=== PATIENT | female | born 1940 | race Caucasian/White ===

== ENCOUNTER → 2016-09-17 | Outpatient (CLI) | payer MEDICARE ==
[~2016-09-17] MED LIST: ALBU8.5H2 IH; AMLO5TAB2 PO; AMOX-355 PO; ASP325T PO; ASP81CT; ASP81TEC PO; ASPI-84 PO; BNZ20T PO; BNZ40T PO; CALC-20 PO; CALC-80 PO; CHOL10008 PO; CHOL2000; CHOL200018 PO; CHOL200035 PO; CLOP75TA PO; CLOT15CR6 TOP; DCS100C; DICL100G20 TOP; DICL500C PO; FAMO20TA5 PO; FLD5TCR; FLD5TCR PO; FLUT1DIS26 IH; FRSM40T; FRSM40T PO; GLIP5TAB13 PO; GLYB1.252; GLYB1.253 PO; GLYB2.5T4 PO; HYDR-3812 PO; HYDR-707 PO; INSASP10V SQ; INSU100V5 SQ; IPRA3AMP IH; IPRA3AMP11 INH; IPRA3AMP19 IH; ISM30TCR PO; KCL20TCR; KCL20TCR PO; MELO-195 PO; MELO7.5T; METO25TA2 PO; METO50TA7 PO; MNTL10T PO; MONT10TA24 PO; MTP50T PO; NF-TYLARTH PO; NITR0.3T6 SL; PANT40SU PO; POLY119P; POLY17PO23 PO; POTA20TA15 PO; PRAV20TA PO; PRAV40TA PO; PRAV40TA2 PO; PRAV80TA2 PO; PRD20T PO; PROP1TAB2 PO; PROP1TAB77; RAMI10TA PO; RMP5C; SMV20T; TIOT4MIS5 IH; TRAM-42 PO; TRAM50TA2 PO; VITD; WARF1TAB6 PO; WARF5TAB PO; WRF5T PO
--- NOTE | 2016-09-18 07:01 | ECHOCARDIOGRAPHY REPORT ---
DATE OF SERVICE: ORDERING PHYSICIAN: Dr. Lopez. PRIMARY PHYSICIAN: Dr. Cabrera. CLINICAL DIAGNOSES: Coronary artery disease, cardiomyopathy. MEASUREMENTS: LV diameter diastolic 5.2. IVS thickness diastolic 1.1. LVPW thickness diastolic 1. Aortic root 2.9. Left atrium 4. DESCRIPTION: Two dimensional echocardiography shows global left ventricular systolic function at the lower limit of normal with an ejection fraction of 50%. There is basal septal akinesis to dyskinesis. There is thinning of this part of the septum. Aortic mitral and tricuspid valve leaflets show good leaflet excursion. Aortic valve appears to be trileaflet. There is no significant pericardial effusion. Doppler imaging shows mild mitral, tricuspid and pulmonic regurgitation. There is no Doppler evidence of significant valvular stenosis. Pulmonary artery systolic pressure is estimated to be 30 mmHg. There is no evidence of any significant intracardiac shunt on this transthoracic echocardiography study. Inferior vena cava appears to be of normal size and does exhibit inspiratory collapse. CONCLUSION: 1. Basal septal akinesis to dyskinesis. 2. Global left ventricular systolic function at the lower limit of normal with an ejection fraction of 50%. 3. Mild mitral and tricuspid regurgitation. 4. Pulmonary artery systolic pressure is estimated to be 25-30 mmHg. 5. This study does not appear significantly changed compared to a study of 05/02/2012. Job ID: [id number] DocumentID: [id number] Dictated Date: 09/17/2016 12:34:22 Agricultural Extension Agent Date: 09/17/2016 13:01:53 Dictated By: FAITH LOPEZ MD, MA, FACP, FACC, MTDD
== END ==
LOC: CARD 07:28
PROVIDERS: ATTEND Internal Medicine Cardiovascular Disease
DX: I25.10 Atherosclerotic heart disease of native coronary artery without angina pectoris (principal); I65.23 Occlusion and stenosis of bilateral carotid arteries; I42.0 Dilated cardiomyopathy; I80.222 Phlebitis and thrombophlebitis of left popliteal vein; E11.9 Type 2 diabetes mellitus without complications; G47.33 Obstructive sleep apnea (adult) (pediatric); R06.02 Shortness of breath; Z72.0 Tobacco use
CPT/HCPCS: 93306

== ENCOUNTER 2016-11-28 19:53 | Emergency (ER) | payer MEDICARE ==
[~2016-11-28] VITALS: Ht 165.1 cm; Wt 89.4 kg
--- NOTE | 2016-11-28 20:21 | ED Lower Extremity ---
General Chief Complaint: Lower Extremity Stated Complaint: LEG SWELLING Source: patient Exam Limitations: no limitations History of Present Illness Time seen by provider: 19:58 Initial Comments Here with report of left lower leg pain, swelling and redness. Noted tonight when she took off her compression stocking that she had redness to the left lower extremity especially anterior and pain to the posterior calf on the lateral aspect. She is on Coumadin but reports that she has had blood clots before. Denies recent injury to explain the concern. Denies fever or chills. Onset: this evening Severity: moderate Pain/Injury Location: left leg Method of Injury: unknown Modifying Factors: Worse With Movement, Improves With Rest Allergies and Home Medications Allergies Coded Allergies: Erythromycin Base (Verified Allergy, Intermediate, HIVES, 10/10/13) Cephalexin (Verified Allergy, Unknown, 10/10/13) Home Medications Aspirin 81 Mg Tabec, 81 MG PO DAILY, (Reported) Benazepril Hcl 40 Mg Tablet, 40 MG PO DAILY, (Reported) Calcium Carbonate/Vitamin D3 1 Each Tablet, 1 EACH PO HS, (Reported) Cholecalciferol (Vitamin D3) 2,000 Unit Capsule, 2,000 UNIT PO HS, (Reported) Famotidine 20 Mg Tablet, 20 MG PO BID, (Reported) Fluticasone/Salmeterol 1 Disk Inhp, 1 PUFF IH BID, (Reported) Furosemide 40 Mg Tab, 40 MG PO DAILY, (Reported) Glipizide 5 Mg Tablet, 5 MG PO BID, (Reported) Hydrocodone/Acetaminophen 1 Each Tablet, 1-2 EACH PO Q4H PRN for PAIN, #30 Prescribed by: KEYSHA BRUNO on 08/07/15 1350 Insulin Detemir 100 U/Ml Vial, 10 U SQ HS PRN for BLOOD SUGAR >200, (Reported) TAKE IF BLOOD SUGAR IS OVER 200 Insulin Human Lispro 100 U/Ml Vial, 8 UNITS SQ TIDAC PRN for BLOOD SUGAR > 200, (Reported) TAKE IF BLOOD SUGAR IS OVER 200 Ipratropium/Albuterol Sulfate 3 Ml Ampul.neb, 3 ML IH QID PRN for SHORTNESS OF BREATH, (Reported) Metoprolol Tartrate 50 Mg Tablet, 50 MG PO BID, (Reported) Montelukast Sodium 10 Mg Tablet, 10 MG PO HS, (Reported) Polyethylene Glycol 17 Gm Pack, 17 GM PO DAILY PRN for CONSTIPATION, (Reported) NEEDED FOR CONSTIPATION Potassium Chloride 20 Meq Tab.prt.sr, 20 MEQ PO DAILY, (Reported) Pravastatin Sodium 40 Mg Tablet, 20 MG PO HS, (Reported) TAKE 1/2 OF 40MG TAB Tramadol HCl 50 Mg Tablet, 50 MG PO QID, #30 Prescribed by: DORENE ORANTES on 10/17/15 1552 Warfarin Sodium 5 Mg Tablet, 5 MG PO DAILY, (Reported) Warfarin Sodium 1 Mg Tablet, 1 MG PO WEDSUN, (Reported) TAKE IN ADDITION TO 5 MG ON WED AND WED Constitutional: see HPI, No chills, No fever EENTM: no symptoms reported Respiratory: no symptoms reported Cardiovascular: no symptoms reported Gastrointestinal: no symptoms reported Musculoskeletal: see HPI, muscle pain, No muscle stiffness Skin: change in color, No lesions Psychiatric/Neurological: No Symptoms Reported Past Sccumew-Ubhxey-Ccedjh Hx Patient Social History Former Smoker/When Quit: September 29, 2011 Recent Foreign Travel: No Contact w/Someone Who Travel: No Immunizations Up To Date Date of Pneumonia Vaccine: Jan 05, 2015 Date of Influenza Vaccine: Feb 28, 2015 Surgeries HX Surgeries: Yes (FOOT TUMOR,CATARACTS,X2MMK&RECTOCELE,,HEMORRHOIDS, HEMICOLECTomy) Respiratory Hx Respiratory Disorders: Yes (uses CPAP) Respiratory Disorders: Asthma, Sleep Apnea, COPD Cardiovascular Hx Cardiac Disorders: Yes (STENTS, triple bypass, possible heart attack) Cardiac Disorders: Deep Vein Thrombosis Neurological Hx Neurological Disorders: No Reproductive System Hx Reproductive Disorders: No Sexually Transmitted Disease: No HIV/AIDS: No 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 Disorders: Endometriosis Genitourinary Hx Genitourinary Disorders: Yes (OCC.LEAKING) Gastrointestinal Hx Gastrointestinal Disorders: Yes (colon resection, ) Musculoskeletal Hx Musculoskeletal Disorders: Yes Musculoskeletal Disorders: Arthritis Endocrine Hx Endocrine Disorders: Yes Endocrine Disorders: Diabetes, Non-Insulin dep HEENT HX ENT Disorders: Yes (partial lower plate) HEENT Disorders: Cataract Loss of Vision: Denies Hearing Impairment: Denies Cancer Hx Cancer: Yes Cancer: Skin Psychosocial Hx Psychiatric Problems: No Integumentary HX Skin/Integumentary Disorder: No Blood Transfusions Hx Blood Disorders: No (HX OF DVT, ) Adverse Reaction to a Blood Tr: No Reviewed Nursing Assessment Reviewed/Agree w Nursing PMH: Yes Family Medical History Significant Family History: No Pertinent Family Hx Physical Exam Vital Signs Vital Sign - Last 12Hours 11/28/16 19:55 Temp 98.1 Pulse 77 Resp 20 B/P (MAP) 156/69 Pulse Ox 95 O2 Delivery Room Air Capillary Refill : General Appearance: WD/WN, no apparent distress Cardiovascular: regular rate, rhythm, no murmur Respiratory: lungs clear, normal breath sounds Gastrointestinal: non tender, soft Back: normal inspection, no CVA tenderness, no vertebral tenderness Legs: right leg non-tender, right leg normal inspection, right leg normal range of motion, right leg no evidence of injury, left leg pain, left leg soft tissue tenderness, left leg swelling, left leg other Feet: bilateral foot non-tender, bilateral foot normal inspection, bilateral foot normal range of motion Neurologic/Psychiatric: alert, oriented x 3 Skin: warm/dry, other (erythema to the left lower extremity especially lateral from ankle to knee.) Progress/Results/Core Measures Results/Orders Lab Results Laboratory Tests Test 11/28/16 20:14 Range/Units White Blood Count 7.1 4.3-11.0 10^3/uL Red Blood Count 4.51 4.35-5.85 10^6/uL Hemoglobin 13.1 11.5-16.0 G/DL Hematocrit 40 35-52 % Mean Corpuscular Volume 89 80-99 FL Mean Corpuscular Hemoglobin 29 25-34 PG Mean Corpuscular Hemoglobin Concent 33 32-36 G/DL Red Cell Distribution Width 14.9 H 10.0-14.5 % Platelet Count 222 130-400 10^3/uL Mean Platelet Volume 10.0 7.4-10.4 FL Neutrophils (%) (Auto) 59 42-75 % Lymphocytes (%) (Auto) 25 12-44 % Monocytes (%) (Auto) 12 0-12 % Eosinophils (%) (Auto) 3 0-10 % Basophils (%) (Auto) 1 0-10 % Neutrophils # (Auto) 4.2 1.8-7.8 X 10^3 Lymphocytes # (Auto) 1.8 1.0-4.0 X 10^3 Monocytes # (Auto) 0.8 0.0-1.0 X 10^3 Eosinophils # (Auto) 0.2 0.0-0.3 10^3/uL Basophils # (Auto) 0.1 0.0-0.1 10^3/uL Prothrombin Time 38.0 H 12.2-14.7 SEC INR Comment 3.9 H 0.8-1.4 Activated Partial Thromboplast Time 50 H 24-35 SEC Sodium Level 145 135-145 MMOL/L Potassium Level 3.7 3.6-5.0 MMOL/L Chloride Level 112 H 98-107 MMOL/L Carbon Dioxide Level 20 L 21-32 MMOL/L Anion Gap 13 5-14 MMOL/L Blood Urea Nitrogen 18 7-18 MG/DL Creatinine 0.86 0.60-1.30 MG/DL Estimat Glomerular Filtration Rate > 60 BUN/Creatinine Ratio 21 Glucose Level 154 H 70-105 MG/DL Calcium Level 9.0 8.5-10.1 MG/DL Total Bilirubin 0.4 0.1-1.0 MG/DL Aspartate Amino Transf (AST/SGOT) 20 5-34 U/L Alanine Aminotransferase (ALT/SGPT) 16 0-55 U/L Alkaline Phosphatase 69 40-136 U/L C-Reactive Protein High Sensitivity 1.62 H 0.00-0.50 MG/DL Total Protein 6.4 6.4-8.2 GM/DL Albumin 3.7 3.2-4.5 GM/DL My Orders Orders - ROMA WISDOM MD Venous Lower Ext Lt (11/28/16 20:03) Cbc With Automated Diff (11/28/16 20:03) Comprehensive Metabolic Panel (11/28/16 20:03) Hs C Reactive Protein (11/28/16 20:03) Protime With Inr (11/28/16 20:03) Partial Thromboplastin Time (11/28/16 20:03) Doxycycline Hyclate Tablet (Vibramycin T (11/28/16 21:02) Vital Signs/I&O Vital Sign - Last 12Hours 11/28/16 19:55 Temp 98.1 Pulse 77 Resp 20 B/P (MAP) 156/69 Pulse Ox 95 O2 Delivery Room Air Progress Note : Progress Note Seen and evaluated. Labs, PT/INR and PTT due to patient being on anticoagulants and ultrasound left lower extremity ordered. Monitor patient. 2103: Ultrasound negative. Findings more consistent with mild cellulitis. Doxycycline 100 mg by mouth initiated. She thinks that she has taken this before without any difficulty. Discharge home with return precautions. Patient verbalize understanding instructions and agreement with plan. Diagnostic Imaging Diagonstic Imaging: Ultrasound Plain Films/CT/US/NM/MRI: leg Comments Left lower extremity ultrasound shows no evidence of DVT per preliminary read. Departure Impression Impression: Primary Impression: Cellulitis of left lower extremity Disposition: HOME, SELF-CARE Condition: Stable Departure-Patient Inst. Decision time for Depature: 21:05 Referrals: MAHENDRA RENNER DO (PCP/Family) Primary Care Physician Patient Instructions: Cellulitis (Skin Infection), Adult (DC) Add. Discharge Instructions: All discharge instructions reviewed with patient and/or family. Voiced understanding. Take medications as directed. Follow up with your Dr. in a few days for recheck. Return for worse pain, fever, vomiting, weakness, red streaks up the leg or other concerns as needed. Scripts Doxycycline Hyclate (Doxycycline Hyclate) 100 Mg Tablet 100 MG PO BID, #20 TAB 0 Refills Prov: ROMA WISDOM MD 11/28/16 ROMA WISDOM MD Nov 28, 2016 20:21
[2016-11-28 20:23] LABS: BASOPHILS # (AUTO) 0.1 10^3/uL (0.0-0.1); BASOPHILS % (AUTO) 1 % (0-10); EOSINOPHILS # (AUTO) 0.2 10^3/uL (0.0-0.3); EOSINOPHILS % (AUTO) 3 % (0-10); LYMPHOCYTES # (AUTO) 1.8 X 10^3 (1.0-4.0); LYMPHOCYTES % (AUTO) 25 % (12-44); MEAN CORPUSCULAR HEMOGLOBIN 29 PG (25-34); MEAN CORPUSCULAR HGB CONC 33 G/DL (32-36); MEAN CORPUSCULAR VOLUME 89 FL (80-99); MONOCYTES # (AUTO) 0.8 X 10^3 (0.0-1.0); MONOCYTES % (AUTO) 12 % (0-12); NEUTROPHILS # (AUTO) 4.2 X 10^3 (1.8-7.8); NEUTROPHILS % (AUTO) 59 % (42-75); PLATELET COUNT 222 10^3/uL (130-400); RED BLOOD COUNT 4.51 10^6/uL (4.35-5.85); RED CELL DISTRIBUTION WIDTH 14.9 % (10.0-14.5); WHITE BLOOD COUNT 7.1 10^3/uL (4.3-11.0)
[2016-11-28 20:33] LABS: INR 3.9 (0.8-1.4)
[2016-11-28 20:42] LABS: ALANINE AMINOTRANSFERASE 16 U/L (0-55); ALBUMIN 3.7 GM/DL (3.2-4.5); ANION GAP 13 MMOL/L (5-14); ASPARTATE AMINO TRANSFERASE 20 U/L (5-34); BILIRUBIN,TOTAL 0.4 MG/DL (0.1-1.0); BLOOD UREA NITROGEN 18 MG/DL (7-18); BUN/CREATININE RATIO 21; CARBON DIOXIDE 20 MMOL/L (21-32); CHLORIDE 112 MMOL/L (98-107); CREATININE SERUM 0.86 MG/DL (0.60-1.30); GFR ESTIMATED > 60; GLUCOSE 154 MG/DL (70-105); POTASSIUM 3.7 MMOL/L (3.6-5.0); SODIUM 145 MMOL/L (135-145); TOTAL PROTEIN 6.4 GM/DL (6.4-8.2); hs C REACTIVE PROTEIN 1.62 MG/DL (0.00-0.50)
[2016-11-28] MEDS ORDERED: DOXYCYCLINE 100 MG (VIBRAMYCIN) TABLET PO STA (21:02)
[2016-11-28] MEDS ORDERED: DOXY100T2 PO (21:10)
[2016-11-28 21:50] VITALS: BP 155/69
--- NOTE | 2016-11-29 06:09 | Diagnostic Imaging Report ---
PROCEDURE: US left lower extremity venous. INDICATION: Edema EXAMINATION: Left lower extremity venous Doppler dated 11/28/2016 TECHNIQUE: Waveform and spectral analysis of the lower extremity venous structures. FINDINGS: There is no evidence for deep vein thrombosis with normal compressibility, augmentation and spontaneity of all visualized venous structures. IMPRESSION: 1. No evidence for deep vein thrombosis. Dictated by: Dictated on workstation # [id number]
== END 2016-11-28 21:50 | disposition home or self-care (01) ==
LOC: EDUNIT# 19:53 → ER 19:54
DX: I82.90 Acute embolism and thrombosis of unspecified vein (principal); Z79.01 Long term (current) use of anticoagulants
CPT/HCPCS: 36415; 80053; 85025; 85610; 85730; 86141; 99283

== ENCOUNTER 2016-12-20 12:23 | Day surgery (SDC) | payer MEDICARE ==
[~2016-12-20] VITALS: Ht 165.1 cm; Wt 86.2 kg
[~2016-12-20 12:23] MED LIST changes: +DOXY100T2 PO
[2016-12-20] MEDS ORDERED: ASPIRIN 81 MG CHEW (CHILDREN'S ASA) ONE (12:41)
[2016-12-20 13:05] LABS: BASOPHILS # (AUTO) 0.1 10^3/uL (0.0-0.1); BASOPHILS % (AUTO) 1 % (0-10); EOSINOPHILS # (AUTO) 0.2 10^3/uL (0.0-0.3); EOSINOPHILS % (AUTO) 3 % (0-10); LYMPHOCYTES # (AUTO) 1.7 X 10^3 (1.0-4.0); LYMPHOCYTES % (AUTO) 18 % (12-44); MEAN CORPUSCULAR HEMOGLOBIN 29 PG (25-34); MEAN CORPUSCULAR HGB CONC 32 G/DL (32-36); MEAN CORPUSCULAR VOLUME 91 FL (80-99); MONOCYTES # (AUTO) 0.7 X 10^3 (0.0-1.0); MONOCYTES % (AUTO) 8 % (0-12); NEUTROPHILS # (AUTO) 6.4 X 10^3 (1.8-7.8); NEUTROPHILS % (AUTO) 70 % (42-75); PLATELET COUNT 231 10^3/uL (130-400); RED BLOOD COUNT 4.53 10^6/uL (4.35-5.85); RED CELL DISTRIBUTION WIDTH 15.1 % (10.0-14.5); WHITE BLOOD COUNT 9.1 10^3/uL (4.3-11.0)
--- NOTE | 2016-12-20 13:12 | Diagnostic Imaging Report ---
EXAMINATION: Chest radiograph, portable AP view. DATE: December 20, 2016 at 12:54 hours. INDICATION: 76-year-old female, productive cough. COMPARISON: November 28, 2014. FINDINGS: There are median sternotomy wires. Stable overall appearance of the cardiomediastinal silhouette. There is no identified pneumothorax. There is no large pleural effusion. There is no identified interval focal airspace consolidation. IMPRESSION: 1. No identified interval acute cardiopulmonary abnormality. Dictated by: Dictated on workstation # [id number]
[2016-12-20 13:21] LABS: ALANINE AMINOTRANSFERASE 19 U/L (0-55); ALBUMIN 3.7 GM/DL (3.2-4.5); ANION GAP 13 MMOL/L (5-14); ASPARTATE AMINO TRANSFERASE 28 U/L (5-34); BILIRUBIN,TOTAL 0.4 MG/DL (0.1-1.0); BLOOD UREA NITROGEN 16 MG/DL (7-18); BUN/CREATININE RATIO 21; CALCIUM 8.6 MG/DL (8.5-10.1); CARBON DIOXIDE 19 MMOL/L (21-32); CHLORIDE 110 MMOL/L (98-107); CREATININE SERUM 0.78 MG/DL (0.60-1.30); GFR ESTIMATED > 60; GLUCOSE 88 MG/DL (70-105); POTASSIUM 4.7 MMOL/L (3.6-5.0); SODIUM 142 MMOL/L (135-145); TOTAL PROTEIN 6.8 GM/DL (6.4-8.2)
[2016-12-20 13:27] LABS: TROPONIN I < 0.30 NG/ML (<0.30)
--- NOTE | 2016-12-20 13:54 | ED Chest Pain ---
General Chief Complaint: Chest Pain Stated Complaint: CHEST PAIN Nursing Triage Note: pt reports medial epigastric cp starting around 1100 today. pt reports she took two nitro at home and cp resolved upon arrival to ed. Source: patient, family Exam Limitations: no limitations History of Present Illness Time seen by provider: 13:35 Initial Comments 76-year-old female patient presents to the emergency department complains of indigestion with epigastric pain radiating into the jaw wednesday morning. Patient reports taking one nitroglycerin with improvement in symptoms. Patient was noted to have similar symptoms beginning at 1100 today. States she took 2 nitroglycerin at home with improvement in symptoms. Patient does have a history of coronary artery disease with stent placement. Timing/Duration: intermittent, other (1100 today) Severity/Quality: other (indigestion) Location: epigastric Radiation: jaw, other (substernal) Activities at Onset: none Prior CP/Workup: cardiac cath, echocardiography Modifying Factors: improves with nitroglycerin ASA po DIRECTOR SECURITY MANAGEMENT: No NTG SL DIRECTOR SECURITY MANAGEMENT: Yes Allergies and Home Medications Allergies Coded Allergies: erythromycin base (Verified Allergy, Intermediate, HIVES, 10/10/13) cephalexin (Verified Allergy, Unknown, 10/10/13) Home Medications Amlodipine Besylate 5 Mg Tablet, 5 MG PO DAILY, (Reported) Aspirin 81 Mg Tab.chew, 81 MG PO DAILY, (Reported) Benazepril HCl 40 Mg Tab, 40 MG PO DAILY, (Reported) Calcium Citrate/Vitamin D3 1 Each Tablet, 1 TAB PO DAILY, (Reported) Cholecalciferol (Vitamin D3) 2,000 Unit Capsule, 2,000 UNIT PO HS, (Reported) Famotidine 20 Mg Tablet, 20 MG PO BID, (Reported) Fluticasone/Salmeterol 1 Each Blst.w.dev, 1 PUFF IH BID, (Reported) Furosemide 40 Mg Tablet, 40 MG PO DAILY, (Reported) Glipizide 5 Mg Tablet, 2.5 MG PO BID, (Reported) TAKES 1/2 OF A (5 MG) TABLET Insulin Detemir 100 U/Ml Vial, 10 U SQ HS PRN for BLOOD SUGAR GREATER THAN 200, (Reported) Insulin Human Lispro 100 U/Ml Vial, 8 UNITS SQ TIDAC PRN for BLOOD SUGAR GREATER THAN 180, (Reported) Ipratropium/Albuterol Sulfate 3 Ml Ampul.neb, 3 ML IH QID PRN for SHORTNESS OF BREATH, (Reported) Metoprolol Tartrate 50 Mg Tablet, 50 MG PO BID, (Reported) Montelukast Sodium 10 Mg Tablet, 10 MG PO HS, (Reported) Nitroglycerin 0.4 Mg Tab.subl, 0.4 MG SL Q5M PRN for CHEST PAIN, #20 Prescribed by: MAHENDRA RENNER on 12/23/16 1101 Polyethylene Glycol 3350 255 Gm Powder, 17 GM PO DAILY, (Reported) Potassium Chloride 20 Meq Tab.er.prt, 20 MEQ PO DAILY, (Reported) Pravastatin Sodium 40 Mg Tablet, 20 MG PO HS, (Reported) TAKE 1/2 OF (40 MG) TABLET Tramadol HCl 50 Mg Tablet, 50 MG PO TID PRN for PAIN-MODERATE, (Reported) Warfarin Sodium 5 Mg Tablet, 5 MG PO 1800, (Reported) Review of Systems Constitutional: No chills, No diaphoresis, No dizziness, No fever, No malaise, No weakness EENTM: See HPI Respiratory: Denies Cough, Denies Orthopnea, Denies Shortness of Air Cardiovascular: See HPI, Chest Pain, Denies Irregular Heart Rate, Denies Lightheadedness, Denies Palpitations, Denies Syncope Gastrointestinal: See HPI, Denies Abdomen Distended, Abdominal Pain, Denies Constipated, Denies Diarrhea, Denies Nausea, Denies Rectal Bleeding, Denies Vomiting Genitourinary: No Symptoms Reported Musculoskeletal: no symptoms reported Skin: no symptoms reported Psychiatric/Neurological: No Symptoms Reported All Other Systems Reviewed Negative Unless Noted: Yes (Negative excepted noted.) Past Ugvulkt-Kvpjyo-Vrvysu Hx Patient Social History Type Used: Cigarettes Former Smoker/When Quit: September 29, 2011 2nd Hand Smoke Exposure: Yes Recent Foreign Travel: No Contact w/Someone Who Travel: No Recent Hopitalizations: No Immunizations Up To Date Date of Pneumonia Vaccine: Jan 05, 2015 Date of Influenza Vaccine: Feb 28, 2015 Seasonal Allergies Seasonal Allergies: Yes Surgeries HX Surgeries: Yes (FOOT TUMOR,CATARACTS,X2MMK&RECTOCELE,,HEMORRHOIDS, HEMICOLECTomy) Respiratory Hx Respiratory Disorders: Yes (uses CPAP) Respiratory Disorders: Asthma, Sleep Apnea, COPD Cardiovascular Hx Cardiac Disorders: Yes (STENTS, triple bypass, possible heart attack) Cardiac Disorders: Coronary Artery Disease, Deep Vein Thrombosis, Hypertension Neurological Hx Neurological Disorders: No Reproductive System Hx Reproductive Disorders: No Sexually Transmitted Disease: No HIV/AIDS: No 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 Disorders: Endometriosis Genitourinary Hx Genitourinary Disorders: Yes (OCC.LEAKING) Gastrointestinal Hx Gastrointestinal Disorders: Yes (colon resection, ) Musculoskeletal Hx Musculoskeletal Disorders: Yes Musculoskeletal Disorders: Arthritis Endocrine Hx Endocrine Disorders: Yes Endocrine Disorders: Diabetes, Non-Insulin dep HEENT HX ENT Disorders: Yes (partial lower plate) HEENT Disorders: Cataract Loss of Vision: Denies Hearing Impairment: Denies Cancer Hx Cancer: Yes Cancer: Skin Psychosocial Hx Psychiatric Problems: No Integumentary HX Skin/Integumentary Disorder: No Blood Transfusions Hx Blood Disorders: No (HX OF DVT, ) Adverse Reaction to a Blood Tr: No Reviewed Nursing Assessment Reviewed/Agree w Nursing PMH: Yes Family Medical History Significant Family History: No Pertinent Family Hx Physical Exam Vital Signs Vital Sign - Last 12Hours 12/20/16 13:00 Temp 98.0 Pulse 83 Resp 18 B/P (MAP) 124/68 O2 Delivery Room Air Capillary Refill : General Appearance: No Apparent Distress, WD/WN HEENT: PERRL/EOMI, Pharynx Normal Neck: Normal Inspection, Supple Respiratory: Chest Non Tender, Lungs Clear, Normal Breath Sounds, No Respiratory Distress Cardiovascular: Regular Rate, Rhythm, No Murmur, Normal Peripheral Pulses Gastrointestinal: Normal Bowel Sounds, No Organomegaly, Non Tender, Soft, No Distended Extremity: Normal Capillary Refill, Pedal Edema (2+ pedal edema bilaterally) Neurologic/Psychiatric: Alert, Oriented x3, Normal Mood/Affect Skin: Normal Color, Warm/Dry Progress/Results/Core Measures Results/Orders Lab Results Laboratory Tests Test 12/20/16 12:39 Range/Units White Blood Count 9.1 4.3-11.0 10^3/uL Red Blood Count 4.53 4.35-5.85 10^6/uL Hemoglobin 13.2 11.5-16.0 G/DL Hematocrit 41 35-52 % Mean Corpuscular Volume 91 80-99 FL Mean Corpuscular Hemoglobin 29 25-34 PG Mean Corpuscular Hemoglobin Concent 32 32-36 G/DL Red Cell Distribution Width 15.1 H 10.0-14.5 % Platelet Count 231 130-400 10^3/uL Mean Platelet Volume 11.0 H 7.4-10.4 FL Neutrophils (%) (Auto) 70 42-75 % Lymphocytes (%) (Auto) 18 12-44 % Monocytes (%) (Auto) 8 0-12 % Eosinophils (%) (Auto) 3 0-10 % Basophils (%) (Auto) 1 0-10 % Neutrophils # (Auto) 6.4 1.8-7.8 X 10^3 Lymphocytes # (Auto) 1.7 1.0-4.0 X 10^3 Monocytes # (Auto) 0.7 0.0-1.0 X 10^3 Eosinophils # (Auto) 0.2 0.0-0.3 10^3/uL Basophils # (Auto) 0.1 0.0-0.1 10^3/uL Prothrombin Time 32.9 H 12.2-14.7 SEC INR Comment 3.2 H 0.8-1.4 Activated Partial Thromboplast Time 53 H 24-35 SEC Sodium Level 142 135-145 MMOL/L Potassium Level 4.7 3.6-5.0 MMOL/L Chloride Level 110 H 98-107 MMOL/L Carbon Dioxide Level 19 L 21-32 MMOL/L Anion Gap 13 5-14 MMOL/L Blood Urea Nitrogen 16 7-18 MG/DL Creatinine 0.78 0.60-1.30 MG/DL Estimat Glomerular Filtration Rate > 60 BUN/Creatinine Ratio 21 Glucose Level 88 70-105 MG/DL Calcium Level 8.6 8.5-10.1 MG/DL Total Bilirubin 0.4 0.1-1.0 MG/DL Aspartate Amino Transf (AST/SGOT) 28 5-34 U/L Alanine Aminotransferase (ALT/SGPT) 19 0-55 U/L Alkaline Phosphatase 82 40-136 U/L Troponin I < 0.30 <0.30 NG/ML Total Protein 6.8 6.4-8.2 GM/DL Albumin 3.7 3.2-4.5 GM/DL TSH [place] Testing 0.86 0.35-4.94 UIU/ML Vital Signs/I&O Vital Sign - Last 12Hours 12/20/16 12/20/16 13:00 13:00 Temp 98.0 Pulse 83 Resp 18 B/P (MAP) 124/68 O2 Delivery Room Air ECG Initial ECG Impression Date: Dec 20, 2016 Initial ECG Impression Time: 12:34 Initial ECG Rate: 149 Initial ECG Comparisson: Unchanged Comment ECG similar to 02/05/15. sinus rhythm with Right bundle branch block and ventricular bigeminy. ECG reviewed by Dr. Raphael. Diagnostic Imaging Diagonstic Imaging: Xray Plain Films/CT/US/NM/MRI: chest Comments FINDINGS: There are median sternotomy wires. Stable overall appearance of the cardiomediastinal silhouette. There is no identified pneumothorax. There is no large pleural effusion. There is no identified interval focal airspace consolidation. IMPRESSION: 1. No identified interval acute cardiopulmonary abnormality. Dictated by: Dictated on workstation # [id number] Reviewed: Reviewed by Me (radiology report reviewed by me) Departure Communication Time/Spoke to Admitting Phy: 14:[address] Renner graciously accepts patient to her internal medicine service for cardiology consult and further evaluation. Time/Spoke to Consulting Physi: 14:20 Communication/Consulting Dr. Ray notified of cardiology consult Progress Notes All laboratory findings and diagnostic study findings discussed with the patient. Patient has had no recurrent chest pain while in the emergency department; however, patient does have a history of CAD with stent placement. Pain was relieved with nitroglycerin at home. Therefore, we will plan for admission for observation and cardiology consult. Patient voices understanding and wishes to proceed. Patient case discussed with Dr. Vadim Raphael, he agrees with the plan of care. Impression Impression: Primary Impression: Chest pain Qualified Codes: R07.9 - Chest pain, unspecified Additional Impression: History of coronary artery disease Disposition: ADMITTED INPATIENT Condition: Stable Decision to Admit Reason: Admit from ER (General) Decision to Admit/Date: Dec 20, 2016 Time/Decision to Admit Time: 14:00 Departure-Patient Inst. Referrals: MAHENDRA RENNER DO (PCP/Family) Primary Care Physician Scripts Nitroglycerin (Nitrostat) 0.4 Mg Tab.subl 0.4 MG SL Q5M Y for CHEST PAIN, #20 TAB Prov: MAHENDRA RENNER DO 12/23/16 BEN JOSEPH Dec 20, 2016 13:54
[2016-12-20] MEDS ORDERED: ASPIRIN 81 MG CHEW (CHILDREN'S ASA) PO ONE (14:30)
[2016-12-20 15:00] VITALS: BP 158/80
[2016-12-20] MEDS ORDERED: CLOPIDOGREL 300 MG (PLAVIX) TABLET PO NR (15:22)
[2016-12-20] MEDS ORDERED: ACETAMINOPHEN 500 MG TAB (TYLENOL) PO PRN (15:30)
[2016-12-20] MEDS ORDERED: NITROGLYCERIN SUBLINGUAL 0.4 MG TAB (NITROSTAT) SL PRN (15:30)
[2016-12-20] MEDS ORDERED: CATHETER FLUSH 10 ML SYR IV PRN (15:30)
[2016-12-20] MEDS ORDERED: morphine INJ 4 MG/ML 1 ML (VIAL/SYRINGE) IVP PRN (15:30)
[2016-12-20] MEDS ORDERED: ONDANSETRON 4 MG/2 ML (SDV) Z0FRAN IVP PRN (15:30)
[2016-12-20 15:37] LABS: INR 3.2 (0.8-1.4); PROTHROMBIN TIME PATIENT 32.9 SEC (12.2-14.7)
[2016-12-20 20:00] VITALS: BP 158/79
[2016-12-20] MEDS: CATHETER FLUSH 10 ML SYR IV SCH (21:00)
[2016-12-21] VITALS (7 sets, daily range): BP systolic 151–173; BP diastolic 63–79
[2016-12-21 04:28] LABS: BASOPHILS # (AUTO) 0.1 10^3/uL (0.0-0.1); BASOPHILS % (AUTO) 1 % (0-10); EOSINOPHILS # (AUTO) 0.3 10^3/uL (0.0-0.3); EOSINOPHILS % (AUTO) 4 % (0-10); LYMPHOCYTES # (AUTO) 1.5 X 10^3 (1.0-4.0); LYMPHOCYTES % (AUTO) 21 % (12-44); MEAN CORPUSCULAR HEMOGLOBIN 29 PG (25-34); MEAN CORPUSCULAR HGB CONC 32 G/DL (32-36); MEAN CORPUSCULAR VOLUME 90 FL (80-99); MEAN PLATELET VOLUME 10.8 FL (7.4-10.4); MONOCYTES # (AUTO) 0.7 X 10^3 (0.0-1.0); MONOCYTES % (AUTO) 10 % (0-12); NEUTROPHILS # (AUTO) 4.7 X 10^3 (1.8-7.8); NEUTROPHILS % (AUTO) 64 % (42-75); PLATELET COUNT 215 10^3/uL (130-400); RED BLOOD COUNT 4.38 10^6/uL (4.35-5.85); RED CELL DISTRIBUTION WIDTH 14.7 % (10.0-14.5); WHITE BLOOD COUNT 7.3 10^3/uL (4.3-11.0)
[2016-12-21 04:39] LABS: PROTHROMBIN TIME PATIENT 31.2 SEC (12.2-14.7)
[2016-12-21 05:25] LABS: ALANINE AMINOTRANSFERASE 14 U/L (0-55); ALBUMIN 3.4 GM/DL (3.2-4.5); ANION GAP 12 MMOL/L (5-14); ASPARTATE AMINO TRANSFERASE 15 U/L (5-34); BILIRUBIN,TOTAL 0.5 MG/DL (0.1-1.0); BLOOD UREA NITROGEN 13 MG/DL (7-18); BUN/CREATININE RATIO 19; CALCIUM 8.5 MG/DL (8.5-10.1); CARBON DIOXIDE 21 MMOL/L (21-32); CHLORIDE 111 MMOL/L (98-107); CHOLESTEROL 147 MG/DL (< 200); CREATININE SERUM 0.69 MG/DL (0.60-1.30); DIRECT LDL 97 MG/DL (1-129); GFR ESTIMATED > 60; GLUCOSE 95 MG/DL (70-105); POTASSIUM 3.7 MMOL/L (3.6-5.0); SODIUM 144 MMOL/L (135-145); TRIGLYCERIDES 137 MG/DL (<150); VLDL CHOLESTEROL 27 MG/DL (5-40)
[2016-12-21] MEDS: CATHETER FLUSH 10 ML SYR IV SCH ×3 (05:56→21:30)
[2016-12-21] MEDS ORDERED: ASPIRIN E.C. 325 MG (ECOTRIN) TABLET PO SCH (09:00)
--- NOTE | 2016-12-21 09:28 | Consultation-Cardiology ---
HPI-Cardiology Cardiology Consultation: Date of Consultation 12/21/16 Date of Admission Attending Physician Lesli Cabrera DO Admitting Physician Lesli Cabrera DO Consulting Physician Queta TEIXEIRA MD HPI: Time Seen by Provider: 09:30 Chief Complaint: Chest pain This is a 76-year-old lady who is a patient of Dr. Lopez. She has history of CABG in 1999 and PCI 3 in the last 17 years. She presents with prolonged episode of chest pain in the center of her chest which initially she thought was indigestion but then she decided to come to the ER. She is not having any further chest pain. She denies shortness of breath. She also denies syncope, near-syncope or palpitations. There was no radiation with the chest pain; moderate intensity. No significant exacerbating or relieving factors. No associated other cardiac symptoms. Review of Systems-Cardiology Review of Systems Constitutional: No As described under HPI, No no symptoms reported, No chills, No fever, No lightheadedness, No malaise, No tiredness, No weight loss, No weight gain, No other Eyes: No As described under HPI, No no symptoms reported, No blindness, No blurred vision, No contact lenses, No drainage, No decreased acuity, No foreign body sensation, No glasses, No inflammation, No pain, No photophobia, No previous injury, No shadows, No tunnel vision, No other, No vision change Ears/Nose/Throat: No As described under HPI, No no symptoms reported, No chronic hearing loss, No epistaxis, No ear discharge, No ear pain, No loose teeth, No mouth pain, No mouth swelling, No nasal drainage, No nose pain, No recent hearing loss, No throat pain, No throat swelling, No ulcerations, No other Respiratory: No no symptoms reported, No As described under HPI, No cough, No orthopnea, No shortness of breath, No SOB with excertion, No SOB at rest, No stridor, No wheezing, No other Cardiovascular: chest pain Gastrointestinal: No no symptoms reported, No As described under HPI, No abdomen distended, No abdominal pain, No blood streaked bowels, No constipation , No diarrhea, No difficulty swallowing, No nausea, No poor appetite, No poor fluid intake, No rectal bleeding, No vomiting, No other, No nausea/vomiting/ diarrhea, No stool coloration changes Genitourinary: No no symptoms reported, No As described under HPI, No burning, No dysuria, No discharge, No frequency, No flank pain, No hematuria, No incontinence, No pain, No urgency, No other, No urine frequency changes, No urine coloration changes Musculoskeletal: No no symptoms reported, No As describe under HPI, No back pain, No gout, No joint pain, No joint swelling, No muscle pain, No muscle stiffness, No neck pain, No other Skin: No no symptoms reported, No As described under HPI, No change in color, No change in hair/nails, No dryness, No lesions, No lumps, No rash, No other, No skin related problems, No ulcerations, No rash on exposed areas, No ulcerations on exposed areas Psychiatric/Neurological: No As described under HPI, No anxiety, No depression , No emotional problems, No focal weakness, No headache, No no symptoms reported , No numbness, No other, No pre-existing deficit, No seizure, No syncope, No tingling, No tremors, No weakness Hematologic: No no symptoms reported, No As described under HPI, No anemia, No blood clots, No easy bleeding, No easy bruising, No swollen glands, No other, No bleeding abnormalities All Other Systems Reviewed Negative Unless Noted: Yes (Negative excepted noted.) [id number] Hx Patient Social History Alcohol Use: Denies Use Recreational Drug Use: No Smoking Status: Current Everyday Smoker Former smoker/When Quit: September 29, 2011 Type Used: Cigarettes 2nd Hand Smoke Exposure: Yes Recent Foreign Travel: No Recent Infectious Disease Expo: No Physical Abuse Screen: No Sexual Abuse: No Immunizations Up To Date Date of Pneumonia Vaccine: Jan 05, 2015 Date of Influenza Vaccine: Feb 28, 2015 Past Medical History PMH As described under Assessment. Family Medical History Family History: CABG 19 FATHER Cardiovascular disease 19 FATHER 19 MOTHER Diabetes mellitus 19 MOTHER FH: lung cancer 19 FATHER FH: myocardial infarction 19 MOTHER Hypertension 19 FATHER 19 MOTHER Allergies and Home Medications Allergies Coded Allergies: erythromycin base (Verified Allergy, Intermediate, HIVES, 10/10/13) cephalexin (Verified Allergy, Unknown, 10/10/13) Home Medications Aspirin 81 Mg Tabec, 81 MG PO DAILY, (Reported) Benazepril Hcl 40 Mg Tablet, 40 MG PO DAILY, (Reported) Calcium Carbonate/Vitamin D3 1 Each Tablet, 1 EACH PO HS, (Reported) Cholecalciferol (Vitamin D3) 2,000 Unit Capsule, 2,000 UNIT PO HS, (Reported) Doxycycline Hyclate 100 Mg Tablet, 100 MG PO BID, #20 Ref 0 Prescribed by: ROMA WISDOM on 11/28/160 Famotidine 20 Mg Tablet, 20 MG PO BID, (Reported) Fluticasone/Salmeterol 1 Disk Inhp, 1 PUFF IH BID, (Reported) Furosemide 40 Mg Tab, 40 MG PO DAILY, (Reported) Glipizide 5 Mg Tablet, 5 MG PO BID, (Reported) Hydrocodone/Acetaminophen 1 Each Tablet, 1-2 EACH PO Q4H PRN for PAIN, #30 Prescribed by: KEYSHA BRUNO on 08/07/15 1350 Insulin Detemir 100 U/Ml Vial, 10 U SQ HS PRN for BLOOD SUGAR >200, (Reported) TAKE IF BLOOD SUGAR IS OVER 200 Insulin Human Lispro 100 U/Ml Vial, 8 UNITS SQ TIDAC PRN for BLOOD SUGAR > 200, (Reported) TAKE IF BLOOD SUGAR IS OVER 200 Ipratropium/Albuterol Sulfate 3 Ml Ampul.neb, 3 ML IH QID PRN for SHORTNESS OF BREATH, (Reported) Metoprolol Tartrate 50 Mg Tablet, 50 MG PO BID, (Reported) Montelukast Sodium 10 Mg Tablet, 10 MG PO HS, (Reported) Polyethylene Glycol 17 Gm Pack, 17 GM PO DAILY PRN for CONSTIPATION, (Reported) NEEDED FOR CONSTIPATION Potassium Chloride 20 Meq Tab.prt.sr, 20 MEQ PO DAILY, (Reported) Pravastatin Sodium 40 Mg Tablet, 20 MG PO HS, (Reported) TAKE 1/2 OF 40MG TAB Tramadol HCl 50 Mg Tablet, 50 MG PO QID, #30 Prescribed by: DORENE ORANTES on 10/17/15 1552 Warfarin Sodium 5 Mg Tablet, 5 MG PO DAILY, (Reported) Warfarin Sodium 1 Mg Tablet, 1 MG PO WEDSUN, (Reported) TAKE IN ADDITION TO 5 MG ON WED AND WED Physical Exam-Cardiology Physical Exam Vital Signs/I&O Vital Sign - Last 12Hours 12/21/16 12/21/16 12/21/16 12/21/16 00:00 00:00 01:00 04:00 Temp 99.5 Pulse 85 70 Resp 18 B/P (MAP) 166/63 Pulse Ox 94 94 92 O2 Delivery Room Air Room Air Room Air 12/21/16 12/21/16 12/21/16 12/21/16 04:00 07:00 07:39 07:42 Temp 99.1 99.2 Pulse 76 73 74 Resp 16 20 B/P (MAP) 152/79 151/77 Pulse Ox 92 92 O2 Delivery Room Air Room Air Room Air 12/21/16 09:00 Pulse Ox 94 O2 Delivery Room Air Intake and Output 12/21/16 00:00 Intake Total 100 ml Balance 100 ml Capillary Refill : Less Than 3 Seconds Constitutional: No appears stated age, No AAO x 3, No apparent distress, No PERRL, No well-developed, No well-nourished, No other HEENT: No PERRL, No normal ENT inspection, No TMs normal, No pharynx normal, No scleral icterus (R), No scleral icterus (L), No pale conjunctivae (R), No pale conjunctivae (L), No photophobia, No TM abnormal (R), No TM abnormal (L), No pharyngeal erythema, No tonsillar exudate, No other, No discharge, No EOMI, No hearing is well preserved, No hard of hearing, No oral hygience is good, No ulceration, No xanthelasmas are seen Neck: No non-tender, No full range of motion, No supple, No normal inspection, No carotid bruit, No limited range of motion, No lymphadenopathy (R), No lymphadenopathy (L), No tender lateral, No tender midline, No thyromegaly, No other, No carotid pulses are 2 + bilaterally, No with good upstrokes Respiratory: No accessory muscle use, No respiratory distress, No chest tender , No chest expansion is symmetric, No chest is bilaterally symmetric, No lungs clear to percussion, No lungs clear to auscultation, No crackles, No rhonchi, No rales, No stridor, No wheezing, No pleural rub, No other Cardiovascular: No regular rate-rhythm, No irregularly irregular, No extra beats, No parasternal heave is noted, No JVD, No edema, No bradycardia, No tachycardia, No point of maximal impulse, No cardiac thrills are palpable, No S1 and S2, No gallop/S3, No gallop/S4, No diastolic murmur, No systolic murmur, No friction rub, No click, No other Gastrointestinal: No tender, No soft, No round, No distended, No pulsatile mass , No organomegaly, No guarding, No rebound, No tenderness, No hernia, No mass, No audible bowel sounds, No abnormal bowel sounds, No abdominal bruits, No spleenomegaly, No other Rectal: deferred Extremities: No normal range of motion, No non-tender, No normal inspection, No pedal edema, No calf tenderness, No normal capillary refill, No pelvis stable , No calf tenderness, No inflammation, No pedal edema, No slow capillary refill , No swelling, No other, No abrasion, No clubbing, No cyanosis, No ecchymosis, No laceration, No no lower extremity edema bilateral, No significant edema, No tenderness, No wound Neurologic/Psychiatric: No silverware supervisor II-XII nml as tested, No no motor/sensory deficits, No alert, No normal mood/affect, No oriented x 3, No abnormal cerebellar tests, No abnormal silverware supervisor II-XII, No abnormal gait, No aphasia, No EOM palsy, No facial droop, No motor weakness, No sensory deficit, No depressed affect, No disoriented x 3, No other, No grossly intact, No power is 5/5 both on sides Skin: No normal color, No warm/dry, No cyanosis, No cool, No diaphoresis, No damp, No ecchymosis, No jaundice, No mottled, No pallor, No rash, No tattoos/ piercings, No ulcerations, No rash on exposed areas, No ulcerations on exposed areas, No other Data Review Labs Laboratory Tests 12/20/16 12:39: White Blood Count 9.1, Red Blood Count 4.53, Hemoglobin 13.2, Hematocrit 41, Mean Corpuscular Volume 91, Mean Corpuscular Hemoglobin 29, Mean Corpuscular Hemoglobin Concent 32, Red Cell Distribution Width 15.1H, Platelet Count 231, Mean Platelet Volume 11.0H, Neutrophils (%) (Auto) 70, Lymphocytes (%) (Auto) 18 , Monocytes (%) (Auto) 8, Eosinophils (%) (Auto) 3, Basophils (%) (Auto) 1, Neutrophils # (Auto) 6.4, Lymphocytes # (Auto) 1.7, Monocytes # (Auto) 0.7, Eosinophils # (Auto) 0.2, Basophils # (Auto) 0.1, Prothrombin Time 32.9H, INR Comment 3.2H, Activated Partial Thromboplast Time 53H, Sodium Level 142, Potassium Level 4.7, Chloride Level 110H, Carbon Dioxide Level 19L, Anion Gap 13 , Blood Urea Nitrogen 16, Creatinine 0.78, Estimat Glomerular Filtration Rate > 60, BUN/Creatinine Ratio 21, Glucose Level 88, Calcium Level 8.6, Total Bilirubin 0.4, Aspartate Amino Transf (AST/SGOT) 28, Alanine Aminotransferase ( ALT/SGPT) 19, Alkaline Phosphatase 82, Troponin I < 0.30, Total Protein 6.8, Albumin 3.7, TSH [place] Testing 0.86 12/20/16 18:54: Troponin I < 0.30 12/20/16 20:57: Glucometer 100 12/21/16 03:48: White Blood Count 7.3, Red Blood Count 4.38, Hemoglobin 12.6, Hematocrit 40, Mean Corpuscular Volume 90, Mean Corpuscular Hemoglobin 29, Mean Corpuscular Hemoglobin Concent 32, Red Cell Distribution Width 14.7H, Platelet Count 215, Mean Platelet Volume 10.8H, Neutrophils (%) (Auto) 64, Lymphocytes (%) (Auto) 21 , Monocytes (%) (Auto) 10, Eosinophils (%) (Auto) 4, Basophils (%) (Auto) 1, Neutrophils # (Auto) 4.7, Lymphocytes # (Auto) 1.5, Monocytes # (Auto) 0.7, Eosinophils # (Auto) 0.3, Basophils # (Auto) 0.1, Prothrombin Time 31.2H, INR Comment 3.0H, Activated Partial Thromboplast Time 52H, Sodium Level 144, Potassium Level 3.7, Chloride Level 111H, Carbon Dioxide Level 21, Anion Gap 12 , Blood Urea Nitrogen 13, Creatinine 0.69, Estimat Glomerular Filtration Rate > 60, BUN/Creatinine Ratio 19, Glucose Level 95, Calcium Level 8.5, Total Bilirubin 0.5, Aspartate Amino Transf (AST/SGOT) 15, Alanine Aminotransferase ( ALT/SGPT) 14, Alkaline Phosphatase 77, Total Protein 6.0L, Albumin 3.4, Triglycerides Level 137, Cholesterol Level 147, LDL Cholesterol Direct 97, VLDL Cholesterol 27, HDL Cholesterol 26L ECG Impression ECG Initial ECG Rhythm: Normal Sinus A/P-Cardiology Assessment/Admission Diagnosis Prolonged chest pain episode. Previous CABG, Previous PCI x 3, Diabetes, Active smoking. Plan aspirin, plavix, enoxaparin. Pharmacological nuclear stress test tomorrow. Continue rest of the CAD medications. Smoking cessation strongly recommended. Thank you for your consultation. Please call me if you have any questions. Artie Teixeira MD, FACP, FACC, FSCAI, FHRS, CCDS Interventional Cardiology Cardiac Electrophysiology Vascular Medicine and Endovascular Interventions Clinical Quality Measures AMI/AHF: ASA po Prior to arrival: No DVT/VTE Risk/Contraindication: Risk Factor Score Per Nursin RFS Level Per Nursing on Admit: 4+=Very High Queta TEIXEIRA MD Dec 21, 2016 09:28
--- NOTE | 2016-12-21 09:58 | History & Physical-Hospitalist ---
HPI History of Present Illness: HPI/Chief Complaint CC: Chest pain HPI: This is a 76-year-old white female clinic patient of mine with a multitude of medical problems including coronary artery disease managed by Dr. Lopez, insulin-dependent diabetes, current smoker with severe COPD managed by Dr. Ibarra the presents to the emergency room with chest pain received 2 nitroglycerin at home that works fired that helped the concerned her enough to come in. All troponins have been negative and workup has thus far been normal so will await for cardiology recommendations for disposition. Source: patient Exam Limitations: no limitations Date Seen 12/21/16 Time Seen by Provider: 09:30 Attending Physician Lesli Cabrera DO PCP Lesli Cabrera DO Referring Physician Date of Admission Dec 20, 2016 at 14:15 Home Medications & Allergies Home Medications Reviewed patient Home Medication Reconciliation Form Allergies Allergies Coded Allergies erythromycin base (Verified Allergy, Intermediate, HIVES, 10/10/13) cephalexin (Verified Allergy, Unknown, 10/10/13) Past [id number]-Jcybrh Hx Patient Social History Marrital Status: Employed/Student: retired Alcohol Use: Denies Use Recreational Drug Use: No Smoking Status: Current Everyday Smoker Former smoker/When Quit: September 29, 2011 Type Used: Cigarettes 2nd Hand Smoke Exposure: Yes Physical Abuse Screen: No Sexual Abuse: No Recent Foreign Travel: No Contact w/other who traveled: No Recent Hopitalizations: No Recent Infectious Disease Expo: No Immunizations Up To Date Date of Pneumonia Vaccine: Jan 05, 2015 Date of Influenza Vaccine: Feb 28, 2015 Seasonal Allergies Seasonal Allergies: Yes Surgeries HX Surgeries: Yes (FOOT TUMOR,CATARACTS,X2MMK&RECTOCELE,,HEMORRHOIDS, HEMICOLECTomy) Surgeries: Appendectomy, Bladder Surgery, CABG, Coronary Stent, Gallbladder, Hysterectomy, Rectal Respiratory Hx Respiratory Disorders: Yes (uses CPAP) Respiratory Disorders: COPD, Sleep Apnea Cardiovascular Hx Cardiovascular Disorders: Yes (STENTS, triple bypass, possible heart attack) Cardiac Disorders: Atrial Fibrillation, Chronic Edema/Swelling, Coronary Artery Disease, Deep Vein Thrombosis, High Cholesterol, Hypertension Neurological Hx Neurological Disorders: Yes Neurological Disorders: Neuropathy Reproductive System Hx Reproductive Disorders: No Sexually Transmitted Disease: No HIV/AIDS: No 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 Disorders: Endometriosis Genitourinary Hx Genitourinary Disorders: Yes (OCC.LEAKING) Genitourinary Disorders: Bladder Infection Gastrointestinal Hx Gastrointestinal Disorders: Yes (colon resection, ) Gastrointestinal Disorders: Diverticulosis Musculoskeletal Hx Musculoskeletal Disorders: Yes Musculoskeletal Disorders: Arthritis Endocrine Hx Endocrine Disorders: Yes Endocrine Disorders: Diabetes, Insulin dep, Diabetes, Non-Insulin dep HEENT HX ENT Disorders: Yes (partial lower plate) HEENT Disorders: Cataract Loss of Vision: Denies Hearing Impairment: Denies Cancer Hx Cancer: Yes Cancer: Skin Psychosocial Hx Psychiatric Problems: No Integumentary HX Skin/Integumentary Disorder: No Blood Transfusions Hx Blood Disorders: No (HX OF DVT, ) Adverse Reaction to a Blood Tr: No Reviewed Nursing Assessment Reviewed/Agree w Nursing PMH: Yes Family Medical History Significant Family History: No Pertinent Family Hx Family Hx: CABG 19 FATHER Cardiovascular disease 19 FATHER 19 MOTHER Diabetes mellitus 19 MOTHER FH: lung cancer 19 FATHER FH: myocardial infarction 19 MOTHER Hypertension 19 FATHER 19 MOTHER Review of Systems Constitutional: see HPI EENTM: no symptoms reported Respiratory: no symptoms reported Cardiovascular: chest pain Gastrointestinal: no symptoms reported Genitourinary: no symptoms reported Musculoskeletal: no symptoms reported Skin: no symptoms reported Psychiatric/Neurological: No Symptoms Reported All Other Systems Reviewed Negative Unless Noted: Yes Physical Exam Physical Exam Vital Signs Vital Sign - Last 12Hours 12/20/16 12/20/16 13:00 14:51 Temp 98.0 Pulse 83 Resp 18 B/P (MAP) 124/68 Pulse Ox 98 O2 Delivery Room Air Capillary Refill : Less Than 3 Seconds General Appearance: No Apparent Distress, WD/WN, Chronically ill, Obese Eyes: Bilateral Eye Normal Inspection, Bilateral Eye PERRL HEENT: PERRL/EOMI, Normal ENT Inspection, Pharynx Normal Neck: Full Range of Motion, Normal Inspection, Non Tender, Supple, Carotid Bruit Respiratory: Chest Non Tender, Lungs Clear, No Accessory Muscle Use, No Respiratory Distress, Decreased Breath Sounds Cardiovascular: No Edema, No Gallop, No JVD, No Murmur, Normal Peripheral Pulses, Tachycardia Gastrointestinal: Normal Bowel Sounds, No Organomegaly, No Pulsatile Mass, Non Tender, Soft Back: Normal Inspection, No CVA Tenderness, No Vertebral Tenderness Extremity: Normal Capillary Refill, Normal Inspection, Normal Range of Motion, Non Tender, No Calf Tenderness, No Pedal Edema Neurologic/Psychiatric: Alert, Oriented x3, No Motor/Sensory Deficits, Normal Mood/Affect Skin: Normal Color, Warm/Dry Lymphatic: No Adenopathy Results Results/Procedures Lab Laboratory Tests 12/20/16 12:39 12/21/16 03:48 Assessment/Plan Admission Diagnosis Assessment: Chest pain and known coronary artery disease patient previous stents placed Atrial fibrillation Diabetes mellitus insulin-dependent Hypertension Hyperlipidemia Renal mass of uncertain etiology managed at [facility] Current smoker Assessment and Plan Plan: Reconcile all home meds Restart all home meds Cardiology for disposition Clinical Quality Measures AMI/AHF: ASA po Prior to arrival: No DVT/VTE Risk/Contraindication: Risk Factor Score Per Nursin RFS Level Per Nursing on Admit: 4+=Very High LESLI CABRERA DO Dec 21, 2016 09:58
[2016-12-21] MEDS ORDERED: WARF-48 PO (11:10)
[2016-12-21] MEDS ORDERED: BNZ40T PO (11:10)
[2016-12-21] MEDS ORDERED: FLUT1DIS26 IH (11:10)
[2016-12-21] MEDS ORDERED: FURO40TA4 PO (11:10)
[2016-12-21] MEDS ORDERED: AMLO5TAB2 PO (11:10)
[2016-12-21] MEDS ORDERED: POTA20TA15 PO (11:10)
[2016-12-21] MEDS ORDERED: POLY255P PO (11:10)
[2016-12-21] MEDS ORDERED: ASPI-999 PO (11:10)
[2016-12-21] MEDS ORDERED: METO50TA2 PO (11:10)
[2016-12-21] MEDS ORDERED: CALC-696 PO (11:10)
[2016-12-21] MEDS ORDERED: MONT10TA24 PO (11:10)
[2016-12-21] MEDS ORDERED: TRAM50TA2 PO (11:11)
[2016-12-21] MEDS ORDERED: inSUlin ASPART (NovoLOG) 1 UNIT/0.01 ML (CHARGE PER UNIT) SQ PRN (13:45)
[2016-12-21] MEDS ORDERED: inSUlin DETERMIR 1 UNIT/0.01 ML (LEVEMIR) CHARGE PER UNIT SQ PRN (13:45)
[2016-12-21] MEDS ORDERED: RT-ALBUTEROL/IPRATROPIUM 3 ML (DUONEB) VIAL IH PRN (13:45)
[2016-12-21] MEDS ORDERED: PATIENT MAY USE OWN MEDS, ALL PO SCH (14:45)
[2016-12-21] MEDS: glipiZIDE 5 MG (GLUCOTROL) TAB PO SCH (16:34)
[2016-12-21] MEDS: warFARin 5 MG (COUMADIN) TAB PO SCH (17:33)
[2016-12-21] MEDS: FAMOTIDINE 20 MG (PEPCID) TABLET PO SCH (17:33)
[2016-12-21] MEDS: CITRACAL PO SCH (17:34)
[2016-12-21] MEDS: [UNRECOGNIZED DRUG - OTHER] PO SCH (17:34)
[2016-12-21] MEDS: meTOprolol TARTRATE 50 MG (LOPRESSOR) TAB PO SCH (17:35)
[2016-12-21] MEDS: VITAMIN D3 2000 UNIT PO SCH (17:36)
[2016-12-21] MEDS: ADVAIR IH SCH (17:36)
[2016-12-21] MEDS: MONTELUKAST 10 MG (SINGULAIR) TAB PO SCH (21:30)
[2016-12-21] MEDS: PRAVASTATIN 40 MG TABS PO SCH (21:30)
[2016-12-22] VITALS (7 sets, daily range): BP systolic 134–166; BP diastolic 59–73
[2016-12-22] MEDS: CATHETER FLUSH 10 ML SYR IV SCH ×3 (07:01→20:34)
[2016-12-22] MEDS ORDERED: REGADENOSON 0.4 MG/5 ML SYR (LEXISCAN) IV ONE ×2 (08:44→09:00)
[2016-12-22] MEDS ORDERED: POLYETHYLENE GLYCOL 17 GM (MIRALAX) PACK PO SCH (09:00)
[2016-12-22] MEDS: glipiZIDE 5 MG (GLUCOTROL) TAB PO SCH ×2 (10:21→18:00)
[2016-12-22] MEDS: BENAZEPRIL 40 MG TAB PO SCH (10:24)
[2016-12-22] MEDS: FAMOTIDINE 20 MG (PEPCID) TABLET PO SCH ×2 (10:25→20:32)
[2016-12-22] MEDS: ASPIRIN 81 MG CHEW (CHILDREN'S ASA) PO SCH (10:26)
[2016-12-22] MEDS: FUROSEMIDE 40 MG (LASIX) TAB PO SCH (10:28)
[2016-12-22] MEDS: ADVAIR IH SCH (10:29)
[2016-12-22] MEDS: KCL 20 MEQ TAB (K-DUR) PO SCH (10:30)
[2016-12-22] MEDS: meTOprolol TARTRATE 50 MG (LOPRESSOR) TAB PO SCH ×2 (10:31→20:31)
[2016-12-22] MEDS: amLODIPine 5 MG (NORVASC) TAB PO SCH (10:32)
--- NOTE | 2016-12-22 10:56 | Progress Note-Hospitalist ---
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 Lopez, insulin-dependent diabetes, current smoker with severe COPD managed by Dr. Ibarra the presents to the emergency room with chest pain received 2 nitroglycerin at home that works fired that helped the concerned her enough to come in. All troponins have been negative and workup has thus far been normal so will await for cardiology recommendations for disposition. Progress Notes/Assess & Plan Date Seen 12/22/16 Time Seen by Provider: 09:30 Admission Dx/Process Assessment: Chest pain and known coronary artery disease patient previous stents placed Atrial fibrillation Diabetes mellitus insulin-dependent Hypertension Hyperlipidemia Renal mass of uncertain etiology managed at [place] Current smoker Diagonsis/Assessment & Plan Pt feels good No CP EST results pending No productive cough AFVSS, Pleasant, O x 3, family at bedside Irr Irr, CTAB decrease in bases but clear No edema Assessment: Chest pain and known coronary artery disease patient previous stents placed Atrial fibrillation Diabetes mellitus insulin-dependent Hypertension Hyperlipidemia Renal mass of uncertain etiology managed at [place] Current smoker Plan: DC home when ok with Cardiology Restart all home meds Cardiology for disposition No etiology of CP from my standpoint MAHENDRA RENNER DO Dec 22, 2016 10:56
[2016-12-22] MEDS: POLYETHYLENE GLYCOL 17 GM PO SCH (12:24)
--- NOTE | 2016-12-22 12:56 | Cardiology Progress Note ---
Cardiology SOAP Progress Note Subjective: No further chest pain Objective: I&O/Vital Signs Vital Sign - Last 12Hours 12/22/16 12/22/16 12/22/16 12/22/16 01:00 01:14 03:35 04:00 Temp 98.1 98.4 Pulse 68 60 68 Resp 20 18 B/P (MAP) 166/67 161/70 Pulse Ox 93 94 94 O2 Delivery Room Air Room Air Room Air 12/22/16 12/22/16 12/22/16 12/22/16 07:00 08:00 08:51 09:00 Pulse 72 94 Resp 16 B/P (MAP) 158/73 Pulse Ox 94 93 94 O2 Delivery Room Air Room Air Room Air 12/22/16 12/22/16 11:50 12:00 Temp 97.8 Pulse 55 Resp 18 B/P (MAP) 143/59 Pulse Ox 94 94 O2 Delivery Room Air Room Air Intake and Output 12/22/16 00:00 Intake Total 1190 ml Output Total 650 ml Balance 540 ml Weight (Pounds): 194 Weight (Ounces): 4.0 Weight (Calculated Kilograms): 88.696955 Constitutional: No appears stated age, No AAO x 3, No apparent distress, No PERRL, No well-developed, No well-nourished, No other Respiratory: No accessory muscle use, No respiratory distress, No chest tender , No chest expansion is symmetric, No chest is bilaterally symmetric, No lungs clear to percussion, No lungs clear to auscultation, No crackles, No rhonchi, No rales, No stridor, No wheezing, No pleural rub, No other Cardiovascular: No regular rate-rhythm, No irregularly irregular, No extra beats, No parasternal heave is noted, No JVD, No edema, No bradycardia, No tachycardia, No point of maximal impulse, No cardiac thrills are palpable, No S1 and S2, No gallop/S3, No gallop/S4, No diastolic murmur, No systolic murmur, No friction rub, No click, No other Gastrointestional: No tender, No soft, No round, No distended, No pulsatile mass, No organomegaly, No guarding, No rebound, No tenderness, No hernia, No mass, No audible bowel sounds, No abnormal bowel sounds, No abdominal bruits, No spleenomegaly, No other Extremities: No normal range of motion, No non-tender, No normal inspection, No pedal edema, No calf tenderness, No normal capillary refill, No pelvis stable , No calf tenderness, No inflammation, No pedal edema, No slow capillary refill , No swelling, No other, No abrasion, No clubbing, No cyanosis, No ecchymosis, No laceration, No no lower extremity edema bilateral, No significant edema, No tenderness, No wound Neurologic/Psychiatric: No building 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 engineer II-XII nml as tested, No no motor/sensory deficits, No alert, No normal mood/affect, No oriented x 3, No abnormal cerebellar tests, No abnormal building 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 engineer II-XII, No abnormal gait, No aphasia, No EOM palsy, No facial droop, No motor weakness, No sensory deficit, No depressed affect, No disoriented x 3, No other, No grossly intact, No power is 5/5 both on sides Skin: No normal color, No warm/dry, No cyanosis, No cool, No diaphoresis, No damp, No ecchymosis, No jaundice, No mottled, No pallor, No rash, No tattoos/ piercings, No ulcerations, No rash on exposed areas, No ulcerations on exposed areas, No other Results/Procedures: Labs Laboratory Tests 12/21/16 21:10: Glucometer 229H 12/22/16 05:24: Glucometer 94 12/22/16 10:38: Glucometer 129H A/P: Assessment/Dx: Prolonged chest pain episode. Previous CABG, Previous PCI x 3, Diabetes, Active smoking. Plan: aspirin, plavix, enoxaparin. Pharmacological nuclear stress test shows evidence of moderate sized anterior, septal reversible defect. This could be secondary to breast artifact however real reversible defect cannot be ruled out. Coronary angiography will be recommended. She is a patient of Dr. Lopez and I will discuss with him about coronary angiography. Continue rest of the CAD medications. Smoking cessation strongly recommended. Thank you for your consultation. Please call me if you have any questions. Artie Ray MD, FACP, FACC, FSCAI, FHRS, CCDS Interventional Cardiology Cardiac Electrophysiology Vascular Medicine and Endovascular Interventions Clinical Quality Measures AMI/AHF: ASA po Prior to arrival: Queta Santos MD Dec 22, 2016 12:56
--- NOTE | 2016-12-22 13:52 | STRESS TEST ---
PROCEDURE PHYSICIAN: MAME RAY DATE OF PROCEDURE: 12/22/2016 PHARMACOLOGICAL NUCLEAR STRESS TEST REPORT: ATTENDING PHYSICIAN: Dr. Cabrera ORDERING PHYSICIAN: Dr. Artie Ray. PRIMARY DRAMATIC CRITIC: Dr. Lopez. DIAGNOSIS: 1. Chest pain. 2. History of coronary artery disease and CABG. PROCEDURE DETAILS: The patient was brought to the stress lab after informed consent was taken. Lexiscan stress test was performed according to the protocol. 0.4 mg of Lexiscan was given. Low grade exercise was performed. Baseline EKG showed sinus rhythm with right bundle branch block. Heart rate was 84. Maximum heart rate was 95 bpm. Blood pressure was 158/73 mmHg. 10.67 mCi of Myoview were given for this rest imaging and 31.3 mCi of Myoview were given for stress imaging. TID 0.9. Ejection fraction is 62%. There is a moderate size, moderate intensity septal reversible defect. There is also moderate size, moderate intensity distal anterior reversible defect. Wall motion is normal. This could be breast artifact but a true defect cannot be ruled out. CONCLUSION: 1. Pharmacological stress test is negative for ischemia. 2. Distal anterior and septal reversible defect is noted. Now this could be secondary to breast artifact; however, a true defect cannot be ruled out. 3. Please also note, the patient did not have any chest pain, arrhythmias, or ST-T wave abnormalities during the stress test. Job ID: [id number] Dictated Date: 12/22/2016 12:45:00 Fountain Vending Mechanic Date: 12/22/2016 13:46:20 / alicia
[2016-12-22] MEDS: warFARin 5 MG (COUMADIN) TAB PO SCH (18:00)
[2016-12-22] MEDS: MONTELUKAST 10 MG (SINGULAIR) TAB PO SCH (20:32)
[2016-12-22] MEDS: PRAVASTATIN 40 MG TABS PO SCH (20:33)
[2016-12-22] MEDS: VITAMIN D3 2000 UNIT PO SCH (20:33)
[2016-12-23] VITALS: BP 161/67
[2016-12-23 04:00] VITALS: BP 144/61
[2016-12-23] MEDS: CATHETER FLUSH 10 ML SYR IV SCH ×3 (05:24→20:48)
[2016-12-23 08:00] VITALS: BP 118/69
[2016-12-23] MEDS: ASPIRIN 81 MG CHEW (CHILDREN'S ASA) PO SCH (09:32)
[2016-12-23] MEDS: FAMOTIDINE 20 MG (PEPCID) TABLET PO SCH ×2 (09:32→18:52)
--- NOTE | 2016-12-23 09:42 | Progress Note-Cardiology ---
Cardiology SOAP Progress Note Subjective: No further cp. Denies palp or syncope or shortness of breath Objective: I&O/Vital Signs Vital Sign - Last 12Hours 12/23/16 12/23/16 12/23/16 12/23/16 00:00 00:00 01:00 03:57 Temp 98.7 Pulse 73 67 Resp 16 B/P (MAP) 161/67 Pulse Ox 93 94 94 O2 Delivery Room Air Room Air Room Air 12/23/16 12/23/16 04:00 08:00 Temp 97.1 98.6 Pulse 61 77 Resp 16 20 B/P (MAP) 144/61 118/69 Pulse Ox 94 93 O2 Delivery Room Air Room Air Intake and Output 12/23/16 00:00 Intake Total 1050 ml Balance 1050 ml Weight (Pounds): 191 Weight (Ounces): 0.2 Weight (Calculated Kilograms): 86.481778 Constitutional: AAO x 3, well-developed, well-nourished Respiratory: No accessory muscle use, No respiratory distress, lungs clear to percussion, lungs clear to auscultation Cardiovascular: regular rate-rhythm, S1 and S2, systolic murmur (faint TESS at card base) Gastrointestional: No tender, No guarding, No rebound, audible bowel sounds Extremities: No clubbing, No cyanosis, No significant edema Neurologic/Psychiatric: oriented x 3, grossly intact, power is 5/5 both on sides Skin: No rash on exposed areas, No ulcerations on exposed areas Results/Procedures: Labs Laboratory Tests 12/22/16 10:38: Glucometer 129H 12/22/16 15:35: Glucometer 199H 12/22/16 21:17: Glucometer 85 12/23/16 05:31: Glucometer 115H A/P: Assessment: New onset angina Abnormal stress MPI on 12/22/16, suggestive of anteroseptal DC with periinfarct ischemia Chronic bilateral leg swelling likely due to venous insufficiency vs lymphedema Deep venous thrombosis with large pulmonary embolism in early September 2011. Chronic warfarin anticoagulation is being managed by Dr Cabrera. U/S of left leg September 2013 showed no evidence of DVT Coronary artery disease with a history of coronary artery bypass surgery and percutaneous intervention. Last cardiac cath was 02-05-15. It showed [place] coronary artery disease consisting of mid vessel occlusion LAD and moderate proximal and distal disease within the left cx and the RCA; widely patent stented area in the distal RCA; occluded saphenous vein graft to distal RCA; patent saphenous vein graft to on OM left Cx; patent left internal mammary graft to distal LAD; mildly elevated LVEDP; LVEF 55-60%. Mild cardiomyopathy. Last echo of 09/17/16 showed basal septal akinesis to dyskinesis and LVEF 50% and mild mitral and tricuspid regurg and PASP 25-30 mmHg. Two entangled stents were lost to peripheral circulation and lodged in a small sub-branch of a branch of the right internal iliac artery and did not result in any untoward effect (February 2010). Maturity onset diabetes mellitus being managed by Dr. Cabrera. Tobaccoism, ongoing, less than a pack a day, according to her Hyperlipidemia, not well controlled. The patient has had nonspecific statin intolerance, but has been able to tolerate pravastatin well. F/u on hepatic and lipid profiles is with Dr Cabrera. History of intermittent liver enzyme elevation of unclear etiology, controlled on blood work of August 2015 Gastroesophageal reflux. Hypertension. 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 S/P R carpal tunnel surgery No AAA on a screening abd ao scan of 09/29/16 60-79% bilateral ICA stenoses on carotid u/s of 09/29/16 Plan: I reviewed her records and examined her and spoke with her. I reviewed the images of MPI Have recommended card cath I discussed the rationale, procedure, risks, benefits and potential complications of card cath and possible ad hoc PCI with her and answered questions Will hold off on oral warfarin today in anticipation of card cath tomorrow Clinical Quality Measures AMI/AHF: ASA po Prior to arrival: FAITH Pedraza MD FACP [facility] CCDS Dec 23, 2016 09:42
--- NOTE | 2016-12-23 10:29 | Progress Note-Hospitalist ---
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 Lopez, insulin-dependent diabetes, current smoker with severe COPD managed by Dr. Ibarra the presents to the emergency room with chest pain received 2 nitroglycerin at home that works fired that helped the concerned her enough to come in. All troponins have been negative and workup has thus far been normal so will await for cardiology recommendations for disposition. Progress Notes/Assess & Plan Date Seen 12/23/16 Time Seen by Provider: 10:00 Admission Dx/Process Assessment: Chest pain and known coronary artery disease patient previous stents placed Atrial fibrillation Diabetes mellitus insulin-dependent Hypertension Hyperlipidemia Renal mass of uncertain etiology managed at [place] Current smoker Diagonsis/Assessment & Plan Patient Interview: Pt will have hearth cath tomorrow with Dr. Lopez. Pt confirms that she saw Dr. Lopez today Physical exam stable. Lungs sound perfect Pt confirms regular BMs Pt states that she will need Nitroglycerin sent to pharmacy for home emergencies Pt was encouraged to ambulate AFVSS, Pleasant, O x 3, family at bedside Irr Irr, CTAB decrease in bases but clear No edema Assessment: Chest pain and known coronary artery disease patient previous stents placed Atrial fibrillation Diabetes mellitus insulin-dependent Hypertension Hyperlipidemia Renal mass of uncertain etiology managed at [place] Current smoker Plan: DC home when ok with Cardiology Restart all home meds Cardiology for disposition No etiology of CP from my standpoint Nitroglycerin to [facility] vIPtela Ambulate Scribed by Sol Massey under the direct supervision of Dr. Renner. MAHENDRA RENNER DO Dec 23, 2016 10:29
--- NOTE | 2016-12-23 11:00 | Progress Note-Hospitalist ---
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 Lopez, insulin-dependent diabetes, current smoker with severe COPD managed by Dr. Ibarra the presents to the emergency room with chest pain received 2 nitroglycerin at home that works fired that helped the concerned her enough to come in. All troponins have been negative and workup has thus far been normal so will await for cardiology recommendations for disposition. Progress Notes/Assess & Plan Date Seen 12/23/16 Time Seen by Provider: 10:00 Admission Dx/Process Assessment: Chest pain and known coronary artery disease patient previous stents placed Atrial fibrillation Diabetes mellitus insulin-dependent Hypertension Hyperlipidemia Renal mass of uncertain etiology managed at [place] Current smoker Diagonsis/Assessment & Plan Patient Interview: Pt will have hearth cath tomorrow with Dr. Lopez. Pt confirms that she saw Dr. Lopez today Physical exam stable. Lungs sound perfect Pt confirms regular BMs Pt states that she will need Nitroglycerin sent to pharmacy for home emergencies Pt was encouraged to ambulate Pt feels good No CP EST results pending No productive cough AFVSS, Pleasant, O x 3, family at bedside Irr Irr, CTAB decrease in bases but clear No edema Assessment: Chest pain and known coronary artery disease patient previous stents placed with abnl EST and needing cath tomorrow Atrial fibrillation Diabetes mellitus insulin-dependent Hypertension Hyperlipidemia Renal mass of uncertain etiology managed at [place] Current smoker Plan: DC home when ok with Cardiology Restart all home meds Cardiology for disposition No etiology of CP from my standpoint Nitroglycerin to [facility] [employer] Ambulate Scribed by Sol Massey under the direct supervision of Dr. Renner. MAHENDRA RENNER DO Dec 23, 2016 11:00
[2016-12-23] MEDS ORDERED: NITR0.4T SL (11:01)
[2016-12-23] MEDS: FUROSEMIDE 40 MG (LASIX) TAB PO SCH (11:03)
[2016-12-23] MEDS: glipiZIDE 5 MG (GLUCOTROL) TAB PO SCH ×3 (11:05→18:49)
[2016-12-23] MEDS: KCL 20 MEQ TAB (K-DUR) PO SCH (11:06)
[2016-12-23] MEDS: meTOprolol TARTRATE 50 MG (LOPRESSOR) TAB PO SCH ×2 (11:06→18:52)
[2016-12-23] MEDS: amLODIPine 5 MG (NORVASC) TAB PO SCH (11:07)
[2016-12-23] MEDS: BENAZEPRIL 40 MG TAB PO SCH (11:08)
[2016-12-23] MEDS: POLYETHYLENE GLYCOL 17 GM PO SCH (11:08)
[2016-12-23] MEDS: CITRACAL PO SCH (11:09)
[2016-12-23] MEDS: [UNRECOGNIZED DRUG - OTHER] PO SCH (11:09)
[2016-12-23 12:00] VITALS: BP 135/61
[2016-12-23 15:43] VITALS: BP 95/58
[2016-12-23] MEDS: VITAMIN D3 2000 UNIT PO SCH (18:54)
[2016-12-23 19:58] VITALS: BP 143/81
[2016-12-23] MEDS: PRAVASTATIN 40 MG TABS PO SCH (20:46)
[2016-12-23] MEDS: MONTELUKAST 10 MG (SINGULAIR) TAB PO SCH (20:47)
[2016-12-24] VITALS (13 sets, daily range): BP systolic 120–153; BP diastolic 62–80
[2016-12-24] MEDS: CATHETER FLUSH 10 ML SYR IV SCH (06:36)
[2016-12-24] MEDS ORDERED: HEParin (CATH LAB) 2,000 ML IV ONE (06:42)
[2016-12-24] MEDS ORDERED: NS IV 1000 ML 1,000 ML ONE (06:42)
[2016-12-24 08:12] LABS: INR 2.5 (0.8-1.4); PROTHROMBIN TIME PATIENT 26.7 SEC (12.2-14.7)
[2016-12-24] MEDS ORDERED: diphenhydrAMINE 50 MG/ML INJ (BENADRYL) ONE (08:12)
[2016-12-24] MEDS ORDERED: MIDAZOLAM 5 MG/5 ML (VERSED) VIAL ONE (08:12)
[2016-12-24] MEDS ORDERED: fentaNYL INJECTION 100 MCG/2 ML AMP ONE (08:12)
[2016-12-24] MEDS ORDERED: NS IV 1000 ML 1,000 ML IV SCH ×2 (08:30→09:42)
--- NOTE | 2016-12-24 09:41 | Progress Note-Cardiology ---
Cardiology SOAP Progress Note Subjective: No cp, palp, syncope Objective: I&O/Vital Signs Vital Sign - Last 12Hours 12/24/16 12/24/16 12/24/16 12/24/16 00:00 01:00 04:00 08:45 Temp 98.8 98.0 97.4 Pulse 68 70 54 69 Resp 20 20 18 B/P (MAP) 136/75 141/64 142/62 Pulse Ox 96 94 95 O2 Delivery Room Air Room Air Room Air Intake and Output 12/24/16 00:00 Intake Total 1960 ml Balance 1960 ml Weight (Pounds): 190 Weight (Ounces): 0.0 Weight (Calculated Kilograms): 86.612789 Constitutional: AAO x 3, well-developed, well-nourished Respiratory: No accessory muscle use, No respiratory distress, lungs clear to percussion, lungs clear to auscultation Cardiovascular: regular rate-rhythm, S1 and S2, systolic murmur (faint TESS at card base) Gastrointestional: No tender, No guarding, No rebound, audible bowel sounds Extremities: No clubbing, No cyanosis, No significant edema Neurologic/Psychiatric: oriented x 3, grossly intact, power is 5/5 both on sides Skin: No rash on exposed areas, No ulcerations on exposed areas Results/Procedures: Labs Laboratory Tests 12/23/16 11:15: Glucometer 236H 12/23/16 16:01: Glucometer 108 12/23/16 20:49: Glucometer 231H 12/24/16 05:46: Glucometer 97 12/24/16 07:38: Prothrombin Time 26.7H, INR Comment 2.5H A/P: Assessment: Chest discomfort, likely non-cardiac (based on card cath of 12/24/16) Coronary artery disease with a history of coronary artery bypass surgery and percutaneous intervention. Last cardiac cath was12/24/16, following an abnormal MPI of 12/22/16. It showed [place] coronary artery disease consisting of mid vessel occlusion LAD, proximal occlusion of a proximal OM and moderate diffused disease of other cors; widely patent stented area in the distal RCA; chronically occluded saphenous vein graft to distal RCA; patent saphenous vein graft to on OM left Cx; patent left internal mammary graft to distal LAD; LVEDP 20 mmHg; LVEF 50-55%; mild ant-lat hypokinesis Post-cath groin hematoma on 12/24/16, moderate, stable. Chronic bilateral leg swelling likely due to venous insufficiency vs lymphedema Deep venous thrombosis with large pulmonary embolism in early September 2011. Chronic warfarin anticoagulation is being managed by Dr Cabrera. U/S of left leg September 2013 showed no evidence of DVT Mild cardiomyopathy. Last echo of 09/17/16 showed basal septal akinesis to dyskinesis and LVEF 50% and mild mitral and tricuspid regurg and PASP 25-30 mmHg. Two entangled stents were lost to peripheral circulation and lodged in a small sub-branch of a branch of the right internal iliac artery and did not result in any untoward effect (February 2010). Maturity onset diabetes mellitus being managed by Dr. Cabrera. Tobaccoism, ongoing, less than a pack a day, according to her Hyperlipidemia, not well controlled. The patient has had nonspecific statin intolerance, but has been able to tolerate pravastatin well. F/u on hepatic and lipid profiles is with Dr Cabrera. History of intermittent liver enzyme elevation of unclear etiology, controlled on blood work of August 2015 Gastroesophageal reflux. Hypertension. 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 S/P R carpal tunnel surgery No AAA on a screening abd ao scan of 09/29/16 60-79% bilateral ICA stenoses on carotid u/s of 09/29/16 Plan: I reviewed the findings of card cath with her and her fam. Based on these findings, conservative management is appropriate and her cp does not appear cardiac Discharge when groin hematoma stable Outpatient f/u advised Clinical Quality Measures AMI/AHF: ASA po Prior to arrival: FAITH Pedraza MD FACP [facility] CCDS Dec 24, 2016 09:41
[2016-12-24] MEDS ORDERED: PATIENT MAY USE OWN MEDS, ALL PO SCH (09:45)
--- NOTE | 2016-12-24 09:45 | Cardiac Procedure Note-CS/ASA ---
Pre-Procedure Note Pre-Op Procedure Note H&P Reviewed The H&P was reviewed, patient examined and no changes noted. Date H&P Reviewed: Dec 24, 2016 Time H&P Reviewed: 08:30 Conscious Sedation Pre-Proced Time Reviewed: 08:30 ASA Class: 3 Airway Mallampati Classification: ([place] appropriate class) I. II. III, IV Lungs Heart ASA score ASA 1: a normal healthy patient ASA 2: a patient with a mild systemic disease (mid diabetes, controlled hypertension, obesity ASA 3: a patient with a severe systemic disease that limits activity (angina , COPD, prior Myocardial infarction) ASA 4: a patient with an incapacitating disease that is a constant threat to life (CHF, renal failure) ASA 5: a moribund patient not expected to survive 24 hrs. (ruptured aneurysm) ASA 6: a declared brain patient whose organs are being harvested. For emergent operations, add the letter E after the classification Grade 3 Sedation Plan: Analgesia, Amnesia, Plan communicated to team members, Discussed options with patient/fam, Discussed risks with patient/fam Note The patient is an appropriate candidate to undergo the planned procedure, sedation, and anesthesia. The patient immediately re-assessed prior to indication. FAITH NICHOLSON MD FACP [facility]AC CCDS Dec 24, 2016 09:45
[2016-12-24] MEDS: ASPIRIN 81 MG CHEW (CHILDREN'S ASA) PO SCH ×2 (11:02→14:50)
[2016-12-24] MEDS: KCL 20 MEQ TAB (K-DUR) PO SCH ×2 (11:02→14:50)
[2016-12-24] MEDS: glipiZIDE 5 MG (GLUCOTROL) TAB PO SCH ×2 (11:02→14:49)
[2016-12-24] MEDS: FUROSEMIDE 40 MG (LASIX) TAB PO SCH ×2 (11:02→14:53)
[2016-12-24] MEDS: [UNRECOGNIZED DRUG - OTHER] PO SCH ×2 (11:02→14:50)
[2016-12-24] MEDS: CITRACAL PO SCH ×2 (11:02→14:50)
[2016-12-24] MEDS: POLYETHYLENE GLYCOL 17 GM PO SCH (11:03)
--- NOTE | 2016-12-24 11:41 | Discharge Summary-Hospitalist ---
Diagnosis/Chief Complaint Date of Admission Dec 20, 2016 at 15:20 Date of Discharge Discharge Date: Dec 22, 2016 Admission Diagnosis Assessment: Chest pain and known coronary artery disease patient previous stents placed Atrial fibrillation Diabetes mellitus insulin-dependent Hypertension Hyperlipidemia Renal mass of uncertain etiology managed at [place] Current smoker Discharge Diagnosis Assessment: Chest pain and known coronary artery disease patient previous stents placed but cardiac cath negative for stenotic coronary vessels Atrial fibrillation Diabetes mellitus insulin-dependent Hypertension Hyperlipidemia Renal mass of uncertain etiology managed at [place] Current smoker Reason Hospital Visit/Course CC: Chest pain HPI: This is a 76-year-old white female clinic patient of [facility] with a multitude of medical problems including coronary artery disease managed by Dr. Lopez, insulin-dependent diabetes, current smoker with severe COPD managed by Dr. Ibarra the presents to the emergency room with chest pain received 2 nitroglycerin at home that works fired that helped the concerned her enough to come in. All troponins have been negative and workup has thus far been normal so will await for cardiology recommendations for disposition. Note from 12/24/16: Pt s/p cardiac cath and currently sleeping Family at bedside Cardiac cath revealed no obstruction so no intervention required ready for DC Discharge Summary Discharge Physical Examination Allergies: Coded Allergies: erythromycin base (Verified Allergy, Intermediate, HIVES, 10/10/13) cephalexin (Verified Allergy, Unknown, 10/10/13) Vitals & I&Os Vital Signs Date Time Temp Pulse Resp B/P (MAP) Pulse Ox O2 Delivery O2 Flow Rate FiO2 12/24/16 09:35 94 Room Air 12/24/16 08:45 97.4 69 18 142/62 Hospital Course Labs (last 24 hrs) Laboratory Tests 12/23/16 16:01: Glucometer 108 12/23/16 20:49: Glucometer 231H 12/24/16 05:46: Glucometer 97 12/24/16 07:38: Prothrombin Time 26.7H, INR Comment 2.5H Pending Labs Laboratory Tests 12/24/16 05:46: Glucometer 97 12/24/16 07:38: Prothrombin Time 26.7, INR Comment 2.5 Discharge Home Medications: Active Scripts Active Nitrostat (Nitroglycerin) 0.4 Mg Tab.subl 0.4 Mg SL Q5M PRN Reported Tramadol HCl 50 Mg Tablet 50 Mg PO TID PRN Advair 250-50 Diskus (Fluticasone/Salmeterol) 1 Each Blst.w.dev 1 Puff IH BID Benazepril HCl 40 Mg Tab 40 Mg PO DAILY Potassium Chloride 20 Meq Tab.er.prt 20 Meq PO DAILY Warfarin Sodium 5 Mg Tablet 5 Mg PO 1800 Polyethylene Glycol 3350 255 Gm Powder 17 Gm PO DAILY Amlodipine Besylate 5 Mg Tablet 5 Mg PO DAILY Furosemide 40 Mg Tablet 40 Mg PO DAILY Metoprolol Tartrate 50 Mg Tablet 50 Mg PO BID Montelukast Sodium 10 Mg Tablet 10 Mg PO HS Citracal + D Maximum Caplet (Calcium Citrate/Vitamin D3) 1 Each Tablet 1 Tab PO DAILY Aspirin 81 Mg Tab.chew 81 Mg PO DAILY Iprat-Albut 0.5-3(2.5) mg/3 ml (Ipratropium/Albuterol Sulfate) 3 Ml Ampul.neb 3 Ml IH QID PRN Pravastatin Sodium 40 Mg Tablet 20 Mg PO HS TAKE 1/2 OF (40 MG) TABLET Glipizide 5 Mg Tablet 2.5 Mg PO BID TAKES 1/2 OF A (5 MG) TABLET Humalog (Insulin Human Lispro) 100 U/Ml Vial 8 Units SQ TIDAC PRN Levemir (Insulin Detemir) 100 U/Ml Vial 10 U SQ HS PRN Vitamin D3 (Cholecalciferol (Vitamin D3)) 2,000 Unit Capsule 2,000 Unit PO HS Pepcid (Famotidine) 20 Mg Tablet 20 Mg PO BID Instructions to patient/family Please see electonic discharge instructions given to patient. Clinical Quality Measures AMI/AHF: ASA po Prior to arrival: No DVT/VTE Risk/Contraindication: Risk Factor Score Per Nursin RFS Level Per Nursing on Admit: 4+=Very High MAHENDRA RENNER DO Dec 24, 2016 11:41
[2016-12-24] MEDS: meTOprolol TARTRATE 50 MG (LOPRESSOR) TAB PO SCH (14:50)
[2016-12-24] MEDS: BENAZEPRIL 40 MG TAB PO SCH (14:51)
[2016-12-24] MEDS: FAMOTIDINE 20 MG (PEPCID) TABLET PO SCH (14:52)
[2016-12-24] MEDS: amLODIPine 5 MG (NORVASC) TAB PO SCH (14:52)
--- NOTE | 2016-12-29 12:52 | CARDIAC CATHETERIZATION ---
DATE OF SERVICE: 12/24/2016 The patient is a 76-year-old lady with known coronary artery disease and multiple coronary artery disease risk factors who was admitted with chest discomfort. She has had prior coronary artery bypass surgery and coronary stents. Myocardial perfusion imaging indicated anteroseptal infarction with ischemia. Cardiac catheterization was carried out after having obtained informed consent. PROCEDURE: She was brought to the cardiac catheterization laboratory in a fasting state. Right groin was prepared and draped in the usual sterile fashion. Lidocaine 1% was used for local anesthesia. Modified Seldinger technique was used to advance a 5-Bahamian sheath into the right femoral artery. Angiography of the right femoral artery was carried out through the sheath. A 5-Bahamian JL4 catheter was used for left coronary angiography. A 5-Bahamian JR4 catheter was used for right coronary angiography and for angiography of the aortocoronary grafts. A 5-Bahamian JACKI catheter was used for angiography of the left internal mammary artery graft to the left anterior descending artery. A 5-Baham[place] pigtail catheter was used for left heart catheterization and left ventricular angiography. At the end of the procedure, Mynx was used to achieve hemostasis, but there was a small to moderate hematoma which required manual pressure for control. Overall, she tolerated the procedure well. HEMODYNAMICS: Left ventricular end-diastolic pressure following coronary angiography was 20 mmHg. There was no significant pressure gradient on pullback across the aortic valve. Ascending aortic pressure was 155/69 with a mean of 106 mmHg. LEFT VENTRICULAR ANGIOGRAPHY: Left ventricular angiography was carried out in the right anterior oblique projection only. There is mild anterolateral hypokinesis. Left ventricular ejection fraction is 50 to 55%. There does not appear to be significant mitral regurgitation. CORONARY ANGIOGRAPHY: Diffuse coronary calcification is present. Left main coronary artery does not exhibit significant obstructive disease. Left anterior descending artery was occluded in its mid portion following the origin of the first diagonal branch. There is diffuse mild to moderate disease of the proximal left anterior descending and the first diagonal branch. The left circumflex artery has an occluded proximal obtuse marginal. The rest of the left circumflex system has diffuse moderate disease. The right coronary artery is dominant. There is 40% proximal stenosis. There is a patent stent in the distal right coronary artery. AORTOCORONARY GRAFT ANGIOGRAPHY: The more cephalic graft is a saphenous vein graft to a proximal obtuse marginal. This is widely patent and does not exhibit significant disease and has good distal runoff. The more distal graft is known to be deep to the right coronary artery. This graft is chronically occluded in its proximal portion. LEFT INTERNAL MAMMARY ARTERY GRAFT ANGIOGRAPHY: The left internal mammary artery graft is widely patent to the distal left anterior descending artery and there is a good distal runoff. CONCLUSIONS: 1. [place] coronary artery disease consisting primarily of mid vessel occlusion of the left anterior descending artery and proximal occlusion of a proximal obtuse marginal 2. The rest of the coronary system has diffuse moderate disease. 3. Chronically occluded saphenous vein graft to the right coronary artery. The distal right coronary artery exhibits a widely patent stent. 4. Patent saphenous vein graft to a proximal obtuse marginal. 5. Patent left internal mammary artery graft to distal left anterior descending artery. 6. Elevated left ventricular end-diastolic pressure. 7. No significant mitral regurgitation seen on this study. 8. Well preserved global left ventricular systolic function with an ejection fraction of 50-55%. There is anterolateral mild hypokinesis. DISCUSSION: Based on the results of the study, it appears appropriate to continue a conservative approach. Risk factor modification has been reviewed. Outpatient followup is advised. Job ID: [id number] DocumentID: [id number] Dictated Date: 12/24/2016 09:18:44 Fruit And Vegetable Packer Date: 12/29/2016 12:51:32 Dictated By: FAITH NICHOLSON MD, MA, FACP, FACC, MTDD
--- OUTSIDE RECORDS SUMMARY | 2016-12-30 17:05 | XMS REPORT | Clinical Summary ---
Author Author [facility] Organization [facility] Address Unknown Phone Unavailable Care Team Providers Care Clinical Resource Director Name Role Phone PCP Unavailable Source Comments Some departments are not documenting in the electronic medical record. If you do not see the information that you expected, contact Release of Information in the Health Information Management department at [phone] for further assistance in locating additional records.[facility] Allergies Active Allergy Reactions Severity Noted Date Comments Cephalexin UNKNOWN Medium 11/08/2015 Erythromycin UNKNOWN Low 11/08/2015 Nsaids (Non-Steroidal UNKNOWN Low 11/08/2015 Anti-Inflammatory Drug) Current Medications Prescription Sig. Disp. Refills Start End Date Status Date fluticasone/salmeterol Inhale 1 Puff by mouth Active (ADVAIR DISKUS) 250/50 every 12 hours. mcg inhalation disk ipratropium/albuterol Inhale 2 Puffs by mouth Active (COMBIVENT) 103/18 four times daily. mcg/Actuation inhaler aspirin EC 81 mg tablet Take 81 mg by mouth Active daily. benazepril (LOTENSIN) 40 Take 40 mg by mouth Active mg tablet daily. Calcium Citrate-Vitamin Take by mouth daily. Active D3 200 mg calcium -250 unit tab OXYGEN-AIR DELIVERY Use as directed at Active SYSTEMS (HORIZON NASAL bedtime daily. CPAP SYSTEM MISC) albuterol-ipratropium Inhale 3 mL solution as Active (DUO-NEB, DUO-VENT) 0.5 directed four times mg-3 mg(2.5 mg base)/3 mL daily. nebulizer solution furosemide (LASIX) 40 mg Take 40 mg by mouth Active tablet daily. gabapentin (NEURONTIN) Take 100 mg by mouth Active 100 mg capsule three times daily. glipiZIDE (GLUCOTROL) 5 Take 5 mg by mouth twice Active mg tablet daily with meals. potassium chloride SR Take 20 mEq by mouth Active (K-DUR) 20 mEq tablet daily. insulin detemir(+) Inject 10 Units into Active (LEVEMIR) 100 unit/mL area(s) as directed. soln metoprolol (LOPRESSOR) 50 Take 50 mg by mouth twice Active mg tablet daily. polyethylene glycol 3350 Take 17 g by mouth as Active (GLYCOLAX; MIRALAX) 17 Needed. gram/dose powder nitroglycerin (NITROSTAT) Place 0.4 mg under tongue Active 0.4 mg tablet every 5 minutes as needed for Chest Pain. famotidine (PEPCID) 20 mg Take 20 mg by mouth twice Active tablet daily. pravastatin (PRAVACHOL) Take 20 mg by mouth Active 20 mg tablet daily. montelukast (SINGULAIR) Take 10 mg by mouth at Active 10 mg tablet bedtime daily. Cholecalciferol (Vitamin Take by mouth daily. Active D3) 2,000 unit cap amLODIPine (NORVASC) 5 mg Take 5 mg by mouth daily. Active tablet warfarin (COUMADIN) 5 mg Take 5 mg by mouth daily. Active tablet warfarin (COUMADIN) 1 mg Take 1 mg by mouth twice Active tabletIndications: Wednesday weekly. Indications: & Wednesday & Wednesday traMADol (ULTRAM) 50 mg Take 50 mg by mouth three Active tablet times daily. Active Problems Problem Noted Date Right renal mass 11/08/2015 Overview: Incidentally found right SRM. Multiple medical co-mobidities 10/17/2015: CT scan A/P with contrast - Impression: Development of a 2.1 cm partially exophytic mass in the lower pole of the right kidney compatible with renal cell carcinoma. This would be accessible for CT-guided percutaneous ablation. Diverticulosis. No diverticulitis. Laxity of the anterior abdominal wall and diastasis of the recti. 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 Observation L ast Assessment & Plan: RBUS stable with 2.2cm R renal mass. Elected to continue observation. Discuss other options including biopsy, ablation, partial nephrectomy. - RTC 6 months with RBUS - CXR today for cough Family History Medical History Relation Name Comments Arthritis-osteo Brother Cancer Father Liver Cancer-Lung Father Hypertension Father Arthritis-osteo Mother Diabetes Mother Hypertension Mother Stroke Mother Arthritis-osteo Sister Cancer-Colon Sister Stroke Sister Arthritis-osteo Sister Relation Name Status Comments Brother Brother Father Half Brother Alive Half Brother Alive Half Sister Alive Half Sister Alive Half Sister Alive Maternal Grandfather Maternal Grandmother Mother Paternal Grandfather Paternal Grandmother Sister Alive Sister Alive Sister Alive Sister Sister Sister Social History Tobacco Use Types Packs/Day Years Used Date Current Every Day Smoker Cigarettes 0.5 40 Smokeless Tobacco: Never Used Alcohol Use Drinks/Week oz/Week Comments No 0 Standard 0.0 drinks or equivalent Sex Assigned at Date Recorded Not on file Last Filed Vital Signs Vital Sign Reading Time Taken Blood Pressure 119/60 09/18/2016 9:05 AM CDT Pulse 64 09/18/2016 9:05 AM CDT Temperature 36.7 C (98 F) 09/18/2016 9:05 AM CDT Respiratory Rate 18 09/18/2016 9:05 AM CDT Oxygen Saturation 92% 09/18/2016 9:05 AM CDT Inhaled Oxygen - - Concentration Weight 91.4 kg (201 lb 9.6 oz) 09/18/2016 9:05 AM CDT Height 158.8 cm (5' 2.52") 09/18/2016 9:05 AM CDT Body Mass Index 36.26 09/18/2016 9:05 AM CDT Plan of Treatment Health Maintenance Due Date Last Done Comments PHYSICAL (COMPREHENSIVE) 1949 EXAM PERTUSSIS VACCINE 1953 TETANUS VACCINE 1959 BREAST CANCER SCREENING 1982 COLORECTAL CANCER 1992 SCREENING SHINGLES VACCINE 2002 OSTEOPOROSIS SCREENING 2007 PREVNAR/PNEUMOVAX (#1) 2007 INFLUENZA VACCINE 01/29/2017 Results Not on filefrom Last 3 Months
--- OUTSIDE RECORDS SUMMARY | 2016-12-30 17:38 | XMS REPORT | Continuity of Care Document ---
Author Author [facility] Organization [facility] Address Unknown Phone Unavailable Allergies Active Description Code Type Severity Reaction Onset Reported/Identified Relationship to Patient Clinical Status Yes cephalexin [id number] Drug Allergy Unknown N/A 10/10/2013 Yes erythromycin base [id number] Drug Allergy Moderate HIVES 10/10/2013 Medications Problems Date Dx Coded Attending Type Code Diagnosis Diagnosed By 11/28/2009 Ot 457.1 11/28/2009 Ot 729.5 03/09/2010 Ot 250.00 03/09/2010 Ot 272.4 03/09/2010 Ot 276.8 03/09/2010 Ot 278.00 03/09/2010 Ot 305.1 03/09/2010 Ot 327.23 03/09/2010 Ot 401.9 03/09/2010 Ot 410.71 03/09/2010 Ot 414.01 03/09/2010 Ot 414.02 03/09/2010 Ot 530.81 03/09/2010 Ot 715.90 03/09/2010 Ot 782.3 03/09/2010 Ot 790.6 03/09/2010 Ot 996.1 03/09/2010 Ot V12.51 03/09/2010 Ot V12.79 03/09/2010 Ot V17.3 03/09/2010 Ot V45.77 03/09/2010 Ot V45.81 03/09/2010 Ot V85.34 03/09/2010 Ot V90.89 05/21/2010 Ot 412 05/21/2010 Ot V45.82 05/21/2010 Ot V57.89 08/11/2010 Ot 250.00 08/11/2010 Ot 272.4 08/11/2010 Ot 278.00 08/11/2010 Ot 401.9 08/11/2010 Ot 412 08/11/2010 Ot 414.01 08/11/2010 Ot 427.69 08/11/2010 Ot 427.89 08/11/2010 Ot 428.0 08/11/2010 Ot 428.33 08/11/2010 Ot 457.1 08/11/2010 Ot 459.81 08/11/2010 Ot 715.96 08/11/2010 Ot V12.71 08/11/2010 Ot V12.79 08/11/2010 Ot V15.82 08/11/2010 Ot V45.72 08/11/2010 Ot V45.81 08/11/2010 Ot V45.82 11/07/2010 Ot 250.00 11/07/2010 Ot 272.4 11/07/2010 Ot 305.1 11/07/2010 Ot 403.90 11/07/2010 Ot 414.00 11/07/2010 Ot 428.0 11/07/2010 Ot 428.20 11/07/2010 Ot 491.21 11/07/2010 Ot 585.9 11/07/2010 Ot V12.51 11/07/2010 Ot V45.81 11/07/2010 Ot V45.82 08/14/2011 Ot 250.02 DIAB AJAY WO COMPL, TYPE II OR UNSPEC TY 08/14/2011 Ot 263.9 PROTEIN-ROMA MALNUTR NOS 08/14/2011 Ot 268.9 VITAMIN D DEFICIENCY NOS 08/14/2011 Ot 272.4 HYPERLIPIDEMIA NEC/NOS 08/14/2011 Ot 288.60 LEUKOCYTOSIS, UNSPECIFIED 08/14/2011 Ot 327.23 OBSTRUCTIVE SLEEP APNEA (ADULT) (PEDIATR 08/14/2011 Ot 401.9 HYPERTENSION NOS 08/14/2011 Ot 414.00 CORON ATHEROSCLER NOS TYPE VESSEL, NATIV 08/14/2011 Ot 426.4 RT BUNDLE BRANCH BLOCK 08/14/2011 Ot 428.0 CONGESTIVE HEART FAILURE NOS 08/14/2011 Ot 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 08/14/2011 Ot 459.81 VENOUS INSUFFICIENCY NOS 08/14/2011 Ot 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 08/14/2011 Ot 715.90 OSTEOARTHROS NOS-UNSPEC 08/14/2011 Ot 799.02 HYPOXEMIA 08/14/2011 Ot E932.0 ADV EFF CORTICOSTEROIDS 08/14/2011 Ot V12.51 HX-VENOUS THROMBOSIS EMBOLISM 08/14/2011 Ot V15.82 HISTORY OF TOBACCO USE 08/14/2011 Ot V45.81 AORTOCORONARY BYPASS 10/08/2011 Ot 250.00 DIAB AJAY WO COMPL, TYPE II OR UNSPEC TY 10/08/2011 Ot 272.4 HYPERLIPIDEMIA NEC/NOS 10/08/2011 Ot 287.5 THROMBOCYTOPENIA NOS 10/08/2011 Ot 327.23 OBSTRUCTIVE SLEEP APNEA (ADULT) (PEDIATR 10/08/2011 Ot 401.9 HYPERTENSION NOS 10/08/2011 Ot 410.71 AC MYOCARDIAL INFARCT,SUBENDO INFARCT,IN 10/08/2011 Ot 414.00 CORON ATHEROSCLER NOS TYPE VESSEL, NATIV 10/08/2011 Ot 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 10/08/2011 Ot 426.4 RT BUNDLE BRANCH BLOCK 10/08/2011 Ot 428.0 CONGESTIVE HEART FAILURE NOS 10/08/2011 Ot 428.22 CHRONIC SYSTOLIC HRT FAILURE 10/08/2011 Ot 440.20 ATHEROSCLEROSIS [place] ARTERIES EXTREMIT 10/08/2011 Ot 453.41 ACUTE VENOUS EMBOLISM THROMBOSIS DEEP 10/08/2011 Ot 453.42 ACUTE VENOUS EMBOLISM THROMBOSIS DEEP 10/08/2011 Ot 496 CHR AIRWAY OBSTRUCT NEC 10/08/2011 Ot 715.90 OSTEOARTHROS NOS-UNSPEC 10/08/2011 Ot V15.82 HISTORY OF TOBACCO USE 10/08/2011 Ot V45.81 AORTOCORONARY BYPASS 10/08/2011 Ot V45.82 PERCUTANEOUS TRANSLUM CORON ANGIOPLASTY 10/12/2011 Ot 250.00 DIAB AJAY WO COMPL, TYPE II OR UNSPEC TY 10/12/2011 Ot 272.4 HYPERLIPIDEMIA NEC/NOS 10/12/2011 Ot 285.9 ANEMIA NOS 10/12/2011 Ot 287.5 THROMBOCYTOPENIA NOS 10/12/2011 Ot 327.23 OBSTRUCTIVE SLEEP APNEA (ADULT) (PEDIATR 10/12/2011 Ot 401.9 HYPERTENSION NOS 10/12/2011 Ot 410.72 AC MYOCARD INFARCT,SUBENDO INFARCT,SUBSE 10/12/2011 Ot 414.00 CORON ATHEROSCLER NOS TYPE VESSEL, NATIV 10/12/2011 Ot 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 10/12/2011 Ot 426.4 RT BUNDLE BRANCH BLOCK 10/12/2011 Ot 428.0 CONGESTIVE HEART FAILURE NOS 10/12/2011 Ot 428.22 CHRONIC SYSTOLIC HRT FAILURE 10/12/2011 Ot 440.20 ATHEROSCLEROSIS [place] ARTERIES EXTREMIT 10/12/2011 Ot 453.41 ACUTE VENOUS EMBOLISM THROMBOSIS DEEP 10/12/2011 Ot 453.42 ACUTE VENOUS EMBOLISM THROMBOSIS DEEP 10/12/2011 Ot 496 CHR AIRWAY OBSTRUCT NEC 10/12/2011 Ot 715.90 OSTEOARTHROS NOS-UNSPEC 10/12/2011 Ot V15.82 HISTORY OF TOBACCO USE 10/12/2011 Ot V45.81 AORTOCORONARY BYPASS 10/12/2011 Ot V45.82 PERCUTANEOUS TRANSLUM CORON ANGIOPLASTY 11/14/2011 Ot 327.23 OBSTRUCTIVE SLEEP APNEA (ADULT) (PEDIATR 10/12/2013 MAHENDRA RENNER DO Ot 250.00 DIAB AJAY WO COMPL, TYPE II OR UNSPEC TY 10/12/2013 MAHENDRA RENNER DO Ot 272.0 PURE HYPERCHOLESTEROLEM 10/12/2013 REFUGIO RENNER DOI Ot 272.4 HYPERLIPIDEMIA NEC/NOS 10/12/2013 REFUGIO RENNER DOI Ot 285.9 ANEMIA NOS 10/12/2013 REFUGIO RENNER DOI Ot 401.9 HYPERTENSION NOS 10/12/2013 MAHENDRA RENNER DO Ot 414.00 CORON ATHEROSCLER NOS TYPE VESSEL, NATIV 10/12/2013 MAHENDRA RENNER DO Ot 457.1 OTHER LYMPHEDEMA 10/12/2013 MAHENDRA RENNER DO Ot 496 CHR AIRWAY OBSTRUCT NEC 10/12/2013 MAHENDRA RENNER DO Ot 530.81 ESOPHAGEAL REFLUX 10/12/2013 REFUGIO RENNER DOI Ot 682.6 CELLULITIS OF LEG 10/12/2013 MAHENDRA RENNER DO Ot 716.90 ARTHROPATHY NOS-UNSPEC 10/12/2013 MAHENDRA RENNER DO Ot V12.51 HX-VENOUS THROMBOSIS EMBOLISM 10/12/2013 MAHENDRA RENNER DO Ot V15.82 HISTORY OF TOBACCO USE 10/12/2013 MAHENDRA RENNER DO Ot V45.81 AORTOCORONARY BYPASS 10/12/2013 MAHENDRA RENNER DO Ot V45.82 PERCUTANEOUS TRANSLUM CORON ANGIOPLASTY 10/12/2013 MAHENDRA RENNER DO Ot V58.61 ANTICOAGULANTS,LT,CURRENT USE 10/12/2013 MAHENDRA RENNER DO Ot V58.66 LONG-TERM (CURRENT) USE OF ASPIRIN 11/28/2013 LYN SALINAS FACC, FAITH JIMENEZP CCDS Ot 250.00 DIAB AJAY WO COMPL, TYPE II OR UNSPEC TY 11/28/2013 LYN SALINAS FACC, FAITH FACP CCDS Ot 272.4 HYPERLIPIDEMIA NEC/NOS 11/28/2013 LYN SALINAS FACC, FAITH FACP CCDS Ot 278.00 OBESITY, NOS 11/28/2013 LYN SALINAS FACC, AFITH FACP CCDS Ot 401.9 HYPERTENSION NOS 11/28/2013 LYN SALINAS FACC, FAITH FACP CCDS Ot 414.01 CORONARY ATHEROSCLEROSIS OF [place] CORON 11/28/2013 LYN SALINAS FACC, FAITH FACP CCDS Ot 414.02 CORON ATHEROSCLEROSIS AUTOLOG VEIN BYPAS 11/28/2013 LYN SALINAS FACC, FAITH FACP CCDS Ot 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 11/28/2013 LYN SALINAS FACC, FAITH FACP CCDS Ot 414.4 CORONARY ATHEROSCLEROSIS DUE TO [place] 11/28/2013 LYN SALINAS FACC, FAITH FACP CCDS Ot 425.4 PRIM CARDIOMYOPATHY NEC 11/28/2013 LYN SALINAS FACC, FAITH FACP CCDS Ot 530.81 ESOPHAGEAL REFLUX 11/28/2013 LYN SALINAS FACC, FAITH FACP CCDS Ot 780.79 OTH MALAISE FATIGUE 11/28/2013 LYN SALINAS FACC, FAITH FACP CCDS Ot V12.51 HX-VENOUS THROMBOSIS EMBOLISM 11/28/2013 FAITH NICHOLSON MD, FACC FACP CCDS Ot V15.82 HISTORY OF TOBACCO USE 11/28/2013 LYN SALINAS FACC, FAITH FACP CCDS Ot V45.81 AORTOCORONARY BYPASS 11/28/2013 LYN SALINAS FACC, FAITH FACP CCDS Ot V45.82 PERCUTANEOUS TRANSLUM CORON ANGIOPLASTY 11/28/2013 LYN SALINAS FACC, FAITH FACP CCDS Ot V58.61 ANTICOAGULANTS,LT,CURRENT USE 11/28/2013 FAITH NICHOLSON MD, FACC FACP CCDS Ot V58.69 OTH MED,LT,CURRENT USE 11/28/2013 LYN SALINAS FACC, ALI FACP CCDS Ot V85.33 BODY MASS INDEX 33.0-33.9, ADULT 06/04/2014 RENNER DO, MAHENDRA Ot V76.12 07/05/2014 RENNER DO, MAHENDRA Ot 715.34 07/05/2014 RENNER DO, MAHENDRA Ot 715.36 07/05/2014 RENNER DO, MAHENDRA Ot E000.8 07/05/2014 RENNER DO, MAHENDRA Ot E849.0 07/05/2014 RENNER DO, MAHENDRA Ot E888.9 11/28/2014 Ot 250.00 11/28/2014 Ot 272.0 11/28/2014 Ot 401.1 11/28/2014 Ot 715.90 11/28/2014 Ot 733.90 11/28/2014 Ot 790.6 11/28/2014 Ot 401.9 11/28/2014 Ot 272.4 11/28/2014 Ot 414.01 11/28/2014 Ot 425.4 11/28/2014 Ot V58.69 11/28/2014 Ot 729.5 11/28/2014 Ot 782.3 11/28/2014 Ot 414.00 11/28/2014 Ot 415.19 11/28/2014 Ot 453.40 11/28/2014 Ot 496 11/28/2014 Ot V45.81 11/28/2014 Ot V58.61 11/28/2014 Ot V58.66 11/28/2014 Ot V58.69 11/28/2014 Ot 786.05 11/28/2014 Ot 397.0 11/28/2014 Ot 424.0 11/28/2014 Ot 425.4 11/28/2014 Ot 414.00 11/28/2014 Ot 416.2 11/28/2014 Ot 453.50 11/28/2014 Ot 496 11/28/2014 Ot V45.81 11/28/2014 Ot V58.61 11/28/2014 Ot V58.69 11/28/2014 ALAN JACKSON Ot 414.00 11/28/2014 ALAN JACKSON TOE PUNCHER Ot 416.2 11/28/2014 ALAN JACKSON TOE PUNCHER Ot 453.50 11/28/2014 ALAN JACKSON TOE PUNCHER Ot 496 11/28/2014 ALAN JACKSON TOE PUNCHER Ot V45.81 11/28/2014 ALAN JACKSON TOE PUNCHER Ot V58.61 11/28/2014 ALAN JACKSON TOE PUNCHER Ot V58.69 11/28/2014 RENNER DO, MAHENDRA Ot 729.5 11/28/2014 RENNER DO, MAHENDRA Ot 715.34 11/28/2014 RENNER DO, MAHENDRA Ot 715.36 11/28/2014 RENNER DO, MAHENDRA Ot E000.8 11/28/2014 RENNER DO, MAHENDRA Ot E849.0 11/28/2014 RENNER DO, MAHENDRA Ot E888.9 11/28/2014 RENNER DO, MAHENDRA Ot V76.12 11/28/2014 LIZBETH MATOS N Ot 414.00 11/28/2014 SHAWNALIZBETH GARCIA N Ot 416.2 11/28/2014 SHAWNALIZBETH GARCIA N Ot 453.50 11/28/2014 SHAWNALIZBETH GARCIA N Ot 496 11/28/2014 SHAWNALIZBETH GARCIA N Ot V45.81 11/28/2014 SHAWNALIZBETH GARCIA N Ot V58.61 11/28/2014 SHAWNALIZBETH GARCIA N Ot V58.69 11/28/2014 JOEY SALINAS, SELVIN Keating Ot 840.4 11/28/2014 JOEY SALINAS, SELVIN Keating Ot E928.9 11/28/2014 ZURDO MAHENDRA Ot V76.12 12/26/2014 SARAH LOZADA DO M Ot 305.1 12/26/2014 AGNES LOZADA DOSON M Ot 327.23 12/26/2014 AGNES LOZADA DOSON M Ot 428.0 12/26/2014 SARAH LOZADA DO M Ot 451.19 12/26/2014 AGNES LOZADA DOSON M Ot 786.05 01/04/2015 AGNES LOZADA DOSON M Ot 305.1 01/04/2015 NEVILLE DOAGNESSARAH M Ot 327.23 01/04/2015 AGNES LOZADA DOSON M Ot 428.0 01/04/2015 AGNES LOZADA DOSON M Ot 451.19 01/04/2015 AGNES LOZADA DOSON M Ot 786.05 02/05/2015 LYN SALINAS FACC, FAITH FACP CCDS Ot 305.1 TOBACCO USE DISORDER 02/05/2015 LYN SALINAS FACC, FAITH FACP CCDS Ot 401.9 HYPERTENSION NOS 02/05/2015 LYN SALINAS FACC, FAITH FACP CCDS Ot 414.01 CORONARY ATHEROSCLEROSIS OF [place] CORON 02/05/2015 LYN SALINAS FACC, FAITH FACP CCDS Ot 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 02/05/2015 LYN SALINAS FACC, FAITH FACP CCDS Ot 530.81 ESOPHAGEAL REFLUX 02/05/2015 LYN SALINAS FACC, FAITH FACP CCDS Ot 729.81 SWELLING OF LIMB 02/05/2015 LYN SALINAS FACC, FAITH FACP CCDS Ot 780.57 UNSPECIFIED SLEEP APNEA 02/05/2015 LYN SALINAS FACC, FAITH FACP CCDS Ot 786.59 CHEST PAIN NEC 02/05/2015 LYN SALINAS FACC, ALI FACP CCDS Ot V12.51 HX-VENOUS THROMBOSIS EMBOLISM 02/05/2015 LYN SALINAS FACC, FAITH FACP CCDS Ot V45.81 AORTOCORONARY BYPASS 02/05/2015 LYN SALINAS FACC, FAITH JIMENEZP CCDS Ot V45.82 PERCUTANEOUS TRANSLUM CORON ANGIOPLASTY 02/05/2015 LYN SALINAS FACC, FAITH JIMENEZP CCDS Ot V58.61 ANTICOAGULANTS,LT,CURRENT USE 02/05/2015 LYN SALINAS FACC, FAITH FACP CCDS Ot V58.67 LONG-TERM (CURRENT) USE OF INSULIN 02/05/2015 LYN SALINAS FACC, FAITH JIMENEZP CCDS Ot V58.69 OTH MED,LT,CURRENT USE 02/08/2015 Ot 401.9 02/08/2015 Ot 401.9 02/27/2015 SARAH LOZADA DO Ot 305.1 TOBACCO USE DISORDER 02/27/2015 SARAH LOZADA DO Ot 327.23 OBSTRUCTIVE SLEEP APNEA (ADULT) (PEDIATR 02/27/2015 SARAH LOZADA DO Ot 428.0 CONGESTIVE HEART FAILURE NOS 02/27/2015 SARAH LOZADA DO Ot 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 02/27/2015 SARAH LOZADA DO Ot 786.05 SHORTNESS OF BREATH 03/06/2015 JASON SALAZAR L TOE PUNCHER Ot 789.09 03/06/2015 LISSYMA, JASON L TOE PUNCHER Ot V45.89 03/27/2015 LISSYMA JASON L TOE PUNCHER Ot 789.09 03/27/2015 LISSYMA JASON L TOE PUNCHER Ot V45.89 05/16/2015 SARAH LOZADA DO Ot 305.1 05/16/2015 SARAH LOZADA DO Ot 327.23 05/16/2015 SARAH LOZADA DO Ot 428.0 05/16/2015 SARAH LOZADA DO Ot 451.19 05/16/2015 SARAH LOZADA DO Ot 786.05 05/29/2015 SARAH LOZADA DO Ot F17.200 NICOTINE DEPENDENCE, UNSPECIFIED, UNCOMP 05/29/2015 SARAH LOZADA DO Ot G47.33 OBSTRUCTIVE SLEEP APNEA (ADULT) (PEDIATR 05/29/2015 AGNES LOZADA DOSON M Ot I50.9 HEART FAILURE, UNSPECIFIED 05/29/2015 NEVILLE DO, SARAH M Ot I80.209 PHLBTS AND THOMBOPHLB OF [facility] DEEP VESSE 05/29/2015 NEVILLE DO, SARAH M Ot R06.02 SHORTNESS OF BREATH 06/06/2015 REUFGIO RENNER DOI Ot Z12.31 06/11/2015 NEVILLE DO, SARAH M Ot F17.200 06/11/2015 NEVILLE DO, SARAH M Ot G47.33 06/11/2015 NEVILLE DO, SARAH M Ot I50.9 06/11/2015 NEVILLE DO, SARAH M Ot I80.209 06/11/2015 NEVILLE DO, SARAH M Ot R06.02 06/11/2015 NEVILLE DO, SARAH M Ot F17.200 06/11/2015 NEVILLE DO, SARAH M Ot G47.33 06/11/2015 NEVILLE DO, SARAH M Ot I50.9 06/11/2015 NEVILLE DO, SARAH M Ot I80.209 06/11/2015 NEVILLE DO, SARAH M Ot R06.02 06/12/2015 NEVILLE DO, SARAH M Ot F17.200 06/12/2015 NEVILLE DO, SARAH M Ot G47.33 06/12/2015 NEVILLE DO, SARAH M Ot I50.9 06/12/2015 NEVILLE DO, SARAH M Ot I80.209 06/12/2015 NEVILLE DO, SARAH M Ot R06.02 07/25/2015 NEVILLE DO, SARAH M Ot F17.200 07/25/2015 NEVILLE DO, SARAH M Ot G47.33 07/25/2015 NEVILLE DO, SARAH M Ot I50.9 07/25/2015 NEVILLE DO, SARAH M Ot I80.209 07/25/2015 NEVILLE DO, SARAH M Ot R06.02 08/07/2015 JOEY SALINAS, SELVIN Keating Ot E11.9 TYPE 2 DIABETES MELLITUS WITHOUT COMPLIC 08/07/2015 JOEY SALINAS, SELVIN Keating Ot G56.01 CARPAL TUNNEL SYNDROME, RIGHT UPPER LIMB 08/07/2015 JEOY SALINAS, SELVIN Keating Ot I10 ESSENTIAL (PRIMARY) HYPERTENSION 08/07/2015 JOEY SALINAS, SELVIN P Ot I25.10 ATHSCL HEART DISEASE OF [place] CORONARY 08/07/2015 JOEY SALINAS, SELVIN Keating Ot J44.9 CHRONIC OBSTRUCTIVE PULMONARY DISEASE, U 08/07/2015 JOEY SALINAS, SELVIN Keating Ot Z79.01 AUTOMOTIVE TECHNICIAN (CURRENT) USE OF ANTICOAGULANT 08/07/2015 JOEY SALINAS, SELVIN P Ot Z95.1 PRESENCE OF AORTOCORONARY BYPASS GRAFT 08/08/2015 SARAH LOZADA DO, Ot F17.200 08/08/2015 SARAH LOZADA DO, Ot G47.33 08/08/2015 SARAH LOZADA DO, Ot I50.9 08/08/2015 SARAH LOZADA DO, Ot I80.209 08/08/2015 SARAH LOZADA DO Ot R06.02 08/14/2015 JOEY SALINAS, SELVIN P Ot E11.9 08/14/2015 JOEY SALINAS, SELVIN P Ot G56.01 08/14/2015 JOEY SALINAS, SELVIN P Ot I10 08/14/2015 JOEY SALINAS, SELVIN P Ot I25.10 08/14/2015 JOEY SALINAS, SELVIN P Ot J44.9 08/14/2015 JOEY SALINAS, SELVIN P Ot Z79.01 08/14/2015 JOEY SALINAS, SELVIN P Ot Z95.1 08/15/2015 JOEY SALINAS, SELVIN P Ot E11.9 08/15/2015 JOEY SALINAS, SELVIN P Ot G56.01 08/15/2015 JOEY SALINAS, SELVIN P Ot I10 08/15/2015 JOEY SALINAS, SELVIN P Ot I25.10 08/15/2015 JOEY SALINAS, SELVIN P Ot J44.9 08/15/2015 JOEY SALINAS, SELVIN P Ot Z79.01 08/15/2015 JOEY SALINAS, SELVIN P Ot Z95.1 09/09/2015 SARAH LOZADA DO Ot F17.200 NICOTINE DEPENDENCE, UNSPECIFIED, UNCOMP 09/09/2015 SARAH LOZADA DO Ot G47.33 OBSTRUCTIVE SLEEP APNEA (ADULT) (PEDIATR 09/09/2015 SARAH LOZADA DO Ot I50.9 HEART FAILURE, UNSPECIFIED 09/09/2015 SARAH LOZADA DO Ot I80.209 PHLBTS AND THOMBOPHLB OF [place] DEEP VESSE 09/09/2015 NEVILLE READ SARAH M Ot R06.02 SHORTNESS OF BREATH 10/17/2015 DORENE ORANTES MD Ot K57.90 DVRTCLOS OF INTEST, PART UNSP, W/O PERF 10/17/2015 DORENE ORANTES MD Ot N28.89 OTHER SPECIFIED DISORDERS OF KIDNEY AND 10/17/2015 DORENE ORANTES MD Ot R10.32 LEFT LOWER QUADRANT PAIN 10/17/2015 DORENE ORANTES MD Ot Z87.891 PERSONAL HISTORY OF NICOTINE DEPENDENCE 10/18/2015 DORENE ORANTES MD Ot K57.90 DVRTCLOS OF INTEST, PART UNSP, W/O PERF 10/18/2015 DORENE ORANTES MD Ot N28.89 OTHER SPECIFIED DISORDERS OF KIDNEY AND 10/18/2015 DORENE ORANTES MD Ot R10.32 LEFT LOWER QUADRANT PAIN 10/18/2015 DORENE ORANTES MD, Ot Z87.891 PERSONAL HISTORY OF NICOTINE DEPENDENCE 10/18/2015 DORENE ORANTES MD Ot K57.90 DVRTCLOS OF INTEST, PART UNSP, W/O PERF 10/18/2015 DORENE ORANTES MD Ot N28.89 OTHER SPECIFIED DISORDERS OF KIDNEY AND 10/18/2015 DORENE ORANTES MD Ot R10.32 LEFT LOWER QUADRANT PAIN 10/18/2015 DORENE ORANTES MD, Ot Z87.891 PERSONAL HISTORY OF NICOTINE DEPENDENCE 11/07/2015 SHEILA BURK MD Ot F17.210 NICOTINE DEPENDENCE, CIGARETTES, UNCOMPL 11/07/2015 SHEILA BURK MD Ot M79.632 PAIN IN LEFT FOREARM 11/07/2015 SHEILA BURK MD Ot R23.3 SPONTANEOUS ECCHYMOSES 11/07/2015 SHEILA BURK MD Ot Z79.01 GROUP HOME (CURRENT) USE OF ANTICOAGULANT 11/07/2015 SHEILA BURK MD Ot Z86.718 PERSONAL HISTORY OF OTHER VENOUS THROMBO 11/11/2015 SHEILA BURK MD Ot F17.210 NICOTINE DEPENDENCE, CIGARETTES, UNCOMPL 11/11/2015 SHEILA BURK MD Ot M79.632 PAIN IN LEFT FOREARM 11/11/2015 SHEILA BURK MD Ot R23.3 SPONTANEOUS ECCHYMOSES 11/11/2015 SHEILA BURK MD Ot Z79.01 AUTOMOTIVE TECHNICIAN (CURRENT) USE OF ANTICOAGULANT 11/11/2015 SHEILA BURK MD Ot Z86.718 PERSONAL HISTORY OF OTHER VENOUS THROMBO 11/13/2015 SHEILA BURK MD Ot F17.210 NICOTINE DEPENDENCE, CIGARETTES, UNCOMPL 11/13/2015 SHEILA BURK MD Ot M79.632 PAIN IN LEFT FOREARM 11/13/2015 SHEILA BURK MD Ot R23.3 SPONTANEOUS ECCHYMOSES 11/13/2015 SHEILA BURK MD Ot Z79.01 GROUP HOME (CURRENT) USE OF ANTICOAGULANT 11/13/2015 SHEILA BURK MD Ot Z86.718 PERSONAL HISTORY OF OTHER VENOUS THROMBO 05/15/2016 Ot 414.00 CORON ATHEROSCLER NOS TYPE VESSEL, NATIV 05/15/2016 Ot 415.19 OTH PULMON EMBOLISM/INFARCT 05/15/2016 Ot 453.40 ACUTE VENOUS EMBOLISM THROMBOSIS UNSP 05/15/2016 Ot 496 CHR AIRWAY OBSTRUCT NEC 05/15/2016 Ot V45.81 AORTOCORONARY BYPASS 05/15/2016 Ot V58.61 ANTICOAGULANTS,LT,CURRENT USE 05/15/2016 Ot V58.66 LONG-TERM (CURRENT) USE OF ASPIRIN 05/15/2016 Ot V58.69 OTH MED,LT,CURRENT USE 05/15/2016 Ot 786.05 SHORTNESS OF BREATH 05/15/2016 Ot 397.0 TRICUSPID VALVE DISEASE 05/15/2016 Ot 424.0 MITRAL VALVE DISORDER 05/15/2016 Ot 425.4 PRIM CARDIOMYOPATHY NEC 05/15/2016 Ot 414.00 CORON ATHEROSCLER NOS TYPE VESSEL, NATIV 05/15/2016 Ot 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 05/15/2016 Ot 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 05/15/2016 Ot 496 CHR AIRWAY OBSTRUCT NEC 05/15/2016 Ot V45.81 AORTOCORONARY BYPASS 05/15/2016 Ot V58.61 ANTICOAGULANTS,LT,CURRENT USE 05/15/2016 Ot V58.69 OTH MED,LT,CURRENT USE 05/15/2016 ALAN JACKSON TOE PUNCHER Ot 414.00 CORON ATHEROSCLER NOS TYPE VESSEL, NATIV 05/15/2016 ALAN JACKSON TOE PUNCHER Ot 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 05/15/2016 ALAN JACKSON TOE PUNCHER Ot 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 05/15/2016 ALAN JACKSON TOE PUNCHER Ot 496 CHR AIRWAY OBSTRUCT NEC 05/15/2016 JACKSONALAN Germain TOE PUNCHER Ot V45.81 AORTOCORONARY BYPASS 05/15/2016 ALAN JACKSON TOE PUNCHER Ot V58.61 ANTICOAGULANTS,LT,CURRENT USE 05/15/2016 ALAN JACKSON TOE PUNCHER Ot V58.69 OTH MED,LT,CURRENT USE 05/15/2016 ZURDO READ MAHENDRA Ot 729.5 PAIN IN LIMB 05/15/2016 RENNERSHIRLENE READ MAHENDRA Ot 715.34 LOC OSTEOARTH NOS-HAND 05/15/2016 RENNER DO, MAHENDRA Ot 715.36 LOC OSTEOARTH NOS-L/LEG 05/15/2016 RENNER DO, MAHENDRA Ot E000.8 OTHER EXTERNAL CAUSE STATUS 05/15/2016 RENNER DO, MAHENDRA Ot E849.0 ACCIDENT IN HOME 05/15/2016 RENNER DO MAHENDRA Ot E888.9 FALL NOS 05/15/2016 ZURDO READ, MAHENDRA Ot V76.12 OTH SCREEN MAMMO-MALIGN NEOPLASM OF [place] 05/15/2016 LIZBETH MATOS Ot 414.00 CORON ATHEROSCLER NOS TYPE VESSEL, NATIV 05/15/2016 LIZBETH MATOS Ot 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 05/15/2016 LIZBETH MATOS N Ot 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 05/15/2016 LIZBETH MATOS N Ot 496 CHR AIRWAY OBSTRUCT NEC 05/15/2016 LIZBETH MATOS N Ot V45.81 AORTOCORONARY BYPASS 05/15/2016 LIZBETH MATOS N Ot V58.61 ANTICOAGULANTS,LT,CURRENT USE 05/15/2016 LIZBETH MATOS Ot V58.69 OTH MED,LT,CURRENT USE 05/15/2016 JOEY SALINAS, SELVIN Keating Ot 840.4 SPRAIN ROTATOR CUFF 05/15/2016 JOEY SALINAS, SELIVN [place] Ot E928.9 ACCIDENT NOS 05/15/2016 MAHENDRA RENNER DO Ot V76.12 OTH SCREEN MAMMO-MALIGN NEOPLASM OF [place] 05/15/2016 SARAH LOZADA DO Ot 305.1 TOBACCO USE DISORDER 05/15/2016 SARAH LOZADA DO Ot 327.23 OBSTRUCTIVE SLEEP APNEA (ADULT) (PEDIATR 05/15/2016 SARAH LOZADA DO Ot 428.0 CONGESTIVE HEART FAILURE NOS 05/15/2016 SARAH LOZADA DO Ot 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 05/15/2016 SARAH LOZADA DO Ot 786.05 SHORTNESS OF BREATH 05/15/2016 JASON SALAZAR TOE PUNCHER Ot 789.09 ABDOMINAL PAIN, OTHER SPECIFIED SITE 05/15/2016 JASON SALAZAR TOE PUNCHER Ot V45.89 POSTSURGICAL STATES NEC 05/15/2016 MAHENDRA RENNER DO Ot Z12.31 ENCNTR SCREEN MAMMOGRAM FOR MALIGNANT NE 05/15/2016 SELVIN COOK MD Ot G56.01 CARPAL TUNNEL SYNDROME, RIGHT UPPER LIMB 05/15/2016 SELVIN COOK MD Ot Z01.818 ENCOUNTER FOR OTHER PREPROCEDURAL EXAMIN 05/15/2016 SELVIN COOK MD Ot Z11.2 ENCOUNTER FOR SCREENING FOR OTHER BACTER 05/15/2016 SARAH LOZADA DO Ot F17.200 NICOTINE DEPENDENCE, UNSPECIFIED, UNCOMP 05/15/2016 SARAH LOZADA DO Ot G47.33 OBSTRUCTIVE SLEEP APNEA (ADULT) (PEDIATR 05/15/2016 SARAH LOZADA DO Ot I50.9 HEART FAILURE, UNSPECIFIED 05/15/2016 SARAH LOZADA DO Ot I80.209 PHLBTS AND THOMBOPHLB OF UNSP DEEP VESSE 05/15/2016 SARAH LOZADA DO Ot R06.02 SHORTNESS OF BREATH 05/15/2016 MAHENDRA RENNER DO Ot Z12.31 ENCNTR SCREEN MAMMOGRAM FOR MALIGNANT NE 05/18/2016 MAHENDRA RENNER DO Ot Z12.31 ENCNTR SCREEN MAMMOGRAM FOR MALIGNANT NE 05/18/2016 MAHENDRA RENNER DO Ot Z12.31 ENCNTR SCREEN MAMMOGRAM FOR MALIGNANT NE 05/27/2016 MAHENDRA RENNER DO Ot Z12.31 ENCNTR SCREEN MAMMOGRAM FOR MALIGNANT NE 06/12/2016 MAHENDRA RENNER DO Ot Z12.31 ENCNTR SCREEN MAMMOGRAM FOR MALIGNANT NE 09/23/2016 LYN SALINAS FACC, FAITH FACP CCDS Ot E11.9 TYPE 2 DIABETES MELLITUS WITHOUT COMPLIC 09/23/2016 LYN SALINAS FACC, ALI FACP CCDS Ot G47.33 OBSTRUCTIVE SLEEP APNEA (ADULT) (PEDIATR 09/23/2016 LYN SALINAS FACC, ALI FACP CCDS Ot I25.10 ATHSCL HEART DISEASE OF [place] CORONARY 09/23/2016 LYN JIMENEZC, ALI FACP CCDS Ot I42.0 DILATED CARDIOMYOPATHY 09/23/2016 LYN JIMENEZC, ALI FACP CCDS Ot I65.23 OCCLUSION AND STENOSIS OF BILATERAL MCCOLLUM 09/23/2016 LYN JIMENEZC, ALI FACP CCDS Ot I80.222 PHLEBITIS AND THROMBOPHLEBITIS OF LEFT P 09/23/2016 LYN SALINAS FACC, ALI FACP CCDS Ot R06.02 SHORTNESS OF BREATH 09/23/2016 LYN JIMENEZC, ALI FACP CCDS Ot Z72.0 TOBACCO USE 10/12/2016 LYN JIMENEZC, ALI FACP CCDS Ot E11.9 TYPE 2 DIABETES MELLITUS WITHOUT COMPLIC 10/12/2016 LYN SALINAS FACC, ALI FACP CCDS Ot G47.33 OBSTRUCTIVE SLEEP APNEA (ADULT) (PEDIATR 10/12/2016 LYN SALINAS FACC, ALI FACP CCDS Ot I25.10 ATHSCL HEART DISEASE OF [place] CORONARY 10/12/2016 LYN JIMENEZC, ALI FACP CCDS Ot I42.0 DILATED CARDIOMYOPATHY 10/12/2016 LYN JIMENEZC, ALI FACP CCDS Ot I65.23 OCCLUSION AND STENOSIS OF BILATERAL [place]LL[place] 10/12/2016 LYN JIMENEZC, ALI FACP CCDS Ot I80.222 PHLEBITIS AND THROMBOPHLEBITIS OF LEFT P 10/12/2016 LYN JIMENEZC, ALI FACP CCDS Ot R06.02 SHORTNESS OF BREATH 10/12/2016 LYN JIMENEZC, ALI FACP CCDS Ot Z72.0 TOBACCO USE 10/30/2016 LYN JIMENEZC, ALI FACP CCDS Ot E11.9 TYPE 2 DIABETES MELLITUS WITHOUT COMPLIC 10/30/2016 LYN JIMENEZ, ALI FACP CCDS Ot G47.33 OBSTRUCTIVE SLEEP APNEA (ADULT) (PEDIATR 10/30/2016 LYN SALINAS FACC, ALI FACP CCDS Ot I25.10 ATHSCL HEART DISEASE OF [place] CORONARY 10/30/2016 LYN SALINAS FACC, ALI FACP CCDS Ot I42.0 DILATED CARDIOMYOPATHY 10/30/2016 LYN SALINAS FACC, ALI FACP CCDS Ot I65.23 OCCLUSION AND STENOSIS OF BILATERAL [place] 10/30/2016 LYN JIMENEZ, ALI FACP CCDS Ot I80.222 PHLEBITIS AND THROMBOPHLEBITIS OF LEFT P 10/30/2016 LYN SALINAS FACC, ALI FACP CCDS Ot R06.02 SHORTNESS OF BREATH 10/30/2016 LYN SALINAS FACC, ALI FACP CCDS Ot Z72.0 TOBACCO USE 11/28/2016 ROMA WISDOM MD Ot E11.9 TYPE 2 DIABETES MELLITUS WITHOUT COMPLIC 11/28/2016 ROMA WISDOM MD Ot G47.30 SLEEP APNEA, UNSPECIFIED 11/28/2016 ROMA WISDOM MD Ot J44.9 CHRONIC OBSTRUCTIVE PULMONARY DISEASE, U 11/28/2016 ROMA WISDOM MD, Ot J45.909 UNSPECIFIED ASTHMA, UNCOMPLICATED 11/28/2016 ROMA WISDOM MD Ot L03.116 CELLULITIS OF LEFT LOWER LIMB 11/28/2016 ROMA WISDOM MD Ot M79.89 OTHER SPECIFIED SOFT TISSUE DISORDERS 11/28/2016 ROMA WISDOM MD Ot Z79.01 AUTOMOTIVE TECHNICIAN (CURRENT) USE OF ANTICOAGULANT 11/28/2016 ROMA WISDOM MD Ot Z79.4 AUTOMOTIVE TECHNICIAN (CURRENT) USE OF INSULIN 11/28/2016 ROMA WISDOM MD Ot Z79.82 GROUP HOME (CURRENT) USE OF ASPIRIN 11/28/2016 ROMA WISDOM MD Ot Z85.828 PERSONAL HISTORY OF OTHER MALIGNANT NEOP 11/28/2016 ROMA WISDOM MD Ot Z86.718 PERSONAL HISTORY OF OTHER VENOUS THROMBO 11/28/2016 ROMA WISDOM MD Ot Z87.891 PERSONAL HISTORY OF NICOTINE DEPENDENCE 11/28/2016 ROMA WISDOM MD Ot Z90.49 ACQUIRED ABSENCE OF OTHER SPECIFIED PART 11/28/2016 ROMA WISDOM MD Ot Z95.5 PRESENCE OF CORONARY ANGIOPLASTY IMPLANT 12/01/2016 ROMA WISDOM MD Ot E11.9 TYPE 2 DIABETES MELLITUS WITHOUT COMPLIC 12/01/2016 ROMA WISDOM MD, Ot G47.30 SLEEP APNEA, UNSPECIFIED 12/01/2016 ROMA WISDOM MD, Ot J44.9 CHRONIC OBSTRUCTIVE PULMONARY DISEASE, U 12/01/2016 ROMA WISDOM MD, Ot J45.909 UNSPECIFIED ASTHMA, UNCOMPLICATED 12/01/2016 ROMA WISDOM MD, Ot L03.116 CELLULITIS OF LEFT LOWER LIMB 12/01/2016 ROMA WISDOM MD, Ot M79.89 OTHER SPECIFIED SOFT TISSUE DISORDERS 12/01/2016 ROMA WISDOM MD, Ot Z79.01 GROUP HOME (CURRENT) USE OF ANTICOAGULANT 12/01/2016 ROMA WISDOM MD, Ot Z79.4 GROUP HOME (CURRENT) USE OF INSULIN 12/01/2016 ROMA WISDOM MD, Ot 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 12/01/2016 ROMA WISDOM MD, Ot Z85.828 PERSONAL HISTORY OF OTHER MALIGNANT NEOP 12/01/2016 ROMA WISDOM MD, Ot Z86.718 PERSONAL HISTORY OF OTHER VENOUS THROMBO 12/01/2016 ROMA WISDOM MD, Ot Z87.891 PERSONAL HISTORY OF NICOTINE DEPENDENCE 12/01/2016 ROMA WISDOM MD Ot Z90.49 ACQUIRED ABSENCE OF OTHER SPECIFIED PART 12/01/2016 ROMA WISDOM MD Ot Z95.5 PRESENCE OF CORONARY ANGIOPLASTY IMPLANT Procedures Code Description Performed By Performed On 38.7 PLICATION OF VENA CAVA 10/04/2011 Results Test Result Range Complete blood count (CBC) with automated white blood cell (WBC) differential - 11/28/16 20:14 Blood leukocytes automated count (number/volume) 7.1 10*3/ uL 4.3-11.0 Blood erythrocytes automated count (number/volume) 4.51 10*6 /uL 4.35-5.85 Venous blood hemoglobin measurement (mass/volume) 13.1 g/dL 11.5-16.0 Blood hematocrit (volume fraction) 40 % 35-52 Automated erythrocyte mean corpuscular volume 89 [foz_us] 80-99 Automated erythrocyte mean corpuscular hemoglobin (mass per erythrocyte) 29 pg 25-34 Automated erythrocyte mean corpuscular hemoglobin concentration measurement ( mass/volume) 33 g/dL 32-36 Automated erythrocyte distribution width ratio 14.9 % 10.0-14.5 Automated blood platelet count (count/volume) 222 10*3/uL 130-400 Automated blood platelet mean volume measurement 10.0 [[facility]_ [place]] 7.4-10.4 Automated blood neutrophils/100 leukocytes 59 % 42-75 Automated blood lymphocytes/100 leukocytes 25 % 12-44 Blood monocytes/100 leukocytes 12 % 0-12 Automated blood eosinophils/100 leukocytes 3 % 0-10 Automated blood basophils/100 leukocytes 1 % 0-10 Blood neutrophils automated count (number/volume) 4.2 10*3 1.8-7.8 Blood lymphocytes automated count (number/volume) 1.8 10*3 1.0-4.0 Blood monocytes automated count (number/volume) 0.8 10*3 0.0-1.0 Automated eosinophil count 0.2 10*3/uL 0.0-0.3 Automated blood basophil count (count/volume) 0.1 10*3/uL 0.0-0.1 PT panel in platelet poor plasma by coagulation assay - 11/28/16 20:14 Prothrombin time (PT) in platelet poor plasma by coagulation assay 38.0 s 12.2-14.7 INR in platelet poor plasma or blood by coagulation assay 3.9 0.8-1.4 Activated partial thromboplastin time (aPTT) in platelet poor plasma bycoagulation assay - 11/28/16 20:14 Activated partial thromboplastin time (aPTT) in platelet poor plasma bycoagulation assay 50 s 24-35 Comprehensive metabolic panel - 11/28/16 20:14 Serum or plasma sodium measurement (moles/volume) 145 mmol/ L 135-145 Serum or plasma potassium measurement (moles/volume) 3.7 mmol/L 3.6-5.0 Serum or plasma chloride measurement (moles/volume) 112 mmol /L 98-107 Carbon dioxide 20 mmol/L 21-32 Serum or plasma anion gap determination (moles/volume) 13 mmol/L 5-14 Serum or plasma urea nitrogen measurement (mass/volume) 18 mg/dL 7-18 Serum or plasma creatinine measurement (mass/volume) 0.86 mg /dL 0.60-1.30 Serum or plasma urea nitrogen/creatinine mass ratio 21 NRG Serum or plasma creatinine measurement with calculation of estimated glomerular filtration rate > NRG Serum or plasma glucose measurement (mass/volume) 154 mg/dL 70-105 Serum or plasma calcium measurement (mass/volume) 9.0 mg/dL 8.5-10.1 Serum or plasma total bilirubin measurement (mass/volume) 0.4 mg/dL 0.1-1.0 Serum or plasma alkaline phosphatase measurement (enzymatic activity/volume) 69 U/L 40-136 Serum or plasma aspartate aminotransferase measurement (enzymatic activity/ volume) 20 U/L 5-34 Serum or plasma alanine aminotransferase measurement (enzymatic activity/volume ) 16 U/L 0-55 Serum or plasma protein measurement (mass/volume) 6.4 g/dL 6.4-8.2 Serum or plasma albumin measurement (mass/volume) 3.7 g/dL 3.2-4.5 Serum or plasma C reactive protein measurement (mass/volume) - 11/28/16 20:14 Serum or plasma C reactive protein measurement (mass/volume) 1.62 mg/dL 0.00-0.50 Complete blood count (CBC) with automated white blood cell (WBC) differential - 12/20/16 12:39 Blood leukocytes automated count (number/volume) 9.1 10*3/ uL 4.3-11.0 Blood erythrocytes automated count (number/volume) 4.53 10*6 /uL 4.35-5.85 Venous blood hemoglobin measurement (mass/volume) 13.2 g/dL 11.5-16.0 Blood hematocrit (volume fraction) 41 % 35-52 Automated erythrocyte mean corpuscular volume 91 [foz_us] 80-99 Automated erythrocyte mean corpuscular hemoglobin (mass per erythrocyte) 29 pg 25-34 Automated erythrocyte mean corpuscular hemoglobin concentration measurement ( mass/volume) 32 g/dL 32-36 Automated erythrocyte distribution width ratio 15.1 % 10.0-14.5 Automated blood platelet count (count/volume) 231 10*3/uL 130-400 Automated blood platelet mean volume measurement 11.0 [foz_ [place]] 7.4-10.4 Automated blood neutrophils/100 leukocytes 70 % 42-75 Automated blood lymphocytes/100 leukocytes 18 % 12-44 Blood monocytes/100 leukocytes 8 % 0-12 Automated blood eosinophils/100 leukocytes 3 % 0-10 Automated blood basophils/100 leukocytes 1 % 0-10 Blood neutrophils automated count (number/volume) 6.4 10*3 1.8-7.8 Blood lymphocytes automated count (number/volume) 1.7 10*3 1.0-4.0 Blood monocytes automated count (number/volume) 0.7 10*3 0.0-1.0 Automated eosinophil count 0.2 10*3/uL 0.0-0.3 Automated blood basophil count (count/volume) 0.1 10*3/uL 0.0-0.1 Comprehensive metabolic panel - 12/20/16 12:39 Serum or plasma sodium measurement (moles/volume) 142 mmol/ L 135-145 Serum or plasma potassium measurement (moles/volume) 4.7 mmol/L 3.6-5.0 Serum or plasma chloride measurement (moles/volume) 110 mmol /L 98-107 Carbon dioxide 19 mmol/L 21-32 Serum or plasma anion gap determination (moles/volume) 13 mmol/L 5-14 Serum or plasma urea nitrogen measurement (mass/volume) 16 mg/dL 7-18 Serum or plasma creatinine measurement (mass/volume) 0.78 mg /dL 0.60-1.30 Serum or plasma urea nitrogen/creatinine mass ratio 21 NRG Serum or plasma creatinine measurement with calculation of estimated glomerular filtration rate > NRG Serum or plasma glucose measurement (mass/volume) 88 mg/dL 70-105 Serum or plasma calcium measurement (mass/volume) 8.6 mg/dL 8.5-10.1 Serum or plasma total bilirubin measurement (mass/volume) 0.4 mg/dL 0.1-1.0 Serum or plasma alkaline phosphatase measurement (enzymatic activity/volume) 82 U/L 40-136 Serum or plasma aspartate aminotransferase measurement (enzymatic activity/ volume) 28 U/L 5-34 Serum or plasma alanine aminotransferase measurement (enzymatic activity/volume ) 19 U/L 0-55 Serum or plasma protein measurement (mass/volume) 6.8 g/dL 6.4-8.2 Serum or plasma albumin measurement (mass/volume) 3.7 g/dL 3.2-4.5 Serum or plasma troponin i.cardiac measurement (mass/volume) - 12/20/16 12:39 Serum or plasma troponin i.cardiac measurement (mass/volume) < ng/mL <0.30 PT panel in platelet poor plasma by coagulation assay - 12/20/16 12:39 Prothrombin time (PT) in platelet poor plasma by coagulation assay 32.9 s 12.2-14.7 INR in platelet poor plasma or blood by coagulation assay 3.2 0.8-1.4 Activated partial thromboplastin time (aPTT) in platelet poor plasma bycoagulation assay - 12/20/16 12:39 Activated partial thromboplastin time (aPTT) in platelet poor plasma bycoagulation assay 53 s 24-35 Serum or plasma thyrotropin measurement by detection limit <=0.05 miu/l (units/ volume) - 12/20/16 12:39 Serum or plasma thyrotropin measurement by detection limit <=0.05 miu/l (units/ volume) 0.86 u[iU]/mL 0.35-4.94 Serum or plasma troponin i.cardiac measurement (mass/volume) - 12/20/16 18:54 Serum or plasma troponin i.cardiac measurement (mass/volume) < ng/mL <0.30 Capillary blood glucose measurement by glucometer (mass/volume) - 12/20/16 20: 57 Capillary blood glucose measurement by glucometer (mass/volume) 100 mg/dL 70-110 Complete blood count (CBC) with automated white blood cell (WBC) differential - 12/21/16 03:48 Blood leukocytes automated count (number/volume) 7.3 10*3/ uL 4.3-11.0 Blood erythrocytes automated count (number/volume) 4.38 10*6 /uL 4.35-5.85 Venous blood hemoglobin measurement (mass/volume) 12.6 g/dL 11.5-16.0 Blood hematocrit (volume fraction) 40 % 35-52 Automated erythrocyte mean corpuscular volume 90 [foz_us] 80-99 Automated erythrocyte mean corpuscular hemoglobin (mass per erythrocyte) 29 pg 25-34 Automated erythrocyte mean corpuscular hemoglobin concentration measurement ( mass/volume) 32 g/dL 32-36 Automated erythrocyte distribution width ratio 14.7 % 10.0-14.5 Automated blood platelet count (count/volume) 215 10*3/uL 130-400 Automated blood platelet mean volume measurement 10.8 [foz_ [place]] 7.4-10.4 Automated blood neutrophils/100 leukocytes 64 % 42-75 Automated blood lymphocytes/100 leukocytes 21 % 12-44 Blood monocytes/100 leukocytes 10 % 0-12 Automated blood eosinophils/100 leukocytes 4 % 0-10 Automated blood basophils/100 leukocytes 1 % 0-10 Blood neutrophils automated count (number/volume) 4.7 10*3 1.8-7.8 Blood lymphocytes automated count (number/volume) 1.5 10*3 1.0-4.0 Blood monocytes automated count (number/volume) 0.7 10*3 0.0-1.0 Automated eosinophil count 0.3 10*3/uL 0.0-0.3 Automated blood basophil count (count/volume) 0.1 10*3/uL 0.0-0.1 PT panel in platelet poor plasma by coagulation assay - 12/21/16 03:48 Prothrombin time (PT) in platelet poor plasma by coagulation assay 31.2 s 12.2-14.7 INR in platelet poor plasma or blood by coagulation assay 3.0 0.8-1.4 Activated partial thromboplastin time (aPTT) in platelet poor plasma bycoagulation assay - 12/21/16 03:48 Activated partial thromboplastin time (aPTT) in platelet poor plasma bycoagulation assay 52 s 24-35 Comprehensive metabolic panel - 12/21/16 03:48 Serum or plasma sodium measurement (moles/volume) 144 mmol/ L 135-145 Serum or plasma potassium measurement (moles/volume) 3.7 mmol/L 3.6-5.0 Serum or plasma chloride measurement (moles/volume) 111 mmol /L 98-107 Carbon dioxide 21 mmol/L 21-32 Serum or plasma anion gap determination (moles/volume) 12 mmol/L 5-14 Serum or plasma urea nitrogen measurement (mass/volume) 13 mg/dL 7-18 Serum or plasma creatinine measurement (mass/volume) 0.69 mg /dL 0.60-1.30 Serum or plasma urea nitrogen/creatinine mass ratio 19 NRG Serum or plasma creatinine measurement with calculation of estimated glomerular filtration rate > NRG Serum or plasma glucose measurement (mass/volume) 95 mg/dL 70-105 Serum or plasma calcium measurement (mass/volume) 8.5 mg/dL 8.5-10.1 Serum or plasma total bilirubin measurement (mass/volume) 0.5 mg/dL 0.1-1.0 Serum or plasma alkaline phosphatase measurement (enzymatic activity/volume) 77 U/L 40-136 Serum or plasma aspartate aminotransferase measurement (enzymatic activity/ volume) 15 U/L 5-34 Serum or plasma alanine aminotransferase measurement (enzymatic activity/volume ) 14 U/L 0-55 Serum or plasma protein measurement (mass/volume) 6.0 g/dL 6.4-8.2 Serum or plasma albumin measurement (mass/volume) 3.4 g/dL 3.2-4.5 Lipid 1996 panel - 12/21/16 03:48 Serum or plasma triglyceride measurement (mass/volume) 137 mg/dL <150 Serum or plasma cholesterol measurement (mass/volume) 147 mg /dL < 200 Serum or plasma cholesterol in HDL measurement (mass/volume) 26 mg/dL 40-60 Cholesterol in LDL [mass/volume] in serum or plasma by direct assay 97 mg/dL 1-129 Serum or plasma cholesterol in VLDL measurement (mass/volume) 27 mg/dL 5-40 Capillary blood glucose measurement by glucometer (mass/volume) - 12/21/16 21: 10 Capillary blood glucose measurement by glucometer (mass/volume) 229 mg/dL 70-110 Capillary blood glucose measurement by glucometer (mass/volume) - 12/22/16 05: 24 Capillary blood glucose measurement by glucometer (mass/volume) 94 mg/dL 70-110 Capillary blood glucose measurement by glucometer (mass/volume) - 12/22/16 10: 38 Capillary blood glucose measurement by glucometer (mass/volume) 129 mg/dL 70-110 Capillary blood glucose measurement by glucometer (mass/volume) - 12/22/16 15: 35 Capillary blood glucose measurement by glucometer (mass/volume) 199 mg/dL 70-110 Capillary blood glucose measurement by glucometer (mass/volume) - 12/22/16 21: 17 Capillary blood glucose measurement by glucometer (mass/volume) 85 mg/dL 70-110 Capillary blood glucose measurement by glucometer (mass/volume) - 12/23/16 05: 31 Capillary blood glucose measurement by glucometer (mass/volume) 115 mg/dL 70-110 Capillary blood glucose measurement by glucometer (mass/volume) - 12/23/16 11: 15 Capillary blood glucose measurement by glucometer (mass/volume) 236 mg/dL 70-110 Capillary blood glucose measurement by glucometer (mass/volume) - 12/23/16 20: 49 Capillary blood glucose measurement by glucometer (mass/volume) 231 mg/dL 70-110 Capillary blood glucose measurement by glucometer (mass/volume) - 12/24/16 05: 46 Capillary blood glucose measurement by glucometer (mass/volume) 97 mg/dL 70-110 PT panel in platelet poor plasma by coagulation assay - 12/24/16 07:38 Prothrombin time (PT) in platelet poor plasma by coagulation assay 26.7 s 12.2-14.7 INR in platelet poor plasma or blood by coagulation assay 2.5 0.8-1.4 Capillary blood glucose measurement by glucometer (mass/volume) - 12/24/16 14: 35 Capillary blood glucose measurement by glucometer (mass/volume) 90 mg/dL 70-110 Encounters ACCT No. Visit Date/Time Discharge Status Pt. Type Provider Facility Loc./Unit Complaint [id number] 12/20/2016 15:20:00 2016 16:15:00 DIS Outpatient MAHENDRA RENNER DO Via [facility] CSDo CHEST PAIN, H/O CAD [id number] 11/28/2016 19:54:00 2016 21:50:00 DIS Emergency ALYX SALINAS, ROMA Cho [facility] ER LEG SWELLING [id number] 11/07/2015 08:34:00 2015 09:59:00 DIS Emergency WM SALINAS, SHEILA Allen [facility] ER LEFT ARM SWELLING [id number] 10/17/2015 11:07:00 2015 16:06:00 DIS Emergency LAMBERTO SALINAS, DORENE Burt [facility] ER LEFT SIDE ABD PAIN [id number] 06/13/2015 09:00:00 2015 00:01:00 DIS Outpatient SARAH LOZADA DO [facility] PULM SOB BARBARA ON CPAP TOBACCO USE [id number] 08/07/2015 09:12:00 2015 14:45:00 DIS Outpatient JOEY SALINAS, SELVIN Keating [facility] SDC RIGHT CARPEL TUNNEL SYMDROME [id number] 05/21/2015 09:00:00 2014 00:01:00 DIS Outpatient SARAH LOZADA DO [facility] PULM SOB BARBARA ON CPAP TOBACCO USE [id number] 02/26/2015 09:00:00 2014 00:01:00 DIS Outpatient SARAH LOZADA DO [facility] PULM SOB BARBARA ON CPAP TOBACCO USE [id number] 02/11/2015 10:23:00 2014 23:59:59 CLS Outpatient JASON SALAZAR [facility] RAD POST CATH PAIN,SWELLING [id number] 02/05/2015 09:46:00 2014 16:30:00 DIS Outpatient FAITH NICHOLSON MD, FACC, FACP CCDS [facility] CATH CAD,CP [id number] 11/28/2014 11:19:00 2014 23:59:59 CLS Outpatient SARAH LOZADA DO [facility] RT SOB BARBARA ON CPAP TOBACCO USE [id number] 05/10/2014 10:33:00 2013 23:59:59 CLS Outpatient MAHENDRA RENNER DO [facility] RAD SCREENING [id number] 12/19/2013 08:43:00 2013 23:59:59 CLS Outpatient SELVIN COOK MD [facility] RAD ROTATOR CUFF TEAR [id number] 11/28/2013 08:38:00 2013 15:55:00 DIS Outpatient FAITH NICHOLSON MD, FACC, FACP CCDS [facility] CATH CAD HYPERTENSION HYPERLIPIDEMIA SHORTNESS OF BREAT [id number] 11/02/2013 12:49:00 2013 23:59:59 CLS Outpatient LIZBETH MATOS [facility] ONC [id number] 10/10/2013 11:25:00 2013 15:10:00 DIS Inpatient ZURDO READ MAHENDRA [facility] 4TH CELLULITIS LEFT LEG [id number] 05/08/2013 08:12:00 2012 23:59:59 CLS Outpatient RENNRE DO, MAHENDRA [facility] RAD SCREENING [id number] 04/11/2013 16:20:00 2012 23:59:59 CLS Outpatient RENNER DO, MAHENDRA [facility] RAD L KNEE PAIN,L HAND PAIN [id number] 11/10/2012 13:49:00 2012 23:59:59 CLS Outpatient ALAN JACKSON TOE PUNCHER [facility] ONC [id number] 11/10/2012 13:13:00 2012 23:59:59 CLS Outpatient [id number] 11/07/2012 16:01:00 2012 23:59:59 CLS Outpatient RENNER DO, MAHENDRA [facility] RAD LT LEG PAIN [id number] 09/17/2016 07:28:00 ACT Outpatient LYN SALINAS FACC, FAITH MORALES CCDS [facility] CARD I25.10 [id number] 05/15/2016 09:35:00 ACT Outpatient RENNER DO, MAHENDRA [facility] RAD SCREENING [id number] 09/10/2015 15:00:00 PEN Preadmit SARAH LOZADA DO [facility] PULM SOB BARBARA ON CPAP TOBACCO USE [id number] 08/02/2015 09:43:00 ACT Outpatient SELVIN COOK MD [facility] PREOP CARPEL TUNNEL SYNDROME [id number] 05/14/2015 11:15:00 ACT Outpatient RENNER DO MAHENDRA [facility] RAD SCREENING [id number] 11/28/2014 11:19:00 Document Registration [id number] 11/28/2014 11:19:00 Document Registration [id number] 11/28/2014 11:19:00 Document Registration [id number] 11/28/2014 11:19:00 Document Registration [id number] 11/28/2014 11:19:00 Document Registration [id number] 11/28/2014 11:19:00 Document Registration [id number] 11/28/2014 11:19:00 Document Registration [id number] 11/28/2014 11:19:00 Document Registration [id number] 11/28/2014 11:18:00 Document Registration [id number] 11/23/2011 14:09:00 Document Registration [id number] 11/13/2011 19:59:00 Document Registration [id number] 10/03/2011 10:40:00 Document Registration [id number] 08/11/2011 12:09:00 Document Registration [id number] 11/04/2010 15:23:00 Document Registration [id number] 08/09/2010 20:02:00 Document Registration [id number] 06/18/2010 13:39:00 Document Registration [id number] 04/16/2010 12:05:00 Document Registration [id number] 04/09/2010 07:24:00 Document Registration [id number] 03/06/2010 20:45:00 Document Registration [id number] 11/28/2009 17:47:00 Document Registration [id number] 06/09/2009 09:18:00 Document Registration
--- OUTSIDE RECORDS SUMMARY | 2016-12-31 09:01 | XMS REPORT | Clinical Summary ---
Author Author [facility] Organization [facility] Address Unknown Phone Unavailable Care Team Providers Care Wirer Helper Name Role Phone PCP Unavailable Source Comments Some departments are not documenting in the electronic medical record. If you do not see the information that you expected, contact Release of Information in the Health Information Management department at [phone] for further assistance in locating additional records.[facility] Allergies Active Allergy Reactions Severity Noted Date [...]
--- OUTSIDE RECORDS SUMMARY | 2016-12-31 09:38 | XMS REPORT | Continuity of Care Document ---
Author Author [facility] Organization [facility] Address Unknown Phone Unavailable Allergies Active Description Code Type Severity Reaction Onset Reported/Identified Relationship to Patient Clinical Status Yes cephalexin [id number] Drug Allergy Unknown N/A 10/10/2013 Yes erythromycin base [id number] Drug Allergy Moderate HIVES 10/10/2013 Medications Problems [...] SYSTOLIC HRT FAILURE 10/08/2011 Ot 440.20 ATHEROSCLEROSIS [place] ARTERIES EXTREMIT 10/08/2011 Ot 453.41 ACUTE VENOUS [...] SYSTOLIC HRT FAILURE 10/12/2011 Ot 440.20 ATHEROSCLEROSIS [place] ARTERIES EXTREMIT 10/12/2011 Ot 453.41 ACUTE VENOUS [...] USE OF ASPIRIN 11/28/2013 LYN SALINAS FACC, FAIHT JIMENEZP CCDS Ot 250.00 DIAB AJAY WO COMPL, TYPE II OR UNSPEC TY 11/28/2013 LYN SALINAS FACC, FAITH FACP CCDS Ot 272.4 HYPERLIPIDEMIA NEC/NOS 11/28/2013 LYN SALINAS FACC, FAITH FACP CCDS Ot 278.00 OBESITY, NOS 11/28/2013 LYN SALINAS FACC, FAITH FACP CCDS Ot 401.9 HYPERTENSION NOS 11/28/2013 LYN SALINAS FACC, FAITH FACP CCDS Ot 414.01 CORONARY ATHEROSCLEROSIS OF [place] CORON 11/28/2013 LYN SALINAS FACC, FAITH FACP [...] ALAN JACKSON Ot 414.00 11/28/2014 ALAN JACKSON RUBBER PRESS OPERATOR Ot 416.2 11/28/2014 ALAN JACKSON RUBBER PRESS OPERATOR Ot 453.50 11/28/2014 ALAN JACKSON RUBBER PRESS OPERATOR Ot 496 11/28/2014 ALAN JACKSON RUBBER PRESS OPERATOR Ot V45.81 11/28/2014 ALAN JACKSON RUBBER PRESS OPERATOR Ot V58.61 11/28/2014 ALAN JACKSON RUBBER PRESS OPERATOR Ot V58.69 11/28/2014 RENNER DO, MAHENDRA Ot [...] LOZADA DOSON M Ot 327.23 12/26/2014 AGNES OLZADA DOSON M Ot 428.0 12/26/2014 SARAH LOZADA [...] FACP CCDS Ot 414.01 CORONARY ATHEROSCLEROSIS OF [place] CORON 02/05/2015 LYN SALINAS FACC, FAITH FACP [...] Ot V12.51 HX-VENOUS THROMBOSIS EMBOLISM 02/05/2015 LYN SALIANS FACC, FAITH FACP CCDS Ot V45.81 AORTOCORONARY [...] DO Ot 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 02/27/2015 ASRAH LOZADA DO Ot 786.05 SHORTNESS OF BREATH 03/06/2015 JASON SALAZAR L RUBBER PRESS OPERATOR Ot 789.09 03/06/2015 LISSYMA, JASON L RUBBER PRESS OPERATOR Ot V45.89 03/27/2015 LISSYMA JASON L RUBBER PRESS OPERATOR Ot 789.09 03/27/2015 LISSYMA JASON L RUBBER PRESS OPERATOR Ot V45.89 05/16/2015 SARAH LZOADA DO Ot 305.1 05/16/2015 SARAH LOZADA DO [...] M Ot I80.209 [facility] DEEP VESSE 05/29/2015 NEVILLE DO, SARAH M Ot R06.02 SHORTNESS OF BREATH 06/06/2015 REFUGIO RENNER DOI Ot Z12.31 06/11/2015 NEVILLE DO, [...] CARPAL TUNNEL SYNDROME, RIGHT UPPER LIMB 08/07/2015 JOEY SALINAS, SELVIN Keating Ot I10 ESSENTIAL (PRIMARY) HYPERTENSION 08/07/2015 JOEY SALINAS, SELVIN P Ot I25.10 ATHSCL HEART DISEASE OF [place] CORONARY 08/07/2015 JOEY SALINAS, SELVIN Keating Ot J44.9 CHRONIC OBSTRUCTIVE PULMONARY DISEASE, U 08/07/2015 JOEY SALINAS, SELVIN Keating Ot Z79.01 REPORT CLERK (CURRENT) USE OF ANTICOAGULANT 08/07/2015 JOEY SALINAS, [...] ECCHYMOSES 11/07/2015 SHEILA BURK MD Ot Z79.01 PRISON (CURRENT) USE OF ANTICOAGULANT 11/07/2015 SHEILA BURK MD Ot Z86.718 PERSONAL HISTORY OF OTHER VENOUS THROMBO 11/11/2015 SHEILA BURK MD Ot F17.210 NICOTINE DEPENDENCE, CIGARETTES, UNCOMPL 11/11/2015 SHEILA BURK MD Ot M79.632 PAIN IN LEFT FOREARM 11/11/2015 SHEILA BURK MD Ot R23.3 SPONTANEOUS ECCHYMOSES 11/11/2015 SHEILA BURK MD Ot Z79.01 REPORT CLERK (CURRENT) USE OF ANTICOAGULANT 11/11/2015 SHEILA BURK MD Ot Z86.718 PERSONAL HISTORY OF OTHER VENOUS THROMBO 11/13/2015 SHEILA BURK MD Ot F17.210 NICOTINE DEPENDENCE, CIGARETTES, UNCOMPL 11/13/2015 SHEILA BURK MD Ot M79.632 PAIN IN LEFT FOREARM 11/13/2015 SHEILA BURK MD Ot R23.3 SPONTANEOUS ECCHYMOSES 11/13/2015 SHEILA BURK MD Ot Z79.01 PRISON (CURRENT) USE OF ANTICOAGULANT 11/13/2015 SHEILA BURK [...] V58.69 OTH MED,LT,CURRENT USE 05/15/2016 ALAN JACKSON RUBBER PRESS OPERATOR Ot 414.00 CORON ATHEROSCLER NOS TYPE VESSEL, NATIV 05/15/2016 ALAN JACKSON RUBBER PRESS OPERATOR Ot 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 05/15/2016 ALAN JACKSON RUBBER PRESS OPERATOR Ot 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 05/15/2016 ALAN JACKSON RUBBER PRESS OPERATOR Ot 496 CHR AIRWAY OBSTRUCT NEC 05/15/2016 JACKSONALAN Germain RUBBER PRESS OPERATOR Ot V45.81 AORTOCORONARY BYPASS 05/15/2016 ALAN JACKSON RUBBER PRESS OPERATOR Ot V58.61 ANTICOAGULANTS,LT,CURRENT USE 05/15/2016 ALAN JACKSON RUBBER PRESS OPERATOR Ot V58.69 OTH MED,LT,CURRENT USE 05/15/2016 ZURDO [...] 840.4 SPRAIN ROTATOR CUFF 05/15/2016 JOEY SALINAS, SELVIN Keating Ot E928.9 ACCIDENT NOS 05/15/2016 MAHENDRA [...] 786.05 SHORTNESS OF BREATH 05/15/2016 JASON SALAZAR RUBBER PRESS OPERATOR Ot 789.09 ABDOMINAL PAIN, OTHER SPECIFIED SITE 05/15/2016 JASON SALAZAR RUBBER PRESS OPERATOR Ot V45.89 POSTSURGICAL STATES NEC 05/15/2016 MAHENDRA [...] CCDS Ot I25.10 ATHSCL HEART DISEASE OF [place] CORONARY 09/23/2016 LYN JIMENEZC, ALI FACP CCDS [...] CCDS Ot I25.10 ATHSCL HEART DISEASE OF [place] CORONARY 10/12/2016 LYN JIMENEZC, ALI FACP CCDS [...] CCDS Ot I25.10 ATHSCL HEART DISEASE OF [place] CORONARY 10/30/2016 LYN SALINAS FACC, ALI FACP [...] DISORDERS 11/28/2016 ROMA WISDOM MD Ot Z79.01 REPORT CLERK (CURRENT) USE OF ANTICOAGULANT 11/28/2016 ROMA WISDOM MD Ot Z79.4 REPORT CLERK (CURRENT) USE OF INSULIN 11/28/2016 ROMA WISDOM MD Ot Z79.82 PRISON (CURRENT) USE OF ASPIRIN 11/28/2016 ROMA WISDOM [...] DISORDERS 12/01/2016 ROMA WISDOM MD, Ot Z79.01 PRISON (CURRENT) USE OF ANTICOAGULANT 12/01/2016 ROMA WISDOM MD, Ot Z79.4 PRISON (CURRENT) USE OF INSULIN 12/01/2016 ROMA WISDOM MD, Ot Z79.82 REPORT CLERK (CURRENT) USE OF ASPIRIN 12/01/2016 ROMA WISDOM [...] Automated blood platelet mean volume measurement 10.0 [[facility] [place]] 7.4-10.4 Automated blood neutrophils/100 leukocytes 59 [...] Status Pt. Type Provider Facility Loc./Unit Complaint [id number] 12/20/2016 15:20:00 2016 16:15:00 DIS Outpatient MAHENDRA RENNER DO [facility] CSDo CHEST PAIN, H/O CAD [id number] 11/28/2016 19:54:00 2016 21:50:00 DIS Emergency ALYX SALINAS, ROMA Cho [facility] ER LEG SWELLING [id number] 11/07/2015 08:34:00 2015 09:59:00 DIS Emergency WM SALINAS, SHEILA Allen [facility] ER LEFT ARM SWELLING [id number] 10/17/2015 11:07:00 2015 16:06:00 DIS Emergency LAMBERTO SALINAS, DORENE Burt [facility] ER LEFT SIDE ABD PAIN [id number] 06/13/2015 09:00:00 2015 00:01:00 DIS Outpatient SARAH LOZADA DO [facility] PULM SOB BARBARA ON CPAP TOBACCO USE [id number] 08/07/2015 09:12:00 2015 14:45:00 DIS Outpatient JOEY SALINAS, SELVIN Keating [facility] SDC RIGHT CARPEL TUNNEL SYMDROME [id number] 05/21/2015 09:00:00 2014 00:01:00 DIS Outpatient SARAH LOZADA DO [facility] PULM SOB BARBARA ON CPAP TOBACCO USE [id number] 02/26/2015 09:00:00 2014 00:01:00 DIS Outpatient SARAH LOZADA DO [facility] PULM SOB BARBARA ON CPAP TOBACCO USE [id number] 02/11/2015 10:23:00 2014 23:59:59 CLS Outpatient JASON SALAZAR [facility] RAD POST CATH PAIN,SWELLING [id number] 02/05/2015 09:46:00 2014 16:30:00 DIS Outpatient FAITH NICHOLSON MD, FACC, FACP CCDS [facility] CATH CAD,CP [id number] 11/28/2014 11:19:00 2014 23:59:59 CLS Outpatient SARAH LOZADA DO [facility] RT SOB BARBARA ON CPAP TOBACCO USE [id number] 05/10/2014 10:33:00 2013 23:59:59 CLS Outpatient MAHENDRA RENNER DO [facility] RAD SCREENING [id number] 12/19/2013 08:43:00 2013 23:59:59 CLS Outpatient SELVIN COOK MD [facility] RAD ROTATOR CUFF TEAR [id number] 11/28/2013 08:38:00 2013 15:55:00 DIS Outpatient FAITH NICHOLSON MD, FACC, FACP CCDS [facility] CATH CAD HYPERTENSION HYPERLIPIDEMIA SHORTNESS OF BREAT [id number] 11/02/2013 12:49:00 2013 23:59:59 CLS Outpatient LIZBETH MATOS [facility] ONC [id number] 10/10/2013 11:25:00 2013 15:10:00 DIS Inpatient ZURDO READ MAHENDRA [facility] 4TH CELLULITIS LEFT LEG [id number] 05/08/2013 08:12:00 2012 23:59:59 CLS Outpatient RENNER DO, MAHENDRA [facility] RAD SCREENING [id number] 04/11/2013 16:20:00 2012 23:59:59 CLS Outpatient RENNER DO, MAHENDRA [facility] RAD L KNEE PAIN,L HAND PAIN [id number] 11/10/2012 13:49:00 2012 23:59:59 CLS Outpatient ALAN JACKSON RUBBER PRESS OPERATOR [facility] ONC [id number] 11/10/2012 13:13:00 2012 23:59:59 CLS Outpatient [id number] 11/07/2012 16:01:00 2012 23:59:59 CLS Outpatient RENNER DO, MAHENDRA [facility] RAD LT LEG PAIN [id number] 09/17/2016 07:28:00 ACT Outpatient LYN SALINAS FACC, FAITH MORALES CCDS [facility] CARD I25.10 [id number] 05/15/2016 09:35:00 ACT Outpatient RENNER DO, MAHENDRA [facility] RAD SCREENING [id number] 09/10/2015 15:00:00 PEN Preadmit SARAH LOZADA DO [facility] PULM SOB BARBARA ON CPAP TOBACCO USE [id number] 08/02/2015 09:43:00 ACT Outpatient SELVIN COOK MD [facility] PREOP CARPEL TUNNEL SYNDROME [id number] 05/14/2015 11:15:00 ACT Outpatient RENNER DO MAHENDRA [facility] RAD SCREENING [id number] 11/28/2014 11:19:00 Document Registration [id number] 11/28/2014 11:19:00 Document Registration [id number] 11/28/2014 11:19:00 Document Registration [id number] 11/28/2014 11:19:00 Document Registration [id number] 11/28/2014 11:19:00 Document Registration [id number] 11/28/2014 11:19:00 Document Registration [id number] 11/28/2014 11:19:00 Document Registration [id number] 11/28/2014 11:19:00 Document Registration [id number] 11/28/2014 11:18:00 Document Registration [id number] 11/23/2011 14:09:00 Document Registration [id number] 11/13/2011 19:59:00 Document Registration [id number] 10/03/2011 10:40:00 Document Registration [id number] 08/11/2011 12:09:00 Document Registration [id number] 11/04/2010 15:23:00 Document Registration [id number] 08/09/2010 20:02:00 Document Registration [id number] 06/18/2010 13:39:00 Document Registration [id number] 04/16/2010 12:05:00 Document Registration [id number] 04/09/2010 07:24:00 Document Registration [id number] 03/06/2010 20:45:00 Document Registration [id number] 11/28/2009 17:47:00 Document Registration [id number] 06/09/2009 09:18:00 Document Registration
[2017-01-13] MEDS ORDERED: LEVO750T39 PO (11:43)
== END 2016-12-24 16:15 | disposition home or self-care (01) ==
LOC: EDUNIT# 12:23 → ER 12:25 → UNDOADMOB 14:15 → ICU 14:15 → UNDOADMOB 15:00 → ICU 15:20 → UNDOADMOB 15:20 → ICU 15:20 → CSDo 15:20 → 4TH 12-21 16:50 → ICU 12-21 16:50 → 4TH 12-24 09:35 → ICU 12-24 09:35 → CSDo 12-24 16:15 → UNDODISOB 12-24 16:15
PROVIDERS: ATTEND Internal Medicine
DX: R07.89 Other chest pain (principal); I25.10 Atherosclerotic heart disease of native coronary artery without angina pectoris; I97.630 Postprocedural hematoma of a circulatory system organ or structure following a cardiac catheterization; I25.84 Coronary atherosclerosis due to calcified coronary lesion; I50.42 Chronic combined systolic (congestive) and diastolic (congestive) heart failure; I25.82 Chronic total occlusion of coronary artery; T82.857D Stenosis of other cardiac prosthetic devices, implants and grafts, subsequent encounter; E11.9 Type 2 diabetes mellitus without complications; I10 Essential (primary) hypertension; E78.5 Hyperlipidemia, unspecified; Z72.0 Tobacco use; J44.9 Chronic obstructive pulmonary disease, unspecified; K21.9 Gastro-esophageal reflux disease without esophagitis; Z86.718 Personal history of other venous thrombosis and embolism; Z86.711 Personal history of pulmonary embolism; Z79.4 Long term (current) use of insulin; Z79.899 Other long term (current) drug therapy
CPT/HCPCS: 36415; 71010; 78452; 80053; 80061; 82962; 84443; 84484; 85025; 85610; 85730; 93005; 93017; 93459

== ENCOUNTER 2017-01-10 19:37 | Inpatient (IN) | payer MEDICARE ==
[~2017-01-10] VITALS: Ht 165.1 cm; Wt 87.7 kg
[~2017-01-10 19:37] MED LIST changes: +ASPI-999 PO; +CALC-696 PO; +FURO40TA4 PO; +METO50TA2 PO; +NITR0.4T SL; +POLY255P PO; +WARF-48 PO
--- OUTSIDE RECORDS SUMMARY | 2017-01-10 19:44 | XMS REPORT | Clinical Summary ---
Author Author [facility] Organization [facility] Address Unknown Phone Unavailable Care Team Providers Care Dental Office Receptionist Name Role Phone PCP Unavailable Source Comments Some departments are not documenting in the electronic medical record. If you do not see the information that you expected, contact Release of Information in the Health Information Management department at [phone] for further assistance in locating additional records.[facility] Allergies Active Allergy Reactions Severity [...]
[2017-01-10] MEDS ORDERED: NS IV 1000 ML 1,000 ML IV ONE (21:19)
[2017-01-10 21:29] LABS: BASOPHILS # (AUTO) 0.1 10^3/uL (0.0-0.1); BASOPHILS % (AUTO) 0 % (0-10); EOSINOPHILS % (AUTO) 0 % (0-10); LYMPHOCYTES # (AUTO) 0.8 X 10^3 (1.0-4.0); LYMPHOCYTES % (AUTO) 6 % (12-44); MEAN CORPUSCULAR HEMOGLOBIN 28 PG (25-34); MEAN CORPUSCULAR HGB CONC 32 G/DL (32-36); MEAN CORPUSCULAR VOLUME 88 FL (80-99); MEAN PLATELET VOLUME 10.5 FL (7.4-10.4); MONOCYTES # (AUTO) 1.1 X 10^3 (0.0-1.0); MONOCYTES % (AUTO) 9 % (0-12); NEUTROPHILS # (AUTO) 10.5 X 10^3 (1.8-7.8); NEUTROPHILS % (AUTO) 84 % (42-75); PLATELET COUNT 327 10^3/uL (130-400); RED BLOOD COUNT 4.27 10^6/uL (4.35-5.85); RED CELL DISTRIBUTION WIDTH 15.6 % (10.0-14.5); WHITE BLOOD COUNT 12.4 10^3/uL (4.3-11.0)
[2017-01-10] MEDS ORDERED: ACETAMINOPHEN 500 MG TAB (TYLENOL) PO PRN (21:30)
[2017-01-10] MEDS ORDERED: LEVOFLOXACIN IV 750 MG/150 ML (LEVAQUIN) BAG IV ONE (21:30)
[2017-01-10 21:32] LABS: BILIRUBIN,URINE 1+ (NEGATIVE); KETONES,URINE NEGATIVE (NEGATIVE); LEUKOCYTE ESTERASE ,URINE 1+ (NEGATIVE); NITRITE,URINE NEGATIVE (NEGATIVE); PH,URINE 5 (5-9); PROTEIN,URINE 3+ (NEGATIVE); UROBILINOGEN,URINE 4 MG/DL (NORMAL)
--- NOTE | 2017-01-10 21:35 | ED Respiratory ---
General Chief Complaint: Respiratory Problems Stated Complaint: FEVER 100.2 COUGH W BLOOD Nursing Triage Note: soa, cough, right rib pain with coughing Source: patient, family (son) Exam Limitations: no limitations History of Present Illness Time seen by provider: 21:29 Initial Comments Patient presents to ER by private conveyance with her son with a chief complaint of for the past 2-3 days she's had malaise weakness tiredness productive cough now today with sputum with flecks of blood in it. She is also feeling all short of breath and has noticed that she's had more swelling in her legs. She has a history of 3 stents and cardiac disease. She recently underwent a cardiac catheter and was going tomorrow to see Dr. Ponce about the results. She called her primary care physician and has an appointment for tomorrow morning. She has a history of COPD and still smokes about three quarters of a pack a day. She takes half a tablet of prednisone twice daily for her COPD as well as inhalers. She feels pain in the lower right chest every time she coughs or takes in a big deep breath. Says the pain is sharp and fleeting for only a second or less. She's had a fever today. Allergies and Home Medications Allergies Coded Allergies: erythromycin base (Verified Allergy, Intermediate, HIVES, 10/10/13) NSAIDS (Non-Steroidal Anti-Inflamma (Verified Allergy, Unknown, 01/10/17) cephalexin (Verified Allergy, Unknown, 10/10/13) Home Medications Amlodipine Besylate 5 Mg Tablet, 5 MG PO DAILY, (Reported) Aspirin 81 Mg Tab.chew, 81 MG PO DAILY, (Reported) Benazepril HCl 40 Mg Tab, 40 MG PO DAILY, (Reported) Calcium Citrate/Vitamin D3 1 Each Tablet, 1 TAB PO DAILY, (Reported) Cholecalciferol (Vitamin D3) 2,000 Unit Capsule, 2,000 UNIT PO HS, (Reported) Famotidine 20 Mg Tablet, 20 MG PO BID, (Reported) Fluticasone/Salmeterol 1 Each Blst.w.dev, 1 PUFF IH BID, (Reported) Furosemide 40 Mg Tablet, 40 MG PO DAILY, (Reported) Glipizide 5 Mg Tablet, 2.5 MG PO BID, (Reported) TAKES 1/2 OF A (5 MG) TABLET Insulin Detemir 100 U/Ml Vial, 10 U SQ HS PRN for BLOOD SUGAR GREATER THAN 200, (Reported) Insulin Human Lispro 100 U/Ml Vial, 8 UNITS SQ TIDAC PRN for BLOOD SUGAR GREATER THAN 180, (Reported) Ipratropium/Albuterol Sulfate 3 Ml Ampul.neb, 3 ML IH QID PRN for SHORTNESS OF BREATH, (Reported) Metoprolol Tartrate 50 Mg Tablet, 50 MG PO BID, (Reported) Montelukast Sodium 10 Mg Tablet, 10 MG PO HS, (Reported) Nitroglycerin 0.4 Mg Tab.subl, 0.4 MG SL Q5M PRN for CHEST PAIN, #20 Prescribed by: MAHENDRA RENNER on 12/23/16 1101 Polyethylene Glycol 3350 255 Gm Powder, 17 GM PO DAILY, (Reported) Potassium Chloride 20 Meq Tab.er.prt, 20 MEQ PO DAILY, (Reported) Pravastatin Sodium 40 Mg Tablet, 20 MG PO HS, (Reported) TAKE 1/2 OF (40 MG) TABLET Tramadol HCl 50 Mg Tablet, 50 MG PO TID PRN for PAIN-MODERATE, (Reported) Warfarin Sodium 5 Mg Tablet, 5 MG PO 1800, (Reported) Constitutional: chills, fever, malaise EENTM: No ear pain, No eye pain Respiratory: cough, dyspnea on exertion, hemoptysis, phlegm, short of breath, No wheezing Cardiovascular: No chest pain, No palpitations Gastrointestinal: No abdominal pain, No constipation, No diarrhea, No nausea Genitourinary: No discharge, No dysuria : No Musculoskeletal: No back pain, No joint pain Skin: No pruritus, No rash Psychiatric/Neurological: Denies Headache, Denies Numbness Past [id number]-Aseoek-Yrlvyo Hx Patient Social History Alcohol Use: Denies Use Recreational Drug Use: No Smoking Status: Current Everyday Smoker Type Used: Cigarettes Former Smoker/When Quit: September 29, 2011 2nd Hand Smoke Exposure: Yes Recent Foreign Travel: No Contact w/Someone Who Travel: No Recent Infectious Disease Expo: No Recent Hopitalizations: No Immunizations Up To Date Tetanus Booster (TDap): Unknown Date of Pneumonia Vaccine: Jan 05, 2015 Date of Influenza Vaccine: Feb 28, 2015 Seasonal Allergies Seasonal Allergies: Yes Surgeries HX Surgeries: Yes (FOOT TUMOR,CATARACTS,X2MMK&RECTOCELE,,HEMORRHOIDS, HEMICOLECTomy) Surgeries: Appendectomy, Bladder Surgery, CABG, Coronary Stent, Gallbladder, Hysterectomy, Rectal Respiratory Hx Respiratory Disorders: Yes (uses CPAP) Respiratory Disorders: Asthma, Pulmonary Embolism, Sleep Apnea, COPD Cardiovascular Hx Cardiac Disorders: Yes (STENTS, triple bypass, possible heart attack) Cardiac Disorders: Atrial Fibrillation, Chronic Edema/Swelling, Coronary Artery Disease, Deep Vein Thrombosis, High Cholesterol, Hypertension Neurological Hx Neurological Disorders: Yes Neurological Disorders: Neuropathy Reproductive System : No Hx Reproductive Disorders: No Sexually Transmitted Disease: No HIV/AIDS: No 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 Disorders: Endometriosis BUSINESS OBJECTS History: Menopausal Genitourinary Hx Genitourinary Disorders: Yes (OCC.LEAKING) Genitourinary Disorders: Bladder Infection Gastrointestinal Hx Gastrointestinal Disorders: Yes (colon resection, ) Gastrointestinal Disorders: Diverticulosis Musculoskeletal Hx Musculoskeletal Disorders: Yes Musculoskeletal Disorders: Arthritis Endocrine Hx Endocrine Disorders: Yes Endocrine Disorders: Diabetes, Insulin dep, Diabetes, Non-Insulin dep HEENT HX ENT Disorders: Yes (partial lower plate) HEENT Disorders: Cataract Loss of Vision: Denies Hearing Impairment: Denies Cancer Hx Cancer: Yes Cancer: Skin Psychosocial Hx Psychiatric Problems: No Integumentary HX Skin/Integumentary Disorder: No Blood Transfusions Hx Blood Disorders: No (HX OF DVT, ) Adverse Reaction to a Blood Tr: No Family Medical History Significant Family History: No Pertinent Family Hx Family Medial History: CABG 19 FATHER Cardiovascular disease 19 FATHER 19 MOTHER Diabetes mellitus 19 MOTHER FH: lung cancer 19 FATHER FH: myocardial infarction 19 MOTHER Hypertension 19 FATHER 19 MOTHER Physical Exam Vital Signs Vital Sign - Last 12Hours 01/10/ 21:15 Temp 103.1 Pulse 87 Resp 24 B/P (MAP) 125/63 Pulse Ox 92 O2 Delivery Nasal Cannula O2 Flow Rate 3.00 Capillary Refill : Less Than 3 Seconds General Appearance: WD/WN Eyes: Bilateral Eye EOMI, Bilateral Eye Normal Inspection, Bilateral Eye PERRL HEENT: PERRL/EOMI, normal ENT inspection, TMs normal, pharynx normal Neck: non-tender, supple, normal inspection Respiratory: chest non-tender, decreased breath sounds Cardiovascular: normal peripheral pulses, regular rate, rhythm, no edema Gastrointestinal: normal bowel sounds, non tender, soft Extremities: no pedal edema, no calf tenderness, normal capillary refill Neurologic/Psychiatric: alert, oriented x 3 Skin: normal color, warm/dry Lymphatic: no adenopathy Focused Exam Evaluation Sepsis Stage: Sepsis Possible Source: Pulmonary Time of Focused Exam: 22:33 Respiratory: Chest Non Tender, No Accessory Muscle Use, No Respiratory Distress , No Accessory Muscle Use, Rales (right), Wheezing Cardiovascular: Regular Rate, Rhythm, No JVD, Normal Peripheral Pulses, Other ( anirudh 1+ leg edema) Capillary Refill: Less Than 3 Seconds Peripheral Pulses: 2+ Radial Pulses (R), 2+ Radial Pulses (L) Skin: normal color, warm/dry Lactic Acid Level Laboratory Tests Test 01/10/17 21:15 Lactic Acid Level 1.04 MMOL/L (0.50-2.00) Progress/Results/Core Measures Results/Orders Lab Results Laboratory Tests Test 01/10/17 21:15 01/10/17 21:25 Range/Units White Blood Count 12.4 H 4.3-11.0 10^3/uL Red Blood Count 4.27 L 4.35-5.85 10^6/uL Hemoglobin 12.0 11.5-16.0 G/DL Hematocrit 38 35-52 % Mean Corpuscular Volume 88 80-99 FL Mean Corpuscular Hemoglobin 28 25-34 PG Mean Corpuscular Hemoglobin Concent 32 32-36 G/DL Red Cell Distribution Width 15.6 H 10.0-14.5 % Platelet Count 327 130-400 10^3/uL Mean Platelet Volume 10.5 H 7.4-10.4 FL Neutrophils (%) (Auto) 84 H 42-75 % Lymphocytes (%) (Auto) 6 L 12-44 % Monocytes (%) (Auto) 9 0-12 % Eosinophils (%) (Auto) 0 0-10 % Basophils (%) (Auto) 0 0-10 % Neutrophils # (Auto) 10.5 H 1.8-7.8 X 10^3 Lymphocytes # (Auto) 0.8 L 1.0-4.0 X 10^3 Monocytes # (Auto) 1.1 H 0.0-1.0 X 10^3 Eosinophils # (Auto) 0.0 0.0-0.3 10^3/uL Basophils # (Auto) 0.1 0.0-0.1 10^3/uL Neutrophils % (Manual) 80 % Lymphocytes % (Manual) 11 % Monocytes % (Manual) 5 % Eosinophils % (Manual) 0 % Basophils % (Manual) 0 % Band Neutrophils 4 % Blood Morphology Comment NORMAL Prothrombin Time 36.4 H 12.2-14.7 SEC INR Comment 3.7 H 0.8-1.4 Activated Partial Thromboplast Time 77 H 24-35 SEC Sodium Level 137 135-145 MMOL/L Potassium Level 4.6 3.6-5.0 MMOL/L Chloride Level 106 98-107 MMOL/L Carbon Dioxide Level 18 L 21-32 MMOL/L Anion Gap 13 5-14 MMOL/L Blood Urea Nitrogen 18 7-18 MG/DL Creatinine 0.86 0.60-1.30 MG/DL Estimat Glomerular Filtration Rate > 60 BUN/Creatinine Ratio 21 Glucose Level 108 H 70-105 MG/DL Lactic Acid Level 1.04 0.50-2.00 MMOL/L Calcium Level 9.2 8.5-10.1 MG/DL Magnesium Level 1.9 1.8-2.4 MG/DL Total Bilirubin 0.5 0.1-1.0 MG/DL Aspartate Amino Transf (AST/SGOT) 46 H 5-34 U/L Alanine Aminotransferase (ALT/SGPT) 35 0-55 U/L Alkaline Phosphatase 81 40-136 U/L Troponin I < 0.30 <0.30 NG/ML B-Type Natriuretic Peptide 119.2 H <100.0 PG/ML Total Protein 7.0 6.4-8.2 GM/DL Albumin 3.4 3.2-4.5 GM/DL Urine Color YELLOW Urine Clarity CLEAR Urine pH 5 5-9 Urine Specific [place] 1.015 L 1.016-1.022 Urine Protein 3+ H NEGATIVE Urine Glucose (UA) NEGATIVE NEGATIVE Urine Ketones NEGATIVE NEGATIVE Urine Nitrite NEGATIVE NEGATIVE Urine Bilirubin 1+ H NEGATIVE Urine Urobilinogen 4 H NORMAL MG/DL Urine Leukocyte Esterase 1+ H NEGATIVE Urine RBC (Auto) 4+ H NEGATIVE Urine RBC 5-10 H /HPF Urine WBC 2-5 /HPF Urine Squamous Epithelial Cells 5-10 /HPF Urine Crystals NONE /LPF Urine Bacteria FEW H /HPF Urine Casts NONE /LPF Urine Mucus NEGATIVE /LPF Urine Culture Indicated NO My Orders Orders - ELISSA PALACIOS Cbc With Automated Diff (01/10/17 21:19) Comprehensive Metabolic Panel (01/10/17 21:19) Lactic Acid Analyzer (01/10/17 21:19) Blood Culture (01/10/17 21:19) Sputum Culture (01/10/17 21:19) Ua Culture If Indicated (01/10/17 21:19) Protime With Inr (01/10/17 21:19) Partial Thromboplastin Time (01/10/17 21:19) O2 (01/10/17 21:19) Acetaminophen Tablet (Tylenol Tablet) (01/10/17 21:30) Saline Lock/Iv-Start (01/10/17 21:19) Saline Lock/Iv-Start (01/10/17 21:19) Troponin I (01/10/17 21:19) Levofloxacin 750 Mg/150 Ml Iv (Levaquin (01/10/17 21:30) Vital Signs Adult Sepsis Patie Q1HR (01/10/17 21:19) Remove Rings In Anticipation O (01/10/17 21:19) Chest Pa/Lat (2 View) (01/10/17 21:19) Magnesium (01/10/17 21:19) Saline Lock/Iv-Start (01/10/17 21:19) Ns Iv 1000 Ml (Sodium Chloride 0.9%) (01/10/17 21:19) Manual Differential (01/10/17 21:15) Ekg Tracing (01/10/17 21:32) Continuous Ekg Monitoring (01/10/17 21:32) BNP (01/10/17 21:32) Methylprednisolone Sod Succ (Solu-Medrol (01/10/17 21:45) Albuterol/Ipra Inhalation Soln (Duoneb I (01/10/17 21:45) Svn Sm Volume Nebulizer Rt-Rfs (01/10/17 21:36) Medications Given in ED Current Medications Medications Dose Ordered Sig/Danny Route Start Time Stop Time Status Last Admin Dose Admin Acetaminophen 1,000 mg ONCE PRN PO 01/10/17 21:30 01/10/17 21:44 DC 01/10/17 21:44 1,000 MG Albuterol/ Ipratropium 3 ml ONCE ONCE INH 01/10/17 21:45 01/10/17 21:46 DC 01/10/17 22:06 3 ML Levofloxacin/ Dextrose 750 mg ONCE ONCE IV 01/10/17 21:30 01/10/17 21:31 DC 01/10/17 21:44 750 MG Methylprednisolone Sodium Succinate 125 mg ONCE ONCE IM 01/10/17 21:45 01/10/17 21:46 DC 01/10/17 21:45 125 MG Sodium Chloride 1,000 ml @ 0 mls/hr Q0M ONCE IV 01/10/17 21:19 01/10/17 21:22 DC 01/10/17 21:44 0 MLS/HR Vital Signs/I&O Vital Sign - Last 12Hours 01/10/17 01/10/17 01/10/17 01/10/17 21:15 21:15 21:44 22:07 Temp 103.1 103.1 Pulse 87 Resp 24 B/P (MAP) 125/63 Pulse Ox 92 92 92 O2 Delivery Nasal Cannula Nasal Cannula Nasal Cannula O2 Flow Rate 3.00 3.00 2.50 Blood Pressure Mean: 83 Progress Note : Time: 22:03 Progress Note Right middle lobe patchy infiltrate. BNP is not very elevated. Has a white count cough productive. This looks like pneumonia. This patient's on Coumadin and INRs aren't elevated and we gave her Levaquin she'll need to have her INR checked again tomorrow or the following day and would have her hold her Coumadin for now. His probably explain why she is having some red blood cells in her urine as well. Curb 65 score of 1. we could consider outpatient therapy. She does have an appointment tomorrow morning with her PCP. Patient is not oxygen dependent at this time and she does want to go home and try outpatient therapy since she seeing her PCP tomorrow at 2 in the afternoon. She has a nebulizer at home and she can take the albuterol treatments at home. She is staying with her son presently so she will have someone to help her around the house. She already took her Coumadin tonight. We took her off oxygen she [place] desatted down to 87% while lying there. She does not wear oxygen at home. ECG Initial ECG Impression Date: Jan 10, 2017 Initial ECG Impression Time: 22:12 Initial ECG Rate: 74 Initial ECG Rhythm: Normal Sinus Initial ECG Intervals: Normal Initial ECG Impression: Nonspecific Changes Initial ECG Comparisson: Unchanged Comment Right bundle-branch block without any ST-T wave elevation or depression appreciable. No changes from December 21, 2016. Diagnostic Imaging Diagonstic Imaging: Xray Plain Films/CT/US/NM/MRI: chest Comments Right middle lobe and right lower lobe patchy infiltrate consistent with pulmonary edema or pneumonia. Reviewed: Reviewed by Me Departure Communication Time/Spoke to Admitting Phy: 22:23 Communication Discussed the patient's right middle lobe pneumonia workup findings oxygen dependency and INR. We gave her breathing treatments and Solu-Medrol and 25 and she is okay with that until morning. She'll see patient in the morning. She wants continued breathing treatments overnight. Impression Impression: Primary Impression: Pneumonia Qualified Codes: J18.1 - Lobar pneumonia, unspecified organism Additional Impressions: Sepsis Qualified Codes: A41.9 - Sepsis, unspecified organism Hypoxia Disposition: ADMITTED INPATIENT Condition: Stable Admissions Decision to Admit Reason: Admit from ER (General) Decision to Admit/Date: Jan 10, 2017 Time/Decision to Admit Time: 22:26 Departure-Patient Inst. Referrals: MAHENDRA RENNER DO (PCP/Family) Primary Care Physician Copy Copies To 1: MAHENDRA RENNER TITUS J Jan 10, 2017 21:35
[2017-01-10 21:37] LABS: INR 3.7 (0.8-1.4); PROTHROMBIN TIME PATIENT 36.4 SEC (12.2-14.7)
[2017-01-10 21:44] LABS: BAND NEUTROPHILS 4 %; BASOPHILS % (MANUAL) 0 %; EOSINOPHILS % (MANUAL) 0 %; LYMPHOCYTES % (MANUAL) 11 %; NEUTROPHILS % (MANUAL) 80 %
[2017-01-10 21:45] LABS: ALANINE AMINOTRANSFERASE 35 U/L (0-55); ALBUMIN 3.4 GM/DL (3.2-4.5); ANION GAP 13 MMOL/L (5-14); ASPARTATE AMINO TRANSFERASE 46 U/L (5-34); BILIRUBIN,TOTAL 0.5 MG/DL (0.1-1.0); BLOOD UREA NITROGEN 18 MG/DL (7-18); BUN/CREATININE RATIO 21; CALCIUM 9.2 MG/DL (8.5-10.1); CARBON DIOXIDE 18 MMOL/L (21-32); CHLORIDE 106 MMOL/L (98-107); CREATININE SERUM 0.86 MG/DL (0.60-1.30); GFR ESTIMATED > 60; GLUCOSE 108 MG/DL (70-105); MAGNESIUM 1.9 MG/DL (1.8-2.4); POTASSIUM 4.6 MMOL/L (3.6-5.0); SODIUM 137 MMOL/L (135-145)
[2017-01-10] MEDS ORDERED: methylPREDNISolone 125 MG (Solu-MEDROL) VIAL IM ONE (21:45)
[2017-01-10] MEDS ORDERED: RT-ALBUTEROL/IPRATROPIUM 3 ML (DUONEB) VIAL INH ONE (21:45)
[2017-01-10 21:50] LABS: TROPONIN I < 0.30 NG/ML (<0.30)
[2017-01-10 23:20] VITALS: BP 105/52
[2017-01-10] MEDS ORDERED: RT-ALBUTEROL/IPRATROPIUM 3 ML (DUONEB) VIAL IH PRN (23:30)
[2017-01-10] MEDS ORDERED: ONDANSETRON 4 MG/2 ML (SDV) Z0FRAN IV PRN (23:30)
[2017-01-10] MEDS ORDERED: NS IV 1000 ML 1,000 ML IV SCH (23:30)
[2017-01-10] MEDS ORDERED: ACETAMINOPHEN 325 MG TABLET/CAPLET (TYLENOL) PO PRN (23:30)
[2017-01-11] VITALS (10 sets, daily range): BP systolic 95–136; BP diastolic 53–73
[2017-01-11] MEDS: RT-ALBUTEROL/IPRATROPIUM 3 ML (DUONEB) VIAL IH SCH ×6 (01:32→23:10)
--- OUTSIDE RECORDS SUMMARY | 2017-01-11 05:30 | XMS REPORT | Clinical Summary ---
Author Author [facility] Organization [facility] Address Unknown Phone Unavailable Care Team Providers Care Dermatology Nurse Practitioner Name Role Phone PCP Unavailable Source Comments Some departments are not documenting in the electronic medical record. If you do not see the information that you expected, contact Release of Information in the Health Information Management department at [phone] for further assistance in locating additional records.[facility] Allergies Active Allergy Reactions Severity Noted [...]
[2017-01-11 06:48] LABS: BASOPHILS % (AUTO) 0 % (0-10); EOSINOPHILS % (AUTO) 0 % (0-10); LYMPHOCYTES # (AUTO) 0.4 X 10^3 (1.0-4.0); LYMPHOCYTES % (AUTO) 4 % (12-44); MEAN CORPUSCULAR HEMOGLOBIN 28 PG (25-34); MEAN CORPUSCULAR HGB CONC 32 G/DL (32-36); MEAN CORPUSCULAR VOLUME 88 FL (80-99); MEAN PLATELET VOLUME 10.9 FL (7.4-10.4); MONOCYTES # (AUTO) 0.2 X 10^3 (0.0-1.0); MONOCYTES % (AUTO) 2 % (0-12); NEUTROPHILS # (AUTO) 8.5 X 10^3 (1.8-7.8); NEUTROPHILS % (AUTO) 94 % (42-75); PLATELET COUNT 255 10^3/uL (130-400); RED BLOOD COUNT 4.06 10^6/uL (4.35-5.85); RED CELL DISTRIBUTION WIDTH 15.6 % (10.0-14.5); WHITE BLOOD COUNT 9.1 10^3/uL (4.3-11.0)
[2017-01-11 06:54] LABS: INR 4.9 (0.8-1.4)
[2017-01-11 06:57] LABS: PROTHROMBIN TIME PATIENT 45.6 SEC (12.2-14.7)
--- NOTE | 2017-01-11 07:06 | Diagnostic Imaging Report ---
INDICATION: Coughing up blood, right-sided chest pain EXAMINATION: Two-view chest 01/10/2017 COMPARISON: 12/20/2016 FINDINGS: There is an infiltrate in the right mid and lower lung. The heart is enlarged and there is pulmonary vascular congestion. Rounded density right perihilar region likely calcified lymph nodes. There is no pneumothorax or significant effusion. Sternotomy wires and mediastinal clips are present. IMPRESSION: 1. Infiltrates throughout the right mid and lower lobe with calcified granulomata and/or lymph nodes in the right hilar region; followup recommended to assure complete resolution of the new airspace opacities. Dictated by: Dictated on workstation # [id number]
[2017-01-11 07:09] LABS: ALANINE AMINOTRANSFERASE 31 U/L (0-55); ALBUMIN 3.2 GM/DL (3.2-4.5); ANION GAP 12 MMOL/L (5-14); ASPARTATE AMINO TRANSFERASE 35 U/L (5-34); BILIRUBIN,TOTAL 0.3 MG/DL (0.1-1.0); BLOOD UREA NITROGEN 19 MG/DL (7-18); BUN/CREATININE RATIO 25; CALCIUM 8.9 MG/DL (8.5-10.1); CARBON DIOXIDE 17 MMOL/L (21-32); CHLORIDE 111 MMOL/L (98-107); CREATININE SERUM 0.77 MG/DL (0.60-1.30); GFR ESTIMATED > 60; GLUCOSE 237 MG/DL (70-105); POTASSIUM 4.1 MMOL/L (3.6-5.0); SODIUM 140 MMOL/L (135-145); TOTAL PROTEIN 6.3 GM/DL (6.4-8.2)
--- NOTE | 2017-01-11 09:49 | History & Physical-Hospitalist ---
HPI History of Present Illness: HPI/Chief Complaint CC: Right sided pneumonia with AECOPD HPI: This is a 76-year-old white female with a past medical history of COPD, continued smoking, diabetes mellitus, coronary artery disease managed by Dr. Lopez the presents to the emergency room with right-sided chest pain with pleurisy-like symptoms. She was found to have extensive right sided pneumonia so she was placed on Levaquin for her allergy profile in addition to IV steroids and IV fluids for sepsis. Currently the only pain she has is when she takes a deep breath on the right side. We are in the midst of reconciling all of her home medication we have her on IV steroids and that his dose to 40 mg every 6 hours and will attached sliding scale insulin regimen. Source: patient Exam Limitations: no limitations Date Seen 01/11/17 Time Seen by Provider: 09:45 Attending Physician Lesli Cabrera DO PCP Lesli Cabrera DO Referring Physician Date of Admission Jan 10, 2017 at 22:30 Home Medications & Allergies Home Medications Reviewed patient Home Medication Reconciliation Form Allergies Allergies Coded Allergies erythromycin base (Verified Allergy, Intermediate, HIVES, 10/10/13) NSAIDS (Non-Steroidal Anti-Inflamma (Verified Allergy, Unknown, 01/10/17) cephalexin (Verified Allergy, Unknown, 10/10/13) Past [id number]-[id number] Hx Patient Social History Marrital Status: Employed/Student: retired Alcohol Use: Denies Use Recreational Drug Use: No Smoking Status: Current Everyday Smoker Former smoker/When Quit: September 29, 2011 Type Used: Cigarettes 2nd Hand Smoke Exposure: Yes Physical Abuse Screen: No Sexual Abuse: No Recent Foreign Travel: No Contact w/other who traveled: No Recent Hopitalizations: No Recent Infectious Disease Expo: No Immunizations Up To Date Tetanus Booster (TDap): Unknown Date of Pneumonia Vaccine: Jan 05, 2015 Date of Influenza Vaccine: Feb 28, 2015 Seasonal Allergies Seasonal Allergies: Yes Surgeries HX Surgeries: Yes (FOOT TUMOR,CATARACTS,X2MMK&RECTOCELE,,HEMORRHOIDS, HEMICOLECTomy) Surgeries: Appendectomy, Bladder Surgery, CABG, Coronary Stent, Gallbladder, Hysterectomy, Rectal Respiratory Hx Respiratory Disorders: Yes (uses CPAP) Respiratory Disorders: COPD, Sleep Apnea Cardiovascular Hx Cardiovascular Disorders: Yes (STENTS, triple bypass, possible heart attack) Cardiac Disorders: Atrial Fibrillation, Chronic Edema/Swelling, Coronary Artery Disease, Deep Vein Thrombosis, High Cholesterol, Hypertension Neurological Hx Neurological Disorders: Yes Neurological Disorders: Neuropathy Reproductive System : No Hx Reproductive Disorders: No Sexually Transmitted Disease: No HIV/AIDS: No 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 Disorders: Endometriosis Genitourinary Hx Genitourinary Disorders: Yes (OCC.LEAKING) Genitourinary Disorders: Bladder Infection Gastrointestinal Hx Gastrointestinal Disorders: Yes (colon resection, ) Gastrointestinal Disorders: Diverticulosis Musculoskeletal Hx Musculoskeletal Disorders: Yes Musculoskeletal Disorders: Arthritis Endocrine Hx Endocrine Disorders: Yes Endocrine Disorders: Diabetes, Insulin dep, Diabetes, Non-Insulin dep HEENT HX ENT Disorders: Yes (partial lower plate) HEENT Disorders: Cataract Loss of Vision: Denies Hearing Impairment: Denies Cancer Hx Cancer: Yes Cancer: Skin, Kidney Psychosocial Hx Psychiatric Problems: No Integumentary HX Skin/Integumentary Disorder: No Blood Transfusions Hx Blood Disorders: No (HX OF DVT, ) Adverse Reaction to a Blood Tr: No Family Medical History Significant Family History: No Pertinent Family Hx Family Hx: CABG 19 FATHER Cardiovascular disease 19 FATHER 19 MOTHER Diabetes mellitus 19 MOTHER FH: lung cancer 19 FATHER FH: myocardial infarction 19 MOTHER Hypertension 19 FATHER 19 MOTHER Review of Systems Constitutional: see HPI, chills, fever, weakness EENTM: no symptoms reported Respiratory: cough Cardiovascular: chest pain (right sided pleurisy) Genitourinary: no symptoms reported Musculoskeletal: no symptoms reported Skin: no symptoms reported Psychiatric/Neurological: No Symptoms Reported All Other Systems Reviewed Negative Unless Noted: Yes Physical Exam Physical Exam Vital Signs Vital Sign - Last 12Hours 01/10/17 21:15 Temp 103.1 Pulse 87 Resp 24 B/P (MAP) 125/63 Pulse Ox 92 O2 Delivery Nasal Cannula O2 Flow Rate 3.00 Capillary Refill : Less Than 3 Seconds General Appearance: No Apparent Distress, WD/WN, Chronically ill, Obese Eyes: Bilateral Eye Normal Inspection, Bilateral Eye PERRL HEENT: PERRL/EOMI, Normal ENT Inspection, Pharynx Normal Neck: Full Range of Motion, Normal Inspection, Non Tender, Supple, Carotid Bruit Respiratory: Chest Non Tender, Lungs Clear, Normal Breath Sounds (except right sided rales noted), No Accessory Muscle Use, No Respiratory Distress Cardiovascular: Regular Rate, Rhythm, No Edema, No Gallop, No JVD, No Murmur, Normal Peripheral Pulses Gastrointestinal: Normal Bowel Sounds, No Organomegaly, No Pulsatile Mass, Non Tender, Soft Back: Normal Inspection, No CVA Tenderness, No Vertebral Tenderness Extremity: Normal Capillary Refill, Normal Inspection, Normal Range of Motion, Non Tender, No Calf Tenderness, No Pedal Edema Neurologic/Psychiatric: Alert, Oriented x3, No Motor/Sensory Deficits, Normal Mood/Affect Skin: Normal Color, Warm/Dry Lymphatic: No Adenopathy Results Results/Procedures Lab Laboratory Tests 01/10/17 21:15 01/11/17 06:05 Assessment/Plan Admission Diagnosis Assessment: Right sided pneumonia w/sepsis and AECOPD Known coronary artery disease patient previous stents placed but recent cardiac cath negative for stenotic coronary vessels Atrial fibrillation Diabetes mellitus insulin-dependent Hypertension Hyperlipidemia Renal mass of uncertain etiology managed at [place] Current smoker Coagulopathy due to Coumadin and FQ Assessment and Plan Plan: Reconcile home meds SSI IV steroids Caridad Lopez and Stacey consultations are appreciated Abx Pain meds Stop smoking BARBARA treatment Home O2 evaluation Clinical Quality Measures DVT/VTE Risk/Contraindication: Risk Factor Score Per Nursin RFS Level Per Nursing on Admit: 4+=Very High LESLI CABRERA DO Jan 11, 2017 09:49
[2017-01-11] MEDS ORDERED: NITR0.4T39 PO (09:57)
[2017-01-11] MEDS ORDERED: RT-ALBUTEROL/IPRATROPIUM 3 ML (DUONEB) VIAL IH PRN (10:15)
[2017-01-11] MEDS ORDERED: NITROGLYCERIN SUBLINGUAL 0.4 MG TAB (NITROSTAT) SL PRN (10:15)
[2017-01-11] MEDS: glipiZIDE 5 MG (GLUCOTROL) TAB PO SCH ×2 (11:26→15:59)
[2017-01-11] MEDS: BENAZEPRIL 20 MG (LOTENSIN) TAB PO SCH (11:26)
[2017-01-11] MEDS: KCL 20 MEQ TAB (K-DUR) PO SCH (11:26)
[2017-01-11] MEDS: FUROSEMIDE 40 MG (LASIX) TAB PO SCH (11:26)
[2017-01-11] MEDS: POLYETHYLENE GLYCOL 17 GM (MIRALAX) PACK PO SCH (11:27)
[2017-01-11] MEDS: FAMOTIDINE 20 MG (PEPCID) TABLET PO SCH ×2 (11:27→20:30)
[2017-01-11] MEDS: methylPREDNISolone 40 MG/ML (Solu-MEDROL) VIAL IV SCH ×2 (11:27→17:17)
[2017-01-11] MEDS: meTOprolol TARTRATE 50 MG (LOPRESSOR) TAB PO SCH ×2 (11:27→20:30)
[2017-01-11] MEDS: amLODIPine 5 MG (NORVASC) TAB PO SCH (11:27)
[2017-01-11] MEDS: ASPIRIN 81 MG CHEW (CHILDREN'S ASA) PO SCH (11:27)
[2017-01-11] MEDS: inSUlin ASPART (NovoLOG) 1 UNIT/0.01 ML (CHARGE PER UNIT) SC SCH ×3 (12:23→20:32)
--- NOTE | 2017-01-11 12:32 | Consultation-Cardiology ---
HPI-Cardiology Cardiology Consultation: Date of Consultation 01/11/17 Date of Admission 01-10-17 Attending Physician Lesli Cabrera DO Admitting Physician Lesli Cabrera DO Consulting Physician Aminah Lopez MD Review of Systems-Cardiology Review of Systems : No All Other Systems Reviewed Negative Unless Noted: Yes [id number] Hx Patient Social History Marrital Status: Employed/Student: retired Alcohol Use: Denies Use Recreational Drug Use: No Smoking Status: Current Everyday Smoker Former smoker/When Quit: September 29, 2011 Type Used: Cigarettes 2nd Hand Smoke Exposure: Yes Recent Foreign Travel: No Recent Infectious Disease Expo: No Hospitalization with Isolation: Denies Physical Abuse Screen: No Sexual Abuse: No Immunizations Up To Date Tetanus Booster (TDap): Unknown Date of Pneumonia Vaccine: Jan 05, 2015 Date of Influenza Vaccine: Feb 28, 2015 Past Medical History PMH As described under Assessment. Family Medical History Family Medical History: H/O father and mother both had CAD and HTN. Family History: 19 FATHER Cardiovascular disease FH: lung cancer CABG Hypertension 19 MOTHER Cardiovascular disease Diabetes mellitus Hypertension FH: myocardial infarction Allergies and Home Medications Allergies Coded Allergies: erythromycin base (Verified Allergy, Intermediate, HIVES, 10/10/13) NSAIDS (Non-Steroidal Anti-Inflamma (Verified Allergy, Unknown, 01/10/17) cephalexin (Verified Allergy, Unknown, 10/10/13) Home Medications Amlodipine Besylate 5 Mg Tablet, 5 MG PO DAILY, (Reported) Aspirin 81 Mg Tab.chew, 81 MG PO DAILY, (Reported) Benazepril HCl 40 Mg Tab, 40 MG PO DAILY, (Reported) Calcium Citrate/Vitamin D3 1 Each Tablet, 1 TAB PO DAILY, (Reported) Cholecalciferol (Vitamin D3) 2,000 Unit Capsule, 2,000 UNIT PO HS, (Reported) Famotidine 20 Mg Tablet, 20 MG PO BID, (Reported) Fluticasone/Salmeterol 1 Each Blst.w.dev, 1 PUFF IH BID, (Reported) Furosemide 40 Mg Tablet, 40 MG PO DAILY, (Reported) Glipizide 5 Mg Tablet, 2.5 MG PO BID, (Reported) TAKES 1/2 OF A (5 MG) TABLET Insulin Detemir 100 U/Ml Vial, 10 U SQ HS PRN for BLOOD SUGAR GREATER THAN 200, (Reported) Insulin Human Lispro 100 U/Ml Vial, 8 UNITS SQ TIDAC PRN for BLOOD SUGAR GREATER THAN 180, (Reported) Ipratropium/Albuterol Sulfate 3 Ml Ampul.neb, 3 ML IH QID PRN for SHORTNESS OF BREATH, (Reported) Metoprolol Tartrate 50 Mg Tablet, 50 MG PO BID, (Reported) Montelukast Sodium 10 Mg Tablet, 10 MG PO HS, (Reported) Nitroglycerin 0.4 Mg Tab.subl, 0.4 MG PO UD PRN for CHEST PAIN, (Reported) 1 TAB EVERY 5 MINUTES NEEDED; NOT TO EXCEED 3 DOSES IN 15 MINUTES Polyethylene Glycol 3350 255 Gm Powder, 17 GM PO DAILY, (Reported) Potassium Chloride 20 Meq Tab.er.prt, 20 MEQ PO DAILY, (Reported) Pravastatin Sodium 40 Mg Tablet, 20 MG PO BID, (Reported) TAKE 1/2 OF (40 MG) TABLET Tramadol HCl 50 Mg Tablet, 50 MG PO TID PRN for PAIN-MODERATE, (Reported) Warfarin Sodium 5 Mg Tablet, 5 MG PO 1800, (Reported) Physical Exam-Cardiology Physical Exam Vital Signs/I&O Vital Sign - Last 12Hours 01/11/17 01/11/17 01/11/17 01/12/17 20:00 20:10 23:12 00:00 Temp 98.0 97.7 Pulse 79 71 Resp 22 20 B/P (MAP) 113/60 116/57 Pulse Ox 93 96 94 O2 Delivery Nasal Cannula Nasal Cannula Nasal Cannula Nasal Cannula O2 Flow Rate 2.00 3.00 3.00 3.00 01/12/17 01/12/17 01/12/17 01/12/17 01:00 03:08 04:00 06:45 Temp 97.7 Pulse 69 67 Resp 18 B/P (MAP) 121/60 Pulse Ox 95 96 95 O2 Delivery Nasal Cannula Nasal Cannula Nasal Cannula O2 Flow Rate 3.00 3.00 2.00 Intake and Output 01/12/17 00:00 Intake Total 1560 ml Output Total 1175 ml Balance 385 ml Capillary Refill : Less Than 3 Seconds Skin: normal color, warm/dry Lymphatic: no adenopathy Data Review Labs Laboratory Tests 01/11/17 11:41: Glucometer 319H 01/11/17 15:54: Glucometer 251H 01/11/17 20:30: Glucometer 339H 01/12/17 02:51: Glucometer 145H 01/12/17 05:35: White Blood Count 10.1, Red Blood Count 4.25L, Hemoglobin 11.9, Hematocrit 37, Mean Corpuscular Volume 87, Mean Corpuscular Hemoglobin 28, Mean Corpuscular Hemoglobin Concent 32, Red Cell Distribution Width 15.4H, Platelet Count 362, Mean Platelet Volume 11.0H, Neutrophils (%) (Auto) 91H, Lymphocytes (%) (Auto) 4L, Monocytes (%) (Auto) 4, Eosinophils (%) (Auto) 0, Basophils (%) (Auto) 0, Neutrophils # (Auto) 9.2H, Lymphocytes # (Auto) 0.4L, Monocytes # (Auto) 0.4, Eosinophils # (Auto) 0.0, Basophils # (Auto) 0.0, Prothrombin Time 46.0*H, INR Comment 4.9H, Sodium Level 144, Potassium Level 3.9, Chloride Level 113H, Carbon Dioxide Level 18L, Anion Gap 13, Blood Urea Nitrogen 27H, Creatinine 0.73 , Estimat Glomerular Filtration Rate > 60, BUN/Creatinine Ratio 37, Glucose Level 135H, Calcium Level 9.7, Total Bilirubin 0.3, Aspartate Amino Transf (AST/ SGOT) 41H, Alanine Aminotransferase (ALT/SGPT) 43, Alkaline Phosphatase 79, Total Protein 6.9, Albumin 3.4 01/12/17 05:52: Glucometer 133H Microbiology 01/10/17 Blood Culture - Preliminary, Resulted No growth Radiology NAME: NATALIIA RAMIRES [facility] REC#: [id number] PT STATUS: ADM IN : 1940 PHYSICIAN: ELISSA PALACIOS MD ADMIT DATE: 01/10/17 Signed Date of Exam: 01/10/17 CHEST PA/LAT (2 VIEW) INDICATION: Coughing up blood, right-sided chest pain EXAMINATION: Two-view chest 01/10/2017 COMPARISON: 12/20/2016 FINDINGS: There is an infiltrate in the right mid and lower lung. The heart is enlarged and there is pulmonary vascular congestion. Rounded density right perihilar region likely calcified lymph nodes. There is no pneumothorax or significant effusion. Sternotomy wires and mediastinal clips are present. IMPRESSION: 1. Infiltrates throughout the right mid and lower lobe with calcified granulomata and/or lymph nodes in the right hilar region; followup recommended to assure complete resolution of the new airspace opacities. Dictated by: Dictated on workstation # [id number] Dict: 01/11/17 0656 Trans: 01/11/17 1136 Interpreted by: DALTON POOL MD Electronically signed by: DALTON POOL MD 01/11/17 1136 A/P-Cardiology Assessment/Admission Diagnosis Pneumonia - management per medical services Coronary artery disease with a history of coronary artery bypass surgery and percutaneous intervention. Last cardiac cath was 02-05-15. It showed [place] coronary artery disease consisting of mid vessel occlusion LAD and moderate proximal and distal disease within the left cx and the RCA; widely patent stented area in the distal RCA; occluded saphenous vein graft to distal RCA; patent saphenous vein graft to on OM left Cx; patent left internal mammary graft to distal LAD; mildly elevated LVEDP; LVEF 55-60%. Mild cardiomyopathy. Last echo of 09/17/16 showed basal septal akinesis to dyskinesis and LVEF 50% and mild mitral and tricuspid regurg and PASP 25-30 mmHg. Two entangled stents were lost to peripheral circulation and lodged in a small sub-branch of a branch of the right internal iliac artery and did not result in any untoward effect (February 2010). Chronic bilateral leg swelling likely due to venous insufficiency vs lymphedema Deep venous thrombosis with large pulmonary embolism in early September 2011. Chronic warfarin anticoagulation is being managed by Dr Cabrera. U/S of left leg September 2013 showed no evidence of DVT Maturity onset diabetes mellitus being managed by Dr. Cabrera. Tobaccoism, ongoing, less than a pack a day, according to her Hyperlipidemia, not well controlled. The patient has had nonspecific statin intolerance, but has been able to tolerate pravastatin well. F/u on hepatic and lipid profiles is with Dr Cabrera. History of intermittent liver enzyme elevation of unclear etiology, controlled on blood work of August 2015 Gastroesophageal reflux. Hypertension. Degenerative joint disease H/o broncitis H/o ch sys and forrester CHF, currently clinically compensated Sleep apnea, being treated with CPAP therapy. S/P R carpal tunnel surgery No AAA on a screening abd ao scan of 09/29/16 60-79% bilateral ICA stenoses on carotid u/s of 09/29/16 Clinical Quality Measures DVT/VTE Risk/Contraindication: Risk Factor Score Per Nursin RFS Level Per Nursing on Admit: 4+=Very High JASON SALAZAR Jan 11, 2017 12:32
--- NOTE | 2017-01-11 16:34 | Consultation-Cardiology ---
HPI-Cardiology Cardiology Consultation: Date of Consultation 01/11/17 Time Seen by Provider: 13:20 Date of Admission 01/10/17 Attending Physician Lesli Cabrera DO Admitting Physician Lesli Cabrera DO Consulting Physician FAITH NICHOLSON MD, MA, FACP, FACC, FSCAI, CCDS HPI: Chief Complaint: R chest wall pain; shaking chills 76 yo woman admitted to Dr Cabrera with shaking chills and R lateral pleuritic pain that is now resolved after she was diagnosed with R-sided pneumonia and empiric treatment started for that No other cp. Has chronic exertional shortness of breath. Has chronic leg swelling that is worst with upright positions and improved with overnight recumbency She does not report palp or syncope Review of Systems-Cardiology Review of Systems Constitutional: chills, fever, malaise, No weight loss, No weight gain Ears/Nose/Throat: No ear discharge, No nasal drainage, No recent hearing loss, No ulcerations Respiratory: As described under HPI Cardiovascular: As described under HPI Gastrointestinal: No constipation, No diarrhea, No nausea, No vomiting Genitourinary: No dysuria, No hematuria, No urine frequency changes : No Musculoskeletal: back pain (chronic) Skin: No rash, No ulcerations Psychiatric/Neurological: No depression, No focal weakness, No seizure, No syncope All Other Systems Reviewed Negative Unless Noted: Yes KOO-[id number]-[id number] Hx Patient Social History Marrital Status: Employed/Student: retired Alcohol Use: Denies Use Recreational Drug Use: No Smoking Status: Current Everyday Smoker Former smoker/When Quit: September 29, 2011 Type Used: Cigarettes 2nd Hand Smoke Exposure: Yes Recent Foreign Travel: No Recent Infectious Disease Expo: No Hospitalization with Isolation: Denies Physical Abuse Screen: No Sexual Abuse: No Immunizations Up To Date Tetanus Booster (TDap): Unknown Date of Pneumonia Vaccine: Jan 05, 2015 Date of Influenza Vaccine: Feb 28, 2015 Past Medical History PMH As described under Assessment. Family Medical History Family Medical History: H/O father and mother both had CAD and HTN. Family History: CABG 19 FATHER Cardiovascular disease 19 FATHER 19 MOTHER Diabetes mellitus 19 MOTHER FH: lung cancer 19 FATHER FH: myocardial infarction 19 MOTHER Hypertension 19 FATHER 19 MOTHER Allergies and Home Medications Allergies Coded Allergies: erythromycin base (Verified Allergy, Intermediate, HIVES, 10/10/13) NSAIDS (Non-Steroidal Anti-Inflamma (Verified Allergy, Unknown, 01/10/17) cephalexin (Verified Allergy, Unknown, 10/10/13) Home Medications Amlodipine Besylate 5 Mg Tablet, 5 MG PO DAILY, (Reported) Aspirin 81 Mg Tab.chew, 81 MG PO DAILY, (Reported) Benazepril HCl 40 Mg Tab, 40 MG PO DAILY, (Reported) Calcium Citrate/Vitamin D3 1 Each Tablet, 1 TAB PO DAILY, (Reported) Cholecalciferol (Vitamin D3) 2,000 Unit Capsule, 2,000 UNIT PO HS, (Reported) Famotidine 20 Mg Tablet, 20 MG PO BID, (Reported) Fluticasone/Salmeterol 1 Each Blst.w.dev, 1 PUFF IH BID, (Reported) Furosemide 40 Mg Tablet, 40 MG PO DAILY, (Reported) Glipizide 5 Mg Tablet, 2.5 MG PO BID, (Reported) TAKES 1/2 OF A (5 MG) TABLET Insulin Detemir 100 U/Ml Vial, 10 U SQ HS PRN for BLOOD SUGAR GREATER THAN 200, (Reported) Insulin Human Lispro 100 U/Ml Vial, 8 UNITS SQ TIDAC PRN for BLOOD SUGAR GREATER THAN 180, (Reported) Ipratropium/Albuterol Sulfate 3 Ml Ampul.neb, 3 ML IH QID PRN for SHORTNESS OF BREATH, (Reported) Metoprolol Tartrate 50 Mg Tablet, 50 MG PO BID, (Reported) Montelukast Sodium 10 Mg Tablet, 10 MG PO HS, (Reported) Nitroglycerin 0.4 Mg Tab.subl, 0.4 MG PO UD PRN for CHEST PAIN, (Reported) 1 TAB EVERY 5 MINUTES NEEDED; NOT TO EXCEED 3 DOSES IN 15 MINUTES Polyethylene Glycol 3350 255 Gm Powder, 17 GM PO DAILY, (Reported) Potassium Chloride 20 Meq Tab.er.prt, 20 MEQ PO DAILY, (Reported) Pravastatin Sodium 40 Mg Tablet, 20 MG PO BID, (Reported) TAKE 1/2 OF (40 MG) TABLET Tramadol HCl 50 Mg Tablet, 50 MG PO TID PRN for PAIN-MODERATE, (Reported) Warfarin Sodium 5 Mg Tablet, 5 MG PO 1800, (Reported) Physical Exam-Cardiology Physical Exam Vital Signs/I&O Vital Sign - Last 12Hours 01/11/17 01/11/17 01/11/17 01/11/17 06:05 06:57 07:02 08:00 Temp 96.8 97.2 Pulse 73 73 74 Resp 24 24 B/P (MAP) 136/73 114/62 Pulse Ox 95 95 95 O2 Delivery Nasal Cannula Nasal Cannula Nasal Cannula O2 Flow Rate 3.00 3.00 3.00 01/11/17 01/11/17 01/11/17 01/11/17 08:00 10:30 12:00 12:51 Temp 97.4 Pulse 69 69 Resp 20 B/P (MAP) 121/66 Pulse Ox 95 93 96 O2 Delivery Nasal Cannula Nasal Cannula Nasal Cannula O2 Flow Rate 3.00 3.00 3.00 01/11/17 15:02 Pulse Ox 92 O2 Delivery Nasal Cannula O2 Flow Rate 3.00 Intake and Output 01/11/17 00:00 Intake Total 1150 ml Balance 1150 ml Capillary Refill : Less Than 3 Seconds Constitutional: AAO x 3, well-developed, well-nourished HEENT: hearing is well preserved, No xanthelasmas are seen Neck: carotid pulses are 2 + bilaterally, with good upstrokes Respiratory: No accessory muscle use, lungs clear to percussion, other (good bilat air entry) Cardiovascular: regular rate-rhythm, S1 and S2, systolic murmur (faint TESS at card base) Gastrointestinal: No tender, No guarding, No rebound, audible bowel sounds Extremities: No clubbing, No cyanosis, significant edema (bilateral, pitting) Neurologic/Psychiatric: grossly intact, power is 5/5 both on sides Skin: normal color, warm/dry, No rash on exposed areas, No ulcerations on exposed areas Lymphatic: no adenopathy Data Review Labs Laboratory Tests 01/10/17 21:15: White Blood Count 12.4H, Red Blood Count 4.27L, Hemoglobin 12.0, Hematocrit 38, Mean Corpuscular Volume 88, Mean Corpuscular Hemoglobin 28, Mean Corpuscular Hemoglobin Concent 32, Red Cell Distribution Width 15.6H, Platelet Count 327, Mean Platelet Volume 10.5H, Neutrophils (%) (Auto) 84H, Lymphocytes (%) (Auto) 6L, Monocytes (%) (Auto) 9, Eosinophils (%) (Auto) 0, Basophils (%) (Auto) 0, Neutrophils # (Auto) 10.5H, Lymphocytes # (Auto) 0.8L, Monocytes # (Auto) 1.1H, Eosinophils # (Auto) 0.0, Basophils # (Auto) 0.1, Neutrophils % (Manual) 80, Lymphocytes % (Manual) 11, Monocytes % (Manual) 5, Eosinophils % (Manual) 0, Basophils % (Manual) 0, Band Neutrophils 4, Blood Morphology Comment NORMAL, Prothrombin Time 36.4H, INR Comment 3.7H, Activated Partial Thromboplast Time 77H, Sodium Level 137, Potassium Level 4.6, Chloride Level 106, Carbon Dioxide Level 18L, Anion Gap 13, Blood Urea Nitrogen 18, Creatinine 0.86, Estimat Glomerular Filtration Rate > 60, BUN/Creatinine Ratio 21, Glucose Level 108H, Lactic Acid Level 1.04, Calcium Level 9.2, Magnesium Level 1.9, Total Bilirubin 0.5, Aspartate Amino Transf (AST/SGOT) 46H, Alanine Aminotransferase (ALT/SGPT) 35, Alkaline Phosphatase 81, Troponin I < 0.30, B-Type Natriuretic Peptide 119.2H, Total Protein 7.0, Albumin 3.4 01/10/17 21:25: Urine Color YELLOW, Urine Clarity CLEAR, Urine pH 5, Urine Specific [place] 1.015L, Urine Protein 3+H, Urine Glucose (UA) NEGATIVE, Urine Ketones NEGATIVE, Urine Nitrite NEGATIVE, Urine Bilirubin 1+H, Urine Urobilinogen 4H, Urine Leukocyte Esterase 1+H, Urine RBC (Auto) 4+H, Urine RBC 5-10H, Urine WBC 2-5, Urine Squamous Epithelial Cells 5-10, Urine Crystals NONE, Urine Bacteria FEWH, Urine Casts NONE, Urine Mucus NEGATIVE, Urine Culture Indicated NO 01/11/17 06:05: White Blood Count 9.1, Red Blood Count 4.06L, Hemoglobin 11.4L, Hematocrit 36, Mean Corpuscular Volume 88, Mean Corpuscular Hemoglobin 28, Mean Corpuscular Hemoglobin Concent 32, Red Cell Distribution Width 15.6H, Platelet Count 255, Mean Platelet Volume 10.9H, Neutrophils (%) (Auto) 94H, Lymphocytes (%) (Auto) 4L, Monocytes (%) (Auto) 2, Eosinophils (%) (Auto) 0, Basophils (%) (Auto) 0, Neutrophils # (Auto) 8.5H, Lymphocytes # (Auto) 0.4L, Monocytes # (Auto) 0.2, Eosinophils # (Auto) 0.0, Basophils # (Auto) 0.0, Prothrombin Time 45.6*H, INR Comment 4.9H, Sodium Level 140, Potassium Level 4.1, Chloride Level 111H, Carbon Dioxide Level 17L, Anion Gap 12, Blood Urea Nitrogen 19H, Creatinine 0.77 , Estimat Glomerular Filtration Rate > 60, BUN/Creatinine Ratio 25, Glucose Level 237H, Calcium Level 8.9, Total Bilirubin 0.3, Aspartate Amino Transf (AST/ SGOT) 35H, Alanine Aminotransferase (ALT/SGPT) 31, Alkaline Phosphatase 77, Total Protein 6.3L, Albumin 3.2 01/11/17 11:41: Glucometer 319H Microbiology 01/10/17 Blood Culture - Preliminary, Resulted No growth Laboratory Tests 01/10/17 21:15 01/11/17 06:05 A/P-Cardiology Assessment/Admission Diagnosis Pneumonia - management per medical services R-sided pleuritic c/p, likely related to pneumonia, now resolved Coronary artery disease with a history of coronary artery bypass surgery and percutaneous intervention. Last cardiac cath was 02-05-15. It showed [place] coronary artery disease consisting of mid vessel occlusion LAD and moderate proximal and distal disease within the left cx and the RCA; widely patent stented area in the distal RCA; occluded saphenous vein graft to distal RCA; patent saphenous vein graft to on OM left Cx; patent left internal mammary graft to distal LAD; mildly elevated LVEDP; LVEF 55-60%. Mild cardiomyopathy. Last echo of 09/17/16 showed basal septal akinesis to dyskinesis and LVEF 50% and mild mitral and tricuspid regurg and PASP 25-30 mmHg. Two entangled stents were lost to peripheral circulation and lodged in a small sub-branch of a branch of the right internal iliac artery and did not result in any untoward effect (February 2010). Chronic bilateral leg swelling likely due to venous insufficiency vs lymphedema Deep venous thrombosis with large pulmonary embolism in early September 2011. Chronic warfarin anticoagulation is being managed by Dr Cabrera. U/S of left leg September 2013 showed no evidence of DVT Maturity onset diabetes mellitus being managed by Dr. Cabrera. Tobaccoism, ongoing, less than a pack a day, according to her Hyperlipidemia, not well controlled. The patient has had nonspecific statin intolerance, but has been able to tolerate pravastatin well. F/u on hepatic and lipid profiles is with Dr Cabrera. History of intermittent liver enzyme elevation of unclear etiology, controlled on blood work of August 2015 Gastroesophageal reflux. Hypertension. Degenerative joint disease H/o broncitis H/o ch sys and forrester CHF, currently clinically compensated Sleep apnea, being treated with CPAP therapy. S/P R carpal tunnel surgery No AAA on a screening abd ao scan of 09/29/16 60-79% bilateral ICA stenoses on carotid u/s of 09/29/16 Discussion and Recomendations * She suffers from multiple comorbidities that are outline above * Continue previous cardiac regimen * Monitor labs * I spoke with her and answered her questions Clinical Quality Measures DVT/VTE Risk/Contraindication: Risk Factor Score Per Nursin RFS Level Per Nursing on Admit: 4+=Very High FAITH NICHOLSON MD FACP FAC CCDS Jan 11, 2017 16:34
[2017-01-11] MEDS: RT-ADVAIR HFA 115/21 MCG PER PUFF IH SCH (19:38)
[2017-01-11] MEDS: MONTELUKAST 10 MG (SINGULAIR) TAB PO SCH (20:30)
[2017-01-11] MEDS: SIMvastatin 20 MG (ZOCOR) TAB PO SCH (20:30)
[2017-01-11] MEDS: inSUlin DETERMIR 1 UNIT/0.01 ML (LEVEMIR) CHARGE PER UNIT SQ PRN (20:35)
[2017-01-11] MEDS ORDERED: LEVOFLOXACIN 750 MG/150 ML IV 150 ML IV SCH (21:00)
[2017-01-12] VITALS: BP 116/57
[2017-01-12] MEDS: methylPREDNISolone 40 MG/ML (Solu-MEDROL) VIAL IV SCH ×3 (00:14→18:34)
[2017-01-12] MEDS: RT-ALBUTEROL/IPRATROPIUM 3 ML (DUONEB) VIAL IH SCH ×6 (03:08→23:05)
[2017-01-12 04:00] VITALS: BP 121/60
[2017-01-12 06:08] LABS: BASOPHILS % (AUTO) 0 % (0-10); EOSINOPHILS % (AUTO) 0 % (0-10); LYMPHOCYTES # (AUTO) 0.4 X 10^3 (1.0-4.0); LYMPHOCYTES % (AUTO) 4 % (12-44); MEAN CORPUSCULAR HEMOGLOBIN 28 PG (25-34); MEAN CORPUSCULAR HGB CONC 32 G/DL (32-36); MEAN CORPUSCULAR VOLUME 87 FL (80-99); MONOCYTES # (AUTO) 0.4 X 10^3 (0.0-1.0); MONOCYTES % (AUTO) 4 % (0-12); NEUTROPHILS # (AUTO) 9.2 X 10^3 (1.8-7.8); NEUTROPHILS % (AUTO) 91 % (42-75); PLATELET COUNT 362 10^3/uL (130-400); RED BLOOD COUNT 4.25 10^6/uL (4.35-5.85); RED CELL DISTRIBUTION WIDTH 15.4 % (10.0-14.5); WHITE BLOOD COUNT 10.1 10^3/uL (4.3-11.0)
[2017-01-12] MEDS: inSUlin ASPART (NovoLOG) 1 UNIT/0.01 ML (CHARGE PER UNIT) SC SCH ×4 (06:09→20:53)
[2017-01-12 06:13] LABS: INR 4.9 (0.8-1.4)
[2017-01-12] MEDS: KCL 20 MEQ TAB (K-DUR) PO SCH (06:13)
[2017-01-12] MEDS: glipiZIDE 5 MG (GLUCOTROL) TAB PO SCH ×2 (06:13→16:54)
[2017-01-12 06:25] LABS: ALANINE AMINOTRANSFERASE 43 U/L (0-55); ALBUMIN 3.4 GM/DL (3.2-4.5); ANION GAP 13 MMOL/L (5-14); ASPARTATE AMINO TRANSFERASE 41 U/L (5-34); BILIRUBIN,TOTAL 0.3 MG/DL (0.1-1.0); BLOOD UREA NITROGEN 27 MG/DL (7-18); BUN/CREATININE RATIO 37; CALCIUM 9.7 MG/DL (8.5-10.1); CARBON DIOXIDE 18 MMOL/L (21-32); CHLORIDE 113 MMOL/L (98-107); CREATININE SERUM 0.73 MG/DL (0.60-1.30); GFR ESTIMATED > 60; GLUCOSE 135 MG/DL (70-105); POTASSIUM 3.9 MMOL/L (3.6-5.0); SODIUM 144 MMOL/L (135-145); TOTAL PROTEIN 6.9 GM/DL (6.4-8.2)
[2017-01-12] MEDS: RT-ADVAIR HFA 115/21 MCG PER PUFF IH SCH ×2 (06:45→19:24)
[2017-01-12] MEDS: meTOprolol TARTRATE 50 MG (LOPRESSOR) TAB PO SCH ×2 (08:12→20:53)
[2017-01-12] MEDS: amLODIPine 5 MG (NORVASC) TAB PO SCH (08:12)
[2017-01-12] MEDS: ASPIRIN 81 MG CHEW (CHILDREN'S ASA) PO SCH (08:12)
[2017-01-12] MEDS: FUROSEMIDE 40 MG (LASIX) TAB PO SCH (08:12)
[2017-01-12] MEDS: FAMOTIDINE 20 MG (PEPCID) TABLET PO SCH ×2 (08:12→20:53)
[2017-01-12] MEDS: BENAZEPRIL 20 MG (LOTENSIN) TAB PO SCH (08:12)
--- NOTE | 2017-01-12 08:14 | Pulmonary Consultation ---
History of Present Illness History of Present Illness Date of Consultation 01/12/17 08:08 Time Seen by Provider: 08:09 Date of Admission History of Present Illness 76yo with hx of CAD, DM, COPD and persistent tobacco use presented to ED secondary to right pleuritic CP. She was dx with right sided PNA per CXR admitted to 4th floor and placed on Levaquin. I am consulted for pulmonary management. Allergies and Home Medications Allergies Coded Allergies: erythromycin base (Verified Allergy, Intermediate, HIVES, 10/10/13) NSAIDS (Non-Steroidal Anti-Inflamma (Verified Allergy, Unknown, 01/10/17) cephalexin (Verified Allergy, Unknown, 10/10/13) Home Medications Amlodipine Besylate 5 Mg Tablet, 5 MG PO DAILY, (Reported) Aspirin 81 Mg Tab.chew, 81 MG PO DAILY, (Reported) Benazepril HCl 40 Mg Tab, 40 MG PO DAILY, (Reported) Calcium Citrate/Vitamin D3 1 Each Tablet, 1 TAB PO DAILY, (Reported) Cholecalciferol (Vitamin D3) 2,000 Unit Capsule, 2,000 UNIT PO HS, (Reported) Famotidine 20 Mg Tablet, 20 MG PO BID, (Reported) Fluticasone/Salmeterol 1 Each Blst.w.dev, 1 PUFF IH BID, (Reported) Furosemide 40 Mg Tablet, 40 MG PO DAILY, (Reported) Glipizide 5 Mg Tablet, 2.5 MG PO BID, (Reported) TAKES 1/2 OF A (5 MG) TABLET Insulin Detemir 100 U/Ml Vial, 10 U SQ HS PRN for BLOOD SUGAR GREATER THAN 200, (Reported) Insulin Human Lispro 100 U/Ml Vial, 8 UNITS SQ TIDAC PRN for BLOOD SUGAR GREATER THAN 180, (Reported) Ipratropium/Albuterol Sulfate 3 Ml Ampul.neb, 3 ML IH QID PRN for SHORTNESS OF BREATH, (Reported) Metoprolol Tartrate 50 Mg Tablet, 50 MG PO BID, (Reported) Montelukast Sodium 10 Mg Tablet, 10 MG PO HS, (Reported) Nitroglycerin 0.4 Mg Tab.subl, 0.4 MG PO UD PRN for CHEST PAIN, (Reported) 1 TAB EVERY 5 MINUTES NEEDED; NOT TO EXCEED 3 DOSES IN 15 MINUTES Polyethylene Glycol 3350 255 Gm Powder, 17 GM PO DAILY, (Reported) Potassium Chloride 20 Meq Tab.er.prt, 20 MEQ PO DAILY, (Reported) Pravastatin Sodium 40 Mg Tablet, 20 MG PO BID, (Reported) TAKE 1/2 OF (40 MG) TABLET Tramadol HCl 50 Mg Tablet, 50 MG PO TID PRN for PAIN-MODERATE, (Reported) Warfarin Sodium 5 Mg Tablet, 5 MG PO 1800, (Reported) Past Pcqhvpr-Xjmajg-Ivnand Hx Patient Social History Alcohol Use: Denies Use Recreational Drug Use: No Smoking Status: Current Everyday Smoker Type Used: Cigarettes Former Smoker/When Quit: September 29, 2011 2nd Hand Smoke Exposure: Yes Recent Foreign Travel: No Contact w/Someone Who Travel: No Recent Infectious Disease Expo: No Recent Hopitalizations: No Physical Abuse Screen: No Sexual Abuse: No Immunizations Up To Date Tetanus Booster (TDap): Unknown PED Vaccines UTD: Yes Date of Pneumonia Vaccine: Jan 05, 2015 Date of Influenza Vaccine: Feb 28, 2015 Seasonal Allergies Seasonal Allergies: Yes Surgeries HX Surgeries: Yes (FOOT TUMOR,CATARACTS,X2MMK&RECTOCELE,,HEMORRHOIDS, HEMICOLECTomy) Surgeries: Appendectomy, Bladder Surgery, CABG, Coronary Stent, Gallbladder, Hysterectomy, Rectal Respiratory Hx Respiratory Disorders: Yes (uses CPAP) Respiratory Disorders: Asthma, Pulmonary Embolism, Sleep Apnea, COPD Cardiovascular Hx Cardiac Disorders: Yes (STENTS, triple bypass, possible heart attack) Cardiac Disorders: Atrial Fibrillation, Chronic Edema/Swelling, Coronary Artery Disease, Deep Vein Thrombosis, High Cholesterol, Hypertension Neurological Hx Neurological Disorders: Yes Neurological Disorders: Neuropathy Reproductive System : No Hx Reproductive Disorders: No Sexually Transmitted Disease: No HIV/AIDS: No 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 Disorders: Endometriosis 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 History: Menopausal Genitourinary Hx Genitourinary Disorders: Yes (OCC.LEAKING) Genitourinary Disorders: Bladder Infection Gastrointestinal Hx Gastrointestinal Disorders: Yes (colon resection, ) Gastrointestinal Disorders: Diverticulosis Musculoskeletal Hx Musculoskeletal Disorders: Yes Musculoskeletal Disorders: Arthritis Endocrine Hx Endocrine Disorders: Yes Endocrine Disorders: Diabetes, Insulin dep, Diabetes, Non-Insulin dep HEENT HX ENT Disorders: Yes (partial lower plate) HEENT Disorders: Cataract Loss of Vision: Denies Hearing Impairment: Denies Cancer Hx Cancer: Yes Cancer: Skin, Kidney Psychosocial Hx Psychiatric Problems: No Integumentary HX Skin/Integumentary Disorder: No Blood Transfusions Hx Blood Disorders: No (HX OF DVT, ) Adverse Reaction to a Blood Tr: No Family Medical History Significant Family History: No Pertinent Family Hx Family Medial History: CABG 19 FATHER Cardiovascular disease 19 FATHER 19 MOTHER Diabetes mellitus 19 MOTHER FH: lung cancer 19 FATHER FH: myocardial infarction 19 MOTHER Hypertension 19 FATHER 19 MOTHER Review of Systems Time Seen by Provider: 08:31 Exam Exam Vital Signs Date Time Temp Pulse Resp B/P (MAP) Pulse Ox O2 Delivery O2 Flow Rate FiO2 01/12/17 06:45 95 Nasal Cannula 2.00 01/12/17 04:00 97.7 67 18 121/60 96 Nasal Cannula 3.00 01/12/17 03:08 95 Nasal Cannula 3.00 01/12/17 01:00 69 01/12/17 00:00 97.7 71 20 116/57 94 Nasal Cannula 3.00 01/11/17 23:12 96 Nasal Cannula 3.00 01/11/17 20:10 98.0 79 22 113/60 93 Nasal Cannula 3.00 01/11/17 20:00 Nasal Cannula 2.00 01/11/17 19:38 96 Nasal Cannula 3.00 01/11/17 19:00 84 01/11/17 15:50 97.5 81 19 120/63 96 Nasal Cannula 3.00 01/11/17 15:02 92 Nasal Cannula 3.00 01/11/17 12:51 69 01/11/17 12:00 97.4 69 20 121/66 96 Nasal Cannula 3.00 01/11/17 10:30 93 Nasal Cannula 3.00 I & O 01/12/17 07:00 Intake Total 1560 ml Output Total 1675 ml Balance -115 ml General Appearance: No Apparent Distress, WD/WN, Chronically ill, Obese HEENT: PERRL/EOMI, Normal ENT Inspection, Pharynx Normal Neck: Full Range of Motion, Normal Inspection, Non Tender, Supple, Carotid Bruit Respiratory: Chest Non Tender, Lungs Clear, Normal Breath Sounds (except right sided rales noted), No Accessory Muscle Use, No Respiratory Distress Cardiovascular: Regular Rate, Rhythm, No Edema, No Gallop, No JVD, No Murmur, Normal Peripheral Pulses Capillary Refill: Less Than 3 Seconds Peripheral Pulses: 2+ Radial Pulses (R), 2+ Radial Pulses (L) Gastrointestinal: normal bowel sounds, non tender, soft Extremity: Normal Capillary Refill, Normal Inspection, Normal Range of Motion, Non Tender, No Calf Tenderness, No Pedal Edema Neurologic/Psychiatric: Alert, Oriented x3, No Motor/Sensory Deficits, Normal Mood/Affect Skin: Normal Color, Warm/Dry Lymphatic: No Adenopathy Results Lab Laboratory Tests 01/10/17 21:15 01/11/17 06:05 01/12/17 05:35 Assessment/Plan Assessment/Plan Pneumonia with sepsis -Continue Levaquin -Pt will need f/u CXR to ensure complete resolution of infiltration COPDAE -SVNS, solumedrol 40 IV Q6 CAD, Afib, Cardiomyopathy -cardiology following Renal mass -Follows with AMANDA Tobacco dependance Clinical Quality Measures DVT/VTE Risk/Contraindication: Risk Factor Score Per Nursin RFS Level Per Nursing on Admit: 4+=Very High SARAH LOZADA DO Jan 12, 2017 08:14
[2017-01-12 08:15] VITALS: BP 117/64
--- NOTE | 2017-01-12 09:37 | Progress Note-Cardiology ---
Cardiology SOAP Progress Note Subjective: Sitting up on the side of the bed eating morning meal. States she feels much better. Cough has improved. Shortness of breath has improved. No c/o CP, palpitations, syncope or near syncope. C/O LE edema bilat. Objective: I&O/Vital Signs Vital Sign - Last 12Hours 01/12/17 01/12/17 01/12/17 01/12/17 03:08 04:00 06:45 08:05 Temp 97.7 Pulse 67 Resp 18 B/P (MAP) 121/60 Pulse Ox 95 96 95 O2 Delivery Nasal Cannula Nasal Cannula Nasal Cannula Nasal Cannula O2 Flow Rate 3.00 3.00 2.00 2.00 01/12/17 01/12/17 01/12/17 01/12/17 08:15 10:45 11:29 12:00 Temp 97.1 97.5 Pulse 78 42 Resp 20 20 B/P (MAP) 117/64 92/54 Pulse Ox 96 95 95 97 O2 Delivery Nasal Cannula Nasal Cannula Nasal Cannula O2 Flow Rate 3.00 2.00 2.00 2.00 01/12/17 14:47 Pulse Ox 92 O2 Delivery Nasal Cannula O2 Flow Rate 2.00 Intake and Output 01/12/17 00:00 Intake Total 1560 ml Output Total 1175 ml Balance 385 ml Weight (Pounds): 193 Weight (Ounces): 6.0 Weight (Calculated Kilograms): 87.208548 Constitutional: AAO x 3, well-developed, well-nourished Respiratory: No accessory muscle use, lungs clear to percussion, other (good bilat air entry) Cardiovascular: regular rate-rhythm, S1 and S2, systolic murmur (faint TESS at card base) Gastrointestional: No tender, No guarding, No rebound, audible bowel sounds Extremities: No clubbing, No cyanosis, significant edema (bilateral, pitting) Neurologic/Psychiatric: grossly intact, power is 5/5 both on sides Skin: normal color, warm/dry Results/Procedures: Labs Laboratory Tests 01/11/17 15:54: Glucometer 251H 01/11/17 20:30: Glucometer 339H 01/12/17 02:51: Glucometer 145H 01/12/17 05:35: White Blood Count 10.1, Red Blood Count 4.25L, Hemoglobin 11.9, Hematocrit 37, Mean Corpuscular Volume 87, Mean Corpuscular Hemoglobin 28, Mean Corpuscular Hemoglobin Concent 32, Red Cell Distribution Width 15.4H, Platelet Count 362, Mean Platelet Volume 11.0H, Neutrophils (%) (Auto) 91H, Lymphocytes (%) (Auto) 4L, Monocytes (%) (Auto) 4, Eosinophils (%) (Auto) 0, Basophils (%) (Auto) 0, Neutrophils # (Auto) 9.2H, Lymphocytes # (Auto) 0.4L, Monocytes # (Auto) 0.4, Eosinophils # (Auto) 0.0, Basophils # (Auto) 0.0, Prothrombin Time 46.0*H, INR Comment 4.9H, Sodium Level 144, Potassium Level 3.9, Chloride Level 113H, Carbon Dioxide Level 18L, Anion Gap 13, Blood Urea Nitrogen 27H, Creatinine 0.73 , Estimat Glomerular Filtration Rate > 60, BUN/Creatinine Ratio 37, Glucose Level 135H, Calcium Level 9.7, Total Bilirubin 0.3, Aspartate Amino Transf (AST/ SGOT) 41H, Alanine Aminotransferase (ALT/SGPT) 43, Alkaline Phosphatase 79, Total Protein 6.9, Albumin 3.4 01/12/17 05:52: Glucometer 133H 01/12/17 10:58: Glucometer 265H Microbiology 01/10/17 Blood Culture - Preliminary, Resulted No growth A/P: Assessment: R-sided pleuritic c/p, likely related to pneumonia, now resolved Pneumonia - clinically improving Coronary artery disease with a history of coronary artery bypass surgery and percutaneous intervention. Last cardiac cath was12/24/16, following an abnormal MPI of 12/22/16. It showed [place] coronary artery disease consisting of mid vessel occlusion LAD, proximal occlusion of a proximal OM and moderate diffused disease of other cors; widely patent stented area in the distal RCA; chronically occluded saphenous vein graft to distal RCA; patent saphenous vein graft to on OM left Cx; patent left internal mammary graft to distal LAD; LVEDP 20 mmHg; LVEF 50-55%; mild ant-lat hypokinesis Last echo of 09/17/16 showed basal septal akinesis to dyskinesis and LVEF 50% and mild mitral and tricuspid regurg and PASP 25-30 mmHg. Two entangled stents were lost to peripheral circulation and lodged in a small sub-branch of a branch of the right internal iliac artery and did not result in any untoward effect (February 2010). Chronic bilateral leg swelling likely due to venous insufficiency vs lymphedema Deep venous thrombosis with large pulmonary embolism in early September 2011. Chronic warfarin anticoagulation is being managed by Dr Cabrera. U/S of left leg September 2013 showed no evidence of DVT Maturity onset diabetes mellitus being managed by Dr. Cabrera. Tobaccoism, ongoing, less than a pack a day, according to her Hyperlipidemia, not well controlled. The patient has had nonspecific statin intolerance, but has been able to tolerate pravastatin well. F/u on hepatic and lipid profiles is with Dr Cabrera. History of intermittent liver enzyme elevation of unclear etiology, controlled on blood work of August 2015 Gastroesophageal reflux. Hypertension. Degenerative joint disease H/o broncitis H/o ch sys and forrester CHF, currently clinically compensated Sleep apnea, being treated with CPAP therapy. S/P R carpal tunnel surgery No AAA on a screening abd ao scan of 09/29/16 60-79% bilateral ICA stenoses on carotid u/s of 09/29/16 Plan: * Multiple comorbidities as outlined above * Continue previous cardiac regimen * Monitor labs Physician Assessment Physician Assessment Lungs: good bilat air entry Cor: reg Abd: soft Ext: 2-3 + edema A&R * As documented in our note above that I updated (italics) and as noted below * Continue current cardiac regimen * Monitor labs closely JASON SALAZAR SINTERING PRESS OPERATOR Jan 12, 2017 09:37 FAITH NICHOLSON MD FACP FAC CCDS Jan 12, 2017 14:55
[2017-01-12] MEDS ORDERED: VITAMIN K 1 MG/ML ORAL SOLN 1 ML SYRINGE PO NR (09:45)
[2017-01-12] MEDS: POLYETHYLENE GLYCOL 17 GM (MIRALAX) PACK PO SCH (10:03)
--- NOTE | 2017-01-12 10:08 | Progress Note-Hospitalist ---
Progress Note HPI/CC on Admission CC: Right sided pneumonia with AECOPD HPI: This is a 76-year-old white female with a past medical history of COPD, continued smoking, diabetes mellitus, coronary artery disease managed by Dr. Lopez the presents to the emergency room with right-sided chest pain with pleurisy-like symptoms. She was found to have extensive right sided pneumonia so she was placed on Levaquin for her allergy profile in addition to IV steroids and IV fluids for sepsis. Currently the only pain she has is when she takes a deep breath on the right side. We are in the midst of reconciling all of her home medication we have her on IV steroids and that his dose to 40 mg every 6 hours and will attached sliding scale insulin regimen. Progress Notes/Assess & Plan Date Seen 01/12/17 Time Seen by Provider: 09:45 Admission Dx/Process Assessment: Right sided pneumonia w/sepsis and AECOPD Known coronary artery disease patient previous stents placed but recent cardiac cath negative for stenotic coronary vessels Atrial fibrillation Diabetes mellitus insulin-dependent Hypertension Hyperlipidemia Renal mass of uncertain etiology managed at [facility] Current smoker Coagulopathy due to Coumadin and FQ Diagonsis/Assessment & Plan Patient feels better but did not sleep well since she did not have her CPAP with her so her son will bring it today and I will titrate steroids down to help her. Checked meds and labs. Will check CXR in the morning INR still at 4.9 so gave her a bit of Vit K po once BM + Appreciate Caridad Ibarra and John's help AFVSS, Pleasant, improved, chronically ill IRRR, CTAB much improved No edema Laboratory Tests 01/12/17 05:35 Assessment: Right sided pneumonia w/sepsis and AECOPD now improved Known coronary artery disease patient previous stents placed but recent cardiac cath negative for stenotic coronary vessels Atrial fibrillation Diabetes mellitus insulin-dependent Hypertension Hyperlipidemia Renal mass of uncertain etiology managed at [facility] Current smoker counseled to stop Coagulopathy due to Coumadin and FQ gave small dose of Coumadin BARBARA on CPAP Plan: SSI IV steroids but decrease dose Caridad Lopez and Stacey consultations are appreciated Abx Pain meds Stop smoking BARBARA treatment Home O2 evaluation DC tomorrow after CXR and lab check MAHENDRA RENNER DO Jan 12, 2017 10:08
[2017-01-12] MEDS: LEVOFLOXACIN 750 MG TAB (LEVAQUIN) PO SCH (10:32)
[2017-01-12] MEDS ORDERED: LEVOFLOXACIN 500 MG TAB (LEVAQUIN) PO SCH (11:00)
[2017-01-12 12:00] VITALS: BP 92/54
[2017-01-12 15:45] VITALS: BP 132/68
[2017-01-12 19:05] VITALS: BP 139/61
[2017-01-12] MEDS: SIMvastatin 20 MG (ZOCOR) TAB PO SCH (20:53)
[2017-01-12] MEDS: MONTELUKAST 10 MG (SINGULAIR) TAB PO SCH (20:53)
[2017-01-12] MEDS: ZOLPIDEM 5 MG (AMBIEN) TAB PO SCH ×2 (20:53→22:15)
[2017-01-12] MEDS: inSUlin DETERMIR 1 UNIT/0.01 ML (LEVEMIR) CHARGE PER UNIT SQ PRN (20:53)
[2017-01-13 00:40] VITALS: BP 117/66
[2017-01-13] MEDS: RT-ALBUTEROL/IPRATROPIUM 3 ML (DUONEB) VIAL IH SCH ×3 (02:46→10:24)
[2017-01-13 04:45] VITALS: BP 138/71
[2017-01-13] MEDS: inSUlin ASPART (NovoLOG) 1 UNIT/0.01 ML (CHARGE PER UNIT) SC SCH ×2 (05:14→11:18)
[2017-01-13] MEDS: methylPREDNISolone 40 MG/ML (Solu-MEDROL) VIAL IV SCH (05:14)
[2017-01-13] MEDS: glipiZIDE 5 MG (GLUCOTROL) TAB PO SCH (05:14)
[2017-01-13] MEDS: KCL 20 MEQ TAB (K-DUR) PO SCH (05:17)
[2017-01-13] MEDS: RT-ADVAIR HFA 115/21 MCG PER PUFF IH SCH (06:22)
[2017-01-13 07:11] LABS: BASOPHILS % (AUTO) 0 % (0-10); EOSINOPHILS % (AUTO) 0 % (0-10); LYMPHOCYTES # (AUTO) 0.6 X 10^3 (1.0-4.0); LYMPHOCYTES % (AUTO) 6 % (12-44); MEAN CORPUSCULAR HEMOGLOBIN 28 PG (25-34); MEAN CORPUSCULAR HGB CONC 32 G/DL (32-36); MEAN CORPUSCULAR VOLUME 87 FL (80-99); MEAN PLATELET VOLUME 10.9 FL (7.4-10.4); MONOCYTES # (AUTO) 0.5 X 10^3 (0.0-1.0); MONOCYTES % (AUTO) 5 % (0-12); NEUTROPHILS # (AUTO) 8.4 X 10^3 (1.8-7.8); NEUTROPHILS % (AUTO) 89 % (42-75); PLATELET COUNT 378 10^3/uL (130-400); RED BLOOD COUNT 4.06 10^6/uL (4.35-5.85); RED CELL DISTRIBUTION WIDTH 15.8 % (10.0-14.5); WHITE BLOOD COUNT 9.4 10^3/uL (4.3-11.0)
[2017-01-13 07:15] LABS: PROTHROMBIN TIME PATIENT 31.3 SEC (12.2-14.7)
[2017-01-13 07:23] LABS: ALANINE AMINOTRANSFERASE 46 U/L (0-55); ALBUMIN 3.4 GM/DL (3.2-4.5); ANION GAP 13 MMOL/L (5-14); ASPARTATE AMINO TRANSFERASE 32 U/L (5-34); BILIRUBIN,TOTAL 0.4 MG/DL (0.1-1.0); BLOOD UREA NITROGEN 33 MG/DL (7-18); BUN/CREATININE RATIO 41; CALCIUM 9.7 MG/DL (8.5-10.1); CARBON DIOXIDE 20 MMOL/L (21-32); CHLORIDE 112 MMOL/L (98-107); CREATININE SERUM 0.81 MG/DL (0.60-1.30); GFR ESTIMATED > 60; GLUCOSE 181 MG/DL (70-105); POTASSIUM 3.6 MMOL/L (3.6-5.0); SODIUM 145 MMOL/L (135-145); TOTAL PROTEIN 6.5 GM/DL (6.4-8.2)
--- NOTE | 2017-01-13 07:37 | Pulmonary Progress Note ---
Subjective Time Seen by Provider: 08:11 Subjective/Events-last exam No complications noted currently Exam Exam Vital Signs Date Time Temp Pulse Resp B/P (MAP) Pulse Ox O2 Delivery O2 Flow Rate FiO2 01/13/17 06:21 94 Room Air 01/13/17 04:45 97.1 85 18 138/71 94 Room Air 01/13/17 02:46 93 01/13/17 01:00 62 01/13/17 00:40 99.1 76 20 117/66 97 NIV CPAP 2.00 01/12/17 23:05 95 NIV CPAP 01/12/17 20:00 Nasal Cannula 2.00 01/12/17 19:23 96 Nasal Cannula 2.00 01/12/17 19:05 97.5 70 20 139/61 96 Nasal Cannula 2.00 01/12/17 19:00 90 01/12/17 15:45 97.3 76 20 132/68 96 Nasal Cannula 2.00 01/12/17 14:47 92 Nasal Cannula 2.00 01/12/17 12:00 97.5 42 20 92/54 97 Nasal Cannula 2.00 01/12/17 11:29 95 2.00 01/12/17 10:45 95 Nasal Cannula 2.00 01/12/17 08:15 97.1 78 20 117/64 96 Nasal Cannula 3.00 01/12/17 08:05 Nasal Cannula 2.00 General Appearance: No Apparent Distress, WD/WN, Chronically ill, Obese HEENT: PERRL/EOMI, Normal ENT Inspection, Pharynx Normal Neck: Full Range of Motion, Normal Inspection, Non Tender, Supple, Carotid Bruit Respiratory: Chest Non Tender, Lungs Clear, Normal Breath Sounds (except right sided rales noted), No Accessory Muscle Use, No Respiratory Distress Cardiovascular: Regular Rate, Rhythm, No Edema, No Gallop, No JVD, No Murmur, Normal Peripheral Pulses Capillary Refill: Less Than 3 Seconds Peripheral Pulses: 2+ Radial Pulses (R), 2+ Radial Pulses (L) Gastrointestinal: normal bowel sounds, non tender, soft Extremity: Normal Capillary Refill, Normal Inspection, Normal Range of Motion, Non Tender, No Calf Tenderness, No Pedal Edema Neurologic/Psychiatric: Alert, Oriented x3, No Motor/Sensory Deficits, Normal Mood/Affect Skin: Normal Color, Warm/Dry Lymphatic: No Adenopathy Results Lab Laboratory Tests 01/12/17 05:35 01/13/17 06:15 Assessment/Plan Assessment/Plan Pneumonia with sepsis -Continue Levaquin -Pt will need f/u CXR to ensure complete resolution of infiltration COPDAE -SVNS, solumedrol 40 IV Q12 CAD, Afib, Cardiomyopathy -cardiology following Renal mass -Follows with AMANDA Tobacco dependance 232 Clinical Quality Measures DVT/VTE Risk/Contraindication: Risk Factor Score Per Nursin RFS Level Per Nursing on Admit: 4+=Very High SARAH LOZADA DO Jan 13, 2017 07:37
[2017-01-13 08:00] VITALS: BP 134/69
[2017-01-13] MEDS: meTOprolol TARTRATE 50 MG (LOPRESSOR) TAB PO SCH (09:13)
[2017-01-13] MEDS: amLODIPine 5 MG (NORVASC) TAB PO SCH (09:13)
[2017-01-13] MEDS: FAMOTIDINE 20 MG (PEPCID) TABLET PO SCH (09:14)
[2017-01-13] MEDS: ASPIRIN 81 MG CHEW (CHILDREN'S ASA) PO SCH (09:14)
[2017-01-13] MEDS: POLYETHYLENE GLYCOL 17 GM (MIRALAX) PACK PO SCH (09:14)
[2017-01-13] MEDS: BENAZEPRIL 20 MG (LOTENSIN) TAB PO SCH (09:14)
[2017-01-13] MEDS: FUROSEMIDE 40 MG (LASIX) TAB PO SCH (09:14)
--- NOTE | 2017-01-13 09:16 | Progress Note-Cardiology ---
Cardiology SOAP Progress Note Subjective: No cp SOA improved Bilat leg swelling worse No palp or syncope Objective: I&O/Vital Signs Vital Sign - Last 12Hours 01/12/17 01/13/17 01/13/17 01/13/17 23:05 00:40 01:00 02:46 Temp 99.1 Pulse 76 62 Resp 20 B/P (MAP) 117/66 Pulse Ox 95 97 93 O2 Delivery NIV CPAP NIV CPAP O2 Flow Rate 2.00 01/13/17 01/13/17 01/13/17 04:45 06:21 08:00 Temp 97.1 96.3 Pulse 85 81 Resp 18 20 B/P (MAP) 138/71 134/69 Pulse Ox 94 94 95 O2 Delivery Room Air Room Air Room Air Weight (Pounds): 193 Weight (Ounces): 6.0 Weight (Calculated Kilograms): 87.426856 Constitutional: AAO x 3, well-developed, well-nourished Respiratory: No accessory muscle use, lungs clear to percussion, other (good bilat air entry) Cardiovascular: regular rate-rhythm, S1 and S2, systolic murmur (faint TESS at card base) Gastrointestional: No tender, No guarding, No rebound, audible bowel sounds Extremities: No clubbing, No cyanosis, significant edema (bilateral, pitting) Neurologic/Psychiatric: grossly intact, power is 5/5 both on sides Skin: normal color, warm/dry Results/Procedures: Labs Laboratory Tests 01/12/17 10:58: Glucometer 265H 01/12/17 15:49: Glucometer 216H 01/12/17 20:48: Glucometer 237H 01/13/17 05:10: Glucometer 202H 01/13/17 06:15: White Blood Count 9.4, Red Blood Count 4.06L, Hemoglobin 11.4L, Hematocrit 35, Mean Corpuscular Volume 87, Mean Corpuscular Hemoglobin 28, Mean Corpuscular Hemoglobin Concent 32, Red Cell Distribution Width 15.8H, Platelet Count 378, Mean Platelet Volume 10.9H, Neutrophils (%) (Auto) 89H, Lymphocytes (%) (Auto) 6L, Monocytes (%) (Auto) 5, Eosinophils (%) (Auto) 0, Basophils (%) (Auto) 0, Neutrophils # (Auto) 8.4H, Lymphocytes # (Auto) 0.6L, Monocytes # (Auto) 0.5, Eosinophils # (Auto) 0.0, Basophils # (Auto) 0.0, Prothrombin Time 31.3H, INR Comment 3.0H, Sodium Level 145, Potassium Level 3.6, Chloride Level 112H, Carbon Dioxide Level 20L, Anion Gap 13, Blood Urea Nitrogen 33H, Creatinine 0.81 , Estimat Glomerular Filtration Rate > 60, BUN/Creatinine Ratio 41, Glucose Level 181H, Calcium Level 9.7, Total Bilirubin 0.4, Aspartate Amino Transf (AST/ SGOT) 32, Alanine Aminotransferase (ALT/SGPT) 46, Alkaline Phosphatase 81, Total Protein 6.5, Albumin 3.4 Microbiology 01/10/17 Blood Culture - Preliminary, Resulted No growth A/P: Assessment: R-sided pleuritic c/p, likely related to pneumonia, now resolved Pneumonia - clinically improving Coronary artery disease with a history of coronary artery bypass surgery and percutaneous intervention. Last cardiac cath was12/24/16, following an abnormal MPI of 12/22/16. It showed [place] coronary artery disease consisting of mid vessel occlusion LAD, proximal occlusion of a proximal OM and moderate diffused disease of other cors; widely patent stented area in the distal RCA; chronically occluded saphenous vein graft to distal RCA; patent saphenous vein graft to on OM left Cx; patent left internal mammary graft to distal LAD; LVEDP 20 mmHg; LVEF 50-55%; mild ant-lat hypokinesis Last echo of 09/17/16 showed basal septal akinesis to dyskinesis and LVEF 50% and mild mitral and tricuspid regurg and PASP 25-30 mmHg. Two entangled stents were lost to peripheral circulation and lodged in a small sub-branch of a branch of the right internal iliac artery and did not result in any untoward effect (February 2010). Chronic bilateral leg swelling likely due to venous insufficiency vs lymphedema , currently somewhat worse Deep venous thrombosis with large pulmonary embolism in early September 2011. Chronic warfarin anticoagulation is being managed by Dr Cabrera. U/S of left leg September 2013 showed no evidence of DVT Maturity onset diabetes mellitus being managed by Dr. Cabrera. Tobaccoism, ongoing, less than a pack a day, according to her Hyperlipidemia, not well controlled. The patient has had nonspecific statin intolerance, but has been able to tolerate pravastatin well. F/u on hepatic and lipid profiles is with Dr Cabrera. History of intermittent liver enzyme elevation of unclear etiology, controlled on blood work of August 2015 Gastroesophageal reflux. Hypertension. Degenerative joint disease H/o broncitis H/o ch sys and forrester CHF, currently clinically compensated Sleep apnea, being treated with CPAP therapy. S/P R carpal tunnel surgery No AAA on a screening abd ao scan of 09/29/16 60-79% bilateral ICA stenoses on carotid u/s of 09/29/16 Plan: * D/c amlodipine due to leg swelling * Continue other cardiac regimen * Outpatient f/u advised * Questions answered FAITH NICHOLSON MD FACP FAC CCDS Jan 13, 2017 09:16
--- NOTE | 2017-01-13 09:21 | Diagnostic Imaging Report ---
INDICATION: Pneumonia. Exam compared 01/10. FINDINGS: Right midlung infiltrate remains, however, substantially improved from prior. The left lung remains clear. IMPRESSION: Reduction in right lung pneumonia. No adverse development. Dictated by: Dictated on workstation # [id number]
[2017-01-13] MEDS: LEVOFLOXACIN 750 MG TAB (LEVAQUIN) PO SCH (11:03)
[2017-01-13] MEDS ORDERED: LEVO750T39 PO (11:43)
--- NOTE | 2017-01-13 12:02 | Discharge Summary-Hospitalist ---
Diagnosis/Chief Complaint Date of Admission Jan 10, 2017 at 22:30 Date of Discharge Discharge Date: Jan 13, 2017 Admission Diagnosis Assessment: Right sided pneumonia w/sepsis and AECOPD Known coronary artery disease patient previous stents placed but recent cardiac cath negative for stenotic coronary vessels Atrial fibrillation Diabetes mellitus insulin-dependent Hypertension Hyperlipidemia Renal mass of uncertain etiology managed at [facility] Current smoker Coagulopathy due to Coumadin and FQ Discharge Diagnosis Assessment: Right sided pneumonia w/sepsis and AECOPD now improved Known coronary artery disease patient previous stents placed but recent cardiac cath negative for stenotic coronary vessels Atrial fibrillation Diabetes mellitus insulin-dependent Hypertension Hyperlipidemia Renal mass of uncertain etiology managed at [facility] Current smoker counseled to stop Coagulopathy due to Coumadin and FQ gave small dose of Coumadin BARBARA on CPAP Notes from 01/13/17 SW Review: Pt has qualified for 2L continuous O2 and she is not happy about this Patient Interview: Home O2 was discussed with the pt. Pt was informed that she will need to use home O2 at least temporarily. Pt confirms [facility] as pharmacy Blood thinning is now 3 and abx will keep her blood thin Pt will need to check her protime Wednesday am at [facility] Pt confirms Coumadin being held Physical exam stable. Lungs sound perfect. Pt states that her home is full of black mold so she refuses to go home, so she will stay with family. Plan: Check PT-INR Wednesday - we will call pt with results Follow up with me 01/21 Home O2 Scribed by Sol Massey under the direct supervision of Dr. Cabrera. Discharge Summary Discharge Physical Examination Allergies: Coded Allergies: erythromycin base (Verified Allergy, Intermediate, HIVES, 10/10/13) NSAIDS (Non-Steroidal Anti-Inflamma (Verified Allergy, Unknown, 01/10/17) cephalexin (Verified Allergy, Unknown, 10/10/13) Vitals & I&Os Vital Signs Date Time Temp Pulse Resp B/P (MAP) Pulse Ox O2 Delivery O2 Flow Rate FiO2 01/13/17 12:24 81 20 134/69 95 Room Air 2.00 01/13/17 08:00 96.3 Hospital Course Hospital course: Patient a brief hospital course she was hospitalized with right -sided pneumonia and pleurisy. Levaquin was initiated that ultimately cause Coumadin induced coagulopathy and a very small dose of vitamin K of 0.5 mg was given by mouth and INR returned to 3.[address] Lopez saw her in consultation and stopped amlodipine due to the swelling in her legs and compression wraps were restarted. She was to hold Coumadin because she was placed on Levaquin as discharge medications and considering the coagulopathy that likely would continue while being on that medication she'll have an INR checked on Wednesday morning and she will be called with those results. She did meet criteria for home oxygen of which she was very reluctant but agreed and she will be staying with her son because they have found black mold in the house and smoking cessation was also counseled because that is the main factor with contribution to her severe COPD with exacerbation. She was placed on short course of steroids and will monitor sugar closely with insulin administration. Labs (last 24 hrs) Microbiology 01/10/17 Blood Culture - Preliminary, Resulted No growth Pending Labs Discharge Home Medications: Active Scripts Active Levofloxacin 750 Mg Tablet 750 Mg PO DAILY@1100 Reported Nitroglycerin 0.4 Mg Tab.subl 0.4 Mg PO UD PRN 1 TAB EVERY 5 MINUTES NEEDED; NOT TO EXCEED 3 DOSES IN 15 MINUTES Tramadol HCl 50 Mg Tablet 50 Mg PO TID PRN Advair 250-50 Diskus (Fluticasone/Salmeterol) 1 Each Blst.w.dev 1 Puff IH BID Benazepril HCl 40 Mg Tab 40 Mg PO DAILY Potassium Chloride 20 Meq Tab.er.prt 20 Meq PO DAILY Polyethylene Glycol 3350 255 Gm Powder 17 Gm PO DAILY Furosemide 40 Mg Tablet 40 Mg PO DAILY Metoprolol Tartrate 50 Mg Tablet 50 Mg PO BID Montelukast Sodium 10 Mg Tablet 10 Mg PO HS Citracal + D Maximum Caplet (Calcium Citrate/Vitamin D3) 1 Each Tablet 1 Tab PO DAILY Aspirin 81 Mg Tab.chew 81 Mg PO DAILY Iprat-Albut 0.5-3(2.5) mg/3 ml (Ipratropium/Albuterol Sulfate) 3 Ml Ampul.neb 3 Ml IH QID PRN Pravastatin Sodium 40 Mg Tablet 20 Mg PO BID TAKE 1/2 OF (40 MG) TABLET Glipizide 5 Mg Tablet 2.5 Mg PO BID TAKES 1/2 OF A (5 MG) TABLET Humalog (Insulin Human Lispro) 100 U/Ml Vial 8 Units SQ TIDAC PRN Levemir (Insulin Detemir) 100 U/Ml Vial 10 U SQ HS PRN Vitamin D3 (Cholecalciferol (Vitamin D3)) 2,000 Unit Capsule 2,000 Unit PO HS Pepcid (Famotidine) 20 Mg Tablet 20 Mg PO BID Instructions to patient/family Please see electonic discharge instructions given to patient. Clinical Quality Measures DVT/VTE Risk/Contraindication: Risk Factor Score Per Nursin RFS Level Per Nursing on Admit: 4+=Very High MAHENDRA CABRERA DO Jan 13, 2017 12:02
[2017-01-13 12:24] VITALS: BP 134/69
== END 2017-01-13 12:32 | disposition home or self-care (01) | DRG 871 ==
LOC: EDUNIT# 19:37 → ER 19:40 → 4TH 22:30
PROVIDERS: ADMIT Internal Medicine; ATTEND Internal Medicine
DX: A41.9 Sepsis, unspecified organism (principal); J44.0 Chronic obstructive pulmonary disease with (acute) lower respiratory infection; J18.9 Pneumonia, unspecified organism; J44.1 Chronic obstructive pulmonary disease with (acute) exacerbation; R04.2 Hemoptysis; I42.9 Cardiomyopathy, unspecified; I11.0 Hypertensive heart disease with heart failure; I50.23 Acute on chronic systolic (congestive) heart failure; R09.02 Hypoxemia; J45.909 Unspecified asthma, uncomplicated; I25.10 Atherosclerotic heart disease of native coronary artery without angina pectoris; I48.91 Unspecified atrial fibrillation; G47.33 Obstructive sleep apnea (adult) (pediatric); E11.40 Type 2 diabetes mellitus with diabetic neuropathy, unspecified; I08.1 Rheumatic disorders of both mitral and tricuspid valves; K21.9 Gastro-esophageal reflux disease without esophagitis; F17.210 Nicotine dependence, cigarettes, uncomplicated; N28.89 Other specified disorders of kidney and ureter; E78.5 Hyperlipidemia, unspecified; I65.23 Occlusion and stenosis of bilateral carotid arteries; M19.91 Primary osteoarthritis, unspecified site; R79.1 Abnormal coagulation profile; Z95.5 Presence of coronary angioplasty implant and graft; Z95.1 Presence of aortocoronary bypass graft; Z79.52 Long term (current) use of systemic steroids; Z79.01 Long term (current) use of anticoagulants; Z90.49 Acquired absence of other specified parts of digestive tract; Z86.711 Personal history of pulmonary embolism; Z86.718 Personal history of other venous thrombosis and embolism; Z79.4 Long term (current) use of insulin
CPT/HCPCS: 36415; 71020; 80053; 81000; 82962; 83605; 83735; 83880; 84484; 85007; 85025; 85027; 85610; 85730; 87040; 93005; 94640; 94664; 94760; 94761; 96361; 96365; 96372

== ENCOUNTER → 2017-02-03 | Outpatient (CLI) | payer MEDICARE ==
[~2017-02-03] MED LIST changes: +LEVO750T39 PO; +NITR0.4T39 PO
--- NOTE | 2017-02-03 12:04 | Diagnostic Imaging Report ---
EXAMINATION: PA and lateral chest at 11:13 AM. INDICATION: Pneumonia. FINDINGS: The previous exam of 01/13/2017 noted alveolar/interstitial pulmonary infiltrates involving the right midlung and right lung base. These findings are felt to be related to pneumonia. On this study, both the right midlung and right lung base do seem much better aerated. There is virtually no residual pneumonia/atelectasis in the right midlung and only a very small amount of residual density in the right lung base. The left lung is clear. The heart is mildly enlarged but stable when compared to the prior exam. The sternotomy wires and surgical clips noted previously are again evident and no different. The mediastinum is not widened. The osseous structures are intact. IMPRESSION: 1. The appearance of the chest has improved considerably since the prior exam as there has been near complete resolution of the pneumonia/atelectasis involving the right lung. Clinical followup is recommended. 2. There is no acute cardiopulmonary abnormality noted otherwise. Dictated by: Dictated on workstation # [id number]
== END ==
LOC: RAD 10:44
PROVIDERS: ATTEND Nurse Practitioner Family
DX: J18.9 Pneumonia, unspecified organism (principal)
CPT/HCPCS: 71020

== ENCOUNTER → 2017-03-22 | Outpatient (CLI) | payer MEDICARE ==
--- NOTE | 2017-03-22 13:33 | Diagnostic Imaging Report ---
Renal ultrasound. INDICATION: Right-sided renal mass. FINDINGS: The right kidney is 10.5 cm, and the left kidney is 12.6 cm in length. There is no hydronephrosis. There is an exophytic mass from the lower pole of the right kidney measuring 2.3 x 2.3 x 2.1 cm. This is not associated with significant increased internal vascularity with color Doppler. There is a simple cyst in the upper pole of the left kidney measuring 5.8 cm. The urinary bladder is not seen because it was recently emptied just before the scan. IMPRESSION: A 2.3-cm lower pole right renal mass compares to maximum measurement of 2.[address] scan from 10/17/2015. Dictated by: Dictated on workstation # [id number]
== END ==
LOC: RAD 10:54
DX: N28.89 Other specified disorders of kidney and ureter (principal)
CPT/HCPCS: 76770

== ENCOUNTER → 2017-05-27 | Outpatient (CLI) | payer MEDICARE, OTHER ==
[~2017-05-27] MED LIST changes: +ACHD5005 PO; -HYDR-3812 PO; +METO50TA15 PO; -METO50TA2 PO
== END ==
LOC: RAD 14:24
PROVIDERS: ATTEND Internal Medicine
DX: Z12.31 Encounter for screening mammogram for malignant neoplasm of breast (principal)
CPT/HCPCS: 77067

== ENCOUNTER → 2017-10-01 | Outpatient (CLI) | payer MEDICARE, OTHER ==
[~2017-10-01] MED LIST changes: +CATHETER FLUSH 10 ML SYR IV PRN; +IOHEXOL 350 MG/ML 100 ML (OMNIPAQUE 350) VIAL IV ONE; +NS 250 ML (IVPB) BAG IV ONE; +RECEIVED CONTRAST (Hold Metformin) IV SCH
--- NOTE | 2017-10-01 13:54 | Diagnostic Imaging Report ---
PROCEDURE: CT abdomen and pelvis with and without contrast. TECHNIQUE: Precontrast acquisitions were acquired through the abdomen and pelvis. Multiple contiguous axial images were obtained through the abdomen and pelvis after the administration of intravenous contrast. INDICATION: Renal mass. Patient presents for followup. COMPARISON: Comparison is made with prior CT from 10/17/2015. FINDINGS: Imaging through the lung bases does show some atelectasis or scarring in the left lower lobe. No discrete liver mass is identified. Gallbladder is surgically absent. Pancreas and spleen are unremarkable. No adrenal mass is identified. The cyst in the upper pole left kidney is stable at 5.0 cm. The solid mass lower pole right kidney anteriorly measures 2.4 cm compared with 2.[address] No new renal mass is identified. Aorta is calcified but nonaneurysmal. There is a filter within the inferior vena cava. No central retroperitoneal or mesenteric lymphadenopathy is seen. The small and large bowel loops are normal caliber. Bladder is unremarkable. No pelvic lymphadenopathy is seen. The bony structures are nonacute. IMPRESSION: Slight increase in size of solid mass lower pole right kidney when compared with prior CT from 10/17/2015. No abdominal or pelvic lymphadenopathy is identified. Mass is suggestive of small renal cell carcinoma until proven otherwise. No new abnormality seen. Dictated by: Dictated on workstation # [id number]
== END ==
LOC: RAD 11:53
PROVIDERS: ATTEND Urology
DX: N28.89 Other specified disorders of kidney and ureter (principal); Z88.1 Allergy status to other antibiotic agents; Z88.6 Allergy status to analgesic agent
CPT/HCPCS: 74178

== ENCOUNTER → 2017-11-08 | Outpatient (CLI) | payer MEDICARE, OTHER ==
[~2017-11-08] MED LIST changes: -CATHETER FLUSH 10 ML SYR IV PRN; -IOHEXOL 350 MG/ML 100 ML (OMNIPAQUE 350) VIAL IV ONE; +IOHEXOL 350 MG/ML 150 ML (OMNIPAQUE 350) VIAL IV ONE; -RECEIVED CONTRAST (Hold Metformin) IV SCH
--- NOTE | 2017-11-08 16:38 | Diagnostic Imaging Report ---
INDICATION: Bilateral leg swelling and shortness of breath. Bilateral lower extremity venous Doppler study was performed in the routine fashion with color flow Doppler and waveform analysis. FINDINGS: The common femoral veins, superficial femoral veins, popliteal veins and visualized portion of the tibial veins show normal compressibility and venous flow patterns. There is normal augmentation. IMPRESSION: No evidence of deep vein thrombosis in the major veins of both legs. Dictated by: Dictated on workstation # [id number]
--- NOTE | 2017-11-08 17:42 | Diagnostic Imaging Report ---
PROCEDURE: CT angiography of the chest with contrast. TECHNIQUE: Multiple contiguous axial images were obtained through the chest after uneventful bolus administration of intravenous contrast. Reconstructed CTA MIP acquisitions were also performed. INDICATION: Leg swelling and shortness of breath. History of PE. COMPARISON: 10/03/2011 FINDINGS: There is no evidence of pulmonary embolus. There is no pneumothorax or pleural fluid. There is minimal atelectasis or scarring in the lung bases bilaterally. The lungs are otherwise clear. There are bilateral calcified hilar lymph nodes. There are coronary artery calcifications. There is post bypass surgical change. Heart size is prominent. There is a large left renal cyst similar to the prior study. No acute abnormalities seen in the visualized upper abdomen. There are degenerative changes in the spine. Inferior vena cava filter is seen. IMPRESSION: 1. There is no evidence of pulmonary embolus or other acute abnormality in the chest. 2. There is an inferior vena cava filter present. 3. Minimal bilateral basilar atelectasis or scarring. 4. Coronary artery calcifications with post bypass changes. Dictated by: Dictated on workstation # [id number]
== END ==
LOC: RAD 15:17
PROVIDERS: ATTEND Nurse Practitioner Family
DX: I25.810 Atherosclerosis of coronary artery bypass graft(s) without angina pectoris (principal); R06.02 Shortness of breath; Z95.828 Presence of other vascular implants and grafts; Z87.828 Personal history of other (healed) physical injury and trauma
CPT/HCPCS: 71275; 93970

== ENCOUNTER → 2018-05-30 | Outpatient (CLI) | payer MEDICARE, OTHER ==
[~2018-05-30] MED LIST changes: +AMLO5TAB7 PO; +BENA40TA5 PO; -IOHEXOL 350 MG/ML 150 ML (OMNIPAQUE 350) VIAL IV ONE; -IPRA3AMP IH; +IPRA3AMP31 IH; -NS 250 ML (IVPB) BAG IV ONE; -POLY255P PO; +POLY255P16 PO
--- NOTE | 2018-05-31 15:41 | Diagnostic Imaging Report ---
EXAM: Digital mammogram, bilateral screening with 3D tomosynthesis and Computer Aided Detection (CAD) system. COMPARISON: This study was compared to the prior exams of 05/27/2017, 05/15/2016 and 05/14/2015. There are no current complaints. FINDINGS: There are scattered fibroglandular densities in both breasts which could obscure a lesion. Overall, there does not appear to have been any significant change when compared to the prior exam. No primary or secondary sign of malignancy is noted. IMPRESSION: There is no radiographic evidence for malignancy. ACR BI-RADS Category 1: Negative. Result letter will be mailed to the patient. Note: At least 10% of breast cancer is not imaged by mammography. Dictated by: Dictated on workstation # [id number]
== END ==
LOC: RAD 07:13
PROVIDERS: ATTEND Internal Medicine
DX: Z12.31 Encounter for screening mammogram for malignant neoplasm of breast (principal)
CPT/HCPCS: 77067

== ENCOUNTER 2018-11-23 11:07 | Emergency (ER) | payer MEDICARE, OTHER ==
[~2018-11-23] VITALS: Ht 165.1 cm; Wt 98.0 kg
[~2018-11-23 11:07] MED LIST changes: -AMLO5TAB7 PO; +AMLO5TAB9 PO
--- NOTE | 2018-11-23 11:21 | ED Upper Extremity ---
General Chief Complaint: Upper Extremity Stated Complaint: R ARM BRUISE Source: patient Exam Limitations: no limitations History of Present Illness Date Seen by Provider: Nov 23, 2018 Time Seen by Provider: 11:19 Initial Comments To ER with bruising to the right upper arm. This began 2 days ago when she fell into [facility]. She is on warfarin expected some bruising but this degree of bruising concerns her. She is unable to lift her arm or eat without arm due to the pain in the arm. Onset: other (2 days ago) Severity: moderate Pain/Injury Location: right arm Method of Injury: fell Modifying Factors: Worse With Movement Allergies and Home Medications Allergies Coded Allergies: erythromycin base (Verified Allergy, Intermediate, HIVES, 10/10/13) NSAIDS (Non-Steroidal Anti-Inflamma (Verified Allergy, Unknown, 01/10/17) cephalexin (Verified Allergy, Unknown, 10/10/13) Home Medications Aspirin 81 Mg Tab.chew, 81 MG PO DAILY, (Reported) Benazepril HCl 40 Mg Tab, 40 MG PO DAILY, (Reported) Calcium Citrate/Vitamin D3 1 Each Tablet, 1 TAB PO DAILY, (Reported) Cholecalciferol (Vitamin D3) 2,000 Unit Capsule, 2,000 UNIT PO HS, (Reported) Famotidine 20 Mg Tablet, 20 MG PO BID, (Reported) Fluticasone/Salmeterol 1 Each Blst.w.dev, 1 PUFF IH BID, (Reported) Furosemide 40 Mg Tablet, 40 MG PO DAILY, (Reported) Glipizide 5 Mg Tablet, 2.5 MG PO BID, (Reported) TAKES 1/2 OF A (5 MG) TABLET Insulin Detemir 100 U/Ml Vial, 10 U SQ HS PRN for BLOOD SUGAR GREATER THAN 200, (Reported) Insulin Human Lispro 100 U/Ml Vial, 8 UNITS SQ TIDAC PRN for BLOOD SUGAR GREATER THAN 180, (Reported) Ipratropium/Albuterol Sulfate 3 Ml Ampul.neb, 3 ML IH QID PRN for SHORTNESS OF BREATH, (Reported) Levofloxacin 750 Mg Tablet, 750 MG PO DAILY@1100 Prescribed by: MAHENDRA RENNER on 01/13/17 1143 Metoprolol Tartrate 50 Mg Tablet, 50 MG PO BID, (Reported) Montelukast Sodium 10 Mg Tablet, 10 MG PO HS, (Reported) Nitroglycerin 0.4 Mg Tab.subl, 0.4 MG PO UD PRN for CHEST PAIN, (Reported) 1 TAB EVERY 5 MINUTES NEEDED; NOT TO EXCEED 3 DOSES IN 15 MINUTES Polyethylene Glycol 3350 255 Gm Powder, 17 GM PO DAILY, (Reported) Potassium Chloride 20 Meq Tab.er.prt, 20 MEQ PO DAILY, (Reported) Pravastatin Sodium 40 Mg Tablet, 20 MG PO BID, (Reported) TAKE 1/2 OF (40 MG) TABLET Tramadol HCl 50 Mg Tablet, 50 MG PO TID PRN for PAIN-MODERATE, (Reported) Warfarin Sodium 4 Mg Tablet, 4 MG PO DAILY, (Reported) Patient Home Medication List Home Medication List Reviewed: Yes Review of Systems Constitutional: see HPI EENTM: see HPI Respiratory: no symptoms reported Genitourinary: no symptoms reported Musculoskeletal: see HPI Skin: no symptoms reported Psychiatric/Neurological: No Symptoms Reported Past Yaozjir-Abghji-Fkbhzd Hx Patient Social History Type Used: Cigarettes 2nd Hand Smoke Exposure: Yes Recent Foreign Travel: No Contact w/Someone Who Travel: No Recent Hopitalizations: No Immunizations Up To Date Tetanus Booster (TDap): Unknown PED Vaccines UTD: Yes Date of Pneumonia Vaccine: Jan 05, 2015 Date of Influenza Vaccine: Feb 28, 2015 Seasonal Allergies Seasonal Allergies: Yes Past Medical History Surgeries: Yes (FOOT TUMOR,CATARACTS,X2MMK&RECTOCELE,,HEMORRHOIDS,HEMICOLECTomy) Appendectomy, Bladder Surgery, CABG, Coronary Stent, Gallbladder, Hysterectomy, Rectal Respiratory: Yes (uses CPAP) Asthma, Pulmonary Embolism, Sleep Apnea, COPD Currently Using CPAP: Yes Currently Using BIPAP: No Cardiac: Yes (STENTS, triple bypass, possible heart attack) Atrial Fibrillation, Chronic Edema/Swelling, Coronary Artery Disease, Deep Vein Thrombosis, High Cholesterol, Hypertension Neurological: Yes Neuropathy Reproductive Disorders: No 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 Disorders: Endometriosis 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 Sexually Transmitted Disease: No HIV/AIDS: No Genitourinary: Yes (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) Bladder Infection Gastrointestinal: Yes (colon resection, ) Diverticulosis Musculoskeletal: Yes Arthritis Endocrine: Yes Diabetes, Insulin dep, Diabetes, Non-Insulin dep HEENT: No Cataract Loss of Vision: Denies Hearing Impairment: Denies Cancer: Yes Skin, Kidney Did You Recieve Any Treatments: No Psychosocial: No Integumentary: No Blood Disorders: No (HX OF DVT) Adverse Reaction/Blood Tranf: No Family Medical History CABG 19 FATHER Cardiovascular disease 19 FATHER 19 MOTHER Diabetes mellitus 19 MOTHER FH: lung cancer 19 FATHER FH: myocardial infarction 19 MOTHER Hypertension 19 FATHER 19 MOTHER No Pertinent Family Hx Physical Exam Vital Signs Vital Signs - First Documented 11/23/18 11:19 Temp 98.3 Pulse 66 Resp 18 B/P (MAP) 124/68 (86) Pulse Ox 96 O2 Delivery Room Air Capillary Refill : Height, Weight, BMI Height: 5'5.00" Weight: 193lbs. 6.0oz. 87.789019eq; 32.2 BMI Method:Stated General Appearance: WD/WN, no apparent distress HEENT: PERRL/EOMI, normal ENT inspection, TMs normal Neck: non-tender, full range of motion Respiratory: no respiratory distress, no accessory muscle use Shoulder: normal inspection, non-tender, pain (there is limited abduction of the upper arm due to pain at the mid humerus. There is non-circumferential ecchymosis to the lateral aspect of the upper arm. 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, normal sensation of the fingertips and a strong radial pulse) Neurologic/Tendon: normal sensation Neurologic/Psychiatric: alert, normal mood/affect, oriented x 3 Skin: normal color, warm/dry Progress/Results/Core Measures Results/Orders Lab Results Laboratory Tests Test 11/23/18 11:30 11/23/18 11:47 Range/Units White Blood Count 7.6 4.3-11.0 10^3/uL Red Blood Count 4.16 L 4.35-5.85 10^6/uL Hemoglobin 12.2 11.5-16.0 G/DL Hematocrit 39 35-52 % Mean Corpuscular Volume 93 80-99 FL Mean Corpuscular Hemoglobin 29 25-34 PG Mean Corpuscular Hemoglobin Concent 32 32-36 G/DL Red Cell Distribution Width 15.4 H 10.0-14.5 % Platelet Count 225 130-400 10^3/uL Mean Platelet Volume 10.3 7.4-10.4 FL Neutrophils (%) (Auto) 64 42-75 % Lymphocytes (%) (Auto) 22 12-44 % Monocytes (%) (Auto) 11 0-12 % Eosinophils (%) (Auto) 2 0-10 % Basophils (%) (Auto) 1 0-10 % Neutrophils # (Auto) 4.9 1.8-7.8 X 10^3 Lymphocytes # (Auto) 1.6 1.0-4.0 X 10^3 Monocytes # (Auto) 0.8 0.0-1.0 X 10^3 Eosinophils # (Auto) 0.2 0.0-0.3 10^3/uL Basophils # (Auto) 0.1 0.0-0.1 10^3/uL My Orders Orders - RICHARD RICE APRN Cbc With Automated Diff (11/23/18 11:14) Protime With Inr (11/23/18 11:14) Humerus, Right, 2 Views (11/23/18 11:18) Vital Signs/I&O 11/23/18 11:19 Temp 98.3 Pulse 66 Resp 18 B/P (MAP) 124/68 (86) Pulse Ox 96 O2 Delivery Room Air Diagnostic Imaging Diagonstic Imaging: Xray Comments NAME: NATALIIA RAMIRES [facility] REC#: [id number] PT STATUS: REG ER : 1940 PHYSICIAN: RICHARD RICE APRN ADMIT DATE: 11/23/18/ER Draft Date of Exam:11/23/18 HUMERUS, RIGHT, 2 VIEWS INDICATION: Injury to the right arm. TIME OF EXAMINATION: 11:36 AM. TECHNIQUE: Two views of the right humerus were obtained. FINDINGS: The alignment at the shoulder and elbow appears normal. The humerus is intact. No fractures are seen. There is a 3 mm density identified in the soft tissues of the distal right arm. This is located in the lateral soft tissues at the level of the distal humerus and is consistent with a foreign body. IMPRESSION: 1. No acute bony abnormality is seen. 2. A 3 mm soft tissue foreign body is indeterminate. Dictated on workstation # [id number] Dict: 11/23/18 1146 Trans: 11/23/18 1150 [id number] Interpreted by: ALPHONSE POST MD Electronically signed by: Departure Impression Primary Impression: Traumatic ecchymosis of upper arm Qualified Codes: S40.021A - Contusion of right upper arm, initial encounter Disposition: HOME, SELF-CARE Condition: Stable Departure-Patient Inst. Decision time for Depature: 11:45 Referrals: MAHENDRA RENNER DO (PCP/Family) Primary Care Physician Patient Instructions: Contusion (DC) Add. Discharge Instructions: 1. Return to ER for any concerns 2. Follow-up with your doctor next week 3. All discharge instructions reviewed with patient and/or family. Voiced und erstanding. Images Extremities-Upper 1 - Ecchymosis Copy Copies To 1: MAHENDRA RENNER PETER J CROSSCUTTER Nov 23, 2018 11:21
[2018-11-23 11:38] LABS: BASOPHILS # (AUTO) 0.1 10^3/uL (0.0-0.1); BASOPHILS % (AUTO) 1 % (0-10); EOSINOPHILS # (AUTO) 0.2 10^3/uL (0.0-0.3); EOSINOPHILS % (AUTO) 2 % (0-10); HEMATOCRIT 39 % (35-52); HEMOGLOBIN 12.2 G/DL (11.5-16.0); LYMPHOCYTES # (AUTO) 1.6 X 10^3 (1.0-4.0); LYMPHOCYTES % (AUTO) 22 % (12-44); MEAN CORPUSCULAR HEMOGLOBIN 29 PG (25-34); MEAN CORPUSCULAR HGB CONC 32 G/DL (32-36); MEAN CORPUSCULAR VOLUME 93 FL (80-99); MEAN PLATELET VOLUME 10.3 FL (7.4-10.4); MONOCYTES # (AUTO) 0.8 X 10^3 (0.0-1.0); MONOCYTES % (AUTO) 11 % (0-12); NEUTROPHILS # (AUTO) 4.9 X 10^3 (1.8-7.8); NEUTROPHILS % (AUTO) 64 % (42-75); PLATELET COUNT 225 10^3/uL (130-400); RED CELL DISTRIBUTION WIDTH 15.4 % (10.0-14.5); WHITE BLOOD COUNT 7.6 10^3/uL (4.3-11.0)
[2018-11-23] MEDS ORDERED: WARF4TAB70 PO (11:41)
--- NOTE | 2018-11-23 11:51 | Diagnostic Imaging Report ---
INDICATION: Injury to the right arm. TIME OF EXAMINATION: 11:36 AM. TECHNIQUE: Two views of the right humerus were obtained. FINDINGS: The alignment at the shoulder and elbow appears normal. The humerus is intact. No fractures are seen. There is a 3 mm density identified in the soft tissues of the distal right arm. This is located in the lateral soft tissues at the level of the distal humerus and is consistent with a foreign body. IMPRESSION: 1. No acute bony abnormality is seen. 2. A 3 mm soft tissue foreign body is indeterminate. Dictated by: Dictated on workstation # [id number]
--- NOTE | 2018-11-23 11:58 | NUR ---
RICHARD IN TALKING TO PT AT THIS TIME.
[2018-11-23 12:14] LABS: INR 2.4 (0.8-1.4); PROTHROMBIN TIME PATIENT 27.6 SEC (12.2-14.7)
[2018-11-23 12:56] VITALS: BP 124/68
== END 2018-11-23 12:22 | disposition home or self-care (01) ==
LOC: EDUNIT# 11:07 → ER 11:08
DX: S40.021A Contusion of right upper arm, initial encounter (principal); J44.9 Chronic obstructive pulmonary disease, unspecified; G47.30 Sleep apnea, unspecified; I10 Essential (primary) hypertension; E78.00 Pure hypercholesterolemia, unspecified; I25.10 Atherosclerotic heart disease of native coronary artery without angina pectoris; I48.91 Unspecified atrial fibrillation; E11.40 Type 2 diabetes mellitus with diabetic neuropathy, unspecified; Z85.828 Personal history of other malignant neoplasm of skin; Z85.528 Personal history of other malignant neoplasm of kidney; Z87.19 Personal history of other diseases of the digestive system; Z86.718 Personal history of other venous thrombosis and embolism; Z86.711 Personal history of pulmonary embolism; Z79.01 Long term (current) use of anticoagulants; Z88.1 Allergy status to other antibiotic agents; Z88.6 Allergy status to analgesic agent; Z79.82 Long term (current) use of aspirin; Z79.4 Long term (current) use of insulin; Z77.22 Contact with and (suspected) exposure to environmental tobacco smoke (acute) (chronic); Z90.49 Acquired absence of other specified parts of digestive tract; Z95.1 Presence of aortocoronary bypass graft; Z95.5 Presence of coronary angioplasty implant and graft; Z90.710 Acquired absence of both cervix and uterus; Z86.018 Personal history of other benign neoplasm; Z82.49 Family history of ischemic heart disease and other diseases of the circulatory system; Z80.1 Family history of malignant neoplasm of trachea, bronchus and lung; W01.118A Fall on same level from slipping, tripping and stumbling with subsequent striking against other sharp object, initial encounter
CPT/HCPCS: 36415; 73060; 85025; 85610

== ENCOUNTER 2018-12-16 15:24 | Inpatient (IN) | payer MEDICARE, OTHER ==
[~2018-12-16] VITALS: Ht 165.1 cm; Wt 96.4 kg
[~2018-12-16 15:24] MED LIST changes: +WARF4TAB70 PO
[2018-12-16] MEDS ORDERED: ONDANSETRON 4 MG/2 ML (SDV) Z0FRAN IVP PRN (15:45)
[2018-12-16] MEDS ORDERED: VANCOMYCIN INJECTION 0.1 MG in NS (IVPB) 250 ML IV SCH (15:45)
[2018-12-16] MEDS ORDERED: LOPERAMIDE 2 MG (IMODIUM) TABLET PO PRN (15:45)
[2018-12-16] MEDS ORDERED: ONDANSETRON 4 MG (ZOFRAN) ORAL DISSOLVE TAB PO PRN (15:45)
[2018-12-16] MEDS ORDERED: CALCIUM CARBONATE 500 MG (TUMS) TAB.CHEW PO PRN (15:45)
[2018-12-16] MEDS ORDERED: ACETAMINOPHEN 500 MG TAB (TYLENOL) PO PRN (15:45)
[2018-12-16] MEDS ORDERED: MELATONIN 3 MG TABLET PO PRN (15:45)
[2018-12-16] MEDS ORDERED: ALPRAZolam 0.25 MG (XANAX) TAB PO PRN (15:45)
[2018-12-16] MEDS ORDERED: DOCUSATE SODIUM 100 MG (COLACE) CAP PO PRN (15:45)
[2018-12-16] MEDS ORDERED: diphenhydrAMINE 25 MG TAB (BENADRYL) PO PRN (15:45)
--- NOTE | 2018-12-16 15:53 | Progress Note - Hospitalist ---
Progress Note Ashanti Soto a 78 y.o.femalehere for evaluation of pannus redness Pt presents to the clinic for a rash underneath her stomach. Pt states she woke up in the middle of the night around midnight to a burning sensation in her abdomen. I took a look and this is definitely where the infection is. I think this is Cellulitis, and I am going to have to admit the pt. The pt has already had 2 doses of the Augmentin and it hasn't helped. I listened to the pt's lungs and they sounded ok. Pt was supposed to be dog sitting for her son, but her sister will take over for her while she is in the Hospital. I am on-call this weekend so I will be checking in on her. The pt's sister will grab an overnight bag. Pt will go directly over to the Hospital after this visit. MAHENDRA RENNER DO Dec 16, 2018 15:53
[2018-12-16] MEDS ORDERED: NYST15CR TOP (16:11)
[2018-12-16] MEDS ORDERED: METO100T12 PO (16:11)
[2018-12-16] MEDS ORDERED: ACET-2650 PO (16:11)
[2018-12-16] MEDS ORDERED: FAMO20TA3 PO (16:11)
[2018-12-16] MEDS ORDERED: CHOL20003 PO (16:11)
[2018-12-16] MEDS ORDERED: AMOX1TAB11 PO (16:11)
[2018-12-16] MEDS ORDERED: POLY17PO31 PO (16:11)
[2018-12-16] MEDS ORDERED: HYDR-3923 PO (16:11)
[2018-12-16] MEDS ORDERED: INSU100V5 SC (16:11)
[2018-12-16] MEDS ORDERED: INSU100V SC (16:11)
[2018-12-16 16:15] VITALS: BP 131/73
--- NOTE | 2018-12-16 16:17 | NUR ---
I HAD A LIST FROM DR. RENNER'S OFFICE AND THE PATIENT HAD A LIST OF HER OWN WELL. WE WENT OVER BOTH LISTS WELL COMPARING WITH THE EXT MED HX. SHE VERIFIED HOW SHE TAKES EACH MEDICATION. SEE LISTS ON CHART FOR DETAILS.
[2018-12-16] MEDS ORDERED: PIPERACILLIN/TAZO 4.5 GM/NS 100 ML IV NR ×2 (16:30)
[2018-12-16 16:32] LABS: BASOPHILS % (AUTO) 0 % (0-10); EOSINOPHILS # (AUTO) 0.1 10^3/uL (0.0-0.3); EOSINOPHILS % (AUTO) 1 % (0-10); HEMATOCRIT 41 % (35-52); HEMOGLOBIN 12.9 G/DL (11.5-16.0); LYMPHOCYTES # (AUTO) 1.2 X 10^3 (1.0-4.0); LYMPHOCYTES % (AUTO) 12 % (12-44); MEAN CORPUSCULAR HEMOGLOBIN 30 PG (25-34); MEAN CORPUSCULAR HGB CONC 32 G/DL (32-36); MEAN CORPUSCULAR VOLUME 93 FL (80-99); MEAN PLATELET VOLUME 10.5 FL (7.4-10.4); MONOCYTES # (AUTO) 0.7 X 10^3 (0.0-1.0); MONOCYTES % (AUTO) 7 % (0-12); NEUTROPHILS % (AUTO) 80 % (42-75); PLATELET COUNT 216 10^3/uL (130-400); RED CELL DISTRIBUTION WIDTH 15.4 % (10.0-14.5); WHITE BLOOD COUNT 10.1 10^3/uL (4.3-11.0)
[2018-12-16] MEDS: inSUlin ASPART (NovoLOG) 1 UNIT/0.01 ML (CHARGE PER UNIT) SC SCH ×2 (16:33→21:56)
[2018-12-16] MEDS: NS IV 1000 ML 1,000 ML IV SCH (16:42)
[2018-12-16 16:45] LABS: INR 2.4 (0.8-1.4); PROTHROMBIN TIME PATIENT 26.9 SEC (12.2-14.7)
[2018-12-16 16:52] LABS: ALBUMIN 3.9 GM/DL (3.2-4.5); BILIRUBIN,TOTAL 0.4 MG/DL (0.1-1.0); CALCIUM 9.4 MG/DL (8.5-10.1); CREATININE SERUM 0.97 MG/DL (0.60-1.30); POTASSIUM 3.8 MMOL/L (3.6-5.0); TOTAL PROTEIN 6.9 GM/DL (6.4-8.2)
--- NOTE | 2018-12-16 16:55 | Consultation-Cardiology ---
HPI-Cardiology Cardiology Consultation: Date of Consultation 12/16/18 Date of Admission Attending Physician Lesli Ferguson DO Admitting Physician Lesli Ferguson DO Consulting Physician Queta RAY MD HPI: Time Seen by a Provider: 16:55 Chief Complaint: Shortness of breath, cellulitis This is a 78-year-old lady who follows with Dr. ferguson and Dr. Lopez. She has history of DVT, atrial fibrillation on oral anticoagulation therapy with warfarin, coronary artery disease, status post CABG, diabetes. She has cellulitis requiring oral antibiotics with no significant improvement. Therefor e she was admitted for IV antibiotics. Patient complains of mild shortness of breath. She denies any chest pain, syncope or near syncope. Review of Systems-Cardiology Review of Systems Constitutional: As described under HPI; No As described under HPI, No no symptoms reported, No chills, No fever, No lightheadedness Eyes: No As described under HPI, No no symptoms reported, No blindness, No blurred vision, No contact lenses, No drainage, No decreased acuity, No foreign body sensation, No pain, No vision change Ears/Nose/Throat: No As described under HPI, No no symptoms reported, No chronic hearing loss, No ear discharge, No ear pain, No nasal drainage, No ulcerations Respiratory: No no symptoms reported; As described under HPI; No As described under HPI, No cough, No orthopnea; shortness of breath; No SOB with excertion Cardiovascular: No no symptoms reported; As described under HPI; No As described under HPI, No chest pain, No edema, No irregular heart rate, No lightheadedness, No palpitations Gastrointestinal: No no symptoms reported, No As described under HPI, No abdomen distended, No abdominal pain, No blood streaked bowels, No constipation, No diarrhea, No nausea, No vomiting, No stool coloration changes Genitourinary: No As described under HPI, No burning, No dysuria, No discharge, No frequency, No flank pain, No hematuria, No urgency : Yes : No Skin: As described under HPI; No rash, No skin related problems, No ulcerations Psychiatric/Neurological: No anxiety, No depression, No seizure, No focal weakness, No syncope Hematologic: No bleeding abnormalities [id number] Hx Patient Social History Alcohol Use: Denies Use Recreational Drug Use: No Former smoker/When Quit: September 29, 2011 Type Used: Cigarettes 2nd Hand Smoke Exposure: Yes Recent Foreign Travel: No Physical Abuse Screen: No Sexual Abuse: No Immunizations Up To Date Tetanus Booster (TDap): Unknown Date of Pneumonia Vaccine: Jan 05, 2015 Date of Influenza Vaccine: Feb 28, 2015 Past Medical History PMH As described under Assessment. Family Medical History Family Medical History: H/O father and mother both had CAD and HTN. Family History: CABG 19 FATHER Cardiovascular disease 19 FATHER 19 MOTHER Diabetes mellitus 19 MOTHER FH: lung cancer 19 FATHER FH: myocardial infarction 19 MOTHER Hypertension 19 FATHER 19 MOTHER Allergies and Home Medications Allergies Coded Allergies: erythromycin base (Verified Allergy, Intermediate, HIVES, 10/10/13) NSAIDS (Non-Steroidal Anti-Inflamma (Verified Allergy, Unknown, 01/10/17) cephalexin (Verified Allergy, Unknown, 10/10/13) Home Medications Acetaminophen 650 Mg Tablet.er, 1,300 MG PO BID, (Reported) Amoxicillin/Potassium Clav 1 Each Tablet, 1 TAB PO Q12H, (Reported) 7 DAY THERAPY FILLED 12-15-18 Aspirin 81 Mg Tab.chew, 81 MG PO DAILY, (Reported) Benazepril HCl 40 Mg Tab, 40 MG PO DAILY, (Reported) Calcium Citrate/Vitamin D3 1 Each Tablet, 1 TAB PO DAILY, (Reported) Cholecalciferol (Vitamin D3) 2,000 Unit Capsule, 2,000 UNIT PO DAILY, (Reported) Famotidine 20 Mg Tablet, 20 MG PO BID, (Reported) Fluticasone/Salmeterol 1 Each Blst.w.dev, 1 PUFF IH DAILY, (Reported) Furosemide 40 Mg Tablet, 40 MG PO DAILY, (Reported) Glipizide 5 Mg Tablet, 5 MG PO BID, (Reported) Hydralazine HCl 25 Mg Tablet, 25 MG PO TID, (Reported) Insulin Determir 1,000 Units/10 Ml Soln, 10-12 UNITS SC HS, (Reported) Insulin Lispro 100 Unit/1 Ml Vial, 8 UNITS SC AC PRN for BS>180, (Reported) Ipratropium/Albuterol Sulfate 3 Ml Ampul.neb, 3 ML IH QID PRN for SHORTNESS OF BREATH, (Reported) Metoprolol Tartrate 100 Mg Tablet, 100 MG PO BID, (Reported) Montelukast Sodium 10 Mg Tablet, 10 MG PO HS, (Reported) Nitroglycerin 0.4 Mg Tab.subl, 0.4 MG PO UD PRN for CHEST PAIN, (Reported) 1 TAB EVERY 5 MINUTES NEEDED; NOT TO EXCEED 3 DOSES IN 15 MINUTES Nystatin 15 Gm Cream..g., TOP BID PRN for RASH, (Reported) Polyethylene Glycol 3350 17 Gm Powd.pack, 17 GM PO DAILY, (Reported) Potassium Chloride 20 Meq Tab.er.prt, 20 MEQ PO DAILY, (Reported) Pravastatin Sodium 40 Mg Tablet, 20 MG PO BID, (Reported) TAKE 1/2 OF (40 MG) TABLET Warfarin Sodium 4 Mg Tablet, 4 MG PO 1800, (Reported) Patient Home Medication List Home Medication List Reviewed: Yes Physical Exam-Cardiology Physical Exam Vital Signs/I&O 12/17/18 12/17/18 12/17/18 12/17/18 04:00 07:00 08:00 08:54 Temp 99.0 98.1 Pulse 78 67 71 Resp 20 20 B/P (MAP) 134/69 (90) 99/45 (63) Pulse Ox 92 93 O2 Delivery Room Air Room Air Room Air 12/17/18 12/17/18 12:00 13:04 Temp 97.2 Pulse 64 58 Resp 18 B/P (MAP) 144/78 (100) Pulse Ox 93 O2 Delivery Room Air 12/16/18 23:59 Intake Total 440 ml Output Total 390 ml Balance 50 ml Capillary Refill : Constitutional: appears stated age, AAO x 3; No apparent distress; well- developed, well-nourished HEENT: PERRL; No normal ENT inspection, No TMs normal, No pharynx normal, No scleral icterus (R), No scleral icterus (L), No pale conjunctivae (R), No pale conjunctivae (L), No photophobia, No TM abnormal (R), No TM abnormal (L), No pharyngeal erythema, No tonsillar exudate, No other, No discharge, No EOMI; hearing is well preserved; No hard of hearing; oral hygience is good; No ulceration, No xanthelasmas are seen Neck: No non-tender, No full range of motion, No supple, No normal inspection, No carotid bruit, No limited range of motion, No lymphadenopathy (R), No lymphadenopathy (L), No tender lateral, No tender midline, No thyromegaly, No other; carotid pulses are 2 + bilaterally; No with good upstrokes Respiratory: No accessory muscle use, No respiratory distress, No chest tender, No chest expansion is symmetric; chest is bilaterally symmetric; No lungs clear to percussion; lungs clear to auscultation; No crackles, No rhonchi, No rales, No stridor, No wheezing, No pleural rub, No other Cardiovascular: regular rate-rhythm; No irregularly irregular, No extra beats, No parasternal heave is noted, No JVD, No edema, No bradycardia, No tachycardia, No point of maximal impulse, No cardiac thrills are palpable; S1 and S2; No gallop/S3, No gallop/S4, No diastolic murmur, No systolic murmur, No friction rub, No click, No other Gastrointestinal: No tender, No soft, No round, No distended, No pulsatile mass, No organomegaly, No guarding, No rebound, No tenderness, No hernia, No mass, No audible bowel sounds, No abnormal bowel sounds, No abdominal bruits, No spleenomegaly, No other Rectal: deferred Extremities: No normal range of motion, No non-tender, No normal inspection, No pedal edema, No calf tenderness, No normal capillary refill, No pelvis stable, No calf tenderness, No inflammation, No pedal edema, No slow capillary refill, No swelling, No other, No abrasion, No clubbing, No cyanosis, No ecchymosis, No laceration, No no lower extremity edema bilateral, No significant edema, No tenderness, No wound Neurologic/Psychiatric: no motor/sensory deficits, alert, normal mood/affect, oriented x 3, power is 5/5 both on sides Skin: No normal color, No warm/dry, No cyanosis, No cool, No diaphoresis, No damp, No ecchymosis, No jaundice, No mottled, No pallor, No rash, No tattoos/piercings, No ulcerations, No rash on exposed areas, No ulcerations on exposed areas, No other Data Review Labs Laboratory Tests 12/16/18 16:18: White Blood Count 10.1, Red Blood Count 4.37, Hemoglobin 12.9, Hematocrit 41, Mean Corpuscular Volume 93, Mean Corpuscular Hemoglobin 30, Mean Corpuscular Hemoglobin Concent 32, Red Cell Distribution Width 15.4H, Platelet Count 216, Mean Platelet Volume 10.5H, Neutrophils (%) (Auto) 80H, Lymphocytes (%) (Auto) 12, Monocytes (%) (Auto) 7, Eosinophils (%) (Auto) 1, Basophils (%) (Auto) 0, Neutrophils # (Auto) 8.0H, Lymphocytes # (Auto) 1.2, Monocytes # (Auto) 0.7, Eosinophils # (Auto) 0.1, Basophils # (Auto) 0.0, Prothrombin Time 26.9H, INR Comment 2.4H, Sodium Level 141, Potassium Level 3.8, Chloride Level 109H, Carbon Dioxide Level 24, Anion Gap 8, Blood Urea Nitrogen 24H, Creatinine 0.97, Estimat Glomerular Filtration Rate 56, BUN/Creatinine Ratio 25, Glucose Level 148H, Lactic Acid Level 1.14, Calcium Level 9.4, Corrected Calcium 9.5, Total Bilirubin 0.4, Aspartate Amino Transf (AST/SGOT) 12, Alanine Aminotransferase (ALT/SGPT) 13, Alkaline Phosphatase 60, B-Type Natriuretic Peptide 70.7, Total Protein 6.9, Albumin 3.9 12/16/18 16:23: Glucometer 156H 12/16/18 21:09: Glucometer 124H 12/17/18 04:37: White Blood Count 8.6, Red Blood Count 3.74L, Hemoglobin 11.1L, Hematocrit 35, Mean Corpuscular Volume 94, Mean Corpuscular Hemoglobin 30, Mean Corpuscular Hemoglobin Concent 31L, Red Cell Distribution Width 15.4H, Platelet Count 184, Mean Platelet Volume 10.5H, Neutrophils (%) (Auto) 73, Lymphocytes (%) (Auto) 16, Monocytes (%) (Auto) 10, Eosinophils (%) (Auto) 2, Basophils (%) (Auto) 0, Neutrophils # (Auto) 6.3, Lymphocytes # (Auto) 1.4, Monocytes # (Auto) 0.8, Eosinophils # (Auto) 0.2, Basophils # (Auto) 0.0, Prothrombin Time 27.0H, INR Comment 2.4H, Sodium Level 142, Potassium Level 3.6, Chloride Level 114H, Carbon Dioxide Level 18L, Anion Gap 10, Blood Urea Nitrogen 17, Creatinine 0.83, Estimat Glomerular Filtration Rate > 60, BUN/Creatinine Ratio 20, Glucose Level 74, Calcium Level 8.2L, Corrected Calcium 8.8, Total Bilirubin 0.4, Aspartate Amino Transf (AST/SGOT) 12, Alanine Aminotransferase (ALT/SGPT) 10, Alkaline Phosphatase 49, Total Protein 5.5L, Albumin 3.2 12/17/18 05:43: Glucometer 80 12/17/18 11:32: Glucometer 96 A/P-Cardiology Assessment/Admission Diagnosis Cellulitis, requiring IV antibiotics, History of DVT, Atrial fibrillation on oral anticoagulation, CAD/CABG, Mild pulmonary hypertension, Dilated left atrium, Ischemic cardiomyopathy Plan Cellulitis, requiring IV antibiotics, History of DVT, on warfarin. Therapeutic INR. Atrial fibrillation on oral anticoagulation, CAD/CABG, continue outpatient medication. Mild pulmonary hypertension, Dilated left atrium, Ischemic cardiomyopathy, echocardiogram done 12/17/2018 shows mildly reduce LV function. Continue outpatient medical therapy. No evidence of congestive heart failure. Thank you for your consultation. Please call me if you have any questions. Artie Ray MD, FACP, FACC, FSCAI, FHRS, CCDS Interventional Cardiology Cardiac Electrophysiology Vascular Medicine and Endovascular Interventions Clinical Quality Measures DVT/VTE Risk/Contraindication: Risk Factor Score Per Nursin RFS Level Per Nursing on Admit: 4+=Very High Queta RAY MD Dec 16, 2018 4:55 pm
--- NOTE | 2018-12-16 16:57 | Consultation - Surgery ---
History of Present Illness History of Present Illness Patient Consulted On(zenaida/time) 12/16/18 16:52 Time Seen by Provider: 16:24 History of Present Illness Surgery asked to consult regarding abdominal cellulitis. HPI per IM: Pt presents to the clinic for a rash underneath her stomach. Pt states she woke up in the middle of the night around midnight to a burning sensation in her abdomen. I took a look and this is definitely where the infection is. I think this is Cellulitis, and I am going to have to admit the pt. The pt has already had 2 doses of the Augmentin and it hasn't helped. I listened to the pt's lungs and they sounded ok. When I spoke to pt this afternoon she stated she has never had anything like this before; she has had "rashes below my belly". She states it is warm and tender, rates the pain as a 3-4 out of 10. The pain is dull and constant. She states the pain and redness were not there yesterday. Pt states she gives herself Insulin shots in the belly, "but not where the redness and pain are". She denies any trauma to the area or cut, etc. Allergies and Home Medications Allergies Coded Allergies: erythromycin base (Verified Allergy, Intermediate, HIVES, 10/10/13) NSAIDS (Non-Steroidal Anti-Inflamma (Verified Allergy, Unknown, 01/10/17) cephalexin (Verified Allergy, Unknown, 10/10/13) Home Medications Acetaminophen 650 Mg Tablet.er, 1,300 MG PO BID, (Reported) Amoxicillin/Potassium Clav 1 Each Tablet, 1 TAB PO Q12H, (Reported) 7 DAY THERAPY FILLED 12-15-18 Aspirin 81 Mg Tab.chew, 81 MG PO DAILY, (Reported) Benazepril HCl 40 Mg Tab, 40 MG PO DAILY, (Reported) Calcium Citrate/Vitamin D3 1 Each Tablet, 1 TAB PO DAILY, (Reported) Cholecalciferol (Vitamin D3) 2,000 Unit Capsule, 2,000 UNIT PO DAILY, (Reported) Famotidine 20 Mg Tablet, 20 MG PO BID, (Reported) Fluticasone/Salmeterol 1 Each Blst.w.dev, 1 PUFF IH DAILY, (Reported) Furosemide 40 Mg Tablet, 40 MG PO DAILY, (Reported) Glipizide 5 Mg Tablet, 5 MG PO BID, (Reported) Hydralazine HCl 25 Mg Tablet, 25 MG PO TID, (Reported) Insulin Determir 1,000 Units/10 Ml Soln, 10-12 UNITS SC HS, (Reported) Insulin Lispro 100 Unit/1 Ml Vial, 8 UNITS SC AC PRN for BS>180, (Reported) Ipratropium/Albuterol Sulfate 3 Ml Ampul.neb, 3 ML IH QID PRN for SHORTNESS OF BREATH, (Reported) Metoprolol Tartrate 100 Mg Tablet, 100 MG PO BID, (Reported) Montelukast Sodium 10 Mg Tablet, 10 MG PO HS, (Reported) Nitroglycerin 0.4 Mg Tab.subl, 0.4 MG PO UD PRN for CHEST PAIN, (Reported) 1 TAB EVERY 5 MINUTES NEEDED; NOT TO EXCEED 3 DOSES IN 15 MINUTES Nystatin 15 Gm Cream..g., TOP BID PRN for RASH, (Reported) Polyethylene Glycol 3350 17 Gm Powd.pack, 17 GM PO DAILY, (Reported) Potassium Chloride 20 Meq Tab.er.prt, 20 MEQ PO DAILY, (Reported) Pravastatin Sodium 40 Mg Tablet, 20 MG PO BID, (Reported) TAKE 1/2 OF (40 MG) TABLET Warfarin Sodium 4 Mg Tablet, 4 MG PO 1800, (Reported) Patient Home Medication List Home Medication List Reviewed: Yes Past Pceycez-Xhoqjx-Kryykv Hx Patient Social History Type Used: Cigarettes 2nd Hand Smoke Exposure: Yes Recent Foreign Travel: No Contact w/Someone Who Travel: No Recent Hopitalizations: No Immunizations Up To Date Tetanus Booster (TDap): Unknown PED Vaccines UTD: Yes Date of Pneumonia Vaccine: Jan 05, 2015 Date of Influenza Vaccine: Feb 28, 2015 Seasonal Allergies Seasonal Allergies: Yes Surgeries History of Surgeries: Yes (FOOT TUMOR,CA TARACTS,[id number],,HEMORRHOIDS,HEMICOLECTomy) Surgeries: Appendectomy, Bladder Surgery, CABG, Coronary Stent, Gallbladder, Hysterectomy, Rectal Respiratory History of Respiratory Disorde: Yes (uses CPAP) Respiratory Disorders: Asthma, Pulmonary Embolism, Sleep Apnea, COPD Cardiovascular History of Cardiac Disorders: Yes (STENTS, triple bypass, possible heart attack) Cardiac Disorders: Atrial Fibrillation, Chronic Edema/Swelling, Coronary Artery Disease, Deep Vein Thrombosis, High Cholesterol, Hypertension Neurological History of Neurological Disord: Yes Neurological Disorders: Neuropathy Reproductive System Hx Reproductive Disorders: No Sexually Transmitted Disease: No HIV/AIDS: No 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 Disorders: Endometriosis 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 Genitourinary History of Genitourinary Disor: Yes (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) Genitourinary Disorders: Bladder Infection Gastrointestinal History of Gastrointestinal Di: Yes (colon resection, ) Gastrointestinal Disorders: Diverticulosis Musculoskeletal History of Musculoskeletal Dis: Yes Musculoskeletal Disorders: Arthritis Endocrine History of Endocrine Disorders: Yes Endocrine Disorders: Diabetes, Insulin dep, Diabetes, Non-Insulin dep HEENT History of HEENT Disorders: No HEENT Disorders: Cataract Loss of Vision: Denies Hearing Impairment: Denies Cancer History of Cancer: Yes Cancer: Skin, Kidney Psychosocial History of Psychiatric Problem: No Integumentary History of Skin or Integumenta: No Blood Transfusions History of Blood Disorders: No (HX OF DVT) Adverse Reaction to a Blood Tr: No Family Medical History Significant Family History: Heart Disease, Diabetes, Hypertension Family Medial History: CABG 19 FATHER Cardiovascular disease 19 FATHER 19 MOTHER Diabetes mellitus 19 MOTHER FH: lung cancer 19 FATHER FH: myocardial infarction 19 MOTHER Hypertension 19 FATHER 19 MOTHER Review of Systems-General Constitutional: chills, diaphoresis, malaise EENTM: No blurred vision, No double vision, No mouth pain, No mouth swelling, No epistaxis Respiratory: No cough, No hemoptysis Cardiovascular: No chest pain, No edema, No palpitations Gastrointestinal: abdominal pain, loss of appetite; No nausea, No vomiting Genitourinary: No dysuria, No frequency, No hematuria Musculoskeletal: joint pain, joint swelling, muscle pain, muscle stiffness Skin: change in color; No change in hair/nails, No lesions Psychiatric/Neurological: Denies Anxiety, Denies Depressed, Denies Seizure, Denies Tremors Other pt denies any hx of abnormal bleeding or bruising Physical Exam-General Problems Physical Exam Vital Signs Capillary Refill : General Appearance: WD/WN, mild distress Eyes: Bilateral Eye PERRL, Bilateral Eye EOMI HEENT: pharynx normal; No scleral icterus (R), No scleral icterus (L) Neck: non-tender, supple Respiratory: chest non-tender, lungs clear, normal breath sounds, no respiratory distress, no accessory muscle use Cardiovascular: regular rate, rhythm, no murmur Gastrointestinal: normal bowel sounds, soft, no organomegaly, other (erythema and warmth, in B/L lower quadrants) Extremities: no pedal edema, no calf tenderness Neurologic/Psychiatric: electrical tryout person II-XII nml as tested, no motor/sensory deficits, alert, normal mood/affect, oriented x 3 Skin: normal color, warm/dry Lymphatic: no adenopathy (neck, axilla or groin) Data Review Labs Laboratory Tests 12/16/18 16:18: White Blood Count 10.1, Red Blood Count 4.37, Hemoglobin 12.9, Hematocrit 41, Mean Corpuscular Volume 93, Mean Corpuscular Hemoglobin 30, Mean Corpuscular Hemoglobin Concent 32, Red Cell Distribution Width 15.4H, Platelet Count 216, Mean Platelet Volume 10.5H, Neutrophils (%) (Auto) 80H, Lymphocytes (%) (Auto) 12, Monocytes (%) (Auto) 7, Eosinophils (%) (Auto) 1, Basophils (%) (Auto) 0, Neutrophils # (Auto) 8.0H, Lymphocytes # (Auto) 1.2, Monocytes # (Auto) 0.7, Eosinophils # (Auto) 0.1, Basophils # (Auto) 0.0, Prothrombin Time 26.9H, INR Comment 2.4H, Lactic Acid Level 1.14 12/16/18 16:23: Glucometer 156H Assessment/Plan Assessment/Plan Assessment/Plan Abdominal Wall Cellulitis DM Plan is to start IV ABX, pain control and will probably make NPO after midnight. If abdomen is worse tomorrow will get CT abd/pelvis. I do not feel any fluctuance or fluid collection today. NPO for just in case we find something that needs surgical I&D. Pt understood the plan and all questions answered to her satisfaction. Clinical Quality Measures DVT/VTE Risk/Contraindication: Risk Factor Score Per Nursin RFS Level Per Nursing on Admit: 4+=Very High ANASTASIIA RICHARDS DO Dec 16, 2018 16:57
[2018-12-16 17:01] VITALS: BP 18/124
[2018-12-16] MEDS ORDERED: INSULIN LISPRO 8 UNIT SC PRN (18:00)
[2018-12-16] MEDS ORDERED: NYSTATIN CREAM (MYCOSTATIN) 30 GM TUBE TP PRN (18:00)
[2018-12-16] MEDS ORDERED: NITROGLYCERIN 0.4 MG SL TABS BTL 25'S SL PRN (18:00)
[2018-12-16] MEDS ORDERED: NON-FORMULARY MEDICATION 1 EA EA (Warfarin Sodium 4 MG) PO SCH (18:00)
[2018-12-16] MEDS ORDERED: RT-ALBUTEROL/IPRATROPIUM 3 ML (DUONEB) VIAL IH PRN (18:00)
[2018-12-16] MEDS ORDERED: VANCOMYCIN 1,750 MG/NS 500 ML IVPB IV NR ×2 (18:30)
[2018-12-16] MEDS ORDERED: inSUlin ASPART (NovoLOG) 1 UNIT/0.01 ML (CHARGE PER UNIT) SC PRN (18:30)
[2018-12-16] MEDS: glipiZIDE 5 MG (GLUCOTROL) TAB PO SCH (18:40)
[2018-12-16] MEDS: warFARin 2 MG (COUMADIN) TAB PO SCH (18:40)
--- NOTE | 2018-12-16 19:13 | Diagnostic Imaging Report ---
INDICATION: Cellulitis. FINDINGS: The cardiomegaly and the sternotomy wires and surgical clips noted on the prior exam of 02/03/2017 are again evident and no different. There are chronic pulmonary changes evident, but there is no sign of failure, pneumonia, or pleural effusion to indicate an acute abnormality. The mediastinum is not widened. The osseous structures are intact. IMPRESSION: There is evidence of prior cardiac surgery and chronic pulmonary disease, but there is no acute cardiopulmonary abnormality identified. Dictated by: Dictated on workstation # [id number]
[2018-12-16 19:42] VITALS: BP 107/65
[2018-12-16] MEDS ORDERED: RT-ADVAIR HFA 115/21 MCG PER PUFF IH SCH (20:00)
[2018-12-16] MEDS ORDERED: NON-FORMULARY MEDICATION 1 EA EA (Famotidine (Acid Reducer (FAMOTIDINE)) 20 MG) PO SCH (21:00)
[2018-12-16] MEDS ORDERED: NON-FORMULARY MEDICATION 1 EA EA (Pravastatin Sodium 20 MG) PO SCH (21:00)
[2018-12-16] MEDS ORDERED: NON-FORMULARY MEDICATION 1 EA EA (Metoprolol Tartrate 100 MG) PO SCH (21:00)
[2018-12-16] MEDS ORDERED: NON-FORMULARY MEDICATION 1 EA EA (Acetaminophen (Tylenol Arthritis) 1,300 MG) PO SCH (21:00)
[2018-12-16] MEDS ORDERED: NON-FORMULARY MEDICATION 1 EA EA (Hydralazine HCl 25 MG) PO SCH (21:00)
[2018-12-16] MEDS: hydrALAZINE (APRESOLINE) 25 MG TAB PO SCH (21:44)
[2018-12-16] MEDS: FAMOTIDINE 20 MG (PEPCID) TABLET PO SCH (21:44)
[2018-12-16] MEDS: SENNA W/DOCUSATE (SENOKOT S) TABLET PO SCH (21:45)
[2018-12-16] MEDS: MONTELUKAST 10 MG (SINGULAIR) TAB PO SCH (21:45)
[2018-12-16] MEDS: meTOprolol TARTRATE 50 MG (LOPRESSOR) TAB PO SCH (21:45)
[2018-12-16] MEDS: POLYETHYLENE GLYCOL 17 GM (MIRALAX) PACK PO SCH (21:46)
[2018-12-17] VITALS: BP 122/69
[2018-12-17] MEDS: PIPERACILLIN/TAZOBACTAM (BULK) 4.5 GM in NS (IVPB) 100 ML IV SCH ×4 (01:03→23:32)
[2018-12-17 04:00] VITALS: BP 134/69
[2018-12-17] MEDS: HYDROcodone/APAP 5 MG/325 MG (LORTAB) TAB PO PRN ×2 (04:16→09:14)
[2018-12-17 05:03] LABS: BASOPHILS % (AUTO) 0 % (0-10); EOSINOPHILS # (AUTO) 0.2 10^3/uL (0.0-0.3); EOSINOPHILS % (AUTO) 2 % (0-10); HEMATOCRIT 35 % (35-52); HEMOGLOBIN 11.1 G/DL (11.5-16.0); LYMPHOCYTES # (AUTO) 1.4 X 10^3 (1.0-4.0); LYMPHOCYTES % (AUTO) 16 % (12-44); MEAN CORPUSCULAR HEMOGLOBIN 30 PG (25-34); MEAN CORPUSCULAR HGB CONC 31 G/DL (32-36); MEAN CORPUSCULAR VOLUME 94 FL (80-99); MEAN PLATELET VOLUME 10.5 FL (7.4-10.4); MONOCYTES # (AUTO) 0.8 X 10^3 (0.0-1.0); MONOCYTES % (AUTO) 10 % (0-12); NEUTROPHILS # (AUTO) 6.3 X 10^3 (1.8-7.8); NEUTROPHILS % (AUTO) 73 % (42-75); PLATELET COUNT 184 10^3/uL (130-400); RED CELL DISTRIBUTION WIDTH 15.4 % (10.0-14.5); WHITE BLOOD COUNT 8.6 10^3/uL (4.3-11.0)
[2018-12-17 05:24] LABS: ALANINE AMINOTRANSFERASE 10 U/L (0-55); ALBUMIN 3.2 GM/DL (3.2-4.5); ALKALINE PHOSPHATASE 49 U/L (40-136); BILIRUBIN,TOTAL 0.4 MG/DL (0.1-1.0); BUN/CREATININE RATIO 20; CALCIUM 8.2 MG/DL (8.5-10.1); CARBON DIOXIDE 18 MMOL/L (21-32); CHLORIDE 114 MMOL/L (98-107); CREATININE SERUM 0.83 MG/DL (0.60-1.30); GFR ESTIMATED > 60; GLUCOSE 74 MG/DL (70-105); POTASSIUM 3.6 MMOL/L (3.6-5.0); SODIUM 142 MMOL/L (135-145); TOTAL PROTEIN 5.5 GM/DL (6.4-8.2)
[2018-12-17 05:29] LABS: INR 2.4 (0.8-1.4)
[2018-12-17] MEDS: inSUlin ASPART (NovoLOG) 1 UNIT/0.01 ML (CHARGE PER UNIT) SC SCH ×4 (05:45→21:00)
[2018-12-17] MEDS: NS IV 1000 ML 1,000 ML IV SCH (06:09)
[2018-12-17] MEDS: KCL 20 MEQ TAB (K-DUR) PO SCH (06:11)
[2018-12-17] MEDS: VANCOMYCIN 1 GM/NS 250 ML IVPB IV SCH ×4 (06:11→18:22)
[2018-12-17] MEDS: glipiZIDE 5 MG (GLUCOTROL) TAB PO SCH ×2 (06:56→16:27)
[2018-12-17] MEDS: ACETAMINOPHEN 325 MG TABLET PO SCH ×2 (07:16→16:28)
[2018-12-17 08:00] VITALS: BP 99/45
--- NOTE | 2018-12-17 08:50 | Pulmonary Consultation ---
History of Present Illness History of Present Illness Date of Consultation 12/17/18 08:45 Time Seen by Provider: 08:45 Date of Admission History of Present Illness 78yo directly admitted from Dr. Cabrera's office secondary to abdominal cellulitis failed out patient treatment with Augmentin. No prior episodes like this before. Allergies and Home Medications Allergies Coded Allergies: erythromycin base (Verified Allergy, Intermediate, HIVES, 10/10/13) NSAIDS (Non-Steroidal Anti-Inflamma (Verified Allergy, Unknown, 01/10/17) cephalexin (Verified Allergy, Unknown, 10/10/13) Home Medications Acetaminophen 650 Mg Tablet.er, 1,300 MG PO BID, (Reported) Amoxicillin/Potassium Clav 1 Each Tablet, 1 TAB PO Q12H, (Reported) 7 DAY THERAPY FILLED 12-15-18 Aspirin 81 Mg Tab.chew, 81 MG PO DAILY, (Reported) Benazepril HCl 40 Mg Tab, 40 MG PO DAILY, (Reported) Calcium Citrate/Vitamin D3 1 Each Tablet, 1 TAB PO DAILY, (Reported) Cholecalciferol (Vitamin D3) 2,000 Unit Capsule, 2,000 UNIT PO DAILY, (Reported) Famotidine 20 Mg Tablet, 20 MG PO BID, (Reported) Fluticasone/Salmeterol 1 Each Blst.w.dev, 1 PUFF IH DAILY, (Reported) Furosemide 40 Mg Tablet, 40 MG PO DAILY, (Reported) Glipizide 5 Mg Tablet, 5 MG PO BID, (Reported) Hydralazine HCl 25 Mg Tablet, 25 MG PO TID, (Reported) Insulin Determir 1,000 Units/10 Ml Soln, 10-12 UNITS SC HS, (Reported) Insulin Lispro 100 Unit/1 Ml Vial, 8 UNITS SC AC PRN for BS>180, (Reported) Ipratropium/Albuterol Sulfate 3 Ml Ampul.neb, 3 ML IH QID PRN for SHORTNESS OF BREATH, (Reported) Metoprolol Tartrate 100 Mg Tablet, 100 MG PO BID, (Reported) Montelukast Sodium 10 Mg Tablet, 10 MG PO HS, (Reported) Nitroglycerin 0.4 Mg Tab.subl, 0.4 MG PO UD PRN for CHEST PAIN, (Reported) 1 TAB EVERY 5 MINUTES NEEDED; NOT TO EXCEED 3 DOSES IN 15 MINUTES Nystatin 15 Gm Cream..g., TOP BID PRN for RASH, (Reported) Polyethylene Glycol 3350 17 Gm Powd.pack, 17 GM PO DAILY, (Reported) Potassium Chloride 20 Meq Tab.er.prt, 20 MEQ PO DAILY, (Reported) Pravastatin Sodium 40 Mg Tablet, 20 MG PO BID, (Reported) TAKE 1/2 OF (40 MG) TABLET Warfarin Sodium 4 Mg Tablet, 4 MG PO 1800, (Reported) Past Tqsrloc-Ykjtyf-Guvnky Hx Patient Social History Alcohol Use: Denies Use Recreational Drug Use: No Type Used: Cigarettes 2nd Hand Smoke Exposure: Yes Recent Foreign Travel: No Contact w/Someone Who Travel: No Recent Infectious Disease Expo: No Recent Hopitalizations: No Immunizations Up To Date Tetanus Booster (TDap): Unknown PED Vaccines UTD: Yes Date of Pneumonia Vaccine: Jan 05, 2015 Date of Influenza Vaccine: Feb 28, 2015 Seasonal Allergies Seasonal Allergies: Yes Past Medical History Surgeries: Yes Appendectomy, Bladder Surgery, CABG, Coronary Stent, Gallbladder, Hysterectomy, Rectal Respiratory: Yes Asthma, COPD Currently Using CPAP: Yes Currently Using BIPAP: No Cardiac: Yes Atrial Fibrillation, Chronic Edema/Swelling, Coronary Artery Disease, Deep Vein Thrombosis, High Cholesterol, Hypertension Neurological: No Neuropathy Reproductive Disorders: No 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 Disorders: Endometriosis [employer] History: Menopausal Sexually Transmitted Disease: No HIV/AIDS: No Genitourinary: No Bladder Infection Gastrointestinal: No Diverticulosis Musculoskeletal: Yes Arthritis Endocrine: Yes Diabetes, Insulin dep, Diabetes, Non-Insulin dep Are Your Blood Sugars Over 250: No HEENT: No Cataract Loss of Vision: Denies Hearing Impairment: Denies Cancer: No Skin, Kidney Did You Recieve Any Treatments: No Psychosocial: No Integumentary: No Blood Disorders: No Adverse Reaction/Blood Tranf: No Family Medical History CABG 19 FATHER Cardiovascular disease 19 FATHER 19 MOTHER Diabetes mellitus 19 MOTHER FH: lung cancer 19 FATHER FH: myocardial infarction 19 MOTHER Hypertension 19 FATHER 19 MOTHER Heart Disease, Diabetes, Hypertension Sepsis Event Evaluation Height, Weight, BMI Height: 5'5.00" Weight: 212lbs. 8.0oz. 96.050453vw; 35.3 BMI Method:Stated Exam Exam Vital Signs Date Time Temp Pulse Resp B/P (MAP) Pulse Ox O2 Delivery O2 Flow Rate FiO2 12/17/18 04:00 99.0 78 20 134/69 (90) 92 Room Air 12/17/18 01:00 75 12/17/18 00:00 99.2 74 18 122/69 (86) 92 Room Air 12/16/18 20:50 Room Air 12/16/18 20:18 Room Air 12/16/18 19:42 99.3 89 16 107/65 (79) 93 Room Air 12/16/18 19:00 74 12/16/18 18:01 Room Air 12/16/18 17:40 98.9 12/16/18 17:01 66 68 21 12/16/18 16:58 74 12/16/18 16:42 100.8 12/16/18 16:15 100.8 80 20 131/73 93 Room Air 12/16/18 16:15 100.8 80 20 131/73 (92) 93 Room Air I & O 12/17/18 07:00 Intake Total 1077.5 ml Output Total 790 ml Balance 287.5 ml Height & Weight Height: 5'5.00" Weight: 212lbs. 8.0oz. 96.026473mh; 35.3 BMI Method:Stated Gastrointestinal: normal bowel sounds, soft, no organomegaly, other (erythema and warmth, in B/L lower quadrants) Results Lab Laboratory Tests 12/16/18 16:18 12/17/18 04:37 Assessment/Plan Assessment/Plan Abdominal Wall Cellulitis -Rush culture -Continue Abx -Surgery is following metabolic acidosis -IVF COPD HX -currently stable -Monitor DM CAD/Cardiomyopathy -cardiology following Tobacco dependance SARAH LOZADA DO Dec 17, 2018 08:50
[2018-12-17] MEDS ORDERED: [UNRECOGNIZED DRUG - OTHER] PO SCH (09:00)
[2018-12-17] MEDS ORDERED: NON-FORMULARY MEDICATION 1 EA EA (Polyethylene Glycol 3350 17 GM) PO SCH (09:00)
[2018-12-17] MEDS ORDERED: VITAMIN D3 PO SCH (09:00)
[2018-12-17] MEDS ORDERED: NON-FORMULARY MEDICATION 1 EA EA (Benazepril HCl 40 MG) PO SCH (09:00)
[2018-12-17] MEDS ORDERED: CALCIUM CITRATE PO SCH (09:00)
[2018-12-17] MEDS ORDERED: NON-FORMULARY MEDICATION 1 EA EA (Fluticasone/Salmeterol (Advair 250-50 Diskus) 1 PUFF) IH SCH (09:00)
[2018-12-17] MEDS ORDERED: NON-FORMULARY MEDICATION 1 EA EA (Cholecalciferol (Vitamin D3) (Vitamin D3) 2,000 UNIT) PO SCH (09:00)
[2018-12-17] MEDS: ATORVASTATIN 10 MG (LIPITOR) TABLET PO SCH (09:14)
[2018-12-17] MEDS: FAMOTIDINE 20 MG (PEPCID) TABLET PO SCH ×2 (09:14→23:34)
[2018-12-17] MEDS: ASPIRIN 81 MG CHEW (CHILDREN'S ASA) PO SCH (09:14)
[2018-12-17] MEDS: FUROSEMIDE 40 MG (LASIX) TAB PO SCH (09:15)
[2018-12-17] MEDS: VITAMIN D3 1,000 UNITS (CHOLECALCIFEROL) TABLET PO SCH (09:15)
[2018-12-17] MEDS: CALCIUM CARB + VIT D 600 MG (CALCARB + D) TAB PO SCH (09:15)
[2018-12-17] MEDS: SENNA W/DOCUSATE (SENOKOT S) TABLET PO SCH ×2 (09:15→23:35)
--- NOTE | 2018-12-17 11:16 | Progress Note - Surgery ---
Subjective Time Seen by a Provider: 09:29 Subjective/Events-last exam Pt seen and examined, states she thinks she is doing better; pain is better. Pt denies any other acute problems. Review of Systems General: No Chills, No Night Sweats Pulmonary: No Dyspnea Cardiovascular: No: Chest Pain, Palpitations Gastrointestinal: Abdominal Pain; No: Nausea, Vomiting Focused Exam Lactate Level 12/16/18 16:18: Lactic Acid Level 1.14 Objective Exam Vital Signs Date Time Temp Pulse Resp B/P (MAP) Pulse Ox O2 Delivery O2 Flow Rate FiO2 12/17/18 08:54 Room Air 12/17/18 08:00 98.1 71 20 99/45 (63) 93 Room Air 12/17/18 04:00 99.0 78 20 134/69 (90) 92 Room Air 12/17/18 01:00 75 12/17/18 00:00 99.2 74 18 122/69 (86) 92 Room Air 12/16/18 20:50 Room Air 12/16/18 20:18 Room Air 12/16/18 19:42 99.3 89 16 107/65 (79) 93 Room Air 12/16/18 19:00 74 12/16/18 18:01 Room Air 12/16/18 17:40 98.9 12/16/18 17:01 66 68 21 12/16/18 16:58 74 12/16/18 16:42 100.8 12/16/18 16:15 100.8 80 20 131/73 93 Room Air 12/16/18 16:15 100.8 80 20 131/73 (92) 93 Room Air I & O 12/17/18 07:00 Intake Total 1077.5 ml Output Total 790 ml Balance 287.5 ml Capillary Refill : General Appearance: No Apparent Distress, Obese HEENT: PERRL/EOMI Respiratory: Chest Non Tender, Lungs Clear, Normal Breath Sounds, No Accessory Muscle Use, No Respiratory Distress Cardiovascular: Regular Rate, Rhythm, No Murmur Gastrointestinal: normal bowel sounds, soft, no organomegaly, other (erythema and warmth, in B/L lower quadrants - appears smaller than yesterday, but slightly darker red in RLQ compared to yesterday. No fluctuance) Results Lab Laboratory Tests 12/16/18 16:18: White Blood Count 10.1, Red Blood Count 4.37, Hemoglobin 12.9, Hematocrit 41, Mean Corpuscular Volume 93, Mean Corpuscular Hemoglobin 30, Mean Corpuscular Hemoglobin Concent 32, Red Cell Distribution Width 15.4H, Platelet Count 216, Mean Platelet Volume 10.5H, Neutrophils (%) (Auto) 80H, Lymphocytes (%) (Auto) 12, Monocytes (%) (Auto) 7, Eosinophils (%) (Auto) 1, Basophils (%) (Auto) 0, Neutrophils # (Auto) 8.0H, Lymphocytes # (Auto) 1.2, Monocytes # (Auto) 0.7, Eosinophils # (Auto) 0.1, Basophils # (Auto) 0.0, Prothrombin Time 26.9H, INR Comment 2.4H, Sodium Level 141, Potassium Level 3.8, Chloride Level 109H, Carbon Dioxide Level 24, Anion Gap 8, Blood Urea Nitrogen 24H, Creatinine 0.97, Estimat Glomerular Filtration Rate 56, BUN/Creatinine Ratio 25, Glucose Level 148H, Lactic Acid Level 1.14, Calcium Level 9.4, Corrected Calcium 9.5, Total Bilirubin 0.4, Aspartate Amino Transf (AST/SGOT) 12, Alanine Aminotransferase (ALT/SGPT) 13, Alkaline Phosphatase 60, B-Type Natriuretic Peptide 70.7, Total Protein 6.9, Albumin 3.9 12/16/18 16:23: Glucometer 156H 12/16/18 21:09: Glucometer 124H 12/17/18 04:37: White Blood Count 8.6, Red Blood Count 3.74L, Hemoglobin 11.1L, Hematocrit 35, Mean Corpuscular Volume 94, Mean Corpuscular Hemoglobin 30, Mean Corpuscular Hemoglobin Concent 31L, Red Cell Distribution Width 15.4H, Platelet Count 184, Mean Platelet Volume 10.5H, Neutrophils (%) (Auto) 73, Lymphocytes (%) (Auto) 16, Monocytes (%) (Auto) 10, Eosinophils (%) (Auto) 2, Basophils (%) (Auto) 0, Neutrophils # (Auto) 6.3, Lymphocytes # (Auto) 1.4, Monocytes # (Auto) 0.8, Eosinophils # (Auto) 0.2, Basophils # (Auto) 0.0, Prothrombin Time 27.0H, INR Comment 2.4H, Sodium Level 142, Potassium Level 3.6, Chloride Level 114H, Carbon Dioxide Level 18L, Anion Gap 10, Blood Urea Nitrogen 17, Creatinine 0.83, Estimat Glomerular Filtration Rate > 60, BUN/Creatinine Ratio 20, Glucose Level 74, Calcium Level 8.2L, Corrected Calcium 8.8, Total Bilirubin 0.4, Aspartate Amino Transf (AST/SGOT) 12, Alanine Aminotransferase (ALT/SGPT) 10, Alkaline Phosphatase 49, Total Protein 5.5L, Albumin 3.2 12/17/18 05:43: Glucometer 80 Assessment/Plan Assessment/Plan Assessment/Plan Abdominal Wall Cellulitis DM Continue IV ABX, pain control and can start on a diabetic diet. Will hold off on CT abd/pelvis, it appears to be improving. I still do not feel any fluctuance or fluid collection today. Clinical Quality Measures DVT/VTE Risk/Contraindication: Risk Factor Score Per Nursin RFS Level Per Nursing on Admit: 4+=Very High ANASTASIIA RICHARDS DO Dec 17, 2018 11:16
[2018-12-17 12:00] VITALS: BP 144/78
[2018-12-17] MEDS: hydrALAZINE (APRESOLINE) 25 MG TAB PO SCH ×3 (12:08→23:33)
[2018-12-17] MEDS: meTOprolol TARTRATE 50 MG (LOPRESSOR) TAB PO SCH ×2 (12:08→23:36)
[2018-12-17] MEDS: lisINopril 40 MG (PRINIVIL) TABLET PO SCH (12:11)
--- NOTE | 2018-12-17 12:33 | History & Physical-Hospitalist ---
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 She was admitted due to failure of oral antibiotics and septic workup showed no evidence of any type of elevated lactic acid or elevated white count but in need of empiric antibiotics of vancomycin and Zosyn along with general surgery consultation in case fluctuant mass was formed. Patient is currently improved and Dr. Morillo and I did confer. I have restarted all of her home medication and her INR remained stable. Source: patient Exam Limitations: no limitations Date Seen 12/17/18 Time Seen by a Provider: 11:30 Attending Physician Lesli Cabrera DO PCP Lesli Cabrera DO Referring Physician Date of Admission Dec 16, 2018 at 15:48 Home Medications & Allergies Home Medications Reviewed patient Home Medication Reconciliation performed by pharmacy medication reconciliations therapy technician and/or nursing. Patients Allergies have been reviewed. Allergies Allergies Coded Allergies erythromycin base (Verified Allergy, Intermediate, HIVES, 10/10/13) NSAIDS (Non-Steroidal Anti-Inflamma (Verified Allergy, Unknown, 01/10/17) cephalexin (Verified Allergy, Unknown, 10/10/13) Past Hyfbdvx-Ekxrop-Tqwfvi Hx Past Med/Social Hx: Reviewed Nursing Past Med/Soc Hx, Reviewed and Corrections made Patient Social History Marrital Status: Employed/Student: retired Alcohol Use: Denies Use Recreational Drug Use: No Smoking Status: Light Tobacco Smoker Type Used: Cigarettes 2nd Hand Smoke Exposure: Yes Physical Abuse Screen: No Sexual Abuse: No Recent Foreign Travel: No Contact w/other who traveled: No Recent Hopitalizations: No Recent Infectious Disease Expo: No Immunizations Up To Date Tetanus Booster (TDap): Unknown Pediatric: Yes Date of Pneumonia Vaccine: Jan 05, 2015 Date of Influenza Vaccine: Feb 28, 2015 Seasonal Allergies Seasonal Allergies: Yes Past Medical History Surgeries: Appendectomy, Bladder Surgery, CABG, Coronary Stent, Gallbladder, Hysterectomy, Rectal Respiratory: COPD, Sleep Apnea Currently Using CPAP: Yes Currently Using BIPAP: No Cardiac: Atrial Fibrillation, Chronic Edema/Swelling, Coronary Artery Disease, Deep Vein Thrombosis, High Cholesterol, Hypertension Neurological: Neuropathy Reproductive: No Sexually Transmitted Disease: No HIV/AIDS: No 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 Disorders: Endometriosis Menopausal Genitourinary: Bladder Infection adrenal mass benign s/p cryotherapy 2017 [facility] Gastrointestinal: Diverticulosis Musculoskeletal: Arthritis Endocrine: Diabetes, Insulin dep, Diabetes, Non-Insulin dep Are Your Blood Sugars Over 250: No HEENT: Cataract Loss of Vision: Denies Hearing Impairment: Denies Cancer: Skin, Kidney Did You Recieve Any Treatments: No History of Blood Disorders: No Adverse Reaction to Blood Hernandez: No Family History CABG 19 FATHER Cardiovascular disease 19 FATHER 19 MOTHER Diabetes mellitus 19 MOTHER FH: lung cancer 19 FATHER FH: myocardial infarction 19 MOTHER Hypertension 19 FATHER 19 MOTHER Heart Disease, Diabetes, Hypertension Review of Systems Constitutional: see HPI, dizziness, fever, malaise, weakness EENTM: no symptoms reported Respiratory: no symptoms reported Cardiovascular: no symptoms reported Gastrointestinal: no symptoms reported Genitourinary: no symptoms reported Musculoskeletal: no symptoms reported Skin: see HPI Psychiatric/Neurological: No Symptoms Reported All Other Systems Reviewed Negative Unless Noted: Yes Physical Exam Physical Exam Vital Signs Vital Signs - First Documented 12/16/18 17:01 FiO2 21 Capillary Refill : Height, Weight, BMI Height: 5'5.00" Weight: 212lbs. 8.0oz. 96.789095jm; 35.3 BMI Method:Stated General Appearance: No Apparent Distress, WD/WN, Chronically ill, Obese Eyes: Right Eye Normal Inspection, Right Eye PERRL HEENT: PERRL/EOMI, Normal ENT Inspection, Pharynx Normal, Moist Mucous Membranes Neck: Full Range of Motion, Normal Inspection, Non Tender Respiratory: Chest Non Tender, Lungs Clear, Normal Breath Sounds, No Accessory Muscle Use, No Respiratory Distress Cardiovascular: No Edema, No Gallop, No JVD, No Murmur, Normal Peripheral Pulses, Irregularly Irregular Gastrointestinal: Normal Bowel Sounds, No Organomegaly, No Pulsatile Mass, Non Tender, Soft Back: Normal Inspection, No CVA Tenderness, No Vertebral Tenderness Extremity: Normal Capillary Refill, Normal Inspection, Normal Range of Motion, Non Tender, No Calf Tenderness, No Pedal Edema Neurologic/Psychiatric: Alert, Oriented x3, No Motor/Sensory Deficits, Normal Mood/Affect Skin: Normal Color, Warm/Dry, Other (pannus with erythema and increased warmth to entire region with ttp) Lymphatic: No Adenopathy Results Results/Procedures Labs Laboratory Tests 12/16/18 16:18 12/17/18 04:37 Patient resulted labs reviewed. Assessment/Plan Admission Diagnosis Assessment: Pannus cellulitis failed oral antibiotics Fever and chills Chronic atrial fibrillation Oral anticoagulation on warfarin INR 2.4 Hypertension Hyperlipidemia CAD previous bypass surgery PVD Light current smoker Diabetes mellitus insulin-dependent Neuropathy History of DVT Plan: Monitor labs IV antibiotics empirically Pain control Home meds Admission Status: Inpatient Order (span 2 midnights) Reason for Inpatient Admission: Failed oral antibiotics in diabetic with extensive pannus cellulitis Diagnosis/Problems Diagnosis/Problems (1) Cellulitis of abdominal wall Status: Acute (2) BARBARA on CPAP Status: Chronic (3) Smoker Status: Chronic (4) COPD (chronic obstructive pulmonary disease) Status: Chronic Qualifiers: COPD type: unspecified COPD Qualified Codes: J44.9 - Chronic obstructive pulmonary disease, unspecified (5) Atrial fibrillation Status: Chronic Qualifiers: Atrial fibrillation type: chronic Qualified Codes: I48.2 - Chronic atrial fibrillation (6) History of DVT of lower extremity Status: Chronic (7) Well controlled diabetes mellitus Status: Chronic (8) Fever Status: Acute Qualifiers: Fever type: unspecified Qualified Codes: R50.9 - Fever, unspecified (9) Hypertension Status: Chronic Qualifiers: Hypertension type: essential hypertension Qualified Codes: I10 - Essential (primary) hypertension (10) Hyperlipidemia Status: Chronic Qualifiers: Hyperlipidemia type: mixed hyperlipidemia Qualified Codes: E78.2 - Mixed hyperlipidemia (11) Warfarin anticoagulation Status: Chronic (12) History of coronary artery disease Status: Chronic Clinical Quality Measures DVT/VTE Risk/Contraindication: Risk Factor Score Per Nursin RFS Level Per Nursing on Admit: 4+=Very High LESLI CABRERA DO Dec 17, 2018 12:33
--- NOTE | 2018-12-17 14:26 | Cardiology Progress Note ---
Cardiology SOAP Progress Note Subjective: No significant shortness of breath. Objective: I&O/Vital Signs 12/17/18 12/17/18 12/17/18 12/17/18 04:00 07:00 08:00 08:54 Temp 99.0 98.1 Pulse 78 67 71 Resp 20 20 B/P (MAP) 134/69 (90) 99/45 (63) Pulse Ox 92 93 O2 Delivery Room Air Room Air Room Air 12/17/18 12/17/18 12:00 13:04 Temp 97.2 Pulse 64 58 Resp 18 B/P (MAP) 144/78 (100) Pulse Ox 93 O2 Delivery Room Air 12/16/18 23:59 Intake Total 440 ml Output Total 390 ml Balance 50 ml Weight (Pounds): 212 Weight (Ounces): 8.0 Weight (Calculated Kilograms): 96.963442 Constitutional: appears stated age, AAO x 3; No apparent distress; well- developed, well-nourished Respiratory: No accessory muscle use, No respiratory distress, No chest tender, No chest expansion is symmetric; chest is bilaterally symmetric; No lungs clear to percussion; lungs clear to auscultation; No crackles, No rhonchi, No rales, No stridor, No wheezing, No pleural rub, No other Cardiovascular: regular rate-rhythm; No irregularly irregular, No extra beats, No parasternal heave is noted, No JVD, No edema, No bradycardia, No tachycardia, No point of maximal impulse, No cardiac thrills are palpable; S1 and S2; No gallop/S3, No gallop/S4, No diastolic murmur, No systolic murmur, No friction rub, No click, No other Gastrointestional: No tender, No soft, No round, No distended, No pulsatile ma ss, No organomegaly, No guarding, No rebound, No tenderness, No hernia, No mass, No audible bowel sounds, No abnormal bowel sounds, No abdominal bruits, No spleenomegaly, No other Extremities: No normal range of motion, No non-tender, No normal inspection, No pedal edema, No calf tenderness, No normal capillary refill, No pelvis stable, No calf tenderness, No inflammation, No pedal edema, No slow capillary refill, No swelling, No other, No abrasion, No clubbing, No cyanosis, No ecchymosis, No laceration, No no lower extremity edema bilateral, No significant edema, No tenderness, No wound Neurologic/Psychiatric: no motor/sensory deficits, alert, normal mood/affect, oriented x 3, power is 5/5 both on sides Skin: No normal color, No warm/dry, No cyanosis, No cool, No diaphoresis, No damp, No ecchymosis, No jaundice, No mottled, No pallor, No rash, No tattoos/piercings, No ulcerations, No rash on exposed areas, No ulcerations on exposed areas, No other Results/Procedures: Labs Laboratory Tests 12/16/18 16:18: White Blood Count 10.1, Red Blood Count 4.37, Hemoglobin 12.9, Hematocrit 41, Mean Corpuscular Volume 93, Mean Corpuscular Hemoglobin 30, Mean Corpuscular Hemoglobin Concent 32, Red Cell Distribution Width 15.4H, Platelet Count 216, Mean Platelet Volume 10.5H, Neutrophils (%) (Auto) 80H, Lymphocytes (%) (Auto) 12, Monocytes (%) (Auto) 7, Eosinophils (%) (Auto) 1, Basophils (%) (Auto) 0, Neutrophils # (Auto) 8.0H, Lymphocytes # (Auto) 1.2, Monocytes # (Auto) 0.7, Eosinophils # (Auto) 0.1, Basophils # (Auto) 0.0, Prothrombin Time 26.9H, INR Comment 2.4H, Sodium Level 141, Potassium Level 3.8, Chloride Level 109H, Carbon Dioxide Level 24, Anion Gap 8, Blood Urea Nitrogen 24H, Creatinine 0.97, Estimat Glomerular Filtration Rate 56, BUN/Creatinine Ratio 25, Glucose Level 148H, Lactic Acid Level 1.14, Calcium Level 9.4, Corrected Calcium 9.5, Total Bilirubin 0.4, Aspartate Amino Transf (AST/SGOT) 12, Alanine Aminotransferase (ALT/SGPT) 13, Alkaline Phosphatase 60, B-Type Natriuretic Peptide 70.7, Total Protein 6.9, Albumin 3.9 12/16/18 16:23: Glucometer 156H 12/16/18 21:09: Glucometer 124H 12/17/18 04:37: White Blood Count 8.6, Red Blood Count 3.74L, Hemoglobin 11.1L, Hematocrit 35, Mean Corpuscular Volume 94, Mean Corpuscular Hemoglobin 30, Mean Corpuscular Hemoglobin Concent 31L, Red Cell Distribution Width 15.4H, Platelet Count 184, Mean Platelet Volume 10.5H, Neutrophils (%) (Auto) 73, Lymphocytes (%) (Auto) 16, Monocytes (%) (Auto) 10, Eosinophils (%) (Auto) 2, Basophils (%) (Auto) 0, Neutrophils # (Auto) 6.3, Lymphocytes # (Auto) 1.4, Monocytes # (Auto) 0.8, Eosinophils # (Auto) 0.2, Basophils # (Auto) 0.0, Prothrombin Time 27.0H, INR Comment 2.4H, Sodium Level 142, Potassium Level 3.6, Chloride Level 114H, Carbon Dioxide Level 18L, Anion Gap 10, Blood Urea Nitrogen 17, Creatinine 0.83, Estimat Glomerular Filtration Rate > 60, BUN/Creatinine Ratio 20, Glucose Level 74, Calcium Level 8.2L, Corrected Calcium 8.8, Total Bilirubin 0.4, Aspartate Amino Transf (AST/SGOT) 12, Alanine Aminotransferase (ALT/SGPT) 10, Alkaline Phosphatase 49, Total Protein 5.5L, Albumin 3.2 12/17/18 05:43: Glucometer 80 12/17/18 11:32: Glucometer 96 A/P: Assessment/Dx: Cellulitis, requiring IV antibiotics, History of DVT, Atrial fibrillation on oral anticoagulation, CAD/CABG, Mild pulmonary hypertension, Dilated left atrium, Ischemic cardiomyopathy Plan: Cellulitis, requiring IV antibiotics, History of DVT, on warfarin. Therapeutic INR. Atrial fibrillation on oral anticoagulation, CAD/CABG, continue outpatient medication. Mild pulmonary hypertension, Dilated left atrium, Ischemic cardiomyopathy, echocardiogram done 12/17/2018 shows mildly reduce LV function. Continue outpatient medical therapy. No evidence of congestive heart failure. Thank you for your consultation. Please call me if you have any questions. Artie Ray MD, FACP, FACC, FSCAI, FHRS, CCDS Interventional Cardiology Cardiac Electrophysiology Vascular Medicine and Endovascular Interventions Focused Exam Lactate Level 12/16/18 16:18: Lactic Acid Level 1.14 Queta RAY MD Dec 17, 2018 2:26 pm
[2018-12-17 16:00] VITALS: BP 127/71
[2018-12-17] MEDS: warFARin 2 MG (COUMADIN) TAB PO SCH (18:21)
[2018-12-17 20:00] VITALS: BP 127/61
[2018-12-17] MEDS: POLYETHYLENE GLYCOL 17 GM (MIRALAX) PACK PO SCH (21:00)
[2018-12-17] MEDS: MONTELUKAST 10 MG (SINGULAIR) TAB PO SCH (23:36)
[2018-12-18] VITALS: BP 162/70
[2018-12-18] MEDS: HYDROcodone/APAP 5 MG/325 MG (LORTAB) TAB PO PRN ×2 (03:58→07:54)
[2018-12-18 04:00] VITALS: BP 188/78
[2018-12-18 05:37] LABS: BASOPHILS % (AUTO) 1 % (0-10); EOSINOPHILS # (AUTO) 0.4 10^3/uL (0.0-0.3); EOSINOPHILS % (AUTO) 5 % (0-10); HEMATOCRIT 37 % (35-52); HEMOGLOBIN 11.5 G/DL (11.5-16.0); LYMPHOCYTES % (AUTO) 14 % (12-44); MEAN CORPUSCULAR HEMOGLOBIN 29 PG (25-34); MEAN CORPUSCULAR HGB CONC 31 G/DL (32-36); MEAN CORPUSCULAR VOLUME 94 FL (80-99); MEAN PLATELET VOLUME 10.5 FL (7.4-10.4); MONOCYTES # (AUTO) 0.7 X 10^3 (0.0-1.0); MONOCYTES % (AUTO) 10 % (0-12); NEUTROPHILS # (AUTO) 4.9 X 10^3 (1.8-7.8); NEUTROPHILS % (AUTO) 70 % (42-75); PLATELET COUNT 190 10^3/uL (130-400); RED CELL DISTRIBUTION WIDTH 14.9 % (10.0-14.5)
[2018-12-18 05:43] LABS: INR 2.5 (0.8-1.4); PROTHROMBIN TIME PATIENT 28.5 SEC (12.2-14.7)
[2018-12-18 05:54] LABS: ALANINE AMINOTRANSFERASE 11 U/L (0-55); ALBUMIN 3.2 GM/DL (3.2-4.5); ALKALINE PHOSPHATASE 46 U/L (40-136); BILIRUBIN,TOTAL 0.3 MG/DL (0.1-1.0); BUN/CREATININE RATIO 19; CALCIUM 8.7 MG/DL (8.5-10.1); CARBON DIOXIDE 20 MMOL/L (21-32); CHLORIDE 115 MMOL/L (98-107); GFR ESTIMATED > 60; GLUCOSE 110 MG/DL (70-105); POTASSIUM 4.2 MMOL/L (3.6-5.0); SODIUM 145 MMOL/L (135-145); TOTAL PROTEIN 5.7 GM/DL (6.4-8.2)
[2018-12-18] MEDS: inSUlin ASPART (NovoLOG) 1 UNIT/0.01 ML (CHARGE PER UNIT) SC SCH ×3 (06:00→16:27)
[2018-12-18] MEDS ORDERED: TROUGH ORDER-PHARMACY XX NR (06:00)
[2018-12-18 06:05] LABS: VANCOMYCIN,TROUGH 14.7 UG/ML (10.0-20.0)
--- NOTE | 2018-12-18 07:16 | Pulmonary Progress Note ---
Sepsis Event Evaluation Height, Weight, BMI Height: 5'5.00" Weight: 212lbs. 8.0oz. 96.756050og; 35.3 BMI Method:Stated Focused Exam Lactate Level 12/16/18 16:18: Lactic Acid Level 1.14 Exam Exam Vital Signs Date Time Temp Pulse Resp B/P (MAP) Pulse Ox O2 Delivery O2 Flow Rate FiO2 12/18/18 04:00 98.3 61 20 188/78 (114) 91 Room Air 12/18/18 01:00 65 12/18/18 00:00 98.0 65 20 162/70 (100) 95 Room Air 12/17/18 20:10 91 Room Air 12/17/18 20:00 98.1 63 18 127/61 (83) 95 Room Air 12/17/18 19:00 61 12/17/18 18:33 94 Room Air 12/17/18 16:00 98.6 64 18 127/71 (89) 92 Room Air 12/17/18 13:04 58 12/17/18 12:00 97.2 64 18 144/78 (100) 93 Room Air 12/17/18 08:54 Room Air 12/17/18 08:00 92 Room Air 12/17/18 08:00 98.1 71 20 99/45 (63) 93 Room Air I & O 12/18/18 07:00 Intake Total 3130 ml Output Total 2000 ml Balance 1130 ml Height & Weight Height: 5'5.00" Weight: 212lbs. 8.0oz. 96.405362sr; 35.3 BMI Method:Stated General Appearance: No Apparent Distress, WD/WN, Chronically ill, Obese HEENT: PERRL/EOMI, Normal ENT Inspection, Pharynx Normal, Moist Mucous Membranes Neck: Full Range of Motion, Normal Inspection, Non Tender Respiratory: Chest Non Tender, Lungs Clear, Normal Breath Sounds, No Accessory Muscle Use, No Respiratory Distress Cardiovascular: No Edema, No Gallop, No JVD, No Murmur, Normal Peripheral P ulses, Irregularly Irregular Gastrointestinal: normal bowel sounds, soft, no organomegaly, other (erythema and warmth, in B/L lower quadrants - appears smaller than yesterday, but slightly darker red in RLQ compared to yesterday. No fluctuance) Extremity: Normal Capillary Refill, Normal Inspection, Normal Range of Motion, Non Tender, No Calf Tenderness, No Pedal Edema Neurologic/Psychiatric: Alert, Oriented x3, No Motor/Sensory Deficits, Normal Mood/Affect Skin: Normal Color, Warm/Dry, Other (pannus with erythema and increased warmth to entire region with ttp) Lymphatic: No Adenopathy Results Lab Laboratory Tests 12/16/18 16:18 12/17/18 04:37 12/18/18 05:00 Assessment/Plan Assessment/Plan Abdominal Wall Cellulitis -Rush culture -Continue Abx -Surgery is following metabolic acidosis -IVF COPD HX -currently stable -Monitor DM CAD/Cardiomyopathy -cardiology following Tobacco dependance SARAH LOZADA DO Dec 18, 2018 07:16
[2018-12-18] MEDS: KCL 20 MEQ TAB (K-DUR) PO SCH (07:53)
[2018-12-18] MEDS: ACETAMINOPHEN 325 MG TABLET PO SCH ×2 (07:55→16:29)
[2018-12-18] MEDS: glipiZIDE 5 MG (GLUCOTROL) TAB PO SCH ×2 (07:56→16:24)
[2018-12-18] MEDS: VANCOMYCIN 1 GM/NS 250 ML IVPB IV SCH ×4 (07:56→18:26)
[2018-12-18 08:00] VITALS: BP 144/68
[2018-12-18] MEDS: SENNA W/DOCUSATE (SENOKOT S) TABLET PO SCH ×2 (09:23→20:35)
[2018-12-18] MEDS: CALCIUM CARB + VIT D 600 MG (CALCARB + D) TAB PO SCH (09:23)
[2018-12-18] MEDS: ASPIRIN 81 MG CHEW (CHILDREN'S ASA) PO SCH (09:23)
[2018-12-18] MEDS: hydrALAZINE (APRESOLINE) 25 MG TAB PO SCH ×3 (09:23→20:36)
[2018-12-18] MEDS: VITAMIN D3 1,000 UNITS (CHOLECALCIFEROL) TABLET PO SCH (09:24)
[2018-12-18] MEDS: meTOprolol TARTRATE 50 MG (LOPRESSOR) TAB PO SCH ×2 (09:24→20:35)
[2018-12-18] MEDS: FUROSEMIDE 40 MG (LASIX) TAB PO SCH (09:24)
[2018-12-18] MEDS: FAMOTIDINE 20 MG (PEPCID) TABLET PO SCH ×2 (09:24→20:35)
[2018-12-18] MEDS: ATORVASTATIN 10 MG (LIPITOR) TABLET PO SCH (09:24)
[2018-12-18] MEDS: lisINopril 40 MG (PRINIVIL) TABLET PO SCH (09:24)
[2018-12-18] MEDS: PIPERACILLIN/TAZOBACTAM (BULK) 4.5 GM in NS (IVPB) 100 ML IV SCH ×2 (09:25→16:27)
--- NOTE | 2018-12-18 11:15 | Progress Note - Hospitalist ---
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 She was admitted due to failure of oral antibiotics and septic workup showed no evidence of any type of elevated lactic acid or elevated white count but in need of empiric antibiotics of vancomycin and Zosyn along with general surgery consultation in case fluctuant mass was formed. Patient is currently improved and Dr. Morillo and I did confer. I have restarted all of her home medication and her INR remained stable. Subjective/Events-last exam Pannus cellulitis is much improved Tolerating IV antibiotics Ready to take a shower today We will discontinue telemetry Check meds and labs INR remains stable No pain is reported Lower extremity edema from gentle IV fluids given on admission will need to be managed with compression stockings and diuretics Check meds and labs Overall much improved and likely will discharge tomorrow but if it still remains dark or red as it is today we will need to hold off 1 more day before going home Review of Systems General: Fatigue pannus cellulitis Focused Exam Lactate Level 12/16/18 16:18: Lactic Acid Level 1.14 Objective Exam Vital Signs Vital Signs Date Time Temp Pulse Resp B/P (MAP) Pulse Ox O2 Delivery O2 Flow Rate FiO2 12/18/18 13:49 57 12/18/18 08:00 93 Room Air 12/18/18 04:00 98.3 20 188/78 (114) 12/16/18 17:01 21 Capillary Refill : General Appearance: No Apparent Distress, WD/WN, Chronically ill, Obese HEENT: PERRL/EOMI, Normal ENT Inspection, Pharynx Normal, Moist Mucous Memb ranes Neck: Full Range of Motion, Normal Inspection, Non Tender Respiratory: Chest Non Tender, Lungs Clear, Normal Breath Sounds, No Accessory Muscle Use, No Respiratory Distress Cardiovascular: No Edema, No Gallop, No JVD, No Murmur, Normal Peripheral Pulses, Irregularly Irregular Gastrointestinal: Normal Bowel Sounds, No Organomegaly, No Pulsatile Mass, Non Tender, Soft Back: Normal Inspection, No CVA Tenderness, No Vertebral Tenderness Extremity: Normal Capillary Refill, Normal Inspection, Normal Range of Motion, Non Tender, No Calf Tenderness, No Pedal Edema Neurologic/Psychiatric: Alert, Oriented x3, No Motor/Sensory Deficits, Normal 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 Assessment/Plan Assessment and Plan Assess & Plan/Chief Complaint Assessment: Pannus cellulitis failed oral antibiotics Fever and chills Chronic atrial fibrillation Oral anticoagulation on warfarin INR 2.4 Hypertension Hyperlipidemia CAD previous bypass surgery PVD Light current smoker Diabetes mellitus insulin-dependent Neuropathy History of DVT Plan: Monitor labs IV antibiotics empirically Pain control Home meds DC Telmumtaz Diagnosis/Problems Diagnosis/Problems (1) Cellulitis of abdominal wall Status: Acute (2) BARBARA on CPAP Status: Chronic (3) Smoker Status: Chronic (4) COPD (chronic obstructive pulmonary disease) Status: Chronic Qualifiers: COPD type: unspecified COPD Qualified Codes: J44.9 - Chronic obstructive pulmonary disease, unspecified (5) Atrial fibrillation Status: Chronic Qualifiers: Atrial fibrillation type: chronic Qualified Codes: I48.2 - Chronic atrial fibrillation (6) History of DVT of lower extremity Status: Chronic (7) Well controlled diabetes mellitus Status: Chronic (8) Fever Status: Acute Qualifiers: Fever type: unspecified Qualified Codes: R50.9 - Fever, unspecified (9) Hypertension Status: Chronic Qualifiers: Hypertension type: essential hypertension Qualified Codes: I10 - Essential (primary) hypertension (10) Hyperlipidemia Status: Chronic Qualifiers: Hyperlipidemia type: mixed hyperlipidemia Qualified Codes: E78.2 - Mixed hyperlipidemia (11) Warfarin anticoagulation Status: Chronic (12) History of coronary artery disease Status: Chronic Clinical Quality Measures DVT/VTE Risk/Contraindication: Risk Factor Score Per Nursin RFS Level Per Nursing on Admit: 4+=Very High MAHENDRA RENNER DO Dec 18, 2018 11:15
[2018-12-18 12:00] VITALS: BP 127/60
--- NOTE | 2018-12-18 13:47 | Progress Note - Surgery ---
Subjective Time Seen by a Provider: 11:41 Subjective/Events-last exam Pt seen and examined, states she thinks she is doing better; "but it is still red". Reports minimal pain. Review of Systems General: No Chills, No Night Sweats Pulmonary: No Dyspnea, No Cough Cardiovascular: No: Chest Pain, Palpitations Gastrointestinal: Abdominal Pain; No: Nausea, Vomiting Focused Exam Lactate Level 12/16/18 16:18: Lactic Acid Level 1.14 Objective Exam Vital Signs Date Time Temp Pulse Resp B/P (MAP) Pulse Ox O2 Delivery O2 Flow Rate FiO2 12/18/18 08:00 93 Room Air 12/18/18 07:00 65 12/18/18 04:00 98.3 61 20 188/78 (114) 91 Room Air 12/18/18 01:00 65 12/18/18 00:00 98.0 65 20 162/70 (100) 95 Room Air 12/17/18 20:10 91 Room Air 12/17/18 20:00 98.1 63 18 127/61 (83) 95 Room Air 12/17/18 19:00 61 12/17/18 18:33 94 Room Air 12/17/18 16:00 98.6 64 18 127/71 (89) 92 Room Air I & O 12/18/18 07:00 Intake Total 3130 ml Output Total 2000 ml Balance 1130 ml Capillary Refill : General Appearance: No Apparent Distress, WD/WN, Obese HEENT: PERRL/EOMI, Moist Mucous Membranes Respiratory: Chest Non Tender, Lungs Clear, Normal Breath Sounds, No Accessory Muscle Use, No Respiratory Distress Cardiovascular: No Edema, No Murmur, Irregularly Irregular Peripheral Pulses: 0 Carotid (R), 0 Carotid (L), 0 Femoral (R), 0 Femoral (L), 0 Dorsalis Pedis (R), 0 Left Dors-Pedis (L), 0 Radial Pulses (R), 0 Radial Pulses (L) Gastrointestinal: normal bowel sounds, soft, no organomegaly, other (erythema and warmth, in B/L lower quadrants - appears about same as yesterday, ?? sligh tly darker red in RLQ compared to yesterday. No fluctuance but more edema because the area is dependent portion) Extremity: Normal Capillary Refill, Normal Inspection, Normal Range of Motion, Non Tender, No Calf Tenderness, No Pedal Edema Neurologic/Psychiatric: Alert, Oriented x3, No Motor/Sensory Deficits, Normal Mood/Affect Results Lab Laboratory Tests 12/17/18 15:57: Glucometer 202H 12/17/18 21:06: Glucometer 143H 12/18/18 05:00: White Blood Count 7.0, Red Blood Count 3.91L, Hemoglobin 11.5, Hematocrit 37, Mean Corpuscular Volume 94, Mean Corpuscular Hemoglobin 29, Mean Corpuscular Hemoglobin Concent 31L, Red Cell Distribution Width 14.9H, Platelet Count 190, Mean Platelet Volume 10.5H, Neutrophils (%) (Auto) 70, Lymphocytes (%) (Auto) 14, Monocytes (%) (Auto) 10, Eosinophils (%) (Auto) 5, Basophils (%) (Auto) 1, Neutrophils # (Auto) 4.9, Lymphocytes # (Auto) 1.0, Monocytes # (Auto) 0.7, Eosinophils # (Auto) 0.4H, Basophils # (Auto) 0.0, Prothrombin Time 28.5H, INR Comment 2.5H, Sodium Level 145, Potassium Level 4.2, Chloride Level 115H, Carbon Dioxide Level 20L, Anion Gap 10, Blood Urea Nitrogen 15, Creatinine 0.80, Becky mat Glomerular Filtration Rate > 60, BUN/Creatinine Ratio 19, Glucose Level 110H , Calcium Level 8.7, Corrected Calcium 9.3, Total Bilirubin 0.3, Aspartate Amino Transf (AST/SGOT) 11, Alanine Aminotransferase (ALT/SGPT) 11, Alkaline Laurel sphatase 46, Total Protein 5.7L, Albumin 3.2, Vancomycin Level Trough 14.7 12/18/18 05:45: Glucometer 110 12/18/18 10:57: Glucometer 170H Microbiology 12/16/18 Blood Culture - Preliminary, Resulted No growth Assessment/Plan Assessment/Plan Assessment/Plan Abdominal Wall Cellulitis DM Continue IV ABX, pain control and can start on a diabetic diet. Will hold off on CT abd/pelvis, it appears to be improving. I still do not feel any fluctuance or fluid collection today. There is more edema today but I don't think this is abscess collection. WBC count remains within normal limits. Clinical Quality Measures DVT/VTE Risk/Contraindication: Risk Factor Score Per Nursin RFS Level Per Nursing on Admit: 4+=Very High ANASTASIIA RICHARDS DO Dec 18, 2018 13:47
[2018-12-18 15:27] VITALS: BP 137/77
--- NOTE | 2018-12-18 17:56 | Cardiology Progress Note ---
Cardiology SOAP Progress Note Subjective: No cardiac complaints. Objective: I&O/Vital Signs 12/18/18 12/18/18 12/18/18 12/18/18 07:00 08:00 08:00 12:00 Temp 97.9 98.1 Pulse 65 55 52 Resp 20 20 B/P (MAP) 144/68 (93) 127/60 (82) Pulse Ox 93 94 96 O2 Delivery Room Air Room Air Room Air 12/18/18 12/18/18 13:49 15:27 Temp 97.7 Pulse 57 66 Resp 18 B/P (MAP) 137/77 (97) Pulse Ox 92 O2 Delivery Room Air 12/18/18 00:00 Intake Total 2730 ml Output Total 1200 ml Balance 1530 ml Weight (Pounds): 212 Weight (Ounces): 8.0 Weight (Calculated Kilograms): 96.399952 Constitutional: appears stated age, AAO x 3; No apparent distress; well- developed, well-nourished Respiratory: No accessory muscle use, No respiratory distress, No chest tender, No chest expansion is symmetric; chest is bilaterally symmetric; No lungs clear to percussion; lungs clear to auscultation; No crackles, No rhonchi, No rales, No stridor, No wheezing, No pleural rub, No other Cardiovascular: regular rate-rhythm; No irregularly irregular, No extra beats, No parasternal heave is noted, No JVD, No edema, No bradycardia, No tachycardia, No point of maximal impulse, No cardiac thrills are palpable; S1 and S2; No gallop/S3, No gallop/S4, No diastolic murmur, No systolic murmur, No friction rub, No click, No other Gastrointestional: No tender, No soft, No round, No distended, No pulsatile mass, No organomegaly, No guarding, No rebound, No tenderness, No hernia, No mass, No audible bowel sounds, No abnormal bowel sounds, No abdominal bruits, No spleenomegaly, No other Extremities: No normal range of motion, No non-tender, No normal inspection, No pedal edema, No calf tenderness, No normal capillary refill, No pelvis stable, No calf tenderness, No inflammation, No pedal edema, No slow capillary refill, No swelling, No other, No abrasion, No clubbing, No cyanosis, No ecchymosis, No laceration, No no lower extremity edema bilateral, No significant edema, No tenderness, No wound Neurologic/Psychiatric: no motor/sensory deficits, alert, normal mood/affect, oriented x 3, power is 5/5 both on sides Skin: No normal color, No warm/dry, No cyanosis, No cool, No diaphoresis, No damp, No ecchymosis, No jaundice, No mottled, No pallor, No rash, No tattoos/piercings, No ulcerations, No rash on exposed areas, No ulcerations on exposed areas, No other Results/Procedures: Labs Laboratory Tests 12/17/18 21:06: Glucometer 143H 12/18/18 05:00: White Blood Count 7.0, Red Blood Count 3.91L, Hemoglobin 11.5, Hematocrit 37, Mean Corpuscular Volume 94, Mean Corpuscular Hemoglobin 29, Mean Corpuscular Hemoglobin Concent 31L, Red Cell Distribution Width 14.9H, Platelet Count 190, Mean Platelet Volume 10.5H, Neutrophils (%) (Auto) 70, Lymphocytes (%) (Auto) 14, Monocytes (%) (Auto) 10, Eosinophils (%) (Auto) 5, Basophils (%) (Auto) 1, Neutrophils # (Auto) 4.9, Lymphocytes # (Auto) 1.0, Monocytes # (Auto) 0.7, Eosinophils # (Auto) 0.4H, Basophils # (Auto) 0.0, Prothrombin Time 28.5H, INR Comment 2.5H, Sodium Level 145, Potassium Level 4.2, Chloride Level 115H, Carbon Dioxide Level 20L, Anion Gap 10, Blood Urea Nitrogen 15, Creatinine 0.80, Estimat Glomerular Filtration Rate > 60, BUN/Creatinine Ratio 19, Glucose Level 110H, Calcium Level 8.7, Corrected Calcium 9.3, Total Bilirubin 0.3, Aspartate Amino Transf (AST/SGOT) 11, Alanine Aminotransferase (ALT/SGPT) 11, Alkaline Phosphatase 46, Total Protein 5.7L, Albumin 3.2, Vancomycin Level Trough 14.7 12/18/18 05:45: Glucometer 110 12/18/18 10:57: Glucometer 170H 12/18/18 15:33: Glucometer 152H Microbiology 12/16/18 Blood Culture - Preliminary, Resulted No growth A/P: Assessment/Dx: Cellulitis, requiring IV antibiotics, History of DVT, Atrial fibrillation on oral anticoagulation, CAD/CABG, Mild pulmonary hypertension, Dilated left atrium, Ischemic cardiomyopathy Plan: Cellulitis, requiring IV antibiotics, History of DVT, on warfarin. Therapeutic INR. Atrial fibrillation on oral anticoagulation, CAD/CABG, continue outpatient medication. Mild pulmonary hypertension, Dilated left atrium, Ischemic cardiomyopathy, echocardiogram done 12/17/2018 shows mildly reduce LV function. Continue outpatient medical therapy. No evidence of congestive heart failure. Thank you for your consultation. Please call me if you have any questions. Artie Ray MD, FACP, FACC, FSCAI, FHRS, CCDS Interventional Cardiology Cardiac Electrophysiology Vascular Medicine and Endovascular Interventions Focused Exam Lactate Level 12/16/18 16:18: Lactic Acid Level 1.14 Queta RAY MD Dec 18, 2018 17:56
[2018-12-18] MEDS: warFARin 2 MG (COUMADIN) TAB PO SCH (18:25)
[2018-12-18 20:23] VITALS: BP 148/76
[2018-12-18] MEDS: MONTELUKAST 10 MG (SINGULAIR) TAB PO SCH (20:36)
[2018-12-18] MEDS: POLYETHYLENE GLYCOL 17 GM (MIRALAX) PACK PO SCH (20:41)
[2018-12-19] MEDS: inSUlin ASPART (NovoLOG) 1 UNIT/0.01 ML (CHARGE PER UNIT) SC SCH ×3 (00:30→11:55)
[2018-12-19] MEDS: PIPERACILLIN/TAZOBACTAM (BULK) 4.5 GM in NS (IVPB) 100 ML IV SCH ×2 (00:30→09:43)
[2018-12-19 00:54] VITALS: BP 146/75
[2018-12-19 03:58] VITALS: BP 173/74
[2018-12-19] MEDS: VANCOMYCIN 1 GM/NS 250 ML IVPB IV SCH ×2 (05:45)
[2018-12-19] MEDS: KCL 20 MEQ TAB (K-DUR) PO SCH (06:38)
[2018-12-19] MEDS: ACETAMINOPHEN 325 MG TABLET PO SCH (06:38)
[2018-12-19] MEDS: glipiZIDE 5 MG (GLUCOTROL) TAB PO SCH (06:38)
--- NOTE | 2018-12-19 07:42 | Pulmonary Progress Note ---
Sepsis Event Evaluation Height, Weight, BMI Height: 5'5.00" Weight: 212lbs. 8.0oz. 96.102196rz; 35.3 BMI Method:Stated Focused Exam Lactate Level 12/16/18 16:18: Lactic Acid Level 1.14 Exam Exam Vital Signs Date Time Temp Pulse Resp B/P (MAP) Pulse Ox O2 Delivery O2 Flow Rate FiO2 12/19/18 03:58 98.9 59 18 173/74 (107) 96 Room Air 12/19/18 00:54 98.0 60 22 146/75 (98) 94 Room Air 12/18/18 20:23 98.0 64 20 148/76 (100) 95 Room Air 12/18/18 19:00 95 Room Air 12/18/18 18:51 Room Air 12/18/18 15:27 97.7 66 18 137/77 (97) 92 Room Air 12/18/18 13:49 57 12/18/18 12:00 98.1 52 20 127/60 (82) 96 Room Air 12/18/18 08:00 97.9 55 20 144/68 (93) 94 Room Air 12/18/18 08:00 93 Room Air I & O 12/19/18 07:00 Intake Total 2460 ml Balance 2460 ml Height & Weight Height: 5'5.00" Weight: 212lbs. 8.0oz. 96.898850ol; 35.3 BMI Method:Stated General Appearance: No Apparent Distress, WD/WN, Chronically ill, Obese HEENT: PERRL/EOMI, Normal ENT Inspection, Pharynx Normal, Moist Mucous Membranes Neck: Full Range of Motion, Normal Inspection, Non Tender Respiratory: Chest Non Tender, Lungs Clear, Normal Breath Sounds, No Accessory Muscle Use, No Respiratory Distress Cardiovascular: No Edema, No Gallop, No JVD, No Murmur, Normal Peripheral Pulses, Irregularly Irregular Peripheral Pulses: 0 Carotid (R), 0 Carotid (L), 0 Femoral (R), 0 Femoral (L), 0 Dorsalis Pedis (R), 0 Left Dors-Pedis (L), 0 Radial Pulses (R), 0 Radial Puls es (L) Gastrointestinal: normal bowel sounds, soft, no organomegaly, other (erythema and warmth, in B/L lower quadrants - appears about same as yesterday, ?? slightly darker red in RLQ compared to yesterday. 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
[2018-12-19 08:00] VITALS: BP 144/59
[2018-12-19 08:52] VITALS: BP 173/74
[2018-12-19] MEDS: lisINopril 40 MG (PRINIVIL) TABLET PO SCH (09:41)
[2018-12-19] MEDS: SENNA W/DOCUSATE (SENOKOT S) TABLET PO SCH (09:41)
[2018-12-19] MEDS: FAMOTIDINE 20 MG (PEPCID) TABLET PO SCH (09:41)
[2018-12-19] MEDS: ATORVASTATIN 10 MG (LIPITOR) TABLET PO SCH (09:41)
[2018-12-19] MEDS: ASPIRIN 81 MG CHEW (CHILDREN'S ASA) PO SCH (09:41)
[2018-12-19] MEDS: CALCIUM CARB + VIT D 600 MG (CALCARB + D) TAB PO SCH (09:41)
[2018-12-19] MEDS: FUROSEMIDE 40 MG (LASIX) TAB PO SCH (09:41)
[2018-12-19] MEDS: VITAMIN D3 1,000 UNITS (CHOLECALCIFEROL) TABLET PO SCH (09:42)
[2018-12-19] MEDS: hydrALAZINE (APRESOLINE) 25 MG TAB PO SCH (09:42)
[2018-12-19] MEDS: meTOprolol TARTRATE 50 MG (LOPRESSOR) TAB PO SCH (09:42)
--- NOTE | 2018-12-19 10:18 | Discharge Summary ---
Diagnosis/Chief Complaint Date of Admission Dec 16, 2018 at 15:48 Date of Discharge Discharge Date: Dec 19, 2018 Discharge Diagnosis Assessment: Pannus cellulitis failed oral antibiotics Fever and chills Chronic atrial fibrillation Oral anticoagulation on warfarin INR 2.4 Hypertension Hyperlipidemia CAD previous bypass surgery PVD Light current smoker Diabetes mellitus insulin-dependent Neuropathy History of DVT Plan: Monitor labs IV antibiotics empirically Pain control Home meds DC Tely Discharge Summary Discharge Physical Examination Allergies: Coded Allergies: erythromycin base (Verified Allergy, Intermediate, HIVES, 10/10/13) NSAIDS (Non-Steroidal Anti-Inflamma (Verified Allergy, Unknown, 01/10/17) cephalexin (Verified Allergy, Unknown, 10/10/13) Vitals & I&Os Vital Signs Date Time Temp Pulse Resp B/P (MAP) Pulse Ox O2 Delivery O2 Flow Rate FiO2 12/19/18 15:11 12/19/18 08:52 59 96 12/19/18 08:00 98.0 18 Room Air 12/16/18 17:01 21 General Appearance: Alert, Oriented X3, Cooperative Respiratory: Clear to Auscultation Cardiovascular: Other (irr irr) Abdominal: Normal Bowel Sounds Skin: Other (pannus improved erythema) Neuro: Normal Speech, Strength at 5/5 X4 Ext Psych/Mental Status: Mental Status NL, Mood NL Hospital Course Was the Problem List Reviewed?: Yes Hospital course: Pt was admitted on Wednesday, after seen urgently due to increasing fever and chills and now a rash on her pannus, she had only received two doses of the Augmentin but the cellulitis was rapidly progressing and considering she is an insulin-dependent diabetic, she required urgent admission to the hospital for broad spectrum antibiotics of Vancomycin and Zosyn and Dr. Nascimento consultation. She tolerated the antibiotics well, anti-coagulation remains stable at 2.4 on Coumadin. She was restarted on all her home medications including blood sugar control and overall did very well after the addition of gentle IV fluids for 12 hours and seemed to really respond to the antibiotics. She was deemed stable to discharge, all labs remained stable, and she was willing to go go home, restart the Augmentin that she she had almost near full prescription and close follow-up with me on . She will now start giving her injections more in the upper part of her pannus making it less risky for infection and cellulitis and she will have close follow up with me and notify me if anything worsens. Labs (last 24 hrs) Laboratory Tests 12/16/18 16:18: White Blood Count 10.1, Red Blood Count 4.37, Hemoglobin 12.9, Hematocrit 41, Mean Corpuscular Volume 93, Mean Corpuscular Hemoglobin 30, Mean Corpuscular Hemoglobin Concent 32, Red Cell Distribution Width 15.4H, Platelet Count 216, Mean Platelet Volume 10.5H, Neutrophils (%) (Auto) 80H, Lymphocytes (%) (Auto) 12, Monocytes (%) (Auto) 7, Eosinophils (%) (Auto) 1, Basophils (%) (Auto) 0, Neutrophils # (Auto) 8.0H, Lymphocytes # (Auto) 1.2, Monocytes # (Auto) 0.7, Eosinophils # (Auto) 0.1, Basophils # (Auto) 0.0, Prothrombin Time 26.9H, INR Comment 2.4H, Sodium Level 141, Potassium Level 3.8, Chloride Level 109H, Carbon Dioxide Level 24, Anion Gap 8, Blood Urea Nitrogen 24H, Creatinine 0.97, Estimat Glomerular Filtration Rate 56, BUN/Creatinine Ratio 25, Glucose Level 148H, Lactic Acid Level 1.14, Calcium Level 9.4, Corrected Calcium 9.5, Total Bilirubin 0.4, Aspartate Amino Transf (AST/SGOT) 12, Alanine Aminotransferase (ALT/SGPT) 13, Alkaline Phosphatase 60, B-Type Natriuretic Peptide 70.7, Total Protein 6.9, Albumin 3.9 12/16/18 16:23: Glucometer 156H 12/16/18 21:09: Glucometer 124H 12/17/18 04:37: White Blood Count 8.6, Red Blood Count 3.74L, Hemoglobin 11.1L, Hematocrit 35, Mean Corpuscular Volume 94, Mean Corpuscular Hemoglobin 30, Mean Corpuscular Hemoglobin Concent 31L, Red Cell Distribution Width 15.4H, Platelet Count 184, Mean Platelet Volume 10.5H, Neutrophils (%) (Auto) 73, Lymphocytes (%) (Auto) 16, Monocytes (%) (Auto) 10, Eosinophils (%) (Auto) 2, Basophils (%) (Auto) 0, Neutrophils # (Auto) 6.3, Lymphocytes # (Auto) 1.4, Monocytes # (Auto) 0.8, Eosinophils # (Auto) 0.2, Basophils # (Auto) 0.0, Prothrombin Time 27.0H, INR Comment 2.4H, Sodium Level 142, Potassium Level 3.6, Chloride Level 114H, Carbon Dioxide Level 18L, Anion Gap 10, Blood Urea Nitrogen 17, Creatinine 0.83, Estimat Glomerular Filtration Rate > 60, BUN/Creatinine Ratio 20, Glucose Level 74, Calcium Level 8.2L, Corrected Calcium 8.8, Total Bilirubin 0.4, Aspartate Amino Transf (AST/SGOT) 12, Alanine Aminotransferase (ALT/SGPT) 10, Alkaline Phosphatase 49, Total Protein 5.5L, Albumin 3.2 12/17/18 05:43: Glucometer 80 12/17/18 11:32: Glucometer 96 12/17/18 15:57: Glucometer 202H 12/17/18 21:06: Glucometer 143H 12/18/18 05:00: White Blood Count 7.0, Red Blood Count 3.91L, Hemoglobin 11.5, Hematocrit 37, Mean Corpuscular Volume 94, Mean Corpuscular Hemoglobin 29, Mean Corpuscular Hemoglobin Concent 31L, Red Cell Distribution Width 14.9H, Platelet Count 190, Mean Platelet Volume 10.5H, Neutrophils (%) (Auto) 70, Lymphocytes (%) (Auto) 14, Monocytes (%) (Auto) 10, Eosinophils (%) (Auto) 5, Basophils (%) (Auto) 1, Neutrophils # (Auto) 4.9, Lymphocytes # (Auto) 1.0, Monocytes # (Auto) 0.7, Eosinophils # (Auto) 0.4H, Basophils # (Auto) 0.0, Prothrombin Time 28.5H, INR Comment 2.5H, Sodium Level 145, Potassium Level 4.2, Chloride Level 115H, Carbon Dioxide Level 20L, Anion Gap 10, Blood Urea Nitrogen 15, Creatinine 0.80, Estimat Glomerular Filtration Rate > 60, BUN/Creatinine Ratio 19, Glucose Level 110H, Calcium Level 8.7, Corrected Calcium 9.3, Total Bilirubin 0.3, Aspartate Amino Transf (AST/SGOT) 11, Alanine Aminotransferase (ALT/SGPT) 11, Alkaline Phosphatase 46, Total Protein 5.7L, Albumin 3.2, Vancomycin Level Trough 14.7 12/18/18 05:45: Glucometer 110 12/18/18 10:57: Glucometer 170H 12/18/18 15:33: Glucometer 152H 12/18/18 21:32: Glucometer 187H 12/19/18 06:08: Glucometer 87 12/19/18 10:56: Glucometer 58*L Microbiology 12/16/18 Blood Culture - Preliminary, Resulted No growth Pending Labs Microbiology Date/Time Source Procedure Growth Status 12/16/18 17:05 Peripheral Lt Ac Blood Culture - Preliminary No growth Resulted 12/16/18 16:18 Peripheral Lt Hand Blood Culture - Preliminary No growth Resulted Laboratory Tests 12/16/18 16:18: White Blood Count 10.1, Red Blood Count 4.37, Hemoglobin 12.9, Hematocrit 41, Mean Corpuscular Volume 93, Mean Corpuscular Hemoglobin 30, Mean Corpuscular Hemoglobin Concent 32, Red Cell Distribution Width 15.4, Platelet Count 216, Mean Platelet Volume 10.5, Neutrophils (%) (Auto) 80, Lymphocytes (%) (Auto) 12, Monocytes (%) (Auto) 7, Eosinophils (%) (Auto) 1, Basophils (%) (Auto) 0, Neutr ophils # (Auto) 8.0, Lymphocytes # (Auto) 1.2, Monocytes # (Auto) 0.7, Eosinophils # (Auto) 0.1, Basophils # (Auto) 0.0, Prothrombin Time 26.9, INR Comment 2.4, Sodium Level 141, Potassium Level 3.8, Chloride Level 109, Carbon Dioxide Level 24, Anion Gap 8, Blood Urea Nitrogen 24, Creatinine 0.97, Estimat Glomerular Filtration Rate 56, BUN/Creatinine Ratio 25, Glucose Level 148, La ctic Acid Level 1.14, Calcium Level 9.4, Corrected Calcium 9.5, Total Bilirubin 0.4, Aspartate Amino Transf (AST/SGOT) 12, Alanine Aminotransferase (ALT/SGPT) 13, Alkaline Phosphatase 60, B-Type Natriuretic Peptide 70.7, Total Protein 6.9, Albumin 3.9 12/16/18 16:23: Glucometer 156 12/16/18 21:09: Glucometer 124 12/17/18 04:37: White Blood Count 8.6, Red Blood Count 3.74, Hemoglobin 11.1, Hematocrit 35, Mean Corpuscular Volume 94, Mean Corpuscular Hemoglobin 30, Mean Corpuscular Hemoglobin Concent 31, Red Cell Distribution Width 15.4, Platelet Count 184, Mean Platelet Volume 10.5, Neutrophils (%) (Auto) 73, Lymphocytes (%) (Auto) 16, Monocytes (%) (Auto) 10, Eosinophils (%) (Auto) 2, Basophils (%) (Auto) 0, Neutrophils # (Auto) 6.3, Lymphocytes # (Auto) 1.4, Monocytes # (Auto) 0.8, Eosinophils # (Auto) 0.2, Basophils # (Auto) 0.0, Prothrombin Time 27.0, INR Comment 2.4, Sodium Level 142, Potassium Level 3.6, Chloride Level 114, Carbon Dioxide Level 18, Anion Gap 10, Blood Urea Nitrogen 17, Creatinine 0.83, Estimat Glomerular Filtration Rate > 60, BUN/Creatinine Ratio 20, Glucose Level 74, Calcium Level 8.2, Corrected Calcium 8.8, Total Bilirubin 0.4, Aspartate Amino Transf (AST/SGOT) 12, Alanine Aminotransferase (ALT/SGPT) 10, Alkaline Phosphatase 49, Total Protein 5.5, Albumin 3.2 12/17/18 05:43: Glucometer 80 12/17/18 11:32: Glucometer 96 12/17/18 15:57: Glucometer 202 12/17/18 21:06: Glucometer 143 12/18/18 05:00: White Blood Count 7.0, Red Blood Count 3.91, Hemoglobin 11.5, Hematocrit 37, Mean Corpuscular Volume 94, Mean Corpuscular Hemoglobin 29, Mean Corpuscular Hemoglobin Concent 31, Red Cell Distribution Width 14.9, Platelet Count 190, Mean Platelet Volume 10.5, Neutrophils (%) (Auto) 70, Lymphocytes (%) (Auto) 14, Monocytes (%) (Auto) 10, Eosinophils (%) (Auto) 5, Basophils (%) (Auto) 1, Neutrophils # (Auto) 4.9, Lymphocytes # (Auto) 1.0, Monocytes # (Auto) 0.7, Eosinophils # (Auto) 0.4, Basophils # (Auto) 0.0, Prothrombin Time 28.5, INR Comment 2.5, Sodium Level 145, Potassium Level 4.2, Chloride Level 115, Carbon Dioxide Level 20, Anion Gap 10, Blood Urea Nitrogen 15, Creatinine 0.80, Estimat Glomerular Filtration Rate > 60, BUN/Creatinine Ratio 19, Glucose Level 110, Calcium Level 8.7, Corrected Calcium 9.3, Total Bilirubin 0.3, Aspartate Amino Transf (AST/SGOT) 11, Alanine Aminotransferase (ALT/SGPT) 11, Alkaline Phosphatase 46, Total Protein 5.7, Albumin 3.2, Vancomycin Level Trough 14.7 12/18/18 05:45: Glucometer 110 12/18/18 10:57: Glucometer 170 12/18/18 15:33: Glucometer 152 12/18/18 21:32: Glucometer 187 12/19/18 06:08: Glucometer 87 12/19/18 10:56: Glucometer 58 Discharge Home Medications: Active Scripts Active Reported Tylenol Arthritis (Acetaminophen) 650 Mg Tablet.er 1,300 Mg PO BID Nystatin 15 Gm Cream..g. TOP BID PRN Hydralazine HCl 25 Mg Tablet 25 Mg PO TID Humalog (Insulin Lispro) 100 Unit/1 Ml Vial 8 Units SC AC PRN Levemir (Insulin Determir) 1,000 Units/10 Ml Soln 10-12 Units SC HS Metoprolol Tartrate 100 Mg Tablet 100 Mg PO BID Amox Tr-K Clv 500-125 mg Tab (Amoxicillin/Potassium Clav) 1 Each Tablet 1 Tab PO Q12H 7 Days 7 DAY THERAPY FILLED 12-15-18 Polyethylene Glycol 3350 17 Gm Powd.pack 17 Gm PO DAILY Vitamin D3 (Cholecalciferol (Vitamin D3)) 2,000 Unit Capsule 2,000 Unit PO DAILY Acid [employer] (FAMOTIDINE) (Famotidine) 20 Mg Tablet 20 Mg PO BID Warfarin Sodium 4 Mg Tablet 4 Mg PO 1800 Nitroglycerin 0.4 Mg Tab.subl 0.4 Mg PO UD PRN 1 TAB EVERY 5 MINUTES NEEDED; NOT TO EXCEED 3 DOSES IN 15 MINUTES Advair 250-50 Diskus (Fluticasone/Salmeterol) 1 Each Blst.w.dev 1 Puff IH DAILY Benazepril HCl 40 Mg Tab 40 Mg PO DAILY Potassium Chloride 20 Meq Tab.er.prt 20 Meq PO DAILY Furosemide 40 Mg Tablet 40 Mg PO DAILY Montelukast Sodium 10 Mg Tablet 10 Mg PO HS Citracal + D Maximum Caplet (Calcium Citrate/Vitamin D3) 1 Each Tablet 1 Tab PO DAILY Aspirin 81 Mg Tab.chew 81 Mg PO DAILY Iprat-Albut 0.5-3(2.5) mg/3 ml (Ipratropium/Albuterol Sulfate) 3 Ml Ampul.neb 3 Ml IH QID PRN Pravastatin Sodium 40 Mg Tablet 20 Mg PO BID TAKE 1/2 OF (40 MG) TABLET Glipizide 5 Mg Tablet 5 Mg PO BID Instructions to patient/family Please see electronic discharge instructions given to patient. Diagnosis/Problems Diagnosis/Problems (1) Cellulitis of abdominal wall Status: Acute (2) BARBARA on CPAP Status: Chronic (3) Smoker Status: Chronic (4) COPD (chronic obstructive pulmonary disease) Status: Chronic Qualifiers: Qualified Codes: J44.9 - Chronic obstructive pulmonary disease, unspecified (5) Atrial fibrillation Status: Chronic Qualifiers: Qualified Codes: I48.2 - Chronic atrial fibrillation (6) History of DVT of lower extremity Status: Chronic (7) Well controlled diabetes mellitus Status: Chronic (8) Fever Status: Acute Qualifiers: Qualified Codes: R50.9 - Fever, unspecified (9) Hypertension Status: Chronic Qualifiers: Qualified Codes: I10 - Essential (primary) hypertension (10) Hyperlipidemia Status: Chronic Qualifiers: Qualified Codes: E78.2 - Mixed hyperlipidemia (11) Warfarin anticoagulation Status: Chronic (12) History of coronary artery disease Status: Chronic Clinical Quality Measures DVT/VTE Risk/Contraindication: Risk Factor Score Per Nursin RFS Level Per Nursing on Admit: 4+=Very High MAHENDRA RENNER DO Dec 19, 2018 10:18
--- NOTE | 2018-12-19 12:50 | Cardiology Progress Note ---
Cardiology SOAP Progress Note Subjective: No cardiac complaints. Objective: I&O/Vital Signs 12/19/18 12/19/18 12/19/18 12/19/18 00:54 03:58 08:00 08:00 Temp 98.0 98.9 98.0 Pulse 60 59 63 Resp 22 18 18 B/P (MAP) 146/75 (98) 173/74 (107) 144/59 (87) Pulse Ox 94 96 95 94 O2 Delivery Room Air Room Air Room Air Room Air 12/19/18 08:52 Pulse 59 Pulse Ox 96 12/19/18 00:00 Intake Total 2200 ml Balance 2200 ml Weight (Pounds): 212 Weight (Ounces): 8.0 Weight (Calculated Kilograms): 96.398481 Constitutional: appears stated age, AAO x 3; No apparent distress; well- developed, well-nourished Respiratory: No accessory muscle use, No respiratory distress, No chest tender, No chest expansion is symmetric; chest is bilaterally symmetric; No lungs clear to percussion; lungs clear to auscultation; No crackles, No rhonchi, No rales, No stridor, No wheezing, No pleural rub, No other Cardiovascular: regular rate-rhythm; No irregularly irregular, No extra beats, No parasternal heave is noted, No JVD, No edema, No bradycardia, No tachycardia, No point of maximal impulse, No cardiac thrills are palpable; S1 and S2; No gallop/S3, No gallop/S4, No diastolic murmur, No systolic murmur, No friction rub, No click, No other Gastrointestional: No tender, No soft, No round, No distended, No pulsatile mass, No organomegaly, No guarding, No rebound, No tenderness, No hernia, No mass, No audible bowel sounds, No abnormal bowel sounds, No abdominal bruits, No spleenomegaly, No other Extremities: No normal range of motion, No non-tender, No normal inspection, No pedal edema, No calf tenderness, No normal capillary refill, No pelvis stable, No calf tenderness, No inflammation, No pedal edema, No slow capillary refill, No swelling, No other, No abrasion, No clubbing, No cyanosis, No ecchymosis, No laceration, No no lower extremity edema bilateral, No significant edema, No tenderness, No wound Neurologic/Psychiatric: no motor/sensory deficits, alert, normal mood/affect, oriented x 3, power is 5/5 both on sides Skin: No normal color, No warm/dry, No cyanosis, No cool, No diaphoresis, No damp, No ecchymosis, No jaundice, No mottled, No pallor, No rash, No tattoos/piercings, No ulcerations, No rash on exposed areas, No ulcerations on exposed areas, No other Results/Procedures: Labs Laboratory Tests 12/18/18 15:33: Glucometer 152H 12/18/18 21:32: Glucometer 187H 12/19/18 06:08: Glucometer 87 12/19/18 10:56: Glucometer 58*L Microbiology 12/16/18 Blood Culture - Preliminary, Resulted No growth A/P: Assessment/Dx: Cellulitis, requiring IV antibiotics, History of DVT, Atrial fibrillation on oral anticoagulation, CAD/CABG, Mild pulmonary hypertension, Dilated left atrium, Ischemic cardiomyopathy Plan: Cellulitis, requiring IV antibiotics, History of DVT, on warfarin. Therapeutic INR. Atrial fibrillation on oral anticoagulation, CAD/CABG, continue outpatient medication. Mild pulmonary hypertension, Dilated left atrium, Ischemic cardiomyopathy, echocardiogram done 12/17/2018 shows mildly reduce LV function. Continue outpatient medical therapy. No evidence of congestive heart failure. Thank you for your consultation. Please call me if you have any questions. Artie Ray MD, FACP, FACC, FSCAI, FHRS, CCDS Interventional Cardiology Cardiac Electrophysiology Vascular Medicine and Endovascular Interventions Focused Exam Lactate Level 12/16/18 16:18: Lactic Acid Level 1.14 Queta RAY MD Dec 19, 2018 12:50 pm
== END 2018-12-19 14:49 | disposition home or self-care (01) | DRG 603 ==
LOC: 4TH 15:48
PROVIDERS: ADMIT Internal Medicine; ATTEND Internal Medicine
DX: L03.311 Cellulitis of abdominal wall (principal); E87.2 Acidosis; E11.40 Type 2 diabetes mellitus with diabetic neuropathy, unspecified; I48.2 Chronic atrial fibrillation; I25.5 Ischemic cardiomyopathy; I10 Essential (primary) hypertension; G47.33 Obstructive sleep apnea (adult) (pediatric); I27.20 Pulmonary hypertension, unspecified; I25.10 Atherosclerotic heart disease of native coronary artery without angina pectoris; J44.9 Chronic obstructive pulmonary disease, unspecified; R60.0 Localized edema; E11.51 Type 2 diabetes mellitus with diabetic peripheral angiopathy without gangrene; E78.5 Hyperlipidemia, unspecified; M19.90 Unspecified osteoarthritis, unspecified site; Z79.4 Long term (current) use of insulin; Z87.891 Personal history of nicotine dependence; Z95.1 Presence of aortocoronary bypass graft; Z95.5 Presence of coronary angioplasty implant and graft; Z86.718 Personal history of other venous thrombosis and embolism; Z86.711 Personal history of pulmonary embolism; Z79.01 Long term (current) use of anticoagulants
CPT/HCPCS: 36415; 71045; 80053; 80202; 82962; 83605; 83880; 85025; 85610; 87040; 93005; 93306; 94760

== ENCOUNTER → 2019-05-05 | Outpatient (CLI) | payer MEDICARE, OTHER ==
[~2019-05-05] MED LIST changes: +ACET-2650 PO; +AMOX1TAB11 PO; +CHOL20003 PO; +FAMO20TA3 PO; +HYDR-3923 PO; +INSU100V SC; +INSU100V5 SC; +METO100T12 PO; +NYST15CR TOP; +POLY17PO31 PO; +RT-ALBUTEROL SULF 2.5 MG/3 ML PRE-MIX VIAL INH ONE; +RT-ALBUTEROL SULF 2.5 MG/3 ML PRE-MIX VIAL ONE; -TRAM50TA2 PO; +TRM50T PO
== END ==
LOC: RT 14:35
PROVIDERS: ATTEND Nurse Practitioner Family
DX: J98.4 Other disorders of lung (principal); J30.9 Allergic rhinitis, unspecified; J41.0 Simple chronic bronchitis
CPT/HCPCS: 94060; 94726; 94729

== ENCOUNTER → 2019-05-29 | Outpatient (CLI) | payer MEDICARE, OTHER ==
[~2019-05-29] MED LIST changes: -RT-ALBUTEROL SULF 2.5 MG/3 ML PRE-MIX VIAL INH ONE; -RT-ALBUTEROL SULF 2.5 MG/3 ML PRE-MIX VIAL ONE; +TRAM50TA2 PO; -TRM50T PO
--- NOTE | 2019-05-29 14:55 | Diagnostic Imaging Report ---
INDICATION: Screening for lung cancer, 10-utzu-lmiy history of smoking. COMPARISON: November 08, 2017 and October 03, 2011. TECHNIQUE: Multiple contiguous axial CT images were obtained through the chest without the use of intravenous contrast using low-dose screening protocol. Sagittal and coronal reformatted images were reviewed. All CT scans use one or more of the following dose optimizing techniques: Automated exposure control, MA and/or KvP adjustment based on a patient size and exam type, or iterative re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. FINDINGS: Postsurgical changes of a CABG. Calcified mediastinal and right hilar lymph nodes are present. No pathologically enlarged lymph nodes within the chest. The heart is within normal limits in size. No pericardial effusion. No pleural effusion. No pneumothorax. Minimal bibasilar scarring and/or atelectasis. The lungs are otherwise clear of focal pulmonary opacity or nodule. The airway is patent. Calcified splenic granuloma. Minimally visualized upper abdomen is otherwise unremarkable. Scattered osseous degenerative changes without acute osseous abnormality. IMPRESSION: No acute abnormality. Evidence of chronic granulomatous disease. No suspicious pulmonary opacity or nodule. Additional postsurgical and chronic findings as above. LUNG-RADS CATEGORY 1: Negative. MODIFIER: S: Chronic granulomatous disease. FOLLOW-UP: Continued annual screening with low-dose CT of the chest in one year. Dictated by: Dictated on workstation # [id number]
== END ==
LOC: RAD 13:44
PROVIDERS: ATTEND Nurse Practitioner Family
DX: Z12.2 Encounter for screening for malignant neoplasm of respiratory organs (principal); J98.4 Other disorders of lung; J30.9 Allergic rhinitis, unspecified; J41.0 Simple chronic bronchitis; M89.8X9 Other specified disorders of bone, unspecified site; D73.89 Other diseases of spleen; D71 Functional disorders of polymorphonuclear neutrophils; F17.210 Nicotine dependence, cigarettes, uncomplicated; Z95.1 Presence of aortocoronary bypass graft

== ENCOUNTER → 2019-06-01 | Outpatient (CLI) | payer MEDICARE, OTHER ==
[~2019-06-01] MED LIST changes: -TRAM50TA2 PO; +TRM50T PO
--- NOTE | 2019-06-01 13:13 | Diagnostic Imaging Report ---
INDICATION: Routine screening. COMPARISON: Comparison is made with prior mammograms of 05/30/2018 and 05/27/2017. 2-D and 3-D bilateral screening mammography was performed. The current study was also evaluated with a Computer Aided Detection (CAD) system. 3-D tomosynthesis was also performed and reviewed. FINDINGS: Scattered fibroglandular densities are identified bilaterally. There are benign calcifications scattered throughout both breasts. There is a fibronodular parenchymal pattern. No spiculated mass or malignant-appearing microcalcifications are seen. Axillae are unremarkable. IMPRESSION: No mammographic features suspicious for malignancy are identified. ACR BI-RADS Category 2: Benign findings. Result letter will be mailed to the patient. Note: At least 10% of breast cancer is not imaged by mammography. Dictated by: Dictated on workstation # [id number]
== END ==
LOC: RAD 10:32
PROVIDERS: ATTEND Internal Medicine
DX: Z12.31 Encounter for screening mammogram for malignant neoplasm of breast (principal)
CPT/HCPCS: 77067

== ENCOUNTER → 2020-02-16 | Outpatient (CLI) | payer MEDICARE, OTHER ==
[~2020-02-16] MED LIST changes: +MONT10TA26 PO; +WARF4TAB3 PO; -WARF4TAB70 PO
== END ==
LOC: LABNPT 06:04
PROVIDERS: ATTEND Nurse Practitioner Family
DX: Z01.812 Encounter for preprocedural laboratory examination (principal); Z20.828 Contact with and (suspected) exposure to other viral communicable diseases
CPT/HCPCS: 87635

== ENCOUNTER 2020-02-19 19:44 | Outpatient (CLI) | payer MEDICARE, OTHER | END 2020-02-20 06:45 | disposition home or self-care (01) | LOC: SLEEP 19:44 | PROVIDERS: ATTEND Nurse Practitioner Family | DX: G47.33 Obstructive sleep apnea (adult) (pediatric) (principal); G47.36 Sleep related hypoventilation in conditions classified elsewhere; J44.9 Chronic obstructive pulmonary disease, unspecified | CPT/HCPCS: 95811 ==

== ENCOUNTER → 2020-08-16 | Outpatient (CLI) | payer MEDICARE, OTHER ==
[~2020-08-16] MED LIST changes: +AMLO-250 PO; -AMLO5TAB9 PO; -MONT10TA26 PO; +MONT10TA32 PO; -POLY17PO31 PO; +POLY17PO54 PO
--- NOTE | 2020-08-16 09:54 | Diagnostic Imaging Report ---
PROCEDURE: US left lower extremity venous. TECHNIQUE: Multiple real-time grayscale images were obtained over the left lower extremity in various projections. Additional duplex Doppler and color Doppler images were also obtained. INDICATION: Left leg swelling The veins of the left leg have good color filling and compressibility. There is phasic flow and normal response to augmentation. There is a 5.3 x 1.8 x 1.7 cm Fritz's cyst in the popliteal fossa. IMPRESSION: Fritz's cyst. No sonographic evidence for deep vein thrombosis. Dictated by: Dictated on workstation # [id number]
--- NOTE | 2020-08-16 12:03 | Diagnostic Imaging Report ---
INDICATION: Routine screening. COMPARISON is made with prior mammograms of 06/01/2019 and 05/30/2018. 2-D and 3-D bilateral screening mammography was performed with CAD. Scattered fibroglandular densities are identified bilaterally. There are scattered benign calcifications. No mass or malignant appearing microcalcifications are seen. Axillae are unremarkable. IMPRESSION: BI-RADS Category 2 No mammographic features suspicious for malignancy are identified. ACR BI-RADS Category 2: Benign findings. Result letter will be mailed to the patient. Note: At least 10% of breast cancer is not imaged by mammography. \ Dictated by: Dictated on workstation # [id number]
== END ==
LOC: RAD 08:34
PROVIDERS: ATTEND Internal Medicine
DX: Z12.31 Encounter for screening mammogram for malignant neoplasm of breast (principal); M71.22 Synovial cyst of popliteal space [Baker], left knee; R60.0 Localized edema
CPT/HCPCS: 77063; 77067

== ENCOUNTER 2021-01-21 14:12 | Inpatient (IN) | payer MEDICARE ==
[~2021-01-21] VITALS: Ht 165.1 cm; Wt 94.0 kg
[2021-01-21] MEDS ORDERED: ACETAMINOPHEN 500 MG TAB (TYLENOL) PO PRN (14:30)
[2021-01-21] MEDS ORDERED: diphenhydrAMINE 25 MG TAB (BENADRYL) PO PRN (14:30)
[2021-01-21] MEDS ORDERED: VANCOMYCIN INJECTION 0.1 MG in NS (IVPB) 250 ML IV SCH (14:30)
[2021-01-21] MEDS ORDERED: ALPRAZolam 0.25 MG (XANAX) TAB PO PRN (14:30)
[2021-01-21] MEDS ORDERED: CALCIUM CARBONATE 500 MG (TUMS) TAB.CHEW PO PRN (14:30)
[2021-01-21] MEDS ORDERED: DOCUSATE SODIUM 100 MG (COLACE) CAP PO PRN (14:30)
[2021-01-21] MEDS ORDERED: ONDANSETRON 4 MG/2 ML (SDV) Z0FRAN IVP PRN (14:30)
[2021-01-21] MEDS ORDERED: LOPERAMIDE 2 MG (IMODIUM) TABLET PO PRN (14:30)
[2021-01-21] MEDS ORDERED: MELATONIN 3 MG TABLET PO PRN (14:30)
--- NOTE | 2021-01-21 15:01 | Consultation-Cardiology ---
HPI-Cardiology Cardiology Consultation: Date of Consultation 01/21/21 Time Seen by a Provider: 14:50 Date of Admission 01-21-21 Attending Physician Lesli Cabrera DO Admitting Physician Lesli Cabrera DO Consulting Physician Aminah Lopez MD HPI: Chief Complaint: LLE Cellulitis Ms. Moreno is a 80 yr old female direct admitted from Dr. Cabrera's office with increasing swelling, redness, warmth to LLE which has been progressive over the last several days. She denies any fever, but reports chills. No c/o CP or SOB. No c/o n/v/d. She reports she has been compliant with her OAC. She continues to smoke approx 1/2 PPD of cigs Review of Systems-Cardiology Review of Systems Constitutional: chills; No fever; tiredness Eyes: No vision change Ears/Nose/Throat: No epistaxis, No recent hearing loss Respiratory: As described under HPI Cardiovascular: As described under HPI Gastrointestinal: As described under HPI Genitourinary: No dysuria, No hematuria Skin: As described under HPI Psychiatric/Neurological: No focal weakness, No syncope Hematologic: As described under HPI [facility] Hx Patient Social History Former smoker/When Quit: September 29, 2011 2nd Hand Smoke Exposure: Yes Immunizations Up To Date Tetanus Booster (TDap): Unknown Date of Pneumonia Vaccine: Jan 05, 2015 Date of Influenza Vaccine: Feb 28, 2015 Past Medical History PMH As described under Assessment. Family Medical History Family Medical History: H/O father and mother both had CAD and HTN. Family History: CABG 19 FATHER Cardiovascular disease 19 FATHER 19 MOTHER Diabetes mellitus 19 MOTHER FH: lung cancer 19 FATHER FH: myocardial infarction 19 MOTHER Hypertension 19 FATHER 19 MOTHER Allergies and Home Medications Allergies Coded Allergies: erythromycin base (Verified Allergy, Intermediate, HIVES, 10/10/13) NSAIDS (Non-Steroidal Anti-Inflamma (Verified Allergy, Unknown, 01/10/17) cephalexin (Verified Allergy, Unknown, 10/10/13) Home Medications Acetaminophen 650 Mg Tablet.er, 1,300 MG PO Q8H, (Reported) Last Action: Converted Aspirin 81 Mg Tab.chew, 81 MG PO DAILY, (Reported) Last Action: Continued Benazepril HCl 40 Mg Tab, 40 MG PO DAILY, (Reported) Last Action: Converted Cholecalciferol (Vitamin D3) 50 Mcg Capsule, 50 MCG PO 1800, (Reported) Last Action: Converted Famotidine 20 Mg Tablet, 20 MG PO BID, (Reported) Last Action: Continued Fluticasone Propion/Salmeterol 1 Each Blst.w.dev, 1 PUFF INH DAILY, (Reported) Last Action: Converted Fluticasone Propionate 16 Gm [place].susp, 1 SPRAY NSEACH DAILY, (Reported) Last Action: Continued Furosemide 40 Mg Tablet, 40 MG PO DAILY, (Reported) Last Action: Continued Glipizide 5 Mg Tab.er.24, 5 MG PO BID, (Reported) Last Action: Continued Hydralazine HCl 50 Mg Tablet, 50 MG PO 0800,1200,1800, (Reported) Last Action: Converted Insulin Determir 1,000 Units/10 Ml Soln, 10-12 UNITS SC HS, (Reported) Last Action: Continued Ipratropium/Albuterol Sulfate 3 Ml Ampul.neb, 3 ML IH QID PRN for SHORTNESS OF BREATH, (Reported) Last Action: Continued Metoprolol Tartrate 100 Mg Tablet, 100 MG PO BID, (Reported) Last Action: Converted Montelukast Sodium 10 Mg Tablet, 10 MG PO HS, (Reported) Last Action: Continued Nystatin 15 Gm Cream..g., 1 APPLIC TOP BID PRN for RASH, (Reported) Last Action: Continued Polyethylene Glycol 3350 17 Gm Powd.pack, 17 GM PO DAILY, (Reported) Last Action: Continued Potassium Chloride 20 Meq Tab.er.prt, 20 MEQ PO DAILY, (Reported) Last Action: Continued Pravastatin Sodium 40 Mg Tablet, 20 MG PO BID, (Reported) TAKE 1/2 OF (40 MG) TABLET Last Action: Converted Warfarin Sodium 4 Mg Tablet, 4 MG PO 1800, (Reported) Last Action: Continued Physical Exam-Cardiology Physical Exam Vital Signs/I&O 01/22/21 01/22/21 01/22/21 01/22/21 00:34 04:00 08:00 08:28 Temp 37.0 36.8 36.7 Pulse 89 83 80 Resp 18 18 20 B/P (MAP) 123/60 (81) 137/65 (89) 122/74 (90) Pulse Ox 92 91 93 93 O2 Delivery Room Air Room Air Room Air Room Air 01/22/21 00:00 Intake Total 1790 ml Balance 1790 ml Capillary Refill : Constitutional: AAO x 3, well-developed, well-nourished HEENT: PERRL, hearing is well preserved, oral hygience is good Neck: No carotid bruit; carotid pulses are 2 + bilaterally Respiratory: No accessory muscle use, No respiratory distress; chest expansion is symmetric, chest is bilaterally symmetric, rhonchi (scattered) Cardiovascular: regular rate-rhythm; No JVD; S1 and S2 Gastrointestinal: No tender; soft, round, audible bowel sounds Extremities: other (LLE swelling, redness and warmth from ankle to knee) Neurologic/Psychiatric: grossly intact (moves all extremities) Skin: No ulcerations on exposed areas Data Review Labs Laboratory Tests 01/21/21 15:28: White Blood Count 8.5, Red Blood Count 4.11, Hemoglobin 12.5, Hematocrit 40, Mean Corpuscular Volume 96, Mean Corpuscular Hemoglobin 30, Mean Corpuscular Hemoglobin Concent 32, Red Cell Distribution Width 14.6H, Platelet Count 208, Mean Platelet Volume 11.0, Immature Granulocyte % (Auto) 1, Neutrophils (%) (Auto) 74, Lymphocytes (%) (Auto) 14, Monocytes (%) (Auto) 8, Eosinophils (%) (Auto) 2, Basophils (%) (Auto) 1, Neutrophils # (Auto) 6.3, Lymphocytes # (Auto) 1.2, Monocytes # (Auto) 0.7, Eosinophils # (Auto) 0.2, Basophils # (Auto) 0.1, Immature Granulocyte # (Auto) 0.0 01/21/21 16:10: Prothrombin Time 29.0H, INR Comment 2.7H, Sodium Level 143, Potassium Level 3.6, Chloride Level 112H, Carbon Dioxide Level 23, Anion Gap 8, Blood Urea Nitrogen 20H, Creatinine 0.85, Estimat Glomerular Filtration Rate 65, BUN/Creatinine Ratio 24, Glucose Level 81, Calcium Level 9.1, Corrected Calcium 9.3, Total Bilirubin 0.4, Aspartate Amino Transf (AST/SGOT) 13, Alanine Aminotransferase (ALT/SGPT) 15, Alkaline Phosphatase 63, Total Protein 6.3L, Albumin 3.7 01/21/21 16:41: Glucometer 73 01/21/21 21:12: Glucometer 98 01/21/21 21:13: Lactic Acid Level 0.82 01/22/21 05:30: White Blood Count 8.0, Red Blood Count 3.83, Hemoglobin 11.5, Hematocrit 37, Mean Corpuscular Volume 97, Mean Corpuscular Hemoglobin 30, Mean Corpuscular Hemoglobin Concent 31L, Red Cell Distribution Width 14.6H, Platelet Count 192, Mean Platelet Volume 10.9, Immature Granulocyte % (Auto) 0, Neutrophils (%) (Auto) 72, Lymphocytes (%) (Auto) 15, Monocytes (%) (Auto) 10, Eosinophils (%) (Auto) 3, Basophils (%) (Auto) 1, Neutrophils # (Auto) 5.7, Lymphocytes # (Auto) 1.2, Monocytes # (Auto) 0.8, Eosinophils # (Auto) 0.2, Basophils # (Auto) 0.1, Immature Granulocyte # (Auto) 0.0, Sodium Level 143, Potassium Level 3.9, Chloride Level 115H, Carbon Dioxide Level 21, Anion Gap 7, Blood Urea Nitrogen 13, Creatinine 0.77, Estimat Glomerular Filtration Rate 73, BUN/Creatinine Ratio 17, Glucose Level 103, Calcium Level 8.5, Corrected Calcium 9.1, Total Bilirubin 0.5, Aspartate Amino Transf (AST/SGOT) 11, Alanine Aminotransferase (ALT/SGPT) 13, Alkaline Phosphatase 54, Total Protein 5.5L, Albumin 3.2 01/22/21 05:35: Glucometer 101 A/P-Cardiology Assessment/Admission Diagnosis LLE Cellulitis - management per medical services Coronary artery disease: history of coronary artery bypass surgery and per cutaneous intervention. - Two entangled stents were lost to peripheral circulation and lodged in a small sub-branch of a branch of the right internal iliac artery and did not result in any untoward effect (February 2010). - Last cardiac cath was 12/24/16, following an abnormal MPI of 12/22/16. It showed [place] coronary artery disease consisting of mid vessel occlusion LAD, proximal occlusion of a proximal OM and moderate diffuse disease of other cors; widely patent stented area in the distal RCA; chronically occluded saphenous vein graft to distal RCA; patent saphenous vein graft to on OM left Cx; patent left internal mammary graft to distal LAD; LVEDP 20 mmHg; LVEF 50-55%; mild ant-lat hypokinesis Chronic bilateral leg swelling L >R - likely due to venous insufficiency vs lymphedema - worsened by amlodipine use (amlodipine d/c'd in Dec 2016) Deep venous thrombosis with large pulmonary embolism in early September 2011: - Chronic warfarin anticoagulation is being managed by Dr Cabrera. - U/S of left leg September 2013 showed no evidence of DVT DM 2: - managed by Dr. Cabrera. Tobaccoism: - ongoing, less than a pack a day, according to her - cessation advised Hyperlipidemia: - not well controlled. - The patient has had nonspecific statin intolerance, but has been able to tolerate pravastatin well - managed by Dr. Cabrera Chronic systolic/diastolic CHF: - currently clinically compensated - Echocardiogram of December 17, [address] Ray showed LVEF 45-50%. Akinesis of the basal anteroseptal myocardium. LA mod to severely dilated. PASP 34 mmHg Gastroesophageal reflux: - managed by her PCP Hypertension: - controlled Carotid dz: - Less than 40% ICA stenoses on carotid u/s of September 2018 Degenerative joint disease - managed by PCP COPD: - H/o bronchitis - managed by [facility] [place] [facility] Sleep apnea: - being treated with CPAP therapy. No AAA on a screening abd ao scan of 09/29/16 Obesity: - BMI approx 35 Renal cancer: - ablation at [facility] in November 2017, followed by her renal oncologist at [facility] Discussion and Recomendations LLE Cellulitis - management per medical services D/t known h/o DVT (although she is on chronic OAC with warfarin, managed by her PCP) we advise venous duplex to r/o DVT Management of warfarin per Dr. Cabrera (her PCP who manages it as an out pt) Continue home medications Monitor lab Further recs will be based on her hospital course We would like to thank Dr. Cabrera for this consult Clinical Quality Measures DVT/VTE Risk/Contraindication: Contraindications-Mechi: Other *list below* Other: cellulitis of leg JASON SALAZAR Jan 21, 2021 15:01
[2021-01-21] MEDS ORDERED: CATHETER FLUSH 10 ML SYR IV PRN (15:45)
[2021-01-21 15:52] LABS: BASOPHILS # (AUTO) 0.1 10^3/uL (0.0-0.1); BASOPHILS % (AUTO) 1 % (0-10); EOSINOPHILS # (AUTO) 0.2 10^3/uL (0.0-0.3); EOSINOPHILS % (AUTO) 2 % (0-10); HEMATOCRIT 40 % (35-52); HEMOGLOBIN 12.5 g/dL (11.5-16.0); LYMPHOCYTES # (AUTO) 1.2 10^3/uL (1.0-4.0); LYMPHOCYTES % (AUTO) 14 % (12-44); MEAN CORPUSCULAR HEMOGLOBIN 30 pg (25-34); MEAN CORPUSCULAR HGB CONC 32 g/dL (32-36); MEAN CORPUSCULAR VOLUME 96 fL (80-99); MONOCYTES # (AUTO) 0.7 10^3/uL (0.0-1.0); MONOCYTES % (AUTO) 8 % (0-12); NEUTROPHILS # (AUTO) 6.3 10^3/uL (1.8-7.8); NEUTROPHILS % (AUTO) 74 % (42-75); PLATELET COUNT 208 10^3/uL (130-400); WHITE BLOOD COUNT 8.5 10^3/uL (4.3-11.0)
[2021-01-21 16:00] VITALS: BP 156/79
[2021-01-21] MEDS ORDERED: VANCOMYCIN 2000 MG/NS 500 ML IVPB IV NR ×2 (16:00)
[2021-01-21] MEDS ORDERED: HYDR-3924 PO (16:04)
[2021-01-21] MEDS ORDERED: FLUT1BLS12 INH (16:04)
[2021-01-21] MEDS ORDERED: FLUT16SP22 NSEACH (16:04)
[2021-01-21] MEDS ORDERED: GLIP5TAB26 PO (16:04)
[2021-01-21] MEDS ORDERED: CHOL20002 PO (16:04)
--- NOTE | 2021-01-21 16:22 | Consultation-Cardiology ---
HPI-Cardiology Cardiology Consultation: Date of Consultation 01/21/21 Time Seen by a Provider: 15:15 Date of Admission Attending Physician Lesli Cabrera DO Admitting Physician Lesli Cabrera DO Consulting Physician FAITH NICHOLSON MD, MA, FACP, FACC, FSCAI, CCDS Physician requesting consult: Dr Cabrera HPI: Chief Complaint: CC: L leg redness, swelling and pain HPI Ms. Moreno is a 80 yr old female direct admitted from Dr. Cabrera's office with increasing swelling, redness, warmth to LLE which has been progressive over the last several days. She denies any fever, but reports chills. No c/o CP or SOB. No c/o n/v/d. She reports she has been compliant with her OAC. She continues to smoke approx 1/2 PPD of cigs Review of Systems-Cardiology Review of Systems Constitutional: chills; No fever; tiredness Eyes: No vision change Ears/Nose/Throat: No epistaxis, No recent hearing loss Respiratory: As described under HPI Cardiovascular: As described under HPI Gastrointestinal: As described under HPI Genitourinary: No dysuria, No hematuria Skin: As described under HPI Psychiatric/Neurological: No focal weakness, No syncope Hematologic: As described under HPI NTC-[place]uc[facility] Hx Patient Social History Smoking Status: Current Everyday Smoker Former smoker/When Quit: September 29, 2011 2nd Hand Smoke Exposure: Yes Have you traveled recently?: No Alcohol Use?: No Pt feels they are or have been: No Tobacco type used: Cigarettes Immunizations Up To Date Tetanus Booster (TDap): Unknown Date of Pneumonia Vaccine: Jan 05, 2015 Date of Influenza Vaccine: Feb 28, 2015 Past Medical History PMH As described under Assessment. Family Medical History Family Medical History: H/O father and mother both had CAD and HTN. Family History: CABG 19 FATHER Cardiovascular disease 19 FATHER 19 MOTHER Diabetes mellitus 19 MOTHER FH: lung cancer 19 FATHER FH: myocardial infarction 19 MOTHER Hypertension 19 FATHER 19 MOTHER Allergies and Home Medications Allergies Coded Allergies: erythromycin base (Verified Allergy, Intermediate, HIVES, 10/10/13) NSAIDS (Non-Steroidal Anti-Inflamma (Verified Allergy, Unknown, 01/10/17) cephalexin (Verified Allergy, Unknown, 10/10/13) Home Medications Acetaminophen 650 Mg Tablet.er, 1,300 MG PO Q8H, (Reported) Last Action: Reviewed Aspirin 81 Mg Tab.chew, 81 MG PO DAILY, (Reported) Last Action: Reviewed Benazepril HCl 40 Mg Tab, 40 MG PO DAILY, (Reported) Last Action: Reviewed Cholecalciferol (Vitamin D3) 50 Mcg Capsule, 50 MCG PO 1800, (Reported) Last Action: Reviewed Famotidine 20 Mg Tablet, 20 MG PO BID, (Reported) Last Action: Reviewed Fluticasone Propion/Salmeterol 1 Each Blst.w.dev, 1 PUFF INH DAILY, (Reported) Last Action: Reviewed Fluticasone Propionate 16 Gm [place].susp, 1 SPRAY NSEACH DAILY, (Reported) Last Action: Reviewed Furosemide 40 Mg Tablet, 40 MG PO DAILY, (Reported) Last Action: Reviewed Glipizide 5 Mg Tab.er.24, 5 MG PO BID, (Reported) Last Action: Reviewed Hydralazine HCl 50 Mg Tablet, 50 MG PO 0800,1200,1800, (Reported) Last Action: Reviewed Insulin Determir 1,000 Units/10 Ml Soln, 10-12 UNITS SC HS, (Reported) Last Action: Reviewed Ipratropium/Albuterol Sulfate 3 Ml Ampul.neb, 3 ML IH QID PRN for SHORTNESS OF BREATH, (Reported) Last Action: Reviewed Metoprolol Tartrate 100 Mg Tablet, 100 MG PO BID, (Reported) Last Action: Reviewed Montelukast Sodium 10 Mg Tablet, 10 MG PO HS, (Reported) Last Action: Reviewed Nystatin 15 Gm Cream..g., 1 APPLIC TOP BID PRN for RASH, (Reported) Last Action: Reviewed Polyethylene Glycol 3350 17 Gm Powd.pack, 17 GM PO DAILY, (Reported) Last Action: Reviewed Potassium Chloride 20 Meq Tab.er.prt, 20 MEQ PO DAILY, (Reported) Last Action: Reviewed Pravastatin Sodium 40 Mg Tablet, 20 MG PO BID, (Reported) TAKE 1/2 OF (40 MG) TABLET Last Action: Reviewed Warfarin Sodium 4 Mg Tablet, 4 MG PO 1800, (Reported) Last Action: Reviewed Patient Home Medication List Home Medication List Reviewed: Yes Physical Exam-Cardiology Physical Exam Vital Signs/I&O 01/21/21 15:19 O2 Delivery Room Air Capillary Refill : Constitutional: AAO x 3, well-developed, well-nourished HEENT: PERRL, hearing is well preserved, oral hygience is good Neck: No carotid bruit; carotid pulses are 2 + bilaterally Respiratory: No accessory muscle use, No respiratory distress; chest expansion is symmetric, chest is bilaterally symmetric, rhonchi (scattered) Cardiovascular: regular rate-rhythm; No JVD; S1 and S2 Gastrointestinal: No tender; soft, round, audible bowel sounds Extremities: other (LLE swelling, redness and warmth from ankle to knee) Neurologic/Psychiatric: grossly intact (moves all extremities) Skin: No ulcerations on exposed areas Data Review Labs Laboratory Tests 01/21/21 15:28: White Blood Count 8.5, Red Blood Count 4.11, Hemoglobin 12.5, Hematocrit 40, Mean Corpuscular Volume 96, Mean Corpuscular Hemoglobin 30, Mean Corpuscular Hemoglobin Concent 32, Red Cell Distribution Width 14.6H, Platelet Count 208, Mean Platelet Volume 11.0, Immature Granulocyte % (Auto) 1, Neutrophils (%) (Auto) 74, Lymphocytes (%) (Auto) 14, Monocytes (%) (Auto) 8, Eosinophils (%) (Auto) 2, Basophils (%) (Auto) 1, Neutrophils # (Auto) 6.3, Lymphocytes # (Auto) 1.2, Monocytes # (Auto) 0.7, Eosinophils # (Auto) 0.2, Basophils # (Auto) 0.1, Immature Granulocyte # (Auto) 0.0 A/P-Cardiology Assessment/Admission Diagnosis LLE Cellulitis - management per medical services Coronary artery disease: history of coronary artery bypass surgery and percutaneous intervention. - Two entangled stents were lost to peripheral circulation and lodged in a small sub-branch of a branch of the right internal iliac artery and did not result in any untoward effect (February 2010). - Last cardiac cath was 12/24/16, following an abnormal MPI of 12/22/16. It showed [place] coronary artery disease consisting of mid vessel occlusion LAD, proximal occlusion of a proximal OM and moderate diffuse disease of other cors; widely patent stented area in the distal RCA; chronically occluded saphenous vein graft to distal RCA; patent saphenous vein graft to on OM left Cx; patent left internal mammary graft to distal LAD; LVEDP 20 mmHg; LVEF 50-55%; mild ant-lat hypokinesis Chronic bilateral leg swelling L >R - likely due to venous insufficiency vs lymphedema - worsened by amlodipine use (amlodipine d/c'd in Dec 2016) Deep venous thrombosis with large pulmonary embolism in early September 2011: - Chronic warfarin anticoagulation is being managed by Dr Cabrera. - U/S of left leg September 2013 showed no evidence of DVT DM 2: - managed by Dr. Cabrera. Tobaccoism: - ongoing, less than a pack a day, according to her - cessation advised Hyperlipidemia: - not well controlled. - The patient has had nonspecific statin intolerance, but has been able to tolerate pravastatin well - managed by Dr. Cabrera Chronic systolic/diastolic CHF: - currently clinically compensated - Echocardiogram of December 17, [address] Ray showed LVEF 45-50%. Akinesis of the basal anteroseptal myocardium. LA mod to severely dilated. PASP 34 mmHg Gastroesophageal reflux: - managed by her PCP Hypertension: - controlled Carotid dz: - Less than 40% ICA stenoses on carotid u/s of September 2018 Degenerative joint disease - managed by PCP COPD: - H/o bronchitis - managed by [facility] Sleep apnea: - being treated with CPAP therapy. No AAA on a screening abd ao scan of 09/29/16 Obesity: - BMI approx 35 Renal cancer: - ablation at [facility] in November 2017, followed by her renal oncologist at [facility] Discussion and Recomendations LLE Cellulitis - management per medical services D/t known h/o DVT (although she is on chronic OAC with warfarin, managed by her PCP) we advise venous duplex to r/o DVT Management of warfarin per Dr. Cabrera (her PCP who manages it as an out pt) Continue home medications Monitor lab Further recs will be based on her hospital course We would like to thank Dr. Cabrera for this consult Clinical Quality Measures DVT/VTE Risk/Contraindication: Contraindications-Mechi: Other *list below* Other: cellulitis of leg FAITH NICHOLSON MD FACP FAC CCDS Jan 21, 2021 16:22
--- NOTE | 2021-01-21 16:25 | Diagnostic Imaging Report ---
INDICATION: Left leg pain. Left leg venous Doppler study was performed in the routine fashion with color flow Doppler and waveform analysis. FINDINGS: The left common femoral vein, superficial femoral vein, popliteal vein and visualized portion of the posterior tibial vein show normal compressibility and venous flow patterns. There is normal augmentation. IMPRESSION: No evidence of deep vein thrombosis of the major veins of the left leg. Dictated by: Dictated on workstation # [id number]
[2021-01-21 17:08] LABS: ALBUMIN 3.7 GM/DL (3.2-4.5)
[2021-01-21 17:09] LABS: POTASSIUM 3.6 MMOL/L (3.6-5.0)
[2021-01-21 17:10] LABS: CALCIUM 9.1 MG/DL (8.5-10.1); INR 2.7 (0.8-1.4)
[2021-01-21 17:11] LABS: TOTAL PROTEIN 6.3 GM/DL (6.4-8.2)
[2021-01-21 17:13] LABS: BILIRUBIN,TOTAL 0.4 MG/DL (0.1-1.0)
[2021-01-21 17:15] LABS: CREATININE SERUM 0.85 MG/DL (0.60-1.30)
[2021-01-21] MEDS: CEFEPIME INJECTION 1,000 MG in WATER (STERILE) FOR INJECTION 10 ML IV SCH (18:17)
--- NOTE | 2021-01-21 19:43 | Consultation - Surgery ---
History of Present Illness History of Present Illness Patient Consulted On(zenaida/time) 01/21/21 19:37 Date Seen by Provider: Jan 21, 2021 Time Seen by Provider: 19:38 History of Present Illness Consult requested by Dr. Cabrera for lle cellulitis. Patient is a 80 year old female with increased swelling and erythema to the left lower extremity. Moderated pain/discomfort to the left leg. Increasing warmth to the left lower extremity. States has had multiple issues with the leg since last February. Nothing has made it better, movement of the leg makes worse. Patient was seen in Dr. Pires clinic and direct admitted. She had a venous Doppler demonstrating no evidenced of DVT. Allergies and Home Medications Allergies Coded Allergies: erythromycin base (Verified Allergy, Intermediate, HIVES, 10/10/13) NSAIDS (Non-Steroidal Anti-Inflamma (Verified Allergy, Unknown, 01/10/17) cephalexin (Verified Allergy, Unknown, 10/10/13) Home Medications Acetaminophen 650 Mg Tablet.er, 1,300 MG PO Q8H, (Reported) Last Action: Reviewed Aspirin 81 Mg Tab.chew, 81 MG PO DAILY, (Reported) Last Action: Reviewed Benazepril HCl 40 Mg Tab, 40 MG PO DAILY, (Reported) Last Action: Reviewed Cholecalciferol (Vitamin D3) 50 Mcg Capsule, 50 MCG PO 1800, (Reported) Last Action: Reviewed Famotidine 20 Mg Tablet, 20 MG PO BID, (Reported) Last Action: Reviewed Fluticasone Propion/Salmeterol 1 Each Blst.w.dev, 1 PUFF INH DAILY, (Reported) Last Action: Reviewed Fluticasone Propionate 16 Gm [place].susp, 1 SPRAY NSEACH DAILY, (Reported) Last Action: Reviewed Furosemide 40 Mg Tablet, 40 MG PO DAILY, (Reported) Last Action: Reviewed Glipizide 5 Mg Tab.er.24, 5 MG PO BID, (Reported) Last Action: Reviewed Hydralazine HCl 50 Mg Tablet, 50 MG PO 0800,1200,1800, (Reported) Last Action: Reviewed Insulin Determir 1,000 Units/10 Ml Soln, 10-12 UNITS SC HS, (Reported) Last Action: Reviewed Ipratropium/Albuterol Sulfate 3 Ml Ampul.neb, 3 ML IH QID PRN for SHORTNESS OF BREATH, (Reported) Last Action: Reviewed Metoprolol Tartrate 100 Mg Tablet, 100 MG PO BID, (Reported) Last Action: Reviewed Montelukast Sodium 10 Mg Tablet, 10 MG PO HS, (Reported) Last Action: Reviewed Nystatin 15 Gm Cream..g., 1 APPLIC TOP BID PRN for RASH, (Reported) Last Action: Reviewed Polyethylene Glycol 3350 17 Gm Powd.pack, 17 GM PO DAILY, (Reported) Last Action: Reviewed Potassium Chloride 20 Meq Tab.er.prt, 20 MEQ PO DAILY, (Reported) Last Action: Reviewed Pravastatin Sodium 40 Mg Tablet, 20 MG PO BID, (Reported) TAKE 1/2 OF (40 MG) TABLET Last Action: Reviewed Warfarin Sodium 4 Mg Tablet, 4 MG PO 1800, (Reported) Last Action: Reviewed Patient Home Medication List Home Medication List Reviewed: Yes Past Bqolzne-Mkpcwz-Yvbley Hx Patient Social History Smoking Status: Current Everyday Smoker Type Used: Cigarettes 2nd Hand Smoke Exposure: Yes Recent Hopitalizations: No Alcohol Use?: No Have you traveled recently?: No Immunizations Up To Date Tetanus Booster (TDap): Unknown PED Vaccines UTD: Yes Date of Pneumonia Vaccine: Jan 05, 2015 Date of Influenza Vaccine: Feb 28, 2015 Seasonal Allergies Seasonal Allergies: Yes Surgeries History of Surgeries: Yes Surgeries: Appendectomy, Bladder Surgery, CABG, Coronary Stent, Gallbladder, Hysterectomy, Rectal Respiratory History of Respiratory Disorde: Yes Respiratory Disorders: Asthma, COPD Cardiovascular History of Cardiac Disorders: Yes Cardiac Disorders: Atrial Fibrillation, Chronic Edema/Swelling, Coronary Artery Disease, Deep Vein Thrombosis, High Cholesterol, Hypertension Neurological History of Neurological Disord: No Neurological Disorders: Neuropathy Reproductive System Hx Reproductive Disorders: No Sexually Transmitted Disease: No HIV/AIDS: No 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 Disorders: Endometriosis [employer] History: Menopausal Genitourinary History of Genitourinary Disor: No Genitourinary Disorders: Bladder Infection Gastrointestinal History of Gastrointestinal Di: No Gastrointestinal Disorders: Diverticulosis Musculoskeletal History of Musculoskeletal Dis: Yes Musculoskeletal Disorders: Arthritis Endocrine History of Endocrine Disorders: Yes Endocrine Disorders: Diabetes, Insulin dep, Diabetes, Non-Insulin dep HEENT History of HEENT Disorders: No HEENT Disorders: Cataract Loss of Vision: Denies Hearing Impairment: Denies Cancer History of Cancer: No Cancer: Skin, Kidney Psychosocial History of Psychiatric Problem: No Integumentary History of Skin or Integumenta: No Blood Transfusions History of Blood Disorders: No Adverse Reaction to a Blood Tr: No Reviewed Nursing Assessment Reviewed/Agree w Nursing PMH: Yes Family Medical History Significant Family History: Heart Disease, Diabetes, Hypertension Family Medial History: CABG 19 FATHER Cardiovascular disease 19 FATHER 19 MOTHER Diabetes mellitus 19 MOTHER FH: lung cancer 19 FATHER FH: myocardial infarction 19 MOTHER Hypertension 19 FATHER 19 MOTHER Review of Systems-General Constitutional: No chills, No diaphoresis EENTM: No blurred vision, No double vision Respiratory: No dyspnea on exertion, No short of breath Cardiovascular: No chest pain, No palpitations Gastrointestinal: No abdominal pain, No nausea, No vomiting Genitourinary: No decreased output, No discharge Musculoskeletal: No gout, No joint pain Skin: change in color (lle); No change in hair/nails Psychiatric/Neurological: Denies Anxiety, Denies Depressed, Denies Emotional Problems All Other Systems Reviewed Negative Unless Noted: Yes (Negative excepted noted.) Physical Exam-General Problems Physical Exam Vital Signs Vital Signs - First Documented 01/21/21 01/21/21 15:19 16:00 Temp 36.6 Pulse 69 Resp 18 B/P (MAP) 156/79 (104) Pulse Ox 93 O2 Delivery Room Air Capillary Refill : General Appearance: WD/WN, no apparent distress HEENT: PERRL/EOMI, normal ENT inspection Neck: non-tender, supple, normal inspection Respiratory: chest non-tender, no respiratory distress, no accessory muscle use Cardiovascular: regular rate, rhythm, no JVD Gastrointestinal: normal bowel sounds, non tender, soft, no organomegaly Rectal: deferred Back: no CVA tenderness, no vertebral tenderness Extremities: swelling (lle) Neurologic/Psychiatric: alert, normal mood/affect, oriented x 3 Skin: No normal color; warm/dry, other (erythema and warmth LLE) Lymphatic: no adenopathy Data Review Labs Laboratory Tests 01/21/21 15:28: White Blood Count 8.5, Red Blood Count 4.11, Hemoglobin 12.5, Hematocrit 40, Mean Corpuscular Volume 96, Mean Corpuscular Hemoglobin 30, Mean Corpuscular Hemoglobin Concent 32, Red Cell Distribution Width 14.6H, Platelet Count 208, Mean Platelet Volume 11.0, Immature Granulocyte % (Auto) 1, Neutrophils (%) (Auto) 74, Lymphocytes (%) (Auto) 14, Monocytes (%) (Auto) 8, Eosinophils (%) (Auto) 2, Basophils (%) (Auto) 1, Neutrophils # (Auto) 6.3, Lymphocytes # (Auto) 1.2, Monocytes # (Auto) 0.7, Eosinophils # (Auto) 0.2, Basophils # (Auto) 0.1, Immature Granulocyte # (Auto) 0.0 01/21/21 16:10: Prothrombin Time 29.0H, INR Comment 2.7H, Sodium Level 143, Potassium Level 3.6, Chloride Level 112H, Carbon Dioxide Level 23, Anion Gap 8, Blood Urea Nitrogen 20H, Creatinine 0.85, Estimat Glomerular Filtration Rate 65, BUN/Creatinine Ratio 24, Glucose Level 81, Calcium Level 9.1, Corrected Calcium 9.3, Total Bilirubin 0.4, Aspartate Amino Transf (AST/SGOT) 13, Alanine Aminotransferase (ALT/SGPT) 15, Alkaline Phosphatase 63, Total Protein 6.3L, Albumin 3.7 01/21/21 16:41: Glucometer 73 Assessment/Plan Assessment/Plan Assessment/Plan LLE cellulitis LLE pain IV abx doppler negative elevate leg do not feel their is an abscess, monitor Clinical Quality Measures DVT/VTE Risk/Contraindication: Contraindications-Mechi: Other *list below* Other: cellulitis of leg HAI RANKIN DO Jan 21, 2021 19:43
[2021-01-21 19:55] VITALS: BP 156/79
[2021-01-21 20:00] VITALS: BP 148/68
[2021-01-21] MEDS ORDERED: RT-ALBUTEROL/IPRATROPIUM 3 ML (DUONEB) VIAL INH PRN (20:00)
[2021-01-21] MEDS ORDERED: RT-ALBUTEROL/IPRATROPIUM 3 ML (DUONEB) VIAL IH PRN (21:00)
[2021-01-21] MEDS ORDERED: NYSTATIN CREAM (MYCOSTATIN) 30 GM TUBE TP PRN (21:00)
[2021-01-21] MEDS: inSUlin ASPART (NovoLOG) 1 UNIT/0.01 ML (CHARGE PER UNIT) SC SCH (21:54)
[2021-01-21] MEDS: polyethylene glycoL POWDER 17 GM (MIRALAX) PACK PO SCH (22:11)
[2021-01-21] MEDS: SENNA W/DOCUSATE (SENOKOT S) TABLET PO SCH (22:11)
[2021-01-21] MEDS: NON-FORMULARY MEDICATION 1 EA EA (Acetaminophen (Tylenol Arthritis) 1,300 MG) PO SCH (22:13)
[2021-01-21] MEDS: MONTELUKAST 10 MG (SINGULAIR) TAB PO SCH (22:15)
[2021-01-21] MEDS: FAMOTIDINE 20 MG (PEPCID) TABLET PO SCH (22:15)
[2021-01-21] MEDS: CATHETER FLUSH 10 ML SYR IV SCH (22:16)
[2021-01-22] VITALS (7 sets, daily range): BP systolic 100–152; BP diastolic 51–74
[2021-01-22] MEDS: CEFEPIME INJECTION 1,000 MG in WATER (STERILE) FOR INJECTION 10 ML IV SCH ×4 (00:48→18:50)
[2021-01-22] MEDS: inSUlin ASPART (NovoLOG) 1 UNIT/0.01 ML (CHARGE PER UNIT) SC SCH ×4 (05:38→20:43)
[2021-01-22] MEDS: NON-FORMULARY MEDICATION 1 EA EA (Acetaminophen (Tylenol Arthritis) 1,300 MG) PO SCH (05:39)
[2021-01-22 05:41] LABS: BASOPHILS # (AUTO) 0.1 10^3/uL (0.0-0.1); BASOPHILS % (AUTO) 1 % (0-10); EOSINOPHILS # (AUTO) 0.2 10^3/uL (0.0-0.3); EOSINOPHILS % (AUTO) 3 % (0-10); HEMATOCRIT 37 % (35-52); HEMOGLOBIN 11.5 g/dL (11.5-16.0); LYMPHOCYTES # (AUTO) 1.2 10^3/uL (1.0-4.0); LYMPHOCYTES % (AUTO) 15 % (12-44); MEAN CORPUSCULAR HEMOGLOBIN 30 pg (25-34); MEAN CORPUSCULAR HGB CONC 31 g/dL (32-36); MEAN CORPUSCULAR VOLUME 97 fL (80-99); MEAN PLATELET VOLUME 10.9 fL (9.0-12.2); MONOCYTES # (AUTO) 0.8 10^3/uL (0.0-1.0); MONOCYTES % (AUTO) 10 % (0-12); NEUTROPHILS # (AUTO) 5.7 10^3/uL (1.8-7.8); NEUTROPHILS % (AUTO) 72 % (42-75); PLATELET COUNT 192 10^3/uL (130-400)
[2021-01-22 05:51] LABS: ALBUMIN 3.2 GM/DL (3.2-4.5); POTASSIUM 3.9 MMOL/L (3.6-5.0)
[2021-01-22 05:52] LABS: CALCIUM 8.5 MG/DL (8.5-10.1)
[2021-01-22 05:53] LABS: TOTAL PROTEIN 5.5 GM/DL (6.4-8.2)
[2021-01-22 05:55] LABS: BILIRUBIN,TOTAL 0.5 MG/DL (0.1-1.0)
[2021-01-22 05:57] LABS: CREATININE SERUM 0.77 MG/DL (0.60-1.30)
[2021-01-22] MEDS: glipiZIDE XL 5 MG (GLUCOTROL XL) TAB PO SCH ×2 (06:38→16:12)
[2021-01-22] MEDS: CATHETER FLUSH 10 ML SYR IV SCH ×3 (06:40→22:00)
[2021-01-22] MEDS: HYDROcodone/APAP 5 MG/325 MG (LORTAB) TAB PO PRN (06:54)
--- NOTE | 2021-01-22 07:48 | Progress Note - Surgery ---
PAYAM HERRERA 01/22/21 0748: Subjective Date Seen by a Provider: Jan 22, 2021 Time Seen by a Provider: 07:42 Subjective/Events-last exam Patient states her leg isn't bothering her as much this morning. Her leg and foot look less swollen today. Leg feels less hot to the touch, but still warm compared to RLE. The erythema hasn't progressed past the margins drawn yesterday. Patient states leg feels less "tight" as the swelling as gone down. Patient denies N/V, abdominal pain, and shortness of breath. Review of Systems General: No Chills Pulmonary: No Dyspnea Gastrointestinal: No: Nausea, Vomiting Musculoskeletal: leg pain (LLE; bothers her less than yesterday) Neurological: No: Numbness Focused Exam Lactate Level 01/21/21 21:13: Lactic Acid Level 0.82 Objective Exam Vital Signs Date Time Temp Pulse Resp B/P (MAP) Pulse Ox O2 Delivery O2 Flow Rate FiO2 01/22/21 04:00 36.8 83 18 137/65 (89) 91 Room Air 01/22/21 00:34 37.0 89 18 123/60 (81) 92 Room Air 01/21/21 20:10 Room Air 01/21/21 20:00 36.9 80 18 148/68 (94) 94 Room Air 01/21/21 19:55 36.6 69 93 21 01/21/21 16:00 36.6 69 18 156/79 (104) 93 Room Air 01/21/21 15:19 Room Air I & O 01/22/21 07:00 Intake Total 2040 ml Balance 2040 ml Capillary Refill : General Appearance: No Apparent Distress, WD/WN HEENT: PERRL/EOMI Neck: Normal Inspection, Non Tender Respiratory: Chest Non Tender, Lungs Clear, No Accessory Muscle Use, No Respiratory Distress Cardiovascular: Regular Rate, Rhythm, Normal Peripheral Pulses Gastrointestinal: normal bowel sounds, non tender, soft, no organomegaly Extremity: Non Tender, Inflammation (LLE), Swelling (LLE) Neurologic/Psychiatric: Alert, Oriented x3, Normal Mood/Affect Skin: Normal Color, Warm/Dry, Erythema (LLE) Lymphatic: No Adenopathy Results Lab Laboratory Tests 01/21/21 15:28: White Blood Count 8.5, Red Blood Count 4.11, Hemoglobin 12.5, Hematocrit 40, Mean Corpuscular Volume 96, Mean Corpuscular Hemoglobin 30, Mean Corpuscular Hemoglobin Concent 32, Red Cell Distribution Width 14.6H, Platelet Count 208, Mean Platelet Volume 11.0, Immature Granulocyte % (Auto) 1, Neutrophils (%) (Auto) 74, Lymphocytes (%) (Auto) 14, Monocytes (%) (Auto) 8, Eosinophils (%) (Auto) 2, Basophils (%) (Auto) 1, Neutrophils # (Auto) 6.3, Lymphocytes # (Auto) 1.2, Monocytes # (Auto) 0.7, Eosinophils # (Auto) 0.2, Basophils # (Auto) 0.1, Immature Granulocyte # (Auto) 0.0 01/21/21 16:10: Prothrombin Time 29.0H, INR Comment 2.7H, Sodium Level 143, Potassium Level 3.6, Chloride Level 112H, Carbon Dioxide Level 23, Anion Gap 8, Blood Urea Nitrogen 20H, Creatinine 0.85, Estimat Glomerular Filtration Rate 65, BUN/Creatinine Ratio 24, Glucose Level 81, Calcium Level 9.1, Corrected Calcium 9.3, Total Bilirubin 0.4, Aspartate Amino Transf (AST/SGOT) 13, Alanine Aminotransferase (ALT/SGPT) 15, Alkaline Phosphatase 63, Total Protein 6.3L, Albumin 3.7 01/21/21 16:41: Glucometer 73 01/21/21 21:12: Glucometer 98 01/21/21 21:13: Lactic Acid Level 0.82 01/22/21 05:30: White Blood Count 8.0, Red Blood Count 3.83, Hemoglobin 11.5, Hematocrit 37, Mean Corpuscular Volume 97, Mean Corpuscular Hemoglobin 30, Mean Corpuscular Hemoglobin Concent 31L, Red Cell Distribution Width 14.6H, Platelet Count 192, Mean Platelet Volume 10.9, Immature Granulocyte % (Auto) 0, Neutrophils (%) (Auto) 72, Lymphocytes (%) (Auto) 15, Monocytes (%) (Auto) 10, Eosinophils (%) (Auto) 3, Basophils (%) (Auto) 1, Neutrophils # (Auto) 5.7, Lymphocytes # (Auto) 1.2, Monocytes # (Auto) 0.8, Eosinophils # (Auto) 0.2, Basophils # (Auto) 0.1, Immature Granulocyte # (Auto) 0.0, Sodium Level 143, Potassium Level 3.9, C hloride Level 115H, Carbon Dioxide Level 21, Anion Gap 7, Blood Urea Nitrogen 13, Creatinine 0.77, Estimat Glomerular Filtration Rate 73, BUN/Creatinine Ratio 17, Glucose Level 103, Calcium Level 8.5, Corrected Calcium 9.1, Total Bilirubin 0.5, Aspartate Amino Transf (AST/SGOT) 11, Alanine Aminotransferase (ALT/SGPT) 13, Alkaline Phosphatase 54, Total Protein 5.5L, Albumin 3.2 01/22/21 05:35: Glucometer 101 Assessment/Plan Assessment/Plan Assessment/Plan Assessment: LLE cellulitis LLE pain Plan: Continue IV abx elevate leg Doppler findings negative Continue to monitor LLE - do not feel there is an abscess at this time Clinical Quality Measures DVT/VTE Risk/Contraindication: Contraindications-Mechi: Other *list below* Other: cellulitis of leg GRAYSONMISBAH YING Tammie DO 01/22/21 1308: Subjective Subjective/Events-last exam Leg feeling better. Swelling and redness down some she states. Still with some tenderness but overall improved. Denies any other new complaints, denies n/v fever sweats chills shortness of breath or chest pain. Objective Exam General Appearance: No Apparent Distress, WD/WN HEENT: PERRL/EOMI Neck: Normal Inspection, Non Tender Respiratory: Chest Non Tender, No Accessory Muscle Use, No Respiratory Distress Cardiovascular: Regular Rate, Rhythm, No JVD Gastrointestinal: non tender, soft Extremity: Non Tender, Inflammation (LLE less), Swelling (LLE less) Neurologic/Psychiatric: Alert, Oriented x3, Normal Mood/Affect Skin: Normal Color, Warm/Dry, Erythema (LLE less) Lymphatic: No Adenopathy Assessment/Plan Assessment/Plan Assessment/Plan LLE cellulitis LLE pain Plan: Continue IV abx elevate leg Doppler findings negative Continue to monitor LLE - do not feel there is an abscess at this time Supervisory-Addendum Brief Verification & Attestation Participated in pt care: history, MDM, physical Personally performed: exam, history, MDM, supervision of care Care discussed with: Medical Student Procedures: n/a Results interpretation: Verified all documentation Verification and Attestation of Medical Student E/M Service A medical student performed and documented this service in my presence. I reviewed and verified all information documented by the medical student and made modifications to such information, when appropriate. I personally performed the physical exam and medical decision making. Misbah Grayson, Jan 22, 2021,13:08 PAYAM HERRERA Jan 22, 2021 07:48 MISBAH GRAYSON DO Jan 22, 2021 13:08
[2021-01-22] MEDS ORDERED: hydrALAZINE (APESOLINE) 20 MG/ML VIAL ONE (08:05)
[2021-01-22] MEDS: KCL 20 MEQ TAB (K-DUR) PO SCH (08:14)
[2021-01-22] MEDS: FAMOTIDINE 20 MG (PEPCID) TABLET PO SCH ×2 (08:14→20:55)
[2021-01-22] MEDS: SENNA W/DOCUSATE (SENOKOT S) TABLET PO SCH ×2 (08:14→20:42)
[2021-01-22] MEDS: lisINopril 40 MG (PRINIVIL) TABLET PO SCH (08:14)
[2021-01-22] MEDS: hydrALAZINE (APRESOLINE) 25 MG TAB PO SCH ×3 (08:14→18:51)
[2021-01-22] MEDS: ASPIRIN 81 MG CHEW (CHILDREN'S ASA) PO SCH (08:14)
[2021-01-22] MEDS: polyethylene glycoL POWDER 17 GM (MIRALAX) PACK PO SCH ×2 (08:14→20:42)
[2021-01-22] MEDS: FUROSEMIDE 40 MG (LASIX) TAB PO SCH (08:15)
[2021-01-22] MEDS: meTOprolol TARTRATE 50 MG (LOPRESSOR) TAB PO SCH ×2 (08:15→20:54)
[2021-01-22] MEDS: FLUTICASONE NASAL SPRAY (FLONASE) 16 GM BTL NS SCH (08:22)
[2021-01-22] MEDS ORDERED: polyethylene glycoL POWDER 17 GM (MIRALAX) PACK PO SCH (09:00)
--- NOTE | 2021-01-22 09:49 | Progress Note - Cardiology ---
Cardiology SOAP Progress Note Subjective: Sitting up in bed Feels discomfort, redness and swelling to LLE is improving No c/o CP, palpitations or SOB Objective: I&O/Vital Signs 01/22/21 01/22/21 01/22/21 01/22/21 00:34 04:00 08:00 08:28 Temp 37.0 36.8 36.7 Pulse 89 83 80 Resp 18 18 20 B/P (MAP) 123/60 (81) 137/65 (89) 122/74 (90) Pulse Ox 92 91 93 93 O2 Delivery Room Air Room Air Room Air Room Air 01/22/21 00:00 Intake Total 1790 ml Balance 1790 ml Weight (Pounds): 212 Weight (Ounces): 8.0 Weight (Calculated Kilograms): 96.605532 Constitutional: AAO x 3, well-developed, well-nourished Respiratory: No accessory muscle use, No respiratory distress; chest expansion is symmetric, chest is bilaterally symmetric, rhonchi (scattered) Cardiovascular: regular rate-rhythm; No JVD; S1 and S2 Gastrointestional: No tender; soft, round, audible bowel sounds Extremities: other (LLE swelling, redness and warmth from ankle to knee) Neurologic/Psychiatric: grossly intact (moves all extremities) Skin: No ulcerations on exposed areas Results/Procedures: Labs Laboratory Tests 01/21/21 15:28: White Blood Count 8.5, Red Blood Count 4.11, Hemoglobin 12.5, Hematocrit 40, Mean Corpuscular Volume 96, Mean Corpuscular Hemoglobin 30, Mean Corpuscular Hemoglobin Concent 32, Red Cell Distribution Width 14.6H, Platelet Count 208, Mean Platelet Volume 11.0, Immature Granulocyte % (Auto) 1, Neutrophils (%) (Auto) 74, Lymphocytes (%) (Auto) 14, Monocytes (%) (Auto) 8, Eosinophils (%) (Auto) 2, Basophils (%) (Auto) 1, Neutrophils # (Auto) 6.3, Lymphocytes # (Auto) 1.2, Monocytes # (Auto) 0.7, Eosinophils # (Auto) 0.2, Basophils # (Auto) 0.1, Immature Granulocyte # (Auto) 0.0 01/21/21 16:10: Prothrombin Time 29.0H, INR Comment 2.7H, Sodium Level 143, Potassium Level 3.6, Chloride Level 112H, Carbon Dioxide Level 23, Anion Gap 8, Blood Urea Nitrogen 20H, Creatinine 0.85, Estimat Glomerular Filtration Rate 65, BUN/Creatinine Ratio 24, Glucose Level 81, Calcium Level 9.1, Corrected Calcium 9.3, Total Bilirubin 0.4, Aspartate Amino Transf (AST/SGOT) 13, Alanine Aminotransferase (ALT/SGPT) 15, Alkaline Phosphatase 63, Total Protein 6.3L, Albumin 3.7 01/21/21 16:41: Glucometer 73 01/21/21 21:12: Glucometer 98 01/21/21 21:13: Lactic Acid Level 0.82 01/22/21 05:30: White Blood Count 8.0, Red Blood Count 3.83, Hemoglobin 11.5, Hematocrit 37, Mean Corpuscular Volume 97, Mean Corpuscular Hemoglobin 30, Mean Corpuscular Hemoglobin Concent 31L, Red Cell Distribution Width 14.6H, Platelet Count 192, Mean Platelet Volume 10.9, Immature Granulocyte % (Auto) 0, Neutrophils (%) (Auto) 72, Lymphocytes (%) (Auto) 15, Monocytes (%) (Auto) 10, Eosinophils (%) (Auto) 3, Basophils (%) (Auto) 1, Neutrophils # (Auto) 5.7, Lymphocytes # (Auto) 1.2, Monocytes # (Auto) 0.8, Eosinophils # (Auto) 0.2, Basophils # (Auto) 0.1, Immature Granulocyte # (Auto) 0.0, Sodium Level 143, Potassium Level 3.9, Chloride Level 115H, Carbon Dioxide Level 21, Anion Gap 7, Blood Urea Nitrogen 13, Creatinine 0.77, Estimat Glomerular Filtration Rate 73, BUN/Creatinine Ratio 17, Glucose Level 103, Calcium Level 8.5, Corrected Calcium 9.1, Total Bilirubin 0.5, Aspartate Amino Transf (AST/SGOT) 11, Alanine Aminotransferase (ALT/SGPT) 13, Alkaline Phosphatase 54, Total Protein 5.5L, Albumin 3.2 01/22/21 05:35: Glucometer 101 Procedures NAME: NATALIIA RAMIRES REC#: [id number] PT STATUS: ADM IN : 1940 PHYSICIAN: JASON SALAZAR ADMIT DATE: 01/21/21 Signed Date of Exam:01/21/21 US VENOUS LOWER EXT LT INDICATION: Left leg pain. Left leg venous Doppler study was performed in the routine fashion with color flow Doppler and waveform analysis. FINDINGS: The left common femoral vein, superficial femoral vein, popliteal vein and visualized portion of the posterior tibial vein show normal compressibility and venous flow patterns. There is normal augmentation. IMPRESSION: No evidence of deep vein thrombosis of the major veins of the left leg. Dictated by: Dictated on workstation # [id number] Dict: 01/21/21 1623 Trans: 01/21/21 1623 [id number] Interpreted by: ADINA PAUL MD Electronically signed by: ADINA PAUL MD 01/21/21 1623 A/P: Assessment: LLE Cellulitis - management per medical services Coronary artery disease: history of coronary artery bypass surgery and percutaneous intervention. - Two entangled stents were lost to peripheral circulation and lodged in a small sub-branch of a branch of the right internal iliac artery and did not result in any untoward effect (February 2010). - Last cardiac cath was 12/24/16, following an abnormal MPI of 12/22/16. 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 - U/S of left leg 01-21-21 showed no evidence of DVT DM 2: - managed by Dr. Cabrera. Tobaccoism: - ongoing, less than a pack a day, according to her - cessation advised Hyperlipidemia: - not well controlled. - The patient has had nonspecific statin intolerance, but has been able to tolerate pravastatin well - managed by Dr. Cabrera Chronic systolic/diastolic CHF: - currently clinically compensated - Echocardiogram of December 17, [address] Ray showed LVEF 45-50%. Akinesis of the basal anteroseptal myocardium. LA mod to severely dilated. PASP 34 mmHg Gastroesophageal reflux: - managed by her PCP Hypertension: - controlled Carotid dz: - Less than 40% ICA stenoses on carotid u/s of September 2018 Degenerative joint disease - managed by PCP COPD: - H/o bronchitis - managed by [facility] Sleep apnea: - being treated with CPAP therapy. No AAA on a screening abd ao scan of 09/29/16 Obesity: - BMI approx 35 Renal cancer: - ablation at [facility] in November 2017, followed by her renal oncologist at [facility] Plan: LLE Cellulitis - management per medical services D/t known h/o DVT (although she is on chronic OAC with warfarin, managed by her PCP) - no evidence of DVT on venous duplex of 10-21-20 Management of warfarin per Dr. Cabrera (her PCP who manages it as an out pt) Continue home medications Monitor lab Replace electrolytes as indicated JASON SALAZAR Jan 22, 2021 09:49
[2021-01-22] MEDS: RT--FLUTICASONE/SALMETEROL 113-14 (AIRDUO RespiCLICK) IH SCH (10:12)
--- NOTE | 2021-01-22 12:48 | History & Physical ---
BRYAN ESCAMILLA MED STUDENT 01/22/21 1248: History of Present Illness History of Present Illness Reason for visit/HPI Ashanti Moreno is a 80 year old white female who presented to Dr. Pires clinic yesterday with complaints of increasing pain, swelling, and redness to the left lower extremity for two days. Was subsequently direct admitted to the floor. PMH is significant for CAD, atrial fibrillation, CABG, COPD, HTN, HLP, DVT, PE, chronic systolic and diastolic HF, diabetes mellitus, chronic bilateral lower extremity swelling, and tobacco use. She is maintained on coumadin. She denied fevers, chills, chest pain, SOB, headache, and diarrhea. She reports that nothing improved the pain. Moving or walking worsened the pain. She states that she's had ongoing issues with chronic edema of the left leg since last February, couldn't recall an inciting event. Venous doppler ultrasound was performed and was negative for any DVT in the left leg. Today she reports the pain, swelling, and redness has decreased as compared to yesterday. She currently denies any complaints aside from some pain with palpation of the left leg. Date of Admission Jan 21, 2021 at 14:43 Date Seen by a Provider: Jan 22, 2021 Time Seen by a Provider: 07:30 I consulted on this patient on 01/22/21 12:47 Attending Physician Lesli Renner DO Admitting Physician Lesli Renner DO Consult Allergies and Home Medications Allergies Coded Allergies: erythromycin base (Verified Allergy, Intermediate, HIVES, 10/10/13) NSAIDS (Non-Steroidal Anti-Inflamma (Verified Allergy, Unknown, 01/10/17) cephalexin (Verified Allergy, Unknown, 10/10/13) Home Medications Acetaminophen 650 Mg Tablet.er, 1,300 MG PO Q8H, (Reported) Last Action: Converted Aspirin 81 Mg Tab.chew, 81 MG PO DAILY, (Reported) Last Action: Continued Benazepril HCl 40 Mg Tab, 40 MG PO DAILY, (Reported) Last Action: Converted Cholecalciferol (Vitamin D3) 50 Mcg Capsule, 50 MCG PO 1800, (Reported) Last Action: Converted Famotidine 20 Mg Tablet, 20 MG PO BID, (Reported) Last Action: Continued Fluticasone Propion/Salmeterol 1 Each Blst.w.dev, 1 PUFF INH DAILY, (Reported) Last Action: Converted Fluticasone Propionate 16 Gm [place].susp, 1 SPRAY NSEACH DAILY, (Reported) Last Action: Continued Furosemide 40 Mg Tablet, 40 MG PO DAILY, (Reported) Last Action: Continued Glipizide 5 Mg Tab.er.24, 5 MG PO BID, (Reported) Last Action: Continued Hydralazine HCl 50 Mg Tablet, 50 MG PO 0800,1200,1800, (Reported) Last Action: Converted Insulin Determir 1,000 Units/10 Ml Soln, 10-12 UNITS SC HS, (Reported) Last Action: Continued Ipratropium/Albuterol Sulfate 3 Ml Ampul.neb, 3 ML IH QID PRN for SHORTNESS OF BREATH, (Reported) Last Action: Continued Metoprolol Tartrate 100 Mg Tablet, 100 MG PO BID, (Reported) Last Action: Converted Montelukast Sodium 10 Mg Tablet, 10 MG PO HS, (Reported) Last Action: Continued Nystatin 15 Gm Cream..g., 1 APPLIC TOP BID PRN for RASH, (Reported) Last Action: Continued Polyethylene Glycol 3350 17 Gm Powd.pack, 17 GM PO DAILY, (Reported) Last Action: Continued Potassium Chloride 20 Meq Tab.er.prt, 20 MEQ PO DAILY, (Reported) Last Action: Continued Pravastatin Sodium 40 Mg Tablet, 20 MG PO BID, (Reported) TAKE 1/2 OF (40 MG) TABLET Last Action: Converted Warfarin Sodium 4 Mg Tablet, 4 MG PO 1800, (Reported) Last Action: Continued Past Hcmhlyu-Uqrlhk-Xgycqr Hx Patient Social History Marrital Status: Employed/Student: retired Tobacco Use?: Yes Tobacco type used: Cigarettes Smoking Status: Current Everyday Smoker (1/2 PPD) Smokeless Tobacco Frequency: Never a User Use of E-Cig and/or Vaping dev: No Substance use?: No Alcohol Use?: No Pt feels they are or have been: No Immunizations Up To Date Date of Influenza Vaccine: Feb 28, 2015 First/Initial COVID19 Vaccinat: JUL 2020 Second COVID19 Vaccination Elbert: JULY 2020 Tetanus Booster (TDap): Unknown Hepatitis A: No Hepatitis B: No PED Vaccines UTD: Yes Date of Pneumonia Vaccine: Jan 05, 2015 Seasonal Allergies Seasonal Allergies: Yes Current Status status: No status: No Advance Directives: No Communicates: Verbally Primary Language: Maltese Preferred Spoken Language: Maltese Is interpretation needed?: No Sensory deficits: Vision impairment Implanted or Applied Medical D: Stents Past Medical History Surgeries: Appendectomy, Bladder Surgery, CABG, Coronary Stent, Gallbladder, Hysterectomy, Rectal Asthma, Pulmonary Embolism, COPD Currently Using CPAP: Yes Currently Using BIPAP: No Atrial Fibrillation, Chronic Edema/Swelling, Coronary Artery Disease, Deep Vein Thrombosis, High Cholesterol, Hypertension Neuropathy [employer] History: Menopausal Sexually Transmitted Disease: No HIV/AIDS: No Bladder Infection Diverticulosis Arthritis Diabetes, Insulin dep, Diabetes, Non-Insulin dep Cataract Loss of Vision: Denies Hearing Impairment: Denies Skin, Kidney Did You Recieve Any Treatments: No Blood Disorders: No Adverse Reaction/Blood Tranf: No Family Medical History CABG 19 FATHER Cardiovascular disease 19 FATHER 19 MOTHER Diabetes mellitus 19 MOTHER FH: lung cancer 19 FATHER FH: myocardial infarction 19 MOTHER Hypertension 19 FATHER 19 MOTHER Heart Disease, Diabetes, Hypertension Review of Systems Constitutional: No chills, No diaphoresis, No dizziness, No fever, No weakness EENTM: No hearing loss, No blurred vision, No double vision Respiratory: No cough, No dyspnea on exertion, No hemoptysis, No orthopnea, No short of breath Cardiovascular: No chest pain; edema; No palpitations, No syncope Gastrointestinal: No abdominal pain, No constipation, No diarrhea, No loss of appetite, No nausea, No vomiting Genitourinary: No decreased output, No discharge, No dysuria, No frequency, No hematuria : No Musculoskeletal: No back pain, No joint pain; muscle stiffness Skin: change in color (LLE red), change in hair/nails (thickened and discolored) Psychiatric/Neurological: No Symptoms Reported; Denies Anxiety, Denies Depressed All Other Systems Reviewed Negative Unless Noted: Yes Physical Exam Vital Signs Vital Signs - First Documented 01/21/21 01/21/21 01/21/21 15:19 16:00 19:55 Temp 36.6 Pulse 69 Resp 18 B/P (MAP) 156/79 (104) Pulse Ox 93 O2 Delivery Room Air FiO2 21 Capillary Refill : Height, Weight, BMI Height: 5'5.00" Weight: 212lbs. 8.0oz. 96.665931hd; 34.48 BMI Method:Stated General Appearance: No Apparent Distress, Chronically ill, Obese HEENT: PERRL/EOMI, Pharynx Normal, Moist Mucous Membranes Neck: Full Range of Motion, Normal Inspection, Non Tender Respiratory: Chest Non Tender, Lungs Clear, Normal Breath Sounds, No Accessory Muscle Use, No Respiratory Distress Cardiovascular: Normal Peripheral Pulses, Irregularly Irregular, Other (3+ pitting edema LLE. Non pitting edema RLE) Gastrointestinal: Normal Bowel Sounds, Non Tender; No Distended, No Guarding, No Tenderness Rectal: Deferred Back: Normal Inspection, No CVA Tenderness, No Vertebral Tenderness Extremity: Normal Capillary Refill, No Calf Tenderness, Inflammation (LLE erythematous and warm), Pedal Edema Neurologic/Psychiatric: Oriented x3, No Motor/Sensory Deficits, Normal Mood/Affect Skin: Warm/Dry, Ecchymosis (scattered on limbs and trunk), Erythema (LLE) Lymphatic: No Adenopathy Assessment/Plan Assessment and Plan LLE Cellulitis -cefepime and vancomycin -general surgery consult -keep left leg elevated -venous doppler US of left leg negative for any DVT Chronic bilateral leg swelling -venous insufficiency vs lymphedema -keep BLE elevated Anticoagulated -continue coumadin -INR therapeutic at 2.7 CAD -history of CABG and stents -cardiology consulted Chronic systolic and diastolic HF -last echo November 2018, EF 45-50% HTN -continue home meds HLP -continue home pravastatin Diabetes mellitus -accuchecks achs, SSI and glipizide COPD -home meds -O2 prn Tobacco use -encouraged cessation H/O DVT/PE -maintained on coumadin H/O renal cancer -follows at [facility] Admission Diagnosis LLE Cellulitis Admission Status: Inpatient Order (span 2 midnights) Reason for Inpatient Admission: IV antibiotics Clinical Quality Measures DVT/VTE Risk/Contraindication: Contraindications-Mechi: Other *list below* Other: cellulitis of leg RENNERREFUGIO GARBERRachael READ 01/23/21 0502: History of Present Illness History of Present Illness Reason for visit/HPI CC: Left lower extremity cellulitis HPI: This is a 80yoWF who has 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 She was found to have significant left lower extremity cellulitis. She was placed on Cefepime and Vancomycin and currently she is doing well. Ultrasound is negative for DVT and INR was 2.7. Allergies and Home Medications Allergies Coded Allergies: erythromycin base (Verified Allergy, Intermediate, HIVES, 10/10/13) NSAIDS (Non-Steroidal Anti-Inflamma (Verified Allergy, Unknown, 01/10/17) cephalexin (Verified Allergy, Unknown, 10/10/13) Home Medications Acetaminophen 650 Mg Tablet.er, 1,300 MG PO Q8H, (Reported) Last Action: Converted Aspirin 81 Mg Tab.chew, 81 MG PO DAILY, (Reported) Last Action: Continued Benazepril HCl 40 Mg Tab, 40 MG PO DAILY, (Reported) Last Action: Converted Cholecalciferol (Vitamin D3) 50 Mcg Capsule, 50 MCG PO 1800, (Reported) Last Action: Converted Famotidine 20 Mg Tablet, 20 MG PO BID, (Reported) Last Action: Continued Fluticasone Propion/Salmeterol 1 Each Blst.w.dev, 1 PUFF INH DAILY, (Reported) Last Action: Converted Fluticasone Propionate 16 Gm [place].susp, 1 SPRAY NSEACH DAILY, (Reported) Last Action: Continued Furosemide 40 Mg Tablet, 40 MG PO DAILY, (Reported) Last Action: Continued Glipizide 5 Mg Tab.er.24, 5 MG PO BID, (Reported) Last Action: Continued Hydralazine HCl 50 Mg Tablet, 50 MG PO 0800,1200,1800, (Reported) Last Action: Converted Insulin Determir 1,000 Units/10 Ml Soln, 10-12 UNITS SC HS, (Reported) Last Action: Continued Ipratropium/Albuterol Sulfate 3 Ml Ampul.neb, 3 ML IH QID PRN for SHORTNESS OF BREATH, (Reported) Last Action: Continued Metoprolol Tartrate 100 Mg Tablet, 100 MG PO BID, (Reported) Last Action: Converted Montelukast Sodium 10 Mg Tablet, 10 MG PO HS, (Reported) Last Action: Continued Nystatin 15 Gm Cream..g., 1 APPLIC TOP BID PRN for RASH, (Reported) Last Action: Continued Polyethylene Glycol 3350 17 Gm Powd.pack, 17 GM PO DAILY, (Reported) Last Action: Continued Potassium Chloride 20 Meq Tab.er.prt, 20 MEQ PO DAILY, (Reported) Last Action: Continued Pravastatin Sodium 40 Mg Tablet, 20 MG PO BID, (Reported) TAKE 1/2 OF (40 MG) TABLET Last Action: Converted Warfarin Sodium 4 Mg Tablet, 4 MG PO 1800, (Reported) Last Action: Continued Patient Home Medication List Home Medication List Reviewed: Yes Past Baveahs-Txhdop-Xhnfrq Hx Patient Social History Marrital Status: Employed/Student: retired Smoking Status: Current Everyday Smoker (1/2 PPD) Past Medical History Asthma, Pneumonia, Chronic Bronchitis, Pulmonary Embolism, COPD Currently Using CPAP: Yes Coronary Artery Disease, High Cholesterol, Hypertension, Valvular Heart Disease Neuropathy Bladder Infection Colitis, Gastroesophageal Reflux, Diverticulosis Arthritis Family Medical History CABG 19 FATHER Cardiovascular disease 19 FATHER 19 MOTHER Diabetes mellitus 19 MOTHER FH: lung cancer 19 FATHER FH: myocardial infarction 19 MOTHER Hypertension 19 FATHER 19 MOTHER Review of Systems Constitutional: see HPI EENTM: no symptoms reported Respiratory: no symptoms reported Cardiovascular: no symptoms reported Genitourinary: no symptoms reported Skin: change in color (LLE red), rash Physical Exam General Appearance: No Apparent Distress, WD/WN, Chronically ill, Obese Eyes: Bilateral Eye Normal Inspection, Bilateral Eye PERRL, Bilateral Eye EOMI HEENT: PERRL/EOMI, Normal ENT Inspection, Pharynx Normal Neck: Full Range of Motion, Normal Inspection, Non Tender, Supple, Carotid Bruit Respiratory: Chest Non Tender, Lungs Clear, Normal Breath Sounds, No Accessory Muscle Use, No Respiratory Distress Cardiovascular: Regular Rate, Rhythm, No Gallop, No JVD, No Murmur, Normal Peripheral Pulses Gastrointestinal: Normal Bowel Sounds, No Organomegaly, No Pulsatile Mass, Non Tender, Soft Back: Normal Inspection, No CVA Tenderness, No Vertebral Tenderness Extremity: Normal Capillary Refill, Normal Inspection, Normal Range of Motion, Non Tender, No Calf Tenderness, Inflammation (LLE erythematous and warm), Pedal Edema, Swelling (Left lower extremity with edema and erythema) Neurologic/Psychiatric: Alert, Oriented x3, No Motor/Sensory Deficits, Normal Mood/Affect Skin: Normal Color, Warm/Dry Lymphatic: No Adenopathy Assessment/Plan Assessment and Plan Assessment: Severe complicated left lower extremity cellulitis Chronic lymphedema Diabetes CAD Current smoker COPD BARBARA Plan: IV antibiotics Monitor closely Home meds Problems: (1) Left leg cellulitis Admission Diagnosis Admission Status: Inpatient Order (span 2 midnights) Reason for Inpatient Admission: Complicated cellulitis with lymphedema Supervisory-Addendum Brief Verification & Attestation Participated in pt care: history, MDM, physical Personally performed: exam, history, MDM, supervision of care Care discussed with: Medical Student Procedures: n/a Results interpretation: Verified all documentation Verification and Attestation of Medical Student E/M Service A medical student performed and documented this service in my presence. I reviewed and verified all information documented by the medical student and made modifications to such information, when appropriate. I personally performed the physical exam and medical decision making. Lesli Renner, Jan 23, 2021,05:02 BRYAN ESCAMILLA MED STUDENT Jan 22, 2021 12:48 LESLI RENNER DO Jan 23, 2021 05:02
[2021-01-22] MEDS: VANCOMYCIN 1500 MG/NS 500 ML IVPB IV SCH ×2 (15:41)
[2021-01-22] MEDS: ACETAMINOPHEN 325 MG TABLET PO PRN (16:20)
--- NOTE | 2021-01-22 17:48 | Progress Note - Cardiology ---
Cardiology SOAP Progress Note Subjective: No cp or palp or syncope or shortness of breath Continues with discomfort of the L leg Objective: I&O/Vital Signs 01/22/21 01/22/21 01/22/21 01/22/21 08:00 08:00 08:28 11:54 Temp 36.7 36.9 Pulse 80 64 Resp 20 20 B/P (MAP) 122/74 (90) 100/51 (67) Pulse Ox 93 93 93 93 O2 Delivery Room Air Room Air Room Air Room Air 01/22/21 16:00 Temp 36.1 Pulse 67 Resp 20 B/P (MAP) 142/60 (87) Pulse Ox 93 O2 Delivery Room Air 01/22/21 00:00 Intake Total 1790 ml Balance 1790 ml Weight (Pounds): 212 Weight (Ounces): 8.0 Weight (Calculated Kilograms): 96.678415 Constitutional: AAO x 3, well-developed, well-nourished Respiratory: No accessory muscle use, No respiratory distress; chest expansion is symmetric, chest is bilaterally symmetric, rhonchi (scattered) Cardiovascular: regular rate-rhythm; No JVD; S1 and S2 Gastrointestional: No tender; soft, round, audible bowel sounds Extremities: other (LLE swelling, redness and warmth from ankle to knee) Neurologic/Psychiatric: grossly intact (moves all extremities) Skin: No ulcerations on exposed areas Results/Procedures: Labs Laboratory Tests 01/21/21 21:12: Glucometer 98 01/21/21 21:13: Lactic Acid Level 0.82 01/22/21 05:30: White Blood Count 8.0, Red Blood Count 3.83, Hemoglobin 11.5, Hematocrit 37, Mean Corpuscular Volume 97, Mean Corpuscular Hemoglobin 30, Mean Corpuscular Hemoglobin Concent 31L, Red Cell Distribution Width 14.6H, Platelet Count 192, Mean Platelet Volume 10.9, Immature Granulocyte % (Auto) 0, Neutrophils (%) (Auto) 72, Lymphocytes (%) (Auto) 15, Monocytes (%) (Auto) 10, Eosinophils (%) (Auto) 3, Basophils (%) (Auto) 1, Neutrophils # (Auto) 5.7, Lymphocytes # (Auto) 1.2, Monocytes # (Auto) 0.8, Eosinophils # (Auto) 0.2, Basophils # (Auto) 0.1, Immature Granulocyte # (Auto) 0.0, Sodium Level 143, Potassium Level 3.9, Chloride Level 115H, Carbon Dioxide Level 21, Anion Gap 7, Blood Urea Nitrogen 13, Creatinine 0.77, Estimat Glomerular Filtration Rate 73, BUN/Creatinine Ratio 17, Glucose Level 103, Calcium Level 8.5, Corrected Calcium 9.1, Total Bilirubin 0.5, Aspartate Amino Transf (AST/SGOT) 11, Alanine Aminotransferase (ALT/SGPT) 13, Alkaline Phosphatase 54, Total Protein 5.5L, Albumin 3.2 01/22/21 05:35: Glucometer 101 01/22/21 11:09: Glucometer 177H 01/22/21 16:35: Glucometer 114H A/P: Assessment: LLE Cellulitis - management per medical services Coronary artery disease: history of coronary artery bypass surgery and percutaneous intervention. - Two entangled stents were lost to peripheral circulation and lodged in a small sub-branch of a branch of the right internal iliac artery and did not result in any untoward effect (February 2010). - Last cardiac cath was 12/24/16, following an abnormal MPI of 12/22/16. It showed [place] coronary artery disease consisting of mid vessel occlusion LAD, proximal occlusion of a proximal OM and moderate diffuse disease of other cors; widely patent stented area in the distal RCA; chronically occluded saphenous vein graft to distal RCA; patent saphenous vein graft to on OM left Cx; patent left internal mammary graft to distal LAD; LVEDP 20 mmHg; LVEF 50-55%; mild ant-lat hypokinesis Chronic bilateral leg swelling L >R - likely due to venous insufficiency vs lymphedema - worsened by amlodipine use (amlodipine d/c'd in Dec 2016) Deep venous thrombosis with large pulmonary embolism in early September 2011: - Chronic warfarin anticoagulation is being managed by Dr Cabrera. - U/S of left leg 01-21-21 showed no evidence of DVT DM 2: - managed by Dr. Cabrera. Tobaccoism: - ongoing, less than a pack a day, according to her - cessation advised Hyperlipidemia: - not well controlled. - The patient has had nonspecific statin intolerance, but has been able to tolerate pravastatin well - managed by Dr. Cabrera Chronic systolic/diastolic CHF: - currently clinically compensated - Echocardiogram of December 17, [address] Ray showed LVEF 45-50%. Akinesis of the basal anteroseptal myocardium. LA mod to severely dilated. PASP 34 mmHg Gastroesophageal reflux: - managed by her PCP Hypertension: - controlled Carotid dz: - Less than 40% ICA stenoses on carotid u/s of September 2018 Degenerative joint disease - managed by PCP COPD: - H/o bronchitis - managed by [facility] Sleep apnea: - being treated with CPAP therapy. No AAA on a screening abd ao scan of 09/29/16 Obesity: - BMI approx 35 Renal cancer: - ablation at [facility] in November 2017, followed by her renal oncologist at [facility] Plan: LLE Cellulitis - management per medical services D/t known h/o DVT (although she is on chronic OAC with warfarin, managed by her PCP) venous Duplex was done on the affected leg - no evidence of DVT on venous duplex of 10-21-20 Management of warfarin per Dr. Cabrera (her PCP who manages it as an out pt) Continue home medications Monitor lab Replace electrolytes as indicated FAITH NICHOLSON MD FACP FACC CCDS Jan 22, 2021 17:48
[2021-01-22] MEDS: VITAMIN D3 25 MCG (1,000 UNITS) TABLET PO SCH (18:51)
[2021-01-22] MEDS: warFARin 4 MG (COUMADIN) TAB PO SCH (18:51)
[2021-01-22] MEDS: SIMvastatin 20 MG (ZOCOR) TAB PO SCH (20:54)
[2021-01-22] MEDS: MONTELUKAST 10 MG (SINGULAIR) TAB PO SCH (20:55)
[2021-01-23] MEDS: CEFEPIME INJECTION 1,000 MG in WATER (STERILE) FOR INJECTION 10 ML IV SCH ×5 (00:34→23:28)
[2021-01-23] MEDS: HYDROcodone/APAP 5 MG/325 MG (LORTAB) TAB PO PRN ×3 (00:39→14:01)
[2021-01-23 03:25] VITALS: BP 151/77
[2021-01-23] MEDS: CATHETER FLUSH 10 ML SYR IV SCH ×3 (06:02→23:28)
[2021-01-23] MEDS: inSUlin ASPART (NovoLOG) 1 UNIT/0.01 ML (CHARGE PER UNIT) SC SCH ×4 (06:02→21:13)
[2021-01-23 06:07] LABS: BASOPHILS # (AUTO) 0.1 10^3/uL (0.0-0.1); BASOPHILS % (AUTO) 1 % (0-10); EOSINOPHILS # (AUTO) 0.3 10^3/uL (0.0-0.3); EOSINOPHILS % (AUTO) 3 % (0-10); HEMATOCRIT 37 % (35-52); HEMOGLOBIN 11.5 g/dL (11.5-16.0); LYMPHOCYTES # (AUTO) 1.1 10^3/uL (1.0-4.0); LYMPHOCYTES % (AUTO) 14 % (12-44); MEAN CORPUSCULAR HEMOGLOBIN 30 pg (25-34); MEAN CORPUSCULAR HGB CONC 31 g/dL (32-36); MEAN CORPUSCULAR VOLUME 96 fL (80-99); MEAN PLATELET VOLUME 10.8 fL (9.0-12.2); MONOCYTES # (AUTO) 0.9 10^3/uL (0.0-1.0); MONOCYTES % (AUTO) 11 % (0-12); NEUTROPHILS # (AUTO) 5.6 10^3/uL (1.8-7.8); NEUTROPHILS % (AUTO) 71 % (42-75); PLATELET COUNT 186 10^3/uL (130-400)
[2021-01-23 06:25] LABS: ALBUMIN 3.3 GM/DL (3.2-4.5)
[2021-01-23 06:26] LABS: CALCIUM 8.8 MG/DL (8.5-10.1)
[2021-01-23 06:27] LABS: TOTAL PROTEIN 5.8 GM/DL (6.4-8.2)
[2021-01-23 06:29] LABS: BILIRUBIN,TOTAL 0.5 MG/DL (0.1-1.0)
[2021-01-23 06:30] LABS: PROTHROMBIN TIME PATIENT 22.7 SEC (12.2-14.7)
[2021-01-23 06:31] LABS: CREATININE SERUM 0.82 MG/DL (0.60-1.30)
--- NOTE | 2021-01-23 07:31 | Progress Note - Surgery ---
PAYAM HERRERA 01/23/21 0731: Subjective Date Seen by a Provider: Jan 23, 2021 Time Seen by a Provider: 07:27 Subjective/Events-last exam Patient's leg looks improved today. Swelling is similar to yesterday, erythema is down slightly. Patient states she has pain in the middle of the posterior ca lf on LLE. Leg was wrapped with a support to help keep pressure off of the area. Patient has been keeping leg elevated states that is really helping. No N/V, abdominal pain, dysuria. Patient did ask if she could take more miralax. Review of Systems General: No Chills, No Night Sweats HEENT: No Head Aches Pulmonary: No Dyspnea Cardiovascular: No: Chest Pain, Palpitations Gastrointestinal: No: Nausea, Vomiting, Abdominal Pain Genitourinary: No Dysuria Musculoskeletal: leg pain (posterior middle calf. LLE) Focused Exam Lactate Level 01/21/21 21:13: Lactic Acid Level 0.82 Objective Exam Vital Signs Date Time Temp Pulse Resp B/P (MAP) Pulse Ox O2 Delivery O2 Flow Rate FiO2 01/23/21 03:25 36.5 70 24 151/77 (101) 92 NIV Bilevel 01/22/21 23:30 37.0 65 22 146/64 (91) 95 NIV Bilevel 01/22/21 20:54 Room Air 01/22/21 20:01 36.6 66 20 152/73 (99) 93 Room Air 01/22/21 16:00 36.1 67 20 142/60 (87) 93 Room Air 01/22/21 11:54 36.9 64 20 100/51 (67) 93 Room Air 01/22/21 08:28 93 Room Air 01/22/21 08:00 93 Room Air 01/22/21 08:00 36.7 80 20 122/74 (90) 93 Room Air I & O 01/23/21 07:00 Intake Total 2310 ml Output Total 500 ml Balance 1810 ml Capillary Refill : General Appearance: No Apparent Distress, WD/WN, Chronically ill, Obese HEENT: PERRL/EOMI Neck: Full Range of Motion, Non Tender Respiratory: Chest Non Tender, Lungs Clear, Normal Breath Sounds, No Accessory Muscle Use, No Respiratory Distress Cardiovascular: Regular Rate, Rhythm, No Murmur, Normal Peripheral Pulses Gastrointestinal: non tender, soft Extremity: Calf Tenderness (posterior middle calf LLE), Inflammation (LLE erythematous and warm), Pedal Edema, Swelling (Left lower extremity with edema and erythema) Neurologic/Psychiatric: Alert, Oriented x3, Normal Mood/Affect Skin: Normal Color, Warm/Dry Lymphatic: No Adenopathy Results Lab Laboratory Tests 01/22/21 11:09: Glucometer 177H 01/22/21 16:35: Glucometer 114H 01/22/21 20:04: Glucometer 141H 01/23/21 05:36: White Blood Count 8.0, Red Blood Count 3.82, Hemoglobin 11.5, Hematocrit 37, Mean Corpuscular Volume 96, Mean Corpuscular Hemoglobin 30, Mean Corpuscular Hemoglobin Concent 31L, Red Cell Distribution Width 14.7H, Platelet Count 186, Mean Platelet Volume 10.8, Immature Granulocyte % (Auto) 1, Neutrophils (%) (Auto) 71, Lymphocytes (%) (Auto) 14, Monocytes (%) (Auto) 11, Eosinophils (%) (Auto) 3, Basophils (%) (Auto) 1, Neutrophils # (Auto) 5.6, Lymphocytes # (Auto) 1.1, Monocytes # (Auto) 0.9, Eosinophils # (Auto) 0.3, Basophils # (Auto) 0.1, Immature Granulocyte # (Auto) 0.0, Prothrombin Time 22.7H, INR Comment 2.0H, Sodium Level 144, Potassium Level 4.0, Chloride Level 116H, Carbon Dioxide Level 21, Anion Gap 7, Blood Urea Nitrogen 19H, Creatinine 0.82, Estimat Glomerular Filtration Rate 67, BUN/Creatinine Ratio 23, Glucose Level 65L, Calcium Level 8.8, Corrected Calcium 9.4, Total Bilirubin 0.5, Aspartate Amino Transf (AST/SGOT) 11, Alanine Aminotransferase (ALT/SGPT) 13, Alkaline Phosphatase 53, Total Protein 5.8L, Albumin 3.3 01/23/21 05:57: Glucometer 68L Microbiology 01/21/21 Blood Culture - Preliminary, Resulted No growth Assessment/Plan Assessment/Plan Assessment/Plan LLE cellulitis LLE pain Plan: Continue IV abx elevate leg Doppler findings negative Continue to monitor LLE - do not feel there is an abscess at this time Clinical Quality Measures DVT/VTE Risk/Contraindication: Contraindications-Mechi: Other *list below* Other: cellulitis of leg HAI GRAYSON DO 01/23/211914: Subjective Subjective/Events-last exam Patient feels like he is continuing to improve. Still has some tenderness but overall improved. Patient swelling and erythema slightly improved from yesterday. Patient no new complaints. She is try to keep the leg elevated. She denies any nausea vomiting fever sweats chills shortness of breath or chest pain. Objective Exam General Appearance: No Apparent Distress, Chronically ill, Obese HEENT: PERRL/EOMI, Normal ENT Inspection Neck: Non Tender Respiratory: Chest Non Tender, No Accessory Muscle Use, No Respiratory Distress Cardiovascular: Regular Rate, Rhythm, No JVD Gastrointestinal: non tender, soft Extremity: Calf Tenderness (posterior slight ), Inflammation (LLE erythematous and warm), Pedal Edema, Swelling (Left lower extremity with edema and erythema) Neurologic/Psychiatric: Oriented x3, Normal Mood/Affect Skin: Normal Color, Erythema (Left lower extremity) Lymphatic: No Adenopathy Assessment/Plan Assessment/Plan Assessment/Plan LLE cellulitis LLE pain Continues to improve Continue IV abx elevate leg Doppler findings negative Continue to monitor LLE - do not feel there is an abscess at this time Supervisory-Addendum Brief Verification & Attestation Participated in pt care: history, MDM, physical Personally performed: exam, history, MDM, supervision of care Care discussed with: Medical Student Procedures: n/a Results interpretation: Verified all documentation Verification and Attestation of Medical Student E/M Service A medical student performed and documented this service in my presence. I reviewed and verified all information documented by the medical student and made modifications to such information, when appropriate. I personally performed the physical exam and medical decision making. Hai Grayson, Jan 23, 2021,19:14 PAYAM HERRERA Jan 23, 2021 07:31 HAI GRAYSON DO Jan 23, 2021 19:15
[2021-01-23 08:35] VITALS: BP 136/63
[2021-01-23] MEDS: ASPIRIN 81 MG CHEW (CHILDREN'S ASA) PO SCH (09:08)
[2021-01-23] MEDS: lisINopril 40 MG (PRINIVIL) TABLET PO SCH (09:08)
[2021-01-23] MEDS: FAMOTIDINE 20 MG (PEPCID) TABLET PO SCH ×2 (09:08→21:13)
[2021-01-23] MEDS: polyethylene glycoL POWDER 17 GM (MIRALAX) PACK PO SCH ×2 (09:08→21:13)
[2021-01-23] MEDS: FUROSEMIDE 40 MG (LASIX) TAB PO SCH (09:08)
[2021-01-23] MEDS: SENNA W/DOCUSATE (SENOKOT S) TABLET PO SCH ×2 (09:08→21:13)
[2021-01-23] MEDS: glipiZIDE XL 5 MG (GLUCOTROL XL) TAB PO SCH ×2 (09:08→16:03)
[2021-01-23] MEDS: meTOprolol TARTRATE 50 MG (LOPRESSOR) TAB PO SCH ×2 (09:09→21:13)
[2021-01-23] MEDS: KCL 20 MEQ TAB (K-DUR) PO SCH (09:09)
[2021-01-23] MEDS: RT--FLUTICASONE/SALMETEROL 113-14 (AIRDUO RespiCLICK) IH SCH ×2 (09:09→09:10)
[2021-01-23] MEDS: FLUTICASONE NASAL SPRAY (FLONASE) 16 GM BTL NS SCH (09:09)
[2021-01-23] MEDS: hydrALAZINE (APRESOLINE) 25 MG TAB PO SCH ×3 (09:09→17:17)
[2021-01-23 11:50] VITALS: BP 143/68
--- NOTE | 2021-01-23 12:37 | Progress Note ---
BRYAN ESCAMILLA MED STUDENT 01/23/21 1237: Subjective Date Seen by a Provider: Jan 23, 2021 Time Seen by a Provider: 08:10 Subjective/Events-last exam Reports decreased warmth, redness, and swelling of left leg. Tolerating po intake well. No nausea or vomiting. Denies fevers, chest pain, SOB, and difficulty voiding. Has been keeping left leg elevated most of the time. Reports minimal pain in the posterior left calf. Nurse had wrapped with telfa posterior calf and wide shanti wrap. Review of Systems General: No Chills, No Night Sweats HEENT: No Head Aches, No Visual Changes Pulmonary: No Dyspnea, No Cough Cardiovascular: Edema (BLE, Left worse than right); No: Chest Pain, Palpitations Gastrointestinal: No: Nausea, Vomiting, Abdominal Pain Genitourinary: No Dysuria, No Frequency, No Incontinence Musculoskeletal: leg pain (minimal left left pain, posterior midcalf); No: neck pain, back pain Neurological: No: Weakness, Numbness Focused Exam Lactate Level 01/21/21 21:13: Lactic Acid Level 0.82 Objective Exam Last Set of Vital Signs Vital Signs Date Time Temp Pulse Resp B/P (MAP) Pulse Ox O2 Delivery O2 Flow Rate FiO2 01/23/21 11:50 36.4 74 20 143/68 (93) 92 Room Air 01/21/21 19:55 21 Capillary Refill : I&O Intake and Output 01/23/21 00:00 Intake Total 2360 ml Balance 2360 ml Intake Oral 2360 ml # Voids 8 # Bowel Movements 1 General: Alert, Oriented X3, Cooperative, No Acute Distress HEENT: Atraumatic, PERRLA, EOMI, Mucous Memb Moist/[place] Neck: Supple, No Thyromegaly, No LAD Lungs: Clear to Auscultation, Normal Air Movement Heart: Regular Rate, No Murmurs Abdomen: Normal Bowel Sounds, Soft, No Tenderness Extremities: No Clubbing, No Cyanosis, Normal Pulses, Other (BLE edema, left worse than right. Left lower extremity erythematous and warm to touch) Skin: Other (scattered likely beningn senile purpura bilat arms and legs) Neuro: Normal Speech, Sensation Intact, Cranial Nerves 3-12 NL Psych/Mental Status: Mental Status NL, Mood NL Results Lab Laboratory Tests 01/22/21 16:35: Glucometer 114H 01/22/21 20:04: Glucometer 141H 01/23/21 05:36: White Blood Count 8.0, Red Blood Count 3.82, Hemoglobin 11.5, Hematocrit 37, Mean Corpuscular Volume 96, Mean Corpuscular Hemoglobin 30, Mean Corpuscular Hemoglobin Concent 31L, Red Cell Distribution Width 14.7H, Platelet Count 186, Mean Platelet Volume 10.8, Immature Granulocyte % (Auto) 1, Neutrophils (%) (Auto) 71, Lymphocytes (%) (Auto) 14, Monocytes (%) (Auto) 11, Eosinophils (%) (Auto) 3, Basophils (%) (Auto) 1, Neutrophils # (Auto) 5.6, Lymphocytes # (Auto) 1.1, Monocytes # (Auto) 0.9, Eosinophils # (Auto) 0.3, Basophils # (Auto) 0.1, Immature Granulocyte # (Auto) 0.0, Prothrombin Time 22.7H, INR Comment 2.0H, Sodium Level 144, Potassium Level 4.0, Chloride Level 116H, Carbon Dioxide Level 21, Anion Gap 7, Blood Urea Nitrogen 19H, Creatinine 0.82, Estimat Glomerular Filtration Rate 67, BUN/Creatinine Ratio 23, Glucose Level 65L, Calcium Level 8.8, Corrected Calcium 9.4, Total Bilirubin 0.5, Aspartate Amino Transf (AST/SGOT) 11, Alanine Aminotransferase (ALT/SGPT) 13, Alkaline Phosphatase 53, Total Protein 5.8L, Albumin 3.3 01/23/21 05:57: Glucometer 68L 01/23/21 11:54: Glucometer 122H Microbiology 01/21/21 Blood Culture - Preliminary, Resulted No growth Assessment/Plan Assessment/Plan Assess & Plan/Chief Complaint LLE Cellulitis -continue cefepime and vancomycin -looks better as compared to yesterday -general surgery following -keep left leg elevated as much as possible -venous doppler US of left leg negative for any DVT Chronic bilateral leg swelling -chronic ymphedema, left worse than right -keep BLE elevated Anticoagulated -continue coumadin -INR at 2.0 today CAD -history of CABG and stents -cardiology has seen Chronic systolic and diastolic HF -last echo November 2018, EF 45-50% HTN -continue home meds HLP -continue home pravastatin Diabetes mellitus -accuchecks achs, SSI and glipizide -hypoglycemic at 62 this am -continue to monitor closely COPD -home meds -O2 prn Tobacco use -encouraged cessation 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 Clinical Quality Measures Admission Status Admission Dx LLE Cellulitis DVT/VTE Risk/Contraindication: Contraindications-Mechi: Other *list below* Other: cellulitis of leg LESLI RENNER DO 01/24/21 0547: Subjective Subjective/Events-last exam Pt doing a lot better Left lower extremity still has mild tenderness to palpitation No fever Used her CPAP last night Had a low sugar at 54 Review of Systems General: Fatigue, Malaise Objective Exam General: Alert, Oriented X3, Cooperative, No Acute Distress Heart: Regular Rate, Normal S1, Normal S2, No Murmurs Extremities: Other (BLE edema, left worse than right. Left lower extremity erythematous and warm to touch) Skin: Other (scattered likely beningn senile purpura bilat arms and legs) Neuro: Normal Speech Psych/Mental Status: Mental Status NL Assessment/Plan Assessment/Plan Assess & Plan/Chief Complaint Discharge home tomorrow IV antibiotics Monitor closely Supervisory-Addendum Brief Verification & Attestation Participated in pt care: history, MDM, physical Personally performed: exam, history, MDM, supervision of care Care discussed with: Medical Student Procedures: n/a Results interpretation: Verified all documentation Verification and Attestation of Medical Student E/M Service A medical student performed and documented this service in my presence. I reviewed and verified all information documented by the medical student and made modifications to such information, when appropriate. I personally performed the physical exam and medical decision making. Lesli Renner, Jan 24, 2021,05:45 BRYAN ESCAMILLA MED STUDENT Jan 23, 2021 12:37 LESLI RENNER DO Jan 24, 2021 05:47
--- NOTE | 2021-01-23 13:17 | Progress Note - Cardiology ---
Cardiology SOAP Progress Note Subjective: No cp or palp or syncope or shortness of breath No n/v/d No focal weakness Leg discomfort and redness have improved modestly Objective: I&O/Vital Signs 01/23/21 01/23/21 01/23/21 01/23/21 03:25 08:00 08:35 11:50 Temp 36.5 36.3 36.4 Pulse 70 92 74 Resp 24 20 20 B/P (MAP) 151/77 (101) 136/63 (87) 143/68 (93) Pulse Ox 92 94 94 92 O2 Delivery NIV Bilevel Room Air Room Air Room Air 01/23/21 00:00 Intake Total 2110 ml Balance 2110 ml Weight (Pounds): 212 Weight (Ounces): 8.0 Weight (Calculated Kilograms): 96.682488 Constitutional: AAO x 3, well-developed, well-nourished Respiratory: No accessory muscle use, No respiratory distress; chest expansion is symmetric, chest is bilaterally symmetric, rhonchi (scattered) Cardiovascular: regular rate-rhythm; No JVD; S1 and S2 Gastrointestional: No tender; soft, round, audible bowel sounds Extremities: other (LLE swelling, redness and warmth from ankle to knee) Neurologic/Psychiatric: grossly intact (moves all extremities) Skin: No ulcerations on exposed areas Results/Procedures: Labs Laboratory Tests 01/22/21 16:35: Glucometer 114H 01/22/21 20:04: Glucometer 141H 01/23/21 05:36: White Blood Count 8.0, Red Blood Count 3.82, Hemoglobin 11.5, Hematocrit 37, [place] Corpuscular Volume 96, Mean Corpuscular Hemoglobin 30, Mean Corpuscular Hemoglobin Concent 31L, Red Cell Distribution Width 14.7H, Platelet Count 186, Mean Platelet Volume 10.8, Immature Granulocyte % (Auto) 1, Neutrophils (%) (Auto) 71, Lymphocytes (%) (Auto) 14, Monocytes (%) (Auto) 11, Eosinophils (%) (Auto) 3, Basophils (%) (Auto) 1, Neutrophils # (Auto) 5.6, Lymphocytes # (Auto) 1.1, Monocytes # (Auto) 0.9, Eosinophils # (Auto) 0.3, Basophils # (Auto) 0.1, Immature Granulocyte # (Auto) 0.0, Prothrombin Time 22.7H, INR Comment 2.0H, Sodium Level 144, Potassium Level 4.0, Chloride Level 116H, Carbon Dioxide Level 21, Anion Gap 7, Blood Urea Nitrogen 19H, Creatinine 0.82, Estimat Glomerular Filtration Rate 67, BUN/Creatinine Ratio 23, Glucose Level 65L, Calcium Level 8.8, Corrected Calcium 9.4, Total Bilirubin 0.5, Aspartate Amino Transf (AST/SGOT) 11, Alanine Aminotransferase (ALT/SGPT) 13, Alkaline Phosphatase 53, Total Protein 5.8L, Albumin 3.3 01/23/21 05:57: Glucometer 68L 01/23/21 11:54: Glucometer 122H Microbiology 01/21/21 Blood Culture - Preliminary, Resulted No growth Laboratory Tests 01/21/21 15:28 01/21/21 16:10 01/22/21 05:30 01/23/21 05:36 A/P: Assessment: LLE Cellulitis - management per medical services Coronary artery disease: history of coronary artery bypass surgery and percuta neous intervention. - Two entangled stents were lost to peripheral circulation and lodged in a small sub-branch of a branch of the right internal iliac artery and did not result in any untoward effect (February 2010). - Last cardiac cath was 12/24/16, following an abnormal MPI of 12/22/16. It showed [place] coronary artery disease consisting of mid vessel occlusion LAD, proximal occlusion of a proximal OM and moderate diffuse disease of other cors; widely patent stented area in the distal RCA; chronically occluded saphenous vein graft to distal RCA; patent saphenous vein graft to on OM left Cx; patent left internal mammary graft to distal LAD; LVEDP 20 mmHg; LVEF 50-55%; mild ant-lat hypokinesis Chronic bilateral leg swelling L >R - likely due to venous insufficiency vs lymphedema - worsened by amlodipine use (amlodipine d/c'd in Dec 2016) Deep venous thrombosis with large pulmonary embolism in early September 2011: - Chronic warfarin anticoagulation is being managed by Dr Cabrera. - U/S of left leg 01-21-21 showed no evidence of DVT DM 2: - managed by Dr. Cabrera. Tobaccoism: - ongoing, less than a pack a day, according to her - cessation advised Hyperlipidemia: - not well controlled. - The patient has had nonspecific statin intolerance, but has been able to tolerate pravastatin well - managed by Dr. Cabrera Chronic systolic/diastolic CHF: - currently clinically compensated - Echocardiogram of December 17, [address] Ray showed LVEF 45-50%. Akinesis of the basal anteroseptal myocardium. LA mod to severely dilated. PASP 34 mmHg Gastroesophageal reflux: - managed by her PCP Hypertension: - controlled Carotid dz: - Less than 40% ICA stenoses on carotid u/s of September 2018 Degenerative joint disease - managed by PCP COPD: - H/o bronchitis - managed by [facility] Sleep apnea: - being treated with CPAP therapy. No AAA on a screening abd ao scan of 09/29/16 Obesity: - BMI approx 35 Renal cancer: - ablation at [facility] in November 2017, followed by her renal oncologist at [facility] Plan: LLE Cellulitis - management per medical services No DVT seen Monitor lab Replace electrolytes as indicated FAITH NICHOLSON MD FACP FAC CCDS Jan 23, 2021 13:17
[2021-01-23] MEDS ORDERED: TROUGH ORDER-PHARMACY XX NR (15:00)
[2021-01-23 16:00] VITALS: BP 121/56
[2021-01-23] MEDS: VANCOMYCIN 1500 MG/NS 500 ML IVPB IV SCH ×2 (16:18)
[2021-01-23] MEDS: VITAMIN D3 25 MCG (1,000 UNITS) TABLET PO SCH (17:17)
[2021-01-23] MEDS: warFARin 4 MG (COUMADIN) TAB PO SCH (17:17)
[2021-01-23 20:00] VITALS: BP 134/60
[2021-01-23] MEDS: MONTELUKAST 10 MG (SINGULAIR) TAB PO SCH (21:13)
[2021-01-23] MEDS: SIMvastatin 20 MG (ZOCOR) TAB PO SCH (21:20)
[2021-01-23 23:54] VITALS: BP 106/52
[2021-01-24 03:50] VITALS: BP 138/63
[2021-01-24 05:56] LABS: BASOPHILS # (AUTO) 0.1 10^3/uL (0.0-0.1); BASOPHILS % (AUTO) 1 % (0-10); EOSINOPHILS # (AUTO) 0.4 10^3/uL (0.0-0.3); EOSINOPHILS % (AUTO) 5 % (0-10); HEMATOCRIT 36 % (35-52); HEMOGLOBIN 11.3 g/dL (11.5-16.0); LYMPHOCYTES # (AUTO) 1.3 10^3/uL (1.0-4.0); LYMPHOCYTES % (AUTO) 16 % (12-44); MEAN CORPUSCULAR HEMOGLOBIN 30 pg (25-34); MEAN CORPUSCULAR HGB CONC 31 g/dL (32-36); MEAN CORPUSCULAR VOLUME 96 fL (80-99); MEAN PLATELET VOLUME 10.7 fL (9.0-12.2); MONOCYTES # (AUTO) 0.8 10^3/uL (0.0-1.0); MONOCYTES % (AUTO) 10 % (0-12); NEUTROPHILS # (AUTO) 5.3 10^3/uL (1.8-7.8); NEUTROPHILS % (AUTO) 68 % (42-75); PLATELET COUNT 201 10^3/uL (130-400); WHITE BLOOD COUNT 7.9 10^3/uL (4.3-11.0)
[2021-01-24] MEDS: glipiZIDE XL 5 MG (GLUCOTROL XL) TAB PO SCH (06:02)
[2021-01-24] MEDS: CATHETER FLUSH 10 ML SYR IV SCH (06:02)
[2021-01-24] MEDS: CEFEPIME INJECTION 1,000 MG in WATER (STERILE) FOR INJECTION 10 ML IV SCH ×2 (06:02→11:30)
[2021-01-24 06:05] LABS: INR 1.9 (0.8-1.4); PROTHROMBIN TIME PATIENT 22.4 SEC (12.2-14.7)
[2021-01-24 06:07] LABS: ALBUMIN 3.3 GM/DL (3.2-4.5); POTASSIUM 3.7 MMOL/L (3.6-5.0)
[2021-01-24 06:08] LABS: CALCIUM 8.9 MG/DL (8.5-10.1)
[2021-01-24 06:09] LABS: TOTAL PROTEIN 5.9 GM/DL (6.4-8.2)
[2021-01-24 06:11] LABS: BILIRUBIN,TOTAL 0.5 MG/DL (0.1-1.0)
[2021-01-24 06:13] LABS: CREATININE SERUM 0.86 MG/DL (0.60-1.30)
[2021-01-24] MEDS: inSUlin ASPART (NovoLOG) 1 UNIT/0.01 ML (CHARGE PER UNIT) SC SCH ×2 (06:18→11:09)
--- NOTE | 2021-01-24 07:29 | Progress Note - Surgery ---
PAYAM HERRERA 01/24/21 0728: Subjective Date Seen by a Provider: Jan 24, 2021 Time Seen by a Provider: 07:23 Subjective/Events-last exam Patients leg looks much improved today. Redness and swelling are down compared to yesterday. LLE seems to be same temp as RLE. Patient states that pain is much improved today. Patient has been up already twice this morning. Patient denies fever, chills, N/V, abdominal pain, dysuria. Review of Systems General: No Chills, No Night Sweats Pulmonary: No Dyspnea Cardiovascular: No: Chest Pain, Palpitations Gastrointestinal: No: Nausea, Vomiting, Abdominal Pain Genitourinary: No Dysuria Focused Exam Lactate Level 01/21/21 21:13: Lactic Acid Level 0.82 Objective Exam Vital Signs Date Time Temp Pulse Resp B/P (MAP) Pulse Ox O2 Delivery O2 Flow Rate FiO2 01/24/21 03:50 36.4 66 18 138/63 (88) 92 Room Air 01/23/21 23:54 36.2 66 18 106/52 (70) 93 NIV Bilevel 01/23/21 20:45 Room Air 01/23/21 20:00 36.4 71 18 134/60 (84) 94 Room Air 01/23/21 16:00 36.5 59 18 121/56 (77) 92 Room Air 01/23/21 11:50 36.4 74 20 143/68 (93) 92 Room Air 01/23/21 08:35 36.3 92 20 136/63 (87) 94 Room Air 01/23/21 08:00 94 Room Air I & O 01/24/21 06:59 Intake Total 2005 ml Output Total 175 ml Balance 1830 ml Capillary Refill : General Appearance: No Apparent Distress, Chronically ill, Obese HEENT: PERRL/EOMI Neck: Non Tender, Supple Respiratory: Chest Non Tender, Lungs Clear, Normal Breath Sounds, No Accessory Muscle Use, No Respiratory Distress Cardiovascular: Regular Rate, Rhythm, No JVD, Normal Peripheral Pulses Gastrointestinal: non tender, soft Extremity: No Calf Tenderness, Inflammation (LLE erythematous and warm), Pedal Edema, Swelling (Left lower extremity with edema and erythema) Neurologic/Psychiatric: Alert, Oriented x3, Normal Mood/Affect Skin: Normal Color, Erythema (Left lower extremity) Lymphatic: No Adenopathy Results Lab Laboratory Tests 01/23/21 11:54: Glucometer 122H 01/23/21 15:15: Vancomycin Level Trough 13.4 01/23/21 15:41: Glucometer 94 01/23/21 20:02: Glucometer 172H 01/24/21 05:33: White Blood Count 7.9, Red Blood Count 3.75L, Hemoglobin 11.3L, Hematocrit 36, Mean Corpuscular Volume 96, Mean Corpuscular Hemoglobin 30, Mean Corpuscular Hemoglobin Concent 31L, Red Cell Distribution Width 14.4, Platelet Count 201, Mean Platelet Volume 10.7, Immature Granulocyte % (Auto) 1, Neutrophils (%) (Auto) 68, Lymphocytes (%) (Auto) 16, Monocytes (%) (Auto) 10, Eosinophils (%) (Auto) 5, Basophils (%) (Auto) 1, Neutrophils # (Auto) 5.3, Lymphocytes # (Auto) 1.3, Monocytes # (Auto) 0.8, Eosinophils # (Auto) 0.4H, Basophils # (Auto) 0.1, Immature Granulocyte # (Auto) 0.1, Prothrombin Time 22.4H, INR Comment 1.9H, Sodium Level 141, Potassium Level 3.7, Chloride Level 112H, Carbon Dioxide Level 21, Anion Gap 8, Blood Urea Nitrogen 18, Creatinine 0.86, Estimat Glomerular Filtration Rate 64, BUN/Creatinine Ratio 21, Glucose Level 81, Calcium Level 8.9, Corrected Calcium 9.5, Total Bilirubin 0.5, Aspartate Amino Transf (AST/SGOT) 13, Alanine Aminotransferase (ALT/SGPT) 15, Alkaline Phosphatase 53, Total Protein 5.9L, Albumin 3.3 01/24/21 06:07: Glucometer 97 Microbiology 01/21/21 Blood Culture - Preliminary, Resulted No growth Assessment/Plan Assessment/Plan Assessment/Plan Assessment LLE cellulitis Doppler negative 01/21 Plan Discharge home today with appropriate abx Have patient monitor closely, return to PCP if any concerns Clinical Quality Measures DVT/VTE Risk/Contraindication: Contraindications-Mechi: Other *list below* Other: cellulitis of leg HAI GRAYSON DO 01/24/21 0936: Subjective Subjective/Events-last exam Feeling better. Leg erythema continues to improve/. Patient pain improving. Denies n/v fever sweats chills shortness of breath or chest pain. Objective Exam General Appearance: No Apparent Distress, Chronically ill HEENT: PERRL/EOMI, Normal ENT Inspection Neck: Non Tender, Supple Respiratory: Chest Non Tender, No Accessory Muscle Use, No Respiratory Distress Cardiovascular: Regular Rate, Rhythm, No JVD, Normal Peripheral Pulses Gastrointestinal: non tender, soft Extremity: No Calf Tenderness, Inflammation (LLE erythematous and warm, improving), Pedal Edema, Swelling (Left lower extremity with edema and erythema improving) Neurologic/Psychiatric: Alert, Oriented x3, Normal Mood/Affect Skin: Normal Color, Erythema (Left lower extremity improving) Lymphatic: No Adenopathy Assessment/Plan Assessment/Plan Assessment/Plan LLE cellulitis Doppler negative 01/21 Patient with continued improvement. Likely home today. Will sign off call if needed. Supervisory-Addendum Brief Verification & Attestation Participated in pt care: history, MDM, physical Personally performed: exam, history, MDM, supervision of care Care discussed with: Medical Student Procedures: n/a Results interpretation: Verified all documentation Verification and Attestation of Medical Student E/M Service A medical student performed and documented this service in my presence. I reviewed and verified all information documented by the medical student and made modifications to such information, when appropriate. I personally performed the physical exam and medical decision making. Hai Grayson, Jan 24, 2021,09:37 PAYAM HERRERA Jan 24, 2021 07:28 HAI GRAYSON DO Jan 24, 2021 09:36
[2021-01-24 08:00] VITALS: BP 127/58
[2021-01-24] MEDS: RT--FLUTICASONE/SALMETEROL 113-14 (AIRDUO RespiCLICK) IH SCH (08:09)
[2021-01-24] MEDS: ASPIRIN 81 MG CHEW (CHILDREN'S ASA) PO SCH (09:23)
[2021-01-24] MEDS: FAMOTIDINE 20 MG (PEPCID) TABLET PO SCH (09:23)
[2021-01-24] MEDS: FUROSEMIDE 40 MG (LASIX) TAB PO SCH (09:23)
[2021-01-24] MEDS: SENNA W/DOCUSATE (SENOKOT S) TABLET PO SCH (09:23)
[2021-01-24] MEDS: KCL 20 MEQ TAB (K-DUR) PO SCH (09:23)
[2021-01-24] MEDS: polyethylene glycoL POWDER 17 GM (MIRALAX) PACK PO SCH (09:23)
[2021-01-24] MEDS: lisINopril 40 MG (PRINIVIL) TABLET PO SCH (09:23)
[2021-01-24] MEDS: meTOprolol TARTRATE 50 MG (LOPRESSOR) TAB PO SCH (09:23)
[2021-01-24] MEDS: hydrALAZINE (APRESOLINE) 25 MG TAB PO SCH ×2 (09:23→12:13)
[2021-01-24] MEDS: FLUTICASONE NASAL SPRAY (FLONASE) 16 GM BTL NS SCH (09:24)
[2021-01-24] MEDS: ACETAMINOPHEN 325 MG TABLET PO PRN (09:30)
[2021-01-24] MEDS ORDERED: CEFD300C3 PO (11:19)
[2021-01-24] MEDS ORDERED: LINE600T12 PO (11:19)
--- NOTE | 2021-01-24 11:20 | Discharge Summary ---
Diagnosis/Chief Complaint Date of Admission Jan 21, 2021 at 14:43 Date of Discharge Discharge Date: Jan 24, 2021 Discharge Diagnosis Assessment: Severe complicated left lower extremity cellulitis Chronic lymphedema Diabetes CAD Current smoker COPD BARBARA Reason Hospital Visit CC: Left lower extremity cellulitis HPI: This is a 80yoWF who has 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 She was found to have significant left lower extremity cellulitis. She was placed on Cefepime and Vancomycin and currently she is doing well. Ultrasound is negative for DVT and INR was 2.7. Discharge Summary Discharge Physical Examination Allergies: Coded Allergies: erythromycin base (Verified Allergy, Intermediate, HIVES, 10/10/13) NSAIDS (Non-Steroidal Anti-Inflamma (Verified Allergy, Unknown, 01/10/17) cephalexin (Verified Allergy, Unknown, 10/10/13) Vitals & I&Os Vital Signs Date Time Temp Pulse Resp B/P (MAP) Pulse Ox O2 Delivery O2 Flow Rate FiO2 01/24/21 13:34 01/24/21 08:09 92 Room Air 01/24/21 08:00 36.2 63 20 01/21/21 19:55 21 General Appearance: Alert, Oriented X3, Cooperative Respiratory: Clear to Auscultation Cardiovascular: Regular Rate Skin: Other (Improving cellulitis left leg) Neuro: Normal Gait, Normal Speech, Strength at 5/5 X4 Ext Hospital Course Was the Problem List Reviewed?: Yes Labs (last 24 hrs) Laboratory Tests 01/21/21 15:28: White Blood Count 8.5, Red Blood Count 4.11, Hemoglobin 12.5, Hematocrit 40, Mean Corpuscular Volume 96, Mean Corpuscular Hemoglobin 30, Mean Corpuscular Hemoglobin Concent 32, Red Cell Distribution Width 14.6H, Platelet Count 208, Mean Platelet Volume 11.0, Immature Granulocyte % (Auto) 1, Neutrophils (%) (Auto) 74, Lymphocytes (%) (Auto) 14, Monocytes (%) (Auto) 8, Eosinophils (%) (Auto) 2, Basophils (%) (Auto) 1, Neutrophils # (Auto) 6.3, Lymphocytes # (Auto) 1.2, Monocytes # (Auto) 0.7, Eosinophils # (Auto) 0.2, Basophils # (Auto) 0.1, Immature Granulocyte # (Auto) 0.0 01/21/21 16:10: Prothrombin Time 29.0H, INR Comment 2.7H, Sodium Level 143, Potassium Level 3.6, Chloride Level 112H, Carbon Dioxide Level 23, Anion Gap 8, Blood Urea Nitrogen 20H, Creatinine 0.85, Estimat Glomerular Filtration Rate 65, BUN/Creatinine Ratio 24, Glucose Level 81, Calcium Level 9.1, Corrected Calcium 9.3, Total Bilirubin 0.4, Aspartate Amino Transf (AST/SGOT) 13, Alanine Aminotransferase (ALT/SGPT) 15, Alkaline Phosphatase 63, Total Protein 6.3L, Albumin 3.7 01/21/21 16:41: Glucometer 73 01/21/21 21:12: Glucometer 98 01/21/21 21:13: Lactic Acid Level 0.82 01/22/21 05:30: White Blood Count 8.0, Red Blood Count 3.83, Hemoglobin 11.5, Hematocrit 37, Mean Corpuscular Volume 97, Mean Corpuscular Hemoglobin 30, Mean Corpuscular Hemoglobin Concent 31L, Red Cell Distribution Width 14.6H, Platelet Count 192, Mean Platelet Volume 10.9, Immature Granulocyte % (Auto) 0, Neutrophils (%) (Auto) 72, Lymphocytes (%) (Auto) 15, Monocytes (%) (Auto) 10, Eosinophils (%) (Auto) 3, Basophils (%) (Auto) 1, Neutrophils # (Auto) 5.7, Lymphocytes # (Auto) 1.2, Monocytes # (Auto) 0.8, Eosinophils # (Auto) 0.2, Basophils # (Auto) 0.1, Immature Granulocyte # (Auto) 0.0, Sodium Level 143, Potassium Level 3.9, Chloride Level 115H, Carbon Dioxide Level 21, Anion Gap 7, Blood Urea Nitrogen 13, Creatinine 0.77, Estimat Glomerular Filtration Rate 73, BUN/Creatinine Ratio 17, Glucose Level 103, Calcium Level 8.5, Corrected Calcium 9.1, Total Bilirubin 0.5, Aspartate Amino Transf (AST/SGOT) 11, Alanine Aminotransferase (ALT/SGPT) 13, Alkaline Phosphatase 54, Total Protein 5.5L, Albumin 3.2 01/22/21 05:35: Glucometer 101 01/22/21 11:09: Glucometer 177H 01/22/21 16:35: Glucometer 114H 01/22/21 20:04: Glucometer 141H 01/23/21 05:36: White Blood Count 8.0, Red Blood Count 3.82, Hemoglobin 11.5, Hematocrit 37, Mean Corpuscular Volume 96, Mean Corpuscular Hemoglobin 30, Mean Corpuscular Hemoglobin Concent 31L, Red Cell Distribution Width 14.7H, Platelet Count 186, Mean Platelet Volume 10.8, Immature Granulocyte % (Auto) 1, Neutrophils (%) (A uto) 71, Lymphocytes (%) (Auto) 14, Monocytes (%) (Auto) 11, Eosinophils (%) (Auto) 3, Basophils (%) (Auto) 1, Neutrophils # (Auto) 5.6, Lymphocytes # (Auto) 1.1, Monocytes # (Auto) 0.9, Eosinophils # (Auto) 0.3, Basophils # (Auto) 0.1, Immature Granulocyte # (Auto) 0.0, Prothrombin Time 22.7H, INR Comment 2.0H, Sodium Level 144, Potassium Level 4.0, Chloride Level 116H, Carbon Dioxide Level 21, Anion Gap 7, Blood Urea Nitrogen 19H, Creatinine 0.82, Estimat Glomerular Filtration Rate 67, BUN/Creatinine Ratio 23, Glucose Level 65L, Calcium Level 8.8, Corrected Calcium 9.4, Total Bilirubin 0.5, Aspartate Amino Transf (AST/SGOT) 11, Alanine Aminotransferase (ALT/SGPT) 13, Alkaline Phosphatase 53, Total Protein 5.8L, Albumin 3.3 01/23/21 05:57: Glucometer 68L 01/23/21 11:54: Glucometer 122H 01/23/21 15:15: Vancomycin Level Trough 13.4 01/23/21 15:41: Glucometer 94 01/23/21 20:02: Glucometer 172H 01/24/21 05:33: White Blood Count 7.9, Red Blood Count 3.75L, Hemoglobin 11.3L, Hematocrit 36, Mean Corpuscular Volume 96, Mean Corpuscular Hemoglobin 30, Mean Corpuscular Hemoglobin Concent 31L, Red Cell Distribution Width 14.4, Platelet Count 201, Mean Platelet Volume 10.7, Immature Granulocyte % (Auto) 1, Neutrophils (%) (Auto) 68, Lymphocytes (%) (Auto) 16, Monocytes (%) (Auto) 10, Eosinophils (%) (Auto) 5, Basophils (%) (Auto) 1, Neutrophils # (Auto) 5.3, Lymphocytes # (Auto) 1.3, Monocytes # (Auto) 0.8, Eosinophils # (Auto) 0.4H, Basophils # (Auto) 0.1, Immature Granulocyte # (Auto) 0.1, Prothrombin Time 22.4H, INR Comment 1.9H, Sodium Level 141, Potassium Level 3.7, Chloride Level 112H, Carbon Dioxide Level 21, Anion Gap 8, Blood Urea Nitrogen 18, Creatinine 0.86, Estimat Glomerular Filtration Rate 64, BUN/Creatinine Ratio 21, Glucose Level 81, Calcium Level 8.9, Corrected Calcium 9.5, Total Bilirubin 0.5, Aspartate Amino Transf (AST/SGOT) 13, Alanine Aminotransferase (ALT/SGPT) 15, Alkaline Phosphatase 53, Total Protein 5.9L, Albumin 3.3 01/24/21 06:07: Glucometer 97 01/24/21 11:04: Glucometer 163H Microbiology 01/21/21 Blood Culture - Preliminary, Resulted No growth Pending Labs Microbiology Date/Time Source Procedure Growth Status 01/21/21 16:20 Peripheral Rt Hand Blood Culture - Preliminary No growth Resulted 01/21/21 16:10 Peripheral Lt Ac Blood Culture - Preliminary No growth Resulted Laboratory Tests 01/21/21 15:28: White Blood Count 8.5, Red Blood Count 4.11, Hemoglobin 12.5, Hematocrit 40, Mean Corpuscular Volume 96, Mean Corpuscular Hemoglobin 30, Mean Corpuscular Hemoglobin Concent 32, Red Cell Distribution Width 14.6, Platelet Count 208, Mean Platelet Volume 11.0, Immature Granulocyte % (Auto) 1, Neutrophils (%) (Auto) 74, Lymphocytes (%) (Auto) 14, Monocytes (%) (Auto) 8, Eosinophils (%) (Auto) 2, Basophils (%) (Auto) 1, Neutrophils # (Auto) 6.3, Lymphocytes # (Auto) 1.2, Monocytes # (Auto) 0.7, Eosinophils # (Auto) 0.2, Basophils # (Auto) 0.1, Immature Granulocyte # (Auto) 0.0 01/21/21 16:10: Prothrombin Time 29.0, INR Comment 2.7, Sodium Level 143, Potassium Level 3.6, Chloride Level 112, Carbon Dioxide Level 23, Anion Gap 8, Blood Urea Nitrogen 20, Creatinine 0.85, Estimat Glomerular Filtration Rate 65, BUN/Creatinine Ratio 24, Glucose Level 81, Calcium Level 9.1, Corrected Calcium 9.3, Total Bilirubin 0.4, Aspartate Amino Transf (AST/SGOT) 13, Alanine Aminotransferase (ALT/SGPT) 15, Alkaline Phosphatase 63, Total Protein 6.3, Albumin 3.7 01/21/21 16:41: Glucometer 73 01/21/21 21:12: Glucometer 98 01/21/21 21:13: Lactic Acid Level 0.82 01/22/21 05:30: White Blood Count 8.0, Red Blood Count 3.83, Hemoglobin 11.5, Hematocrit 37, Mean Corpuscular Volume 97, Mean Corpuscular Hemoglobin 30, Mean Corpuscular Hemoglobin Concent 31, Red Cell Distribution Width 14.6, Platelet Count 192, Mean Platelet Volume 10.9, Immature Granulocyte % (Auto) 0, Neutrophils (%) (Auto) 72, Lymphocytes (%) (Auto) 15, Monocytes (%) (Auto) 10, Eosinophils (%) (Auto) 3, Basophils (%) (Auto) 1, Neutrophils # (Auto) 5.7, Lymphocytes # (Auto) 1.2, Monocytes # (Auto) 0.8, Eosinophils # (Auto) 0.2, Basophils # (Auto) 0.1, Immature Granulocyte # (Auto) 0.0, Sodium Level 143, Potassium Level 3.9, Chloride Level 115, Carbon Dioxide Level 21, Anion Gap 7, Blood Urea Nitrogen 13, Creatinine 0.77, Estimat Glomerular Filtration Rate 73, BUN/Creatinine Ratio 17, Glucose Level 103, Calcium Level 8.5, Corrected Calcium 9.1, Total Bilirubin 0.5, Aspartate Amino Transf (AST/SGOT) 11, Alanine Aminotransferase (ALT/SGPT) 13, Alkaline Phosphatase 54, Total Protein 5.5, Albumin 3.2 01/22/21 05:35: Glucometer 101 01/22/21 11:09: Glucometer 177 01/22/21 16:35: Glucometer 114 01/22/21 20:04: Glucometer 141 01/23/21 05:36: White Blood Count 8.0, Red Blood Count 3.82, Hemoglobin 11.5, Hematocrit 37, Mean Corpuscular Volume 96, Mean Corpuscular Hemoglobin 30, Mean Corpuscular Hemoglobin Concent 31, Red Cell Distribution Width 14.7, Platelet Count 186, Mean Platelet Volume 10.8, Immature Granulocyte % (Auto) 1, Neutrophils (%) (Auto) 71, Lymphocytes (%) (Auto) 14, Monocytes (%) (Auto) 11, Eosinophils (%) (Auto) 3, Basophils (%) (Auto) 1, Neutrophils # (Auto) 5.6, Lymphocytes # (Auto) 1.1, Monocytes # (Auto) 0.9, Eosinophils # (Auto) 0.3, Basophils # (Auto) 0.1, Immature Granulocyte # (Auto) 0.0, Prothrombin Time 22.7, INR Comment 2.0, Sodium Level 144, Potassium Level 4.0, Chloride Level 116, Carbon Dioxide Level 21, Anion Gap 7, Blood Urea Nitrogen 19, Creatinine 0.82, Estimat Glomerular F iltration Rate 67, BUN/Creatinine Ratio 23, Glucose Level 65, Calcium Level 8.8, Corrected Calcium 9.4, Total Bilirubin 0.5, Aspartate Amino Transf (AST/SGOT) 11, Alanine Aminotransferase (ALT/SGPT) 13, Alkaline Phosphatase 53, Total Protein 5.8, Albumin 3.3 01/23/21 05:57: Glucometer 68 01/23/21 11:54: Glucometer 122 01/23/21 15:15: Vancomycin Level Trough 13.4 01/23/21 15:41: Glucometer 94 01/23/21 20:02: Glucometer 172 01/24/21 05:33: White Blood Count 7.9, Red Blood Count 3.75, Hemoglobin 11.3, Hematocrit 36, Mean Corpuscular Volume 96, Mean Corpuscular Hemoglobin 30, Mean Corpuscular Hemoglobin Concent 31, Red Cell Distribution Width 14.4, Platelet Count 201, Mean Platelet Volume 10.7, Immature Granulocyte % (Auto) 1, Neutrophils (%) (Auto) 68, Lymphocytes (%) (Auto) 16, Monocytes (%) (Auto) 10, Eosinophils (%) (Auto) 5, Basophils (%) (Auto) 1, Neutrophils # (Auto) 5.3, Lymphocytes # (Auto) 1.3, Monocytes # (Auto) 0.8, Eosinophils # (Auto) 0.4, Basophils # (Auto) 0.1, Immature Granulocyte # (Auto) 0.1, Prothrombin Time 22.4, INR Comment 1.9, Sodium Level 141, Potassium Level 3.7, Chloride Level 112, Carbon Dioxide Level 21, Anion Gap 8, Blood Urea Nitrogen 18, Creatinine 0.86, Estimat Glomerular Filtration Rate 64, BUN/Creatinine Ratio 21, Glucose Level 81, Calcium Level 8.9, Corrected Calcium 9.5, Total Bilirubin 0.5, Aspartate Amino Transf (AST/SGOT) 13, Alanine Aminotransferase (ALT/SGPT) 15, Alkaline Phosphatase 53, Total Protein 5.9, Albumin 3.3 01/24/21 06:07: Glucometer 97 01/24/21 11:04: Glucometer 163 Discharge Home Medications: Active Scripts Active Zyvox (Linezolid) 600 Mg Tablet 600 Mg PO BID Cefdinir 300 Mg Capsule 300 Mg PO BID Reported Glipizide ER (Glipizide) 5 Mg Tab.er.24 5 Mg PO BID Fluticasone-Salmeterol 250-50 (Fluticasone Propion/Salmeterol) 1 Each Blst.w.dev 1 Puff INH DAILY Hydralazine HCl 50 Mg Tablet 50 Mg PO 0800,1200,1800 Fluticasone Propionate 16 Gm Baring.susp 1 Baring NSEACH DAILY Vitamin D3 (Cholecalciferol (Vitamin D3)) 50 Mcg Capsule 50 Mcg PO 1800 Tylenol Arthritis (Acetaminophen) 650 Mg Tablet.er 1,300 Mg PO Q8H Nystatin 15 Gm Cream..g. 1 Applic TOP BID PRN Levemir (Insulin Determir) 1,000 Units/10 Ml Soln 10-12 Units SC HS Metoprolol Tartrate 100 Mg Tablet 100 Mg PO BID Polyethylene Glycol 3350 17 Gm Powd.pack 17 Gm PO DAILY Acid Recovery Agent (FAMOTIDINE) (Famotidine) 20 Mg Tablet 20 Mg PO BID Warfarin Sodium 4 Mg Tablet 4 Mg PO 1800 Benazepril HCl 40 Mg Tab 40 Mg PO DAILY Potassium Chloride 20 Meq Tab.er.prt 20 Meq PO DAILY Furosemide 40 Mg Tablet 40 Mg PO DAILY Montelukast Sodium 10 Mg Tablet 10 Mg PO HS Aspirin 81 Mg Tab.chew 81 Mg PO DAILY Iprat-Albut 0.5-3(2.5) mg/3 ml (Ipratropium/Albuterol Sulfate) 3 Ml Ampul.neb 3 Ml IH QID PRN Pravastatin Sodium 40 Mg Tablet 20 Mg PO BID TAKE 1/2 OF (40 MG) TABLET Instructions to patient/family Please see electronic discharge instructions given to patient. Diagnosis/Problems Diagnosis/Problems (1) Left leg cellulitis Clinical Quality Measures DVT/VTE Risk/Contraindication: Contraindications-Mechi: Other *list below* Other: cellulitis of leg MAHENDRA RENNER DO Jan 24, 2021 11:20
--- NOTE | 2021-01-24 12:52 | Progress Note ---
KEVIN BERMEO STUDENT 01/24/21 1252: Progress Note This is Ashanti Moreno is a 80 year old female on day 4 of her hospital stay being discharged home. She presented to Dr. Pires clinic on 01/21 with complaints of increasing pain, swelling, and redness to the left lower extremity for two days. She was subsequently a direct admit to the 4th floor. PMH is significant for CAD, atrial fibrillation, CABG, COPD, HTN, HLP, DVT, PE, chronic systolic and diastolic HF, diabetes mellitus, chronic bilateral lower extremity swelling, and tobacco use. She is maintained on coumadin. She stated that she's had ongoing issues with chronic edema of the left leg since last February, couldn't recall an inciting event. Venous doppler ultrasound was performed on 01/21 and was negative for any DVT in the left leg. Dr. Grayson was consulted from surgery and noted swelling and erythema in the lower left extremity and gave the plan of IV antibiotics, elevating the leg, and monitor for change in condition. Dr. Lopez from cardiology was also consulted due to her multiple comorbities. Pt was started on IV cefepime and vancomycin. After IV antibiotics were started there was significant improvement in the cellulitis. Hydrocodone and tylenol were provided for pain relief. Upon examination this morning her only concern was pain on the posterior side of the left lower leg. She was worried about symptoms returning upon discharge. Pt was reassured and discharged with the instructions of continuing to elevate the leg, tylenol for pain relief, and to take it easy this weekend. Omnicef and Zyvox were prescribed for antibacterial coverage and an appointment was scheduled for Dr. Pires clinic next week. LESLI RENNER DO 01/25/21 0631: Supervisory-Addendum Brief Verification & Attestation Participated in pt care: history, MDM, physical Personally performed: exam, history, MDM, supervision of care Care discussed with: Medical Student Procedures: n/a Results interpretation: Verified all documentation Verification and Attestation of Medical Student E/M Service A medical student performed and documented this service in my presence. I reviewed and verified all information documented by the medical student and made modifications to such information, when appropriate. I personally performed the physical exam and medical decision making. Lesli Renner, Jan 25, 2021,06:31 KEVIN BERMEO MED STUDENT Jan 24, 2021 12:52 LESLI RENNER DO Jan 25, 2021 06:31
== END 2021-01-24 13:37 | disposition home or self-care (01) | DRG 603 ==
LOC: 4TH 14:43
PROVIDERS: ADMIT Internal Medicine; ATTEND Internal Medicine
DX: L03.116 Cellulitis of left lower limb (principal); I50.42 Chronic combined systolic (congestive) and diastolic (congestive) heart failure; I38 Endocarditis, valve unspecified; I11.0 Hypertensive heart disease with heart failure; I89.0 Lymphedema, not elsewhere classified; I25.10 Atherosclerotic heart disease of native coronary artery without angina pectoris; J44.9 Chronic obstructive pulmonary disease, unspecified; G47.33 Obstructive sleep apnea (adult) (pediatric); F17.210 Nicotine dependence, cigarettes, uncomplicated; E11.42 Type 2 diabetes mellitus with diabetic polyneuropathy; E78.5 Hyperlipidemia, unspecified; K21.9 Gastro-esophageal reflux disease without esophagitis; I77.89 Other specified disorders of arteries and arterioles; M19.90 Unspecified osteoarthritis, unspecified site; E66.9 Obesity, unspecified; I48.91 Unspecified atrial fibrillation; Z86.718 Personal history of other venous thrombosis and embolism; Z86.711 Personal history of pulmonary embolism; Z79.899 Other long term (current) drug therapy; Z79.82 Long term (current) use of aspirin; Z95.5 Presence of coronary angioplasty implant and graft; Z79.4 Long term (current) use of insulin; Z79.01 Long term (current) use of anticoagulants; Z95.1 Presence of aortocoronary bypass graft; Z68.35 Body mass index [BMI] 35.0-35.9, adult; Z85.528 Personal history of other malignant neoplasm of kidney; Z85.828 Personal history of other malignant neoplasm of skin; Z99.89 Dependence on other enabling machines and devices
CPT/HCPCS: 36415; 80053; 80202; 82947; 83605; 85025; 85610; 87040; 94640; 94760

== ENCOUNTER 2021-02-07 09:17 | Emergency (ER) | payer MEDICARE ==
[~2021-02-07] VITALS: Ht 165.1 cm; Wt 93.8 kg
[~2021-02-07 09:17] MED LIST changes: +CEFD300C3 PO; +CHOL20002 PO; +FLUT16SP22 NSEACH; +FLUT1BLS12 INH; +GLIP5TAB26 PO; +HYDR-3924 PO; +LINE600T12 PO
[2021-02-07 10:23] LABS: BASOPHILS # (AUTO) 0.1 10^3/uL (0.0-0.1); BASOPHILS % (AUTO) 1 % (0-10); EOSINOPHILS # (AUTO) 0.2 10^3/uL (0.0-0.3); EOSINOPHILS % (AUTO) 2 % (0-10); HEMATOCRIT 30 % (35-52); HEMOGLOBIN 9.2 g/dL (11.5-16.0); LYMPHOCYTES # (AUTO) 1.2 10^3/uL (1.0-4.0); LYMPHOCYTES % (AUTO) 13 % (12-44); MEAN CORPUSCULAR HEMOGLOBIN 30 pg (25-34); MEAN CORPUSCULAR HGB CONC 31 g/dL (32-36); MEAN CORPUSCULAR VOLUME 98 fL (80-99); MEAN PLATELET VOLUME 10.5 fL (9.0-12.2); MONOCYTES # (AUTO) 0.9 10^3/uL (0.0-1.0); MONOCYTES % (AUTO) 10 % (0-12); NEUTROPHILS # (AUTO) 6.3 10^3/uL (1.8-7.8); NEUTROPHILS % (AUTO) 73 % (42-75); PLATELET COUNT 254 10^3/uL (130-400); WHITE BLOOD COUNT 8.7 10^3/uL (4.3-11.0)
[2021-02-07 10:26] LABS: POTASSIUM 4.2 MMOL/L (3.6-5.0)
[2021-02-07 10:27] LABS: CALCIUM 8.9 MG/DL (8.5-10.1); INR 2.8 (0.8-1.4); PROTHROMBIN TIME PATIENT 29.8 SEC (12.2-14.7)
[2021-02-07 10:31] LABS: CREATININE SERUM 1.06 MG/DL (0.60-1.30)
--- NOTE | 2021-02-07 10:37 | Diagnostic Imaging Report ---
Indication: Fall, coronary artery disease. Comparison: 12/16/2018 Single view of the chest demonstrates stable cardiac enlargement. The lungs are clear. There is no pneumothorax, effusion or infiltrate. No obvious fracture is identified. Impression: No acute cardiopulmonary findings. Dictated by: Dictated on workstation # [id number]
--- NOTE | 2021-02-07 10:39 | Diagnostic Imaging Report ---
Indication: Fall, left hip pain. Comparison: None Findings: Single view of the pelvis, 2 views of the left hip demonstrate mild to moderate degenerative joint disease. There is no fracture or dislocation. No osseous lesion. Impression: No fracture identified. Dictated by: Dictated on workstation # [id number]
--- NOTE | 2021-02-07 11:08 | Diagnostic Imaging Report ---
PROCEDURE: CT head and CT cervical spine without contrast. TECHNIQUE: Multiple contiguous axial images were obtained through the brain and cervical spine without the use of intravenous contrast. Sagittal and coronal reformations through the cervical spine were then performed. Auto Exposure Controls were utilized during the CT exam to meet ALARA standards for radiation dose reduction. INDICATION: Anticoagulated state with fall injuring head and neck. CT HEAD: CT images of the head were obtained. FINDINGS: Ventricles and sulci are within normal limits for size. There is no intracranial hemorrhage identified. There is no abnormal mass effect or shift of midline structures. IMPRESSION: 1. Unremarkable CT of the head. CT CERVICAL SPINE: The cervical curvature and alignment are within normal limits. The vertebral body heights and disc spaces are maintained without evidence of fracture or subluxation. There is no paraspinous hematoma. There is narrowing of the disc spaces from C5 through T1 with associated degenerative facet arthropathy throughout the cervical spine. IMPRESSION: 1. No CT evidence of acute cervical spinal abnormality. Dictated by: Dictated on workstation # [id number]
--- NOTE | 2021-02-07 11:18 | ED Fall/Injury ---
General Chief Complaint: Trauma-Non Activation Stated Complaint: L HIP PAIN FELL Nursing Triage Note: PT AMB TO RM 3 WITH COMPLAINT OF LEFT HIP PAIN, LEFT SHOULDER PAIN AFTER FALLING ON WEDNESDAY NIGHT. STATES SHE DID HIT BACK OF HEAD. PT HAS LARGE HEMATOMA TO LEFT HIP. TAKE COUMADIN. Source: patient History of Present Illness Date Seen by Provider: Feb 07, 2021 Time Seen by Provider: 10:00 Initial Comments PT ARRIVES VIA POV FROM HOME PT STATSE ON Wednesday02/05/21, SHE TRIPPED AND FELL IN HER GARAGE, LANDING ON HER LEFT HIP AND HIT THE BACK OF HER HEAD NO LOSS OF CONSCIOUSNESS NO NECK OR BACK PAIN NO HEADACHE NO PARESTHESIAS OR MOTOR DEFICITS NO VISION CHANGES NO DIZZINESS NO NAUSEA/VOMITING PT STATES SHE WAS ABLE TO GET UP AND HAS BEEN ABLE TO WALK PT STATES "I DIDN'T WORRY TOO MUCH ABOUT IT" PT DID NOT SEEK CARE UNTIL TODAY STATES SHE CAME TODAY BECAUSE OF THE LARGE BRUISE ON HER LEFT HIP--PT IS IN COUMADIN PCP: DR. RENNER HEELER: DR. INCHOLSON Allergies and Home Medications Allergies Coded Allergies: erythromycin base (Verified Allergy, Intermediate, HIVES, 10/10/13) NSAIDS (Non-Steroidal Anti-Inflamma (Verified Allergy, Unknown, 01/10/17) cephalexin (Verified Allergy, Unknown, 10/10/13) Patient Home Medication List Home Medication List Reviewed: Yes Acetaminophen (Tylenol Arthritis) 650 Mg Tablet.er, 1,300 MG PO Q8H, (Reported) Entered as Reported by: JESSICA ELDER on 12/16/18 1611 Aspirin (Aspirin) 81 Mg Tab.chew, 81 MG PO DAILY, (Reported) Entered as Reported by: MIGUEL PERALTA on 12/21/16 1110 Benazepril HCl (Benazepril HCl) 40 Mg Tab, 40 MG PO DAILY, (Reported) Entered as Reported by: MIGUEL PERALTA on 12/21/16 1110 Cefdinir (Cefdinir) 300 Mg Capsule, 300 MG PO BID Prescribed by: MAHENDRA RENNER on 01/24/21 1119 Cholecalciferol (Vitamin D3) (Vitamin D3) 50 Mcg Capsule, 50 MCG PO 1800, (Reported) Entered as Reported by: LETY FLORES on 01/21/21 1604 Famotidine (Acid Staff Rn (FAMOTIDINE)) 20 Mg Tablet, 20 MG PO BID, (Reported) Entered as Reported by: JESSICA ELDER on 12/16/18 1611 Fluticasone Propion/Salmeterol (Fluticasone-Salmeterol 250-50) 1 Each Blst.w.dev, 1 PUFF INH DAILY, (Reported) Entered as Reported by: LETY FLORES on 01/21/21 1604 Fluticasone Propionate (Fluticasone Propionate) 16 Gm [place].susp, 1 SPRAY NSEACH DAILY, (Reported) Entered as Reported by: LETY FLORES on 01/21/21 1604 Furosemide (Furosemide) 40 Mg Tablet, 40 MG PO DAILY, (Reported) Entered as Reported by: MIGUEL PERALTA on 12/21/16 1110 Glipizide (Glipizide ER) 5 Mg Tab.er.24, 5 MG PO BID, (Reported) Entered as Reported by: LETY FLORES on 01/21/21 1604 Hydralazine HCl (Hydralazine HCl) 50 Mg Tablet, 50 MG PO 0800,1200,1800, (Reported) Entered as Reported by: LETY FLORES on 01/21/21 1604 Insulin Determir (Levemir) 1,000 Units/10 Ml Soln, 10-12 UNITS SC HS, (Reported) Entered as Reported by: JESSICA ELDER on 12/16/18 161 Ipratropium/Albuterol Sulfate (Iprat-Albut 0.5-3(2.5) mg/3 ml) 3 Ml Ampul.neb, 3 ML IH QID PRN for SHORTNESS OF BREATH, (Reported) Entered as Reported by: KEVIN WHYTE on 08/02/15 1114 Linezolid (Zyvox) 600 Mg Tablet, 600 MG PO BID Prescribed by: MAHENDRA RENNER on 01/24/21 1119 Metoprolol Tartrate (Metoprolol Tartrate) 100 Mg Tablet, 100 MG PO BID, (Reported) Entered as Reported by: JESSICA ELDER on 12/16/18 1611 Montelukast Sodium (Montelukast Sodium) 10 Mg Tablet, 10 MG PO HS, (Reported) Entered as Reported by: MIGUEL PERALTA on 12/21/16 1110 Nystatin (Nystatin) 15 Gm Cream..g., 1 APPLIC TOP BID PRN for RASH, (Reported) Entered as Reported by: JESSICA ELDER on 12/16/18 1611 Polyethylene Glycol 3350 (Polyethylene Glycol 3350) 17 Gm Powd.pack, 17 GM PO DAILY, (Reported) Entered as Reported by: JESSICA ELDER on 12/16/18 1611 Potassium Chloride (Potassium Chloride) 20 Meq Tab.er.prt, 20 MEQ PO DAILY, (Reported) Entered as Reported by: MIGUEL PERALTA on 12/21/16 1110 Pravastatin Sodium (Pravastatin Sodium) 40 Mg Tablet, 20 MG PO BID, (Reported) Entered as Reported by: KEVIN WHYTE on 08/02/15 1109 Warfarin Sodium (Warfarin Sodium) 4 Mg Tablet, 4 MG PO 1800, (Reported) Entered as Reported by: MILAGROS WALSH on 11/23/18 1141 Review of Systems Review of Systems Constitutional: no symptoms reported Eyes: No Symptoms Reported Ears, Nose, Mouth, Throat: no symptoms reported Respiratory: no symptoms reported Cardiovascular: no symptoms reported Gastrointestinal: no symptoms reported Genitourinary: no symptoms reported Musculoskeletal: see HPI Skin: see HPI Psychiatric/Neurological: No Symptoms Reported Past Wzssmmn-Wbmvly-Yslgpw Hx Patient Social History Tobacco Use?: Yes Tobacco type used: Cigarettes Smoking Status: Current Everyday Smoker Substance use?: No Alcohol Use?: No Pt feels they are or have been: No Immunizations Up To Date Tetanus Booster (TDap): Unknown PED Vaccines UTD: Yes First/Initial COVID19 Vaccinat: JUL 2020 Second COVID19 Vaccination Elbert: JULY 2020 Seasonal Allergies Seasonal Allergies: Yes Past Medical History Surgeries: Yes Appendectomy, Bladder Surgery, CABG, Coronary Stent, Gallbladder, Hysterectomy, Rectal Respiratory: Yes Asthma, Pneumonia, Chronic Bronchitis, Pulmonary Embolism, COPD Currently Using CPAP: Yes Currently Using BIPAP: No Cardiac: Yes Coronary Artery Disease, High Cholesterol, Hypertension, Valvular Heart Disease Neurological: Yes Neuropathy Reproductive Disorders: Yes 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 Disorders: Endometriosis 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 Sexually Transmitted Disease: No HIV/AIDS: No Genitourinary: Yes Bladder Infection Gastrointestinal: Yes Colitis, Gastroesophageal Reflux, Diverticulosis Musculoskeletal: Yes Arthritis Endocrine: Yes Diabetes, Insulin dep HEENT: Yes Cataract Loss of Vision: Denies Hearing Impairment: Denies Cancer: Yes Skin, Kidney Did You Recieve Any Treatments: Yes What Type of Treatment Did You: Surgical Intervention Psychosocial: No Integumentary: No Blood Disorders: No Adverse Reaction/Blood Tranf: No Family Medical History CABG 19 FATHER Cardiovascular disease 19 FATHER 19 MOTHER Diabetes mellitus 19 MOTHER FH: lung cancer 19 FATHER FH: myocardial infarction 19 MOTHER Hypertension 19 FATHER 19 MOTHER Heart Disease, Diabetes, Hypertension Physical Exam Vital Signs Vital Signs - First Documented 02/07/21 09:40 Temp 36.6 Pulse 66 Resp 17 B/P (MAP) 138/56 (83) Pulse Ox 98 O2 Delivery Room Air Capillary Refill : Less Than 3 Seconds Height, Weight, BMI Height: 5'5.00" Weight: 212lbs. 8.0oz. 96.212129ui; 34.00 BMI Method:Stated General Appearance: WD/WN, no apparent distress, obese HEENT: PERRL/EOMI, normal ENT inspection, TMs normal, other (NO EXTERNAL E VIDENCE OF TRAUMA TO HEAD, AND NO TENDERNESS) Neck: non-tender, full range of motion, supple, normal inspection Cardiovascular: regular rate, rhythm, no murmur Respiratory: chest non-tender, normal breath sounds, no respiratory distress Gastrointestinal: non tender, soft Back: no CVA tenderness, no vertebral tenderness Extremities: normal range of motion, other (VERY LARGE BRUISE TO LEFT HIP AND LATERAL THIGH, MILD TENDERNESS. PT WITH LYMPHEDEMA AND HAS BOTH LOWER LEGS WRAPPED. TOES PINK, WITH MOTOR/SENSORY INTACT. 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 NO EXCESSIVE BRUISING ANYWHERE ELSE. FEW, SMALL OLD BRUISES TO FOREARMS) Progress/Results/Core Measures Results/Orders Lab Results Laboratory Tests Test 02/07/21 09:58 Range/Units White Blood Count 8.7 4.3-11.0 10^3/uL Red Blood Count 3.07 L 3.80-5.11 10^6/uL Hemoglobin 9.2 L 11.5-16.0 g/dL Hematocrit 30 L 35-52 % Mean Corpuscular Volume 98 80-99 fL Mean Corpuscular Hemoglobin 30 25-34 pg Mean Corpuscular Hemoglobin Concent 31 L 32-36 g/dL Red Cell Distribution Width 15.2 H 10.0-14.5 % Platelet Count 254 130-400 10^3/uL Mean Platelet Volume 10.5 9.0-12.2 fL Immature Granulocyte % (Auto) 1 % Neutrophils (%) (Auto) 73 42-75 % Lymphocytes (%) (Auto) 13 12-44 % Monocytes (%) (Auto) 10 0-12 % Eosinophils (%) (Auto) 2 0-10 % Basophils (%) (Auto) 1 0-10 % Neutrophils # (Auto) 6.3 1.8-7.8 10^3/uL Lymphocytes # (Auto) 1.2 1.0-4.0 10^3/uL Monocytes # (Auto) 0.9 0.0-1.0 10^3/uL Eosinophils # (Auto) 0.2 0.0-0.3 10^3/uL Basophils # (Auto) 0.1 0.0-0.1 10^3/uL Immature Granulocyte # (Auto) 0.0 0.0-0.1 10^3/uL Prothrombin Time 29.8 H 12.2-14.7 SEC INR Comment 2.8 H 0.8-1.4 Activated Partial Thromboplast Time 54 H 24-35 SEC Sodium Level 144 135-145 MMOL/L Potassium Level 4.2 3.6-5.0 MMOL/L Chloride Level 111 H 98-107 MMOL/L Carbon Dioxide Level 23 21-32 MMOL/L Anion Gap 10 5-14 MMOL/L Blood Urea Nitrogen 26 H 7-18 MG/DL Creatinine 1.06 0.60-1.30 MG/DL Estimat Glomerular Filtration Rate 50 BUN/Creatinine Ratio 25 Glucose Level 101 70-105 MG/DL Calcium Level 8.9 8.5-10.1 MG/DL My Orders Orders - JOSE ELLIS DO Ed Iv/Invasive Line Start (02/07/21 10:06) Monitor-Rhythm Ecg Trace Only (02/07/21 10:06) Ct Head/Cervical Spine Wo (02/07/21 10:06) Chest 1 View, Ap/Pa Only (02/07/21 10:06) Pelvis With Left Hip 2-3 Views (02/07/21 10:06) Basic Metabolic Panel (02/07/21 10:06) Cbc With Automated Diff (02/07/21 10:06) Protime With Inr (02/07/21 10:06) Partial Thromboplastin Time (02/07/21 10:06) Vital Signs/I&O 02/07/21 02/07/21 09:40 11:47 Temp 36.6 Pulse 66 65 Resp 17 17 B/P (MAP) 138/56 (83) 128/50 Pulse Ox 98 94 O2 Delivery Room Air Room Air Blood Pressure Mean: 83 Progress Progress Note : Progress Note NO DETERIORATION IN PT'S CONDITION DURING ER STAY Diagnostic Imaging Comments XRAYS--PER RADIOLOGIST REPORT AT 1037: CXR-- Single view of the chest demonstrates stable cardiac enlargement. The lungs are clear. There is no pneumothorax, effusion or infiltrate. No obvious fracture is identified. Impression: No acute cardiopulmonary findings. PELVIS/LEFT HIP XRAYS-- Findings: Single view of the pelvis, 2 views of the left hip demonstrate mild to moderate degenerative joint disease. There is no fracture or dislocation. No osseous lesion. Impression: No fracture identified. CT HEAD/CERVICAL SPINE--PER RADIOLOGIST REPORT AT 1115 FINDINGS: Ventricles and sulci are within normal limits for size. There is no intracranial hemorrhage identified. There is no abnormal mass effect or shift of midline structures. IMPRESSION: 1. Unremarkable CT of the head. CT CERVICAL SPINE: The cervical curvature and alignment are within normal limits. The vertebral body heights and disc spaces are maintained without evidence of fracture or subluxation. There is no paraspinous hematoma. There is narrowing of the disc spaces from C5 through T1 with associated degenerative facet arthropathy throughout the cervical spine. IMPRESSION: 1. No CT evidence of acute cervical spinal abnormality. Reviewed: Reviewed by Me Departure Impression Primary Impression: Fall from standing Additional Impressions: Contusion of left hip and thigh Minor head injury without loss of consciousness Anticoagulated on Coumadin Disposition: 01 HOME, SELF-CARE Condition: Stable Departure-Patient Inst. Decision time for Depature: 11:15 Referrals: MAHENDRA RENNER DO (PCP/Family) Primary Care Physician Patient Instructions: Minor Head Injury (DC), Preventing Falls in the Older Adult, Contusion (DC) Add. Discharge Instructions: ICE TO AREA AT 20 MINUTE INTERVALS TYLENOL NEEDED FOR PAIN FOLLOW UP WITH DR. RENNER IN 1 WEEK IF NO BETTER, RETURN TO ER IF SYMPTOMS WORSEN All discharge instructions reviewed with patient and/or family. Voiced understanding. JOSE ELLIS DO Feb 07, 2021 11:18
[2021-02-07 11:47] VITALS: BP 128/50
== END 2021-02-07 11:47 | disposition home or self-care (01) ==
LOC: EDUNIT# 09:17 → ER 09:19
DX: S70.02XA Contusion of left hip, initial encounter (principal); S70.12XA Contusion of left thigh, initial encounter; S09.90XA Unspecified injury of head, initial encounter; E66.9 Obesity, unspecified; J44.9 Chronic obstructive pulmonary disease, unspecified; I10 Essential (primary) hypertension; E78.00 Pure hypercholesterolemia, unspecified; I25.10 Atherosclerotic heart disease of native coronary artery without angina pectoris; K21.9 Gastro-esophageal reflux disease without esophagitis; E11.9 Type 2 diabetes mellitus without complications; F17.210 Nicotine dependence, cigarettes, uncomplicated; Z68.34 Body mass index [BMI] 34.0-34.9, adult; Z86.711 Personal history of pulmonary embolism; Z79.899 Other long term (current) drug therapy; Z79.01 Long term (current) use of anticoagulants; Z79.82 Long term (current) use of aspirin; Z79.4 Long term (current) use of insulin; W01.198A Fall on same level from slipping, tripping and stumbling with subsequent striking against other object, initial encounter
CPT/HCPCS: 36415; 70450; 71045; 72125; 80048; 85025; 85610; 85730; 93041

== ENCOUNTER 2021-05-19 07:43 | Emergency (ER) | payer MEDICARE ==
[~2021-05-19] VITALS: Ht 165 cm; Wt 92.5 kg
[~2021-05-19 07:43] MED LIST changes: -BENA40TA5 PO; +BENA40TA84 PO; +MONT-40 PO; -MONT10TA32 PO; +POTA-179 PO
[2021-05-19 09:05] LABS: BASOPHILS # (AUTO) 0.1 10^3/uL (0.0-0.1); BASOPHILS % (AUTO) 1 % (0-10); EOSINOPHILS # (AUTO) 0.2 10^3/uL (0.0-0.3); EOSINOPHILS % (AUTO) 3 % (0-10); HEMATOCRIT 41 % (35-52); HEMOGLOBIN 13.1 g/dL (11.5-16.0); LYMPHOCYTES # (AUTO) 1.3 10^3/uL (1.0-4.0); LYMPHOCYTES % (AUTO) 17 % (12-44); MEAN CORPUSCULAR HEMOGLOBIN 30 pg (25-34); MEAN CORPUSCULAR HGB CONC 32 g/dL (32-36); MEAN CORPUSCULAR VOLUME 94 fL (80-99); MEAN PLATELET VOLUME 10.7 fL (9.0-12.2); MONOCYTES # (AUTO) 0.7 10^3/uL (0.0-1.0); MONOCYTES % (AUTO) 9 % (0-12); NEUTROPHILS # (AUTO) 5.1 10^3/uL (1.8-7.8); NEUTROPHILS % (AUTO) 70 % (42-75); PLATELET COUNT 193 10^3/uL (130-400); WHITE BLOOD COUNT 7.4 10^3/uL (4.3-11.0)
[2021-05-19 09:18] LABS: CALCIUM 9.2 MG/DL (8.5-10.1); INR 2.2 (0.8-1.4); PROTHROMBIN TIME PATIENT 24.8 SEC (12.2-14.7)
[2021-05-19 09:23] LABS: CREATININE SERUM 0.78 MG/DL (0.60-1.30)
--- NOTE | 2021-05-19 09:26 | Diagnostic Imaging Report ---
PROCEDURE: US left lower extremity venous. TECHNIQUE: Multiple real-time grayscale images were obtained over the left lower extremity in various projections. Additional duplex Doppler and color Doppler images were also obtained. INDICATION: Left leg pain and swelling. There is no evidence of left lower extremity DVT. Left lower extremity deep venous system shows normal compressibility with normal response to augmentation and Valsalva. There is a complex Fritz's cyst measuring 5.1 x 3.4 x 1.2 cm. IMPRESSION: 1. No evidence of left lower extremity DVT. 2. Left Fritz's cyst. Dictated by: Dictated on workstation # [id number]
--- NOTE | 2021-05-19 10:45 | ED Lower Extremity ---
General Chief Complaint: Lower Extremity Stated Complaint: L LEG PAIN Nursing Triage Note: PT PRESENTS TO ED WITH L LEG PAIN BEHIND HER KNEE X 2 DAYS. PT REPORTS SWELLING IS NORMAL FOR HER. Source: patient Exam Limitations: no limitations History of Present Illness Date Seen by Provider: May 19, 2021 Time Seen by Provider: 08:28 Initial Comments Mrs. Moreno presents to the emergency room with complaints of pain behind her left knee for the past 2 days. She has chronic edema of the leg which is no worse. Some warm erythema is also noted to the anterior lower leg. Tylenol is not effective for treating this pain. Pain is worse when she ambulates. She denies any prior or new injury. 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 Allergies and Home Medications Allergies Coded Allergies: erythromycin base (Verified Allergy, Intermediate, HIVES, 10/10/13) NSAIDS (Non-Steroidal Anti-Inflamma (Verified Allergy, Unknown, 01/10/17) cephalexin (Verified Allergy, Unknown, 10/10/13) Patient Home Medication List Home Medication List Reviewed: Yes Acetaminophen (Tylenol Arthritis) 650 Mg Tablet.er, 1,300 MG PO Q8H, (Reported) Entered as Reported by: JESSICA ELDER on 12/16/18 1611 Aspirin (Aspirin) 81 Mg Tab.chew, 81 MG PO DAILY, (Reported) Entered as Reported by: MIGUEL PERALTA on 12/21/16 1110 Benazepril HCl (Benazepril HCl) 40 Mg Tab, 40 MG PO DAILY, (Reported) Entered as Reported by: MIGUEL PERALTA on 12/21/16 1110 Cefdinir (Cefdinir) 300 Mg Capsule, 300 MG PO BID Prescribed by: MAHENDRA RENNER on 01/24/21 1119 Cholecalciferol (Vitamin D3) (Vitamin D3) 50 Mcg Capsule, 50 MCG PO 1800, (Reported) Entered as Reported by: LETY FLORES on 01/21/21 1604 Famotidine (Acid Ward Secretary (FAMOTIDINE)) 20 Mg Tablet, 20 MG PO BID, (Reported) Entered as Reported by: JESSICA ELDER on 12/16/18 1611 Fluticasone Propion/Salmeterol (Fluticasone-Salmeterol 250-50) 1 Each Blst.w.dev, 1 PUFF INH DAILY, (Reported) Entered as Reported by: LETY FLORES on 01/21/21 1604 Fluticasone Propionate (Fluticasone Propionate) 16 Gm Imboden.susp, 1 SPRAY NSEACH DAILY, (Reported) Entered as Reported by: LETY FLORES on 01/21/21 1604 Furosemide (Furosemide) 40 Mg Tablet, 40 MG PO DAILY, (Reported) Entered as Reported by: MIGUEL PERALTA on 12/21/16 1110 Glipizide (Glipizide ER) 5 Mg Tab.er.24, 5 MG PO BID, (Reported) Entered as Reported by: LETY FLORES on 01/21/21 1604 Hydralazine HCl (Hydralazine HCl) 50 Mg Tablet, 50 MG PO 0800,1200,1800, (Reported) Entered as Reported by: LETY FLORES on 01/21/21 160 Insulin Determir (Levemir) 1,000 Units/10 Ml Soln, 10-12 UNITS SC HS, (Reported) Entered as Reported by: JESSICA ELDER on 12/16/18 161 Ipratropium/Albuterol Sulfate (Iprat-Albut 0.5-3(2.5) mg/3 ml) 3 Ml Ampul.neb, 3 ML IH QID PRN for SHORTNESS OF BREATH, (Reported) Entered as Reported by: KEVIN WHYTE on 08/02/15 1114 Linezolid (Zyvox) 600 Mg Tablet, 600 MG PO BID Prescribed by: MAHENDRA RENNER on 01/24/21 1119 Metoprolol Tartrate (Metoprolol Tartrate) 100 Mg Tablet, 100 MG PO BID, (Reported) Entered as Reported by: JESSICA ELDER on 12/16/18 161 Montelukast Sodium (Montelukast Sodium) 10 Mg Tablet, 10 MG PO HS, (Reported) Entered as Reported by: MIGUEL PERALTA on 12/21/16 1110 Nystatin (Nystatin) 15 Gm Cream..g., 1 APPLIC TOP BID PRN for RASH, (Reported) Entered as Reported by: JESSICA ELDER on 12/16/18 161 Polyethylene Glycol 3350 (Polyethylene Glycol 3350) 17 Gm Powd.pack, 17 GM PO DAILY, (Reported) Entered as Reported by: JESSICA ELDER on 12/16/18 1611 Potassium Chloride (Potassium Chloride) 20 Meq Tab.er.prt, 20 MEQ PO DAILY, (Reported) Entered as Reported by: MIGUEL PERALTA on 12/21/16 1110 Pravastatin Sodium (Pravastatin Sodium) 40 Mg Tablet, 20 MG PO BID, (Reported) Entered as Reported by: KEVIN WHYTE on 08/02/15 1109 Warfarin Sodium (Warfarin Sodium) 4 Mg Tablet, 4 MG PO 1800, (Reported) Entered as Reported by: MILAGROS WALSH on 11/23/18 1141 Review of Systems Constitutional: no symptoms reported EENTM: no symptoms reported Respiratory: no symptoms reported Cardiovascular: no symptoms reported Gastrointestinal: no symptoms reported Genitourinary: no symptoms reported : No Musculoskeletal: see HPI Skin: see HPI Psychiatric/Neurological: No Symptoms Reported Past Oqnayfm-Rpsefs-Ekewdi Hx Patient Social History Tobacco Use?: Yes Tobacco type used: Cigarettes Smoking Status: Current Everyday Smoker Substance use?: No Alcohol Use?: No Pt feels they are or have been: No Immunizations Up To Date Tetanus Booster (TDap): Unknown PED Vaccines UTD: Yes First/Initial COVID19 Vaccinat: JUL 2020 Second COVID19 Vaccination Elbert: JULY 2020 Third COVID19 Vaccination Date: JUL 2020 COVID19 Vaccine Resident Care Coordinator: MEJIA Seasonal Allergies Seasonal Allergies: Yes Past Medical History Surgery/Hospitalization HX: PMH: DM2, HTN, COPD, DVT Surgeries: Yes Appendectomy, Bladder Surgery, CABG, Coronary Stent, Gallbladder, Hysterectomy, Rectal Respiratory: Yes Asthma, Pneumonia, Chronic Bronchitis, Pulmonary Embolism, COPD Currently Using CPAP: Yes Currently Using BIPAP: No Cardiac: Yes Coronary Artery Disease, Deep Vein Thrombosis, High Cholesterol, Hypertension, Valvular Heart Disease Neurological: Yes Neuropathy Reproductive Disorders: Yes 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 Disorders: Endometriosis 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 Sexually Transmitted Disease: No HIV/AIDS: No Genitourinary: Yes Bladder Infection Gastrointestinal: Yes Colitis, Gastroesophageal Reflux, Diverticulosis Musculoskeletal: Yes Arthritis Endocrine: Yes Diabetes, Insulin dep HEENT: Yes Cataract Loss of Vision: Denies Hearing Impairment: Denies Cancer: Yes Skin, Kidney Did You Recieve Any Treatments: Yes What Type of Treatment Did You: Surgical Intervention Psychosocial: No Integumentary: No Blood Disorders: No Adverse Reaction/Blood Tranf: No Family Medical History CABG 19 FATHER Cardiovascular disease 19 FATHER 19 MOTHER Diabetes mellitus 19 MOTHER FH: lung cancer 19 FATHER FH: myocardial infarction 19 MOTHER Hypertension 19 FATHER 19 MOTHER Heart Disease, Diabetes, Hypertension Physical Exam Vital Signs Vital Signs - First Documented 05/19/21 05/19/21 08:05 11:07 Temp 35.2 Pulse 63 Resp 18 B/P (MAP) 167/83 (111) Pulse Ox 98 Capillary Refill : Height, Weight, BMI Height: 5'5.00" Weight: 212lbs. 8.0oz. 96.598886si; 33.00 BMI Method:Stated General Appearance: WD/WN, no apparent distress HEENT: PERRL/EOMI, normal ENT inspection Neck: normal inspection Cardiovascular: regular rate, rhythm, no edema, no murmur Respiratory: lungs clear, normal breath sounds, no respiratory distress Gastrointestinal: non tender, soft Legs: left leg other (Tenderness posterior and lateral to the left knee. Pain with range of motion. No effusion, erythema, or heat noted to the knee. No tenderness in the joint line. 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5 10.0-14.5 % Platelet Count 193 130-400 10^3/uL Mean Platelet Volume 10.7 9.0-12.2 fL Immature Granulocyte % (Auto) 1 % Neutrophils (%) (Auto) 70 42-75 % Lymphocytes (%) (Auto) 17 12-44 % Monocytes (%) (Auto) 9 0-12 % Eosinophils (%) (Auto) 3 0-10 % Basophils (%) (Auto) 1 0-10 % Neutrophils # (Auto) 5.1 1.8-7.8 10^3/uL Lymphocytes # (Auto) 1.3 1.0-4.0 10^3/uL Monocytes # (Auto) 0.7 0.0-1.0 10^3/uL Eosinophils # (Auto) 0.2 0.0-0.3 10^3/uL Basophils # (Auto) 0.1 0.0-0.1 10^3/uL Immature Granulocyte # (Auto) 0.0 0.0-0.1 10^3/uL Prothrombin Time 24.8 H 12.2-14.7 SEC INR Comment 2.2 H 0.8-1.4 Sodium Level 147 H 135-145 MMOL/L Potassium Level 4.0 3.6-5.0 MMOL/L Chloride Level 112 H 98-107 MMOL/L Carbon Dioxide Level 23 21-32 MMOL/L Anion Gap 12 5-14 MMOL/L Blood Urea Nitrogen 26 H 7-18 MG/DL Creatinine 0.78 0.60-1.30 MG/DL Estimat Glomerular Filtration Rate 71 BUN/Creatinine Ratio 33 Glucose Level 98 70-105 MG/DL Calcium Level 9.2 8.5-10.1 MG/DL C-Reactive Protein High Sensitivity 0.18 0.00-0.50 MG/DL My Orders Orders - SHEILA BURK MD Basic Metabolic Panel (05/19/21 08:33) Cbc With Automated Diff (05/19/21 08:33) Hs C Reactive Protein (05/19/21 08:33) Protime With Inr (05/19/21 08:33) Us Venous Lower Ext Lt (05/19/21 08:33) Vital Signs/I&O 05/19/21 05/19/21 08:05 11:07 Temp 35.2 35.2 Pulse 63 69 Resp 18 18 B/P (MAP) 167/83 (111) 156/77 Pulse Ox 98 Blood Pressure Mean: 111 Progress Progress Note : Time: 10:48 Progress Note INR was therapeutic at 2.2. Ultrasound revealed no DVT. Fritz's cyst was identified. Patient was offered Ultram for pain control as she has used this in the past. She declines because she is fearful that it may cause problems with her heart conditions or heart medications. She would like to discuss this with Dr. Lopez before she starts any other medication. She is an established patient with Dr. COOK and Sriram Shaikh. She would like to follow-up with them for evaluation and treatment of the Fritz's cyst. We discussed wrapping her leg and knee. She states the pressure from the wraps caused intolerable pain. She is unable to get her compression stocking on currently with the degree of sw elling she has in the left leg and foot. See discharge instructions for more discussion. Diagnostic Imaging Diagonstic Imaging: Ultrasound Plain Films/CT/US/NM/MRI: leg Comments NAME: NATALIIA MORENO [facility] REC#: [id number] PT STATUS: DEP ER : 1940 PHYSICIAN: SHEILA BURK MD ADMIT DATE: 05/19/21/ER Signed Date of Exam:05/19/21 US VENOUS LOWER EXT LT PROCEDURE: US left lower extremity venous. TECHNIQUE: Multiple real-time grayscale images were obtained over the left lower extremity in various projections. Additional duplex Doppler and color Doppler images were also obtained. INDICATION: Left leg pain and swelling. There is no evidence of left lower extremity DVT. Left lower extremity deep venous system shows normal compressibility with normal response to augmentation and Valsalva. There is a complex Fritz's cyst measuring 5.1 x 3.4 x 1.2 cm. IMPRESSION: 1. No evidence of left lower extremity DVT. 2. Left Fritz's cyst. Dictated by: Dictated on workstation # [id number] Dict: 05/19/21922 Trans: 05/19/211549 CV [id number] Interpreted by: ALPHONSE POST MD Electronically signed by: ALPHONSE POST MD 05/19/21 1972 Departure Impression Primary Impression: Fritz's cyst of knee Qualified Codes: M71.22 - Synovial cyst of popliteal space [Fritz], left knee Additional Impressions: Swelling of left lower extremity Anticoagulated on warfarin Disposition: 01 HOME, SELF-CARE Condition: Stable Departure-Patient Inst. Decision time for Depature: 10:44 Referrals: MAHENDRA RENNER DO (PCP/Family) Primary Care Physician Patient Instructions: Fritz's (Popliteal) Cyst Add. Discharge Instructions: Elevate your lower leg as much as possible to help reduce swelling. Use a light compression wrap from your foot up to just above your knee if tolerated. You may continue using Tylenol (acetaminophen) as primary treatment for pain. If wrapping, elevation, and Tylenol do not control your pain well, you may also try icing in 20-minute intervals. Call Dr. Lopez and ask about pain medications that would be safe to use with your cardiac conditions and medications. Tramadol (Ultram) may be a good option. Please also contact Dr. COOK's offices soon as possible to discuss treatment options for your Bakers cyst and schedule a follow-up appointment. Call with questions or concerns. Return to the ER if you have worsening symptoms. All discharge instructions reviewed with patient and/or family. Voiced understanding. Copy Copies To 1: SELVIN COOK MD Copies To 2: FAITH LOPEZ MD FACP [facility] SHEILA BURK MD May 19, 2021 10:45
[2021-05-19 11:07] VITALS: BP 156/77
== END 2021-05-19 11:06 | disposition home or self-care (01) ==
LOC: EDUNIT# 07:43 → ER 07:45
DX: M71.22 Synovial cyst of popliteal space [Baker], left knee (principal); E11.40 Type 2 diabetes mellitus with diabetic neuropathy, unspecified; I10 Essential (primary) hypertension; I25.10 Atherosclerotic heart disease of native coronary artery without angina pectoris; E78.00 Pure hypercholesterolemia, unspecified; J44.9 Chronic obstructive pulmonary disease, unspecified; F17.210 Nicotine dependence, cigarettes, uncomplicated; Z86.718 Personal history of other venous thrombosis and embolism; Z86.711 Personal history of pulmonary embolism; Z90.49 Acquired absence of other specified parts of digestive tract; Z90.710 Acquired absence of both cervix and uterus; Z79.4 Long term (current) use of insulin; Z95.1 Presence of aortocoronary bypass graft; Z95.5 Presence of coronary angioplasty implant and graft; Z88.1 Allergy status to other antibiotic agents; Z88.6 Allergy status to analgesic agent; Z79.01 Long term (current) use of anticoagulants; Z79.51 Long term (current) use of inhaled steroids; Z79.82 Long term (current) use of aspirin; Z79.84 Long term (current) use of oral hypoglycemic drugs; Z79.899 Other long term (current) drug therapy
CPT/HCPCS: 36415; 80048; 85025; 85610; 86141; 99281

== ENCOUNTER → 2021-07-29 | Outpatient (CLI) | payer MEDICARE ==
[~2021-07-29] MED LIST changes: +REGADENOSON 0.4 MG/5 ML SYR (LEXISCAN) IV ONE
[2021-07-29] MEDS: CATHETER FLUSH 10 ML SYR IVP PRN ×2 (12:08→13:22)
[2021-07-29 13:21] VITALS: BP 142/63
--- NOTE | 2021-07-29 20:26 | STRESS TEST ---
DATE OF SERVICE: 07/29/2021 RESTING AND POST REGADENOSON TECHNETIUM-99M TETROFOSMIN SPECT CT IMAGING ORDERING PHYSICIAN: Mónica Waddell APRN PRIMARY PHYSICIAN: Dr. Cabrera. CLINICAL DIAGNOSIS: Coronary artery disease. Baseline images were carried out after injection of 10.01 mCi of technetium-99m Tetrofosmin. This was followed by 0.4 mg regadenoson and 29.4 mCi of technetium-99m Tetrofosmin for stress imaging. The electrocardiogram showed sinus rhythm and right bundle-branch block at baseline. There is indication of old anteroseptal myocardial infarction. The electrocardiogram did not change significantly with the regadenoson infusion. The patient tolerated the procedure well. Review of images at rest and following stress indicates an anteroseptal perfusion defect that is predominantly fixed. Gated images show anteroseptal akinesis. Left ventricular ejection fraction is calculated to be 67%. Left ventricular end-diastolic volume 79 mL. CONCLUSIONS: 1. This study is indicative of an anteroseptal myocardial infarction with only minimal anthony-infarct ischemia. 2. Anteroseptal akinesis. 3. Well preserved global left ventricular systolic function with ejection fraction of 67%. Job ID: [id number] DocumentID: [id number] Dictated Date: 07/29/2021 16:26:17 Mechanical Engineering Professor Date: 07/29/2021 20:25:35 Dictated By: FAITH NICHOLSON MD, MA, FACP, FACC,
== END ==
LOC: CARD 10:45
PROVIDERS: ATTEND Nurse Practitioner Family
DX: I25.5 Ischemic cardiomyopathy (principal); I25.10 Atherosclerotic heart disease of native coronary artery without angina pectoris
CPT/HCPCS: 78452; 93017; 93306; A9502

== ENCOUNTER → 2021-08-18 | Outpatient (CLI) | payer MEDICARE ==
[~2021-08-18] MED LIST changes: -REGADENOSON 0.4 MG/5 ML SYR (LEXISCAN) IV ONE
--- NOTE | 2021-08-18 12:40 | Diagnostic Imaging Report ---
INDICATION: Routine screening. Comparison is made with prior mammogram 08/16/2020 and 06/01/2019. 2-D and 3-D bilateral screening mammography was performed with CAD. Scattered fibroglandular densities are identified bilaterally. A benign calcifications are scattered throughout both breasts. No mass or malignant-appearing microcalcifications are seen. Axillae are unremarkable. IMPRESSION: No mammographic features suspicious for malignancy are identified. ACR BI-RADS Category 2: Benign findings. Result letter will be mailed to the patient. Note: At least 10% of breast cancer is not imaged by mammography. BI-RADS Category 2 Dictated by: Dictated on workstation # [id number]
== END ==
LOC: RAD 11:15
PROVIDERS: ATTEND Internal Medicine
DX: Z12.31 Encounter for screening mammogram for malignant neoplasm of breast (principal)
CPT/HCPCS: 77063; 77067

== ENCOUNTER 2022-02-13 09:29 | Inpatient (IN) | payer MEDICARE ==
[~2022-02-13] VITALS: Ht 165.1 cm; Wt 81.6 kg
[~2022-02-13 09:29] MED LIST changes: +LEVO750T PO; -LEVO750T39 PO; -NYST15CR TOP; +NYST15CR35 TOP
--- NOTE | 2022-02-13 10:04 | ED General ---
General Chief Complaint: Lower Extremity Stated Complaint: L LEG HOT TO TOUCH/RED, FEVER Source of Information: Patient, Family Exam Limitations: Other (Pt and family are unsure of medical hx) (ROSIBEL AMADO MED STUDENT) History of Present Illness Date Seen by Provider: Feb 13, 2022 Time Seen by Provider: 09:45 Initial Comments Ashanti Moreno is a 81 yo female who presents for left LE redness. Pt has hx significant for CAD, atrial fibrillation, CABG, COPD, HTN, HLP, DVT, PE, chronic systolic and diastolic HF, diabetes mellitus, chronic bilateral lower extremity swelling, and tobacco use. Pt reports last night she noticed increased redness in her LLE just below her knee and it started to become painful. Pt rates the pain 5/10 and states it is constant. She denies any increase in swelling associated with this. She has lymphedema at baseline for which she wraps her legs. Pt reports she was hospitalized twice in the last year for cellulitis. Pt states she has chills and cold sweats as well as headache since last night. She denies recent illness, cough, SOA, CP, palpitations, dysuria or frequency, blurry vision, numbness or weakness. She denies any recent medication changes. Last meal was last night. Her PCP is Dr. Renner, who she has not seen in regards to this acute issue. Timing/Duration: 24 Hours Modifying Factors: improves with Immobilization; worse with Movement Associated Systoms: No Chest Pain, No Cough; Diaphoresis, Fever/Chills; No Weakness (ROSIBEL AMADO MED STUDENT) Allergies and Home Medications Allergies Coded Allergies: erythromycin base (Verified Allergy, Intermediate, HIVES, 10/10/13) NSAIDS (Non-Steroidal Anti-Inflamma (Verified Allergy, Unknown, 01/10/17) cephalexin (Verified Allergy, Unknown, 10/10/13) Patient Home Medication List Home Medication List Reviewed: Yes (REMINGTON GARDNER MD) Acetaminophen (Tylenol Arthritis) 650 Mg Tablet.er, 1,300 MG PO Q8H, (Reported) Entered as Reported by: JESSICA ELDER on 12/16/18 1611 Aspirin (Aspirin) 81 Mg Tab.chew, 81 MG PO DAILY, (Reported) Entered as Reported by: MIGUEL PERALTA on 12/21/16 1110 Benazepril HCl (Benazepril HCl) 40 Mg Tab, 40 MG PO DAILY, (Reported) Entered as Reported by: MIGUEL PERALTA on 12/21/16 1110 Cefdinir (Cefdinir) 300 Mg Capsule, 300 MG PO BID Prescribed by: MAHENDRA RENNER on 01/24/21 1119 Cholecalciferol (Vitamin D3) (Vitamin D3) 50 Mcg Capsule, 50 MCG PO 1800, (Reported) Entered as Reported by: LETY FLORES on 01/21/21 1604 Famotidine (Acid Relay Shop Supervisor (FAMOTIDINE)) 20 Mg Tablet, 20 MG PO BID, (Reported) Entered as Reported by: JESSICA ELDER on 12/16/18 161 Fluticasone Propion/Salmeterol (Fluticasone-Salmeterol 250-50) 1 Each Blst.w.dev, 1 PUFF INH DAILY, (Reported) Entered as Reported by: LETY FLORES on 01/21/21 1604 Fluticasone Propionate (Fluticasone Propionate) 16 Gm [place].susp, 1 SPRAY NSEACH DAILY, (Reported) Entered as Reported by: LETY FLORES on 01/21/21 1604 Furosemide (Furosemide) 40 Mg Tablet, 40 MG PO DAILY, (Reported) Entered as Reported by: MIGUEL PERALTA on 12/21/16 1110 Glipizide (Glipizide ER) 5 Mg Tab.er.24, 5 MG PO BID, (Reported) Entered as Reported by: LETY FLORES on 01/21/21 1604 Hydralazine HCl (Hydralazine HCl) 50 Mg Tablet, 50 MG PO 0800,1200,1800, (R eported) Entered as Reported by: LETY FLORES on 01/21/21 1604 Insulin Determir (Levemir) 1,000 Units/10 Ml Soln, 10-12 UNITS SC HS, (Reported) Entered as Reported by: JESSICA ELDER on 12/16/18 161 Ipratropium/Albuterol Sulfate (Iprat-Albut 0.5-3(2.5) mg/3 ml) 3 Ml Ampul.neb, 3 ML IH QID PRN for SHORTNESS OF BREATH, (Reported) Entered as Reported by: KEVIN WHYTE on 08/02/15 1114 Linezolid (Zyvox) 600 Mg Tablet, 600 MG PO BID Prescribed by: MAHENDRA RENNER on 01/24/21 1119 Metoprolol Tartrate (Metoprolol Tartrate) 100 Mg Tablet, 100 MG PO BID, (Reported) Entered as Reported by: JESSICA ELDER on 12/16/18 1611 Montelukast Sodium (Montelukast Sodium) 10 Mg Tablet, 10 MG PO HS, (Reported) Entered as Reported by: MIGUEL PERALTA on 12/21/16 1110 Nystatin (Nystatin) 15 Gm Cream..g., 1 APPLIC TOP BID PRN for RASH, (Reported) Entered as Reported by: JESSICA ELDER on 12/16/18 1611 Polyethylene Glycol 3350 (Polyethylene Glycol 3350) 17 Gm Powd.pack, 17 GM PO DAILY, (Reported) Entered as Reported by: JESSICA ELDER on 12/16/18 1611 Potassium Chloride (Potassium Chloride) 20 Meq Tab.er.prt, 20 MEQ PO DAILY, (Reported) Entered as Reported by: MIGUEL PERALTA on 12/21/16 1110 Pravastatin Sodium (Pravastatin Sodium) 40 Mg Tablet, 20 MG PO BID, (Reported) Entered as Reported by: KEVIN WHYTE on 08/02/15 1109 Warfarin Sodium (Warfarin Sodium) 4 Mg Tablet, 4 MG PO 1800, (Reported) Entered as Reported by: MILAGROS WALSH on 11/23/18 1141 Review of Systems Review of Systems Constitutional: chills, diaphoresis; No fever EENTM: No blurred vision, No vision loss, No nose congestion, No throat pain, No throat swelling Respiratory: No cough, No short of breath Cardiovascular: No chest pain, No palpitations Gastrointestinal: No abdominal pain, No constipation, No diarrhea, No nausea, No vomiting Genitourinary: No dysuria, No frequency Musculoskeletal: No back pain, No joint pain, No muscle pain, No muscle weakness Skin: No lesions, No lumps, No rash Psychiatric/Neurological: Denies Headache, Denies Numbness, Denies Weakness Hematologic/Lymphatic: No Symptoms Reported Immunological/Allergic: no symptoms reported (ROSIBEL AMADO A MED STUDENT) Past Driedle-Brgrcu-Gqaanx Hx Immunizations Up To Date Tetanus Booster (TDap): Unknown PED Vaccines UTD: Yes First/Initial COVID19 Vaccinat: JUL 2020 Second COVID19 Vaccination Elbert: JULY 2020 Third COVID19 Vaccination Date: JUL 2020 (ROSIBEL AMADO [email or web address] STUDENT) Seasonal Allergies Seasonal Allergies: Yes (ROSIBEL AMADO) Past Medical History Surgery/Hospitalization HX: PMH: DM2, HTN, COPD, DVT Surgeries: Yes Appendectomy, Bladder Surgery, CABG, Coronary Stent, Gallbladder, Hysterectomy, Rectal Respiratory: Yes Asthma, Pneumonia, Chronic Bronchitis, Pulmonary Embolism, COPD Currently Using CPAP: Yes Currently Using BIPAP: No Cardiac: Yes Coronary Artery Disease, Deep Vein Thrombosis, High Cholesterol, Hypertension, Valvular Heart Disease Neurological: Yes Neuropathy Reproductive Disorders: Yes 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 Disorders: Endometriosis 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 Sexually Transmitted Disease: No HIV/AIDS: No Genitourinary: Yes Bladder Infection Gastrointestinal: Yes Colitis, Gastroesophageal Reflux, Diverticulosis Musculoskeletal: Yes Arthritis Endocrine: Yes Diabetes, Insulin dep HEENT: Yes Cataract Loss of Vision: Denies Hearing Impairment: Denies Cancer: Yes Skin, Kidney Did You Recieve Any Treatments: Yes What Type of Treatment Did You: Surgical Intervention Psychosocial: No Integumentary: No Blood Disorders: No Adverse Reaction/Blood Tranf: No (ROSIBEL AMADO [email or web address] STUDENT) Family Medical History CABG 19 FATHER Cardiovascular disease 19 FATHER 19 MOTHER Diabetes mellitus 19 MOTHER FH: lung cancer 19 FATHER FH: myocardial infarction 19 MOTHER Hypertension 19 FATHER 19 MOTHER Heart Disease, Diabetes, Hypertension (ROSIBEL AMADO [email or web address] STUDENT) Physical Exam Vital Signs Vital Signs - First Documented 02/13/22 09:36 Temp 37.5 Pulse 90 Resp 16 B/P (MAP) 161/76 (104) O2 Delivery Room Air (REMINGTON GARDNER MD) Vital Signs Capillary Refill : (ROSIBEL AMADO MED STUDENT) Height, Weight, BMI Height: 5'5.00" Weight: 212lbs. 8.0oz. [id number]; 33.00 BMI Method:Stated General Appearance: No Apparent Distress, Obese HEENT: PERRL/EOMI Neck: Full Range of Motion, Normal Inspection Respiratory: Chest Non Tender, No Accessory Muscle Use, No Respiratory Distress, Crackles (at bases bilaterally) Cardiovascular: Regular Rate, Rhythm, No Murmur, Other (diminished pedal pulse on left) Extremity: Pedal Edema (LLE 2+ edema, RLE 1+ edema), Swelling, Other (erythema distal to left knee joint, tender to palpation) Neurologic/Psychiatric: Alert, Oriented x3, Normal Mood/Affect Skin: Erythema (distal to left knee) Lymphatic: No Adenopathy (ROSIBEL AMADO A MED STUDENT) Progress/Results/Core Measures Suspected Sepsis SIRS Temperature: Pulse: Respiratory Rate: Blood Pressure / Mean: (ROSIBEL AMADO MED STUDENT) Results/Orders Lab Results Laboratory Tests Test 02/13/22 10:57 Range/Units White Blood Count 12.3 H 4.3-11.0 10^3/uL Red Blood Count 4.52 3.80-5.11 10^6/uL Hemoglobin 13.7 11.5-16.0 g/dL Hematocrit 42 35-52 % Mean Corpuscular Volume 93 80-99 fL Mean Corpuscular Hemoglobin 30 25-34 pg Mean Corpuscular Hemoglobin Concent 33 32-36 g/dL Red Cell Distribution Width 15.2 H 10.0-14.5 % Platelet Count 198 130-400 10^3/uL Mean Platelet Volume 10.4 9.0-12.2 fL Immature Granulocyte % (Auto) 1 % Neutrophils (%) (Auto) 86 H 42-75 % Lymphocytes (%) (Auto) 7 L 12-44 % Monocytes (%) (Auto) 6 0-12 % Eosinophils (%) (Auto) 0 0-10 % Basophils (%) (Auto) 0 0-10 % Neutrophils # (Auto) 10.6 H 1.8-7.8 10^3/uL Lymphocytes # (Auto) 0.9 L 1.0-4.0 10^3/uL Monocytes # (Auto) 0.7 0.0-1.0 10^3/uL Eosinophils # (Auto) 0.0 0.0-0.3 10^3/uL Basophils # (Auto) 0.1 0.0-0.1 10^3/uL Immature Granulocyte # (Auto) 0.1 0.0-0.1 10^3/uL Neutrophils % (Manual) 89 % Lymphocytes % (Manual) 6 % Monocytes % (Manual) 2 % Eosinophils % (Manual) 0 % Basophils % (Manual) 1 % Band Neutrophils 2 % Anisocytosis SLIGHT Sodium Level 145 135-145 MMOL/L Potassium Level 4.2 3.6-5.0 MMOL/L Chloride Level 110 H 98-107 MMOL/L Carbon Dioxide Level 18 L 21-32 MMOL/L Anion Gap 17 H 5-14 MMOL/L Blood Urea Nitrogen 26 H 7-18 MG/DL Creatinine 0.95 0.60-1.30 MG/DL Estimat Glomerular Filtration Rate 61 BUN/Creatinine Ratio 27 Glucose Level 124 H 70-105 MG/DL Calcium Level 9.5 8.5-10.1 MG/DL (REMINGTON GARDNER MD) My Orders Orders - REMINGTON GARDNER MD Ed Iv/Invasive Line Start (02/13/22 10:17) Cbc With Automated Diff (02/13/22 10:17) Basic Metabolic Panel (02/13/22 10:17) Protime With Inr (02/13/22 10:17) Acetaminophen Tablet (Tylenol Tablet) (02/13/22 10:30) Manual Differential (02/13/22 10:57) (REMINGTON GARDNER MD) Medications Given in ED Current Medications Medications Dose Ordered Sig/Danny Route Start Time Stop Time Status Last Admin Dose Admin Acetaminophen 1,000 mg ONCE ONCE PO 02/13/22 10:30 02/13/22 10:31 DC 02/13/22 11:10 1,000 MG (REMINGTON GARDNER MD) Vital Signs/I&O 02/13/22 09:36 Temp 37.5 Pulse 90 Resp 16 B/P (MAP) 161/76 (104) O2 Delivery Room Air (REMINGTON GARDNER MD) Vital Signs/I&O Capillary Refill : (ROSIBEL AMADO MED STUDENT) Progress Note : Time: 12:19 Progress Note 81-year-old female history of diabetes hypertension hypercholesterolemia, lymphedema which is chronic in her left lower extremity. Presents today with a chief complaint of increasing pain in the proximal left lower extremity, proximal one third of the lower leg. Very tender, swollen. She has significant lymphedema in that extremity. Warmth and tenderness to palpation. She states symptom onset last night, causing her disrupted sleep. Generalized malaise and fatigue. No nausea, vomiting. No urinary complaints, no bowel issues. No chest pain or shortness of breath. Subjective fevers and chills are present. She states that she has had recurrent episodes of cellulitis in this leg. Physical exam is remarkable for the above-stated erythema with interspersed areas of purpura. Very tender to palpation. She has warmth in the popliteal space as well. Distal pulses are difficult to palpate due to the lymphedema. The foot is warm. It is pink. Heart is regular, lungs are clear. Rest of the exam is benign. She has a mild leukocytosis, slightly depressed CO2 on chemistry. Renal function is normal electrolytes are normal. Coags are pending as the machine here at [facility] is down currently. Case was discussed with Dr. Renner who recommends inpatient admission on broad-spectrum antibiotics. She will do que'd orders. 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 Referrals: MAHENDRA RENNER DO (PCP/Family) Primary Care Physician Verification and Attestation of Medical Student E/M Service A medical student performed and documented this service in my presence. I reviewed and verified all information documented by the medical student and made modifications to such information, when appropriate. I personally performed the physical exam and medical decision making. Remington Gardner, Feb 13, 2022,12:21 (REMINGTON GARDNER MD) ROSIBEL AMADO MED STUDENT Feb 13, 2022 10:04 REMINGTON GARDNER MD Feb 13, 2022 12:23
[2022-02-13] MEDS ORDERED: ACETAMINOPHEN 500 MG TAB (TYLENOL) PO ONE (10:30)
[2022-02-13 11:03] LABS: BASOPHILS # (AUTO) 0.1 10^3/uL (0.0-0.1); BASOPHILS % (AUTO) 0 % (0-10); EOSINOPHILS % (AUTO) 0 % (0-10); HEMATOCRIT 42 % (35-52); HEMOGLOBIN 13.7 g/dL (11.5-16.0); LYMPHOCYTES # (AUTO) 0.9 10^3/uL (1.0-4.0); LYMPHOCYTES % (AUTO) 7 % (12-44); MEAN CORPUSCULAR HEMOGLOBIN 30 pg (25-34); MEAN CORPUSCULAR HGB CONC 33 g/dL (32-36); MEAN CORPUSCULAR VOLUME 93 fL (80-99); MEAN PLATELET VOLUME 10.4 fL (9.0-12.2); MONOCYTES # (AUTO) 0.7 10^3/uL (0.0-1.0); MONOCYTES % (AUTO) 6 % (0-12); NEUTROPHILS # (AUTO) 10.6 10^3/uL (1.8-7.8); NEUTROPHILS % (AUTO) 86 % (42-75); PLATELET COUNT 198 10^3/uL (130-400); WHITE BLOOD COUNT 12.3 10^3/uL (4.3-11.0)
[2022-02-13 11:15] LABS: POTASSIUM 4.2 MMOL/L (3.6-5.0)
[2022-02-13 11:16] LABS: CALCIUM 9.5 MG/DL (8.5-10.1)
[2022-02-13 11:21] LABS: CREATININE SERUM 0.95 MG/DL (0.60-1.30)
[2022-02-13 11:35] LABS: ANISOCYTOSIS SLIGHT; BAND NEUTROPHILS 2 %; BASOPHILS % (MANUAL) 1 %; EOSINOPHILS % (MANUAL) 0 %; LYMPHOCYTES % (MANUAL) 6 %; MONOCYTES % (MANUAL) 2 %; NEUTROPHILS % (MANUAL) 89 %
[2022-02-13 12:46] LABS: INR 2.1 (0.8-1.4); PROTHROMBIN TIME PATIENT 23.8 SEC (12.2-14.7)
--- NOTE | 2022-02-13 13:07 | History & Physical ---
DELORES GARCIA 02/13/22 1307: History of Present Illness History of Present Illness Reason for visit/HPI Patient is a 81 y/o female clinic patient of mine with Hx of CAD, Afib, HTN, DVT, PE, and DM who presented to the ED this morning for left lower extremity redness and swelling onset last night. Patient reports the left lower extremity began to become painful and that is why she came in. On exam, the extremity is painful to palpation. Patient states she has had similar episodes of cellulitis in the past and has chronic lymphedema of her legs at baseline. She usually wraps her legs at home. She states she has been having some chills since last night but is not sure about having fever. She denies cough, chest pain, or shortness of breath at this time. Date of Admission 02/13/22 Date Seen by a Provider: Feb 13, 2022 Time Seen by a Provider: 13:06 I consulted on this patient on 02/13/22 13:05 Attending Physician Lesli Renner DO Admitting Physician Admitting Physician: Attending Physician: Consult Allergies and Home Medications Allergies Coded Allergies: erythromycin base (Verified Allergy, Intermediate, HIVES, 10/10/13) NSAIDS (Non-Steroidal Anti-Inflamma (Verified Allergy, Unknown, 01/10/17) cephalexin (Verified Allergy, Unknown, 10/10/13) Patient Home Medication List Home Medication List Reviewed: Yes Acetaminophen (Tylenol Arthritis) 650 Mg Tablet.er, 1,300 MG PO Q8H PRN for PAIN-MILD (1-4), (Reported) Entered as Reported by: JESSICA ELDER on 12/16/18 1611 Last Action: Continued Albuterol Sulfate (Proair Hfa) 90 Mcg Hfa.aer.ad, 2 PUFF INH Q6H PRN for SHORTNESS OF BREATH, (Reported) Entered as Reported by: LETY FLORES on 02/13/22 1457 Last Action: Continued Aspirin (Aspirin) 81 Mg Tab.chew, 81 MG PO DAILY, (Reported) Entered as Reported by: MIGUEL PERALTA on 12/21/16 1110 Last Action: Continued Benazepril HCl (Benazepril HCl) 40 Mg Tab, 40 MG PO DAILY, (Reported) Entered as Reported by: MIGUEL PERALTA on 12/21/16 1110 Last Action: Converted Calcium Carbonate/Vitamin D3 (Calcium 500 + D Tablet) 500 Mg Calcium-10 Mcg (400 Unit) Tablet, 1 EACH PO DAILY, (Reported) Entered as Reported by: LETY FLORES on 02/13/221456 Last Action: Converted Cholecalciferol (Vitamin D3) (Vitamin D3) 25 Mcg (1000 Unit) Tablet, 25 MCG PO, (Reported) Entered as Reported by: LETY FLORES on 02/13/221456 Last Action: Continued Famotidine (Acid Manager Of Finance (FAMOTIDINE)) 20 Mg Tablet, 20 MG PO BID, (Reported) Entered as Reported by: JESSICA ELDER on 12/16/18 161 Last Action: Continued Fluticasone Propion/Salmeterol (Fluticasone-Salmeterol 250-50) 250 Mcg-50 Mcg/Dose Blst.w.dev, 1 PUFF INH HS, (Reported) Entered as Reported by: LETY FLORES on 01/21/21 160 Last Action: Converted Furosemide (Furosemide) 40 Mg Tablet, 40 MG PO DAILY, (Reported) Entered as Reported by: MIGUEL PERALTA on 12/21/16 111 Last Action: Continued Glipizide (Glipizide ER) 5 Mg Tab.er.24, 5 MG PO BID, (Reported) Entered as Reported by: LETY FLORES on 01/21/21 160 Last Action: Continued Hydralazine HCl (Hydralazine HCl) 50 Mg Tablet, 50 MG PO 0700,1800,2300, (Reported) Entered as Reported by: LETY FLORES on 01/21/21 160 Last Action: Converted Insulin Determir (Levemir) 100 Unit/Ml Soln, 4 UNITS SC HS, (Reported) Entered as Reported by: JESSICA ELDER on 12/16/18 161 Last Action: Continued Ipratropium/Albuterol Sulfate (Iprat-Albut 0.5-3(2.5) mg/3 ml) 3 Ml Ampul.neb, 3 ML IH QID PRN for SHORTNESS OF BREATH, (Reported) Entered as Reported by: KEVIN WHYTE on 08/02/15 1114 Last Action: Continued Metoprolol Tartrate (Metoprolol Tartrate) 100 Mg Tablet, 100 MG PO Q12H, (Reported) Entered as Reported by: JESSICA ELDER on 12/16/18 1611 Last Action: Converted Montelukast Sodium (Montelukast Sodium) 10 Mg Tablet, 10 MG PO 1800, (Reported) Entered as Reported by: MIGUEL PERALTA on 12/21/16 1110 Last Action: Continued Polyethylene Glycol 3350 (Polyethylene Glycol 3350) 17 Gm Powd.pack, 17 GM PO DAILY, (Reported) Entered as Reported by: JESSICA ELDER on 12/16/18 1611 Last Action: Continued Potassium Chloride (Potassium Chloride) 20 Meq Tab.er.prt, 20 MEQ PO DAILY, (Reported) Entered as Reported by: MIGUEL PERALTA on 12/21/16 111 Last Action: Continued Pravastatin Sodium (Pravastatin Sodium) 40 Mg Tablet, 20 MG PO BID, (Reported) Entered as Reported by: KEVIN WHYTE on 08/02/15 1109 Last Action: Converted Warfarin Sodium (Warfarin Sodium) 4 Mg Tablet, 2 MG PO 1800, (Reported) Entered as Reported by: MILAGROS WALSH on 11/23/18 1141 Last Action: Continued Warfarin Sodium (Warfarin Sodium) 1 Mg Tablet, 1.5 MG PO 1800, (Reported) Entered as Reported by: LETY FLORES on 02/13/22 1457 Last Action: Continued Discontinued Medications Cefdinir (Cefdinir) 300 Mg Capsule, 300 MG PO BID Discontinued Reason: No Longer Taking Prescribed by: LESLI RENNER on 01/24/21 111 Last Action: Discontinued Cholecalciferol (Vitamin D3) (Vitamin D3) 50 Mcg Capsule, 50 MCG PO 1800, (Reported) Discontinued Reason: No Longer Taking Entered as Reported by: LETY FLORES on 01/21/21 1604 Last Action: Discontinued Fluticasone Propionate (Fluticasone Propionate) 16 Gm [place].susp, 1 SPRAY NSEACH DAILY, (Reported) Discontinued Reason: No Longer Taking Entered as Reported by: LETY FLORES on 01/21/21 1604 Last Action: Discontinued Linezolid (Zyvox) 600 Mg Tablet, 600 MG PO BID Discontinued Reason: No Longer Taking Prescribed by: LESLI RENNER on 01/24/21 111 Last Action: Discontinued Nystatin (Nystatin) 15 Gm Cream..g., 1 APPLIC TOP BID PRN for RASH, (Reported) Discontinued Reason: No Longer Taking Entered as Reported by: JESSICA ELDER on 12/16/18 1611 Last Action: Discontinued Past Nfzzoiw-Hsggkf-Kpdhax Hx Patient Social History Tobacco Use?: Yes Smoking Status: Never a Smoker Smokeless Tobacco Frequency: Never a User Use of E-Cig and/or Vaping dev: No Use of E-Cig and/or Vaping Javi: Never a User Substance use?: No Alcohol Use?: No Pt feels they are or have been: No Immunizations Up To Date Date of Influenza Vaccine: Feb 28, 2015 First/Initial COVID19 Vaccinat: JUL 2020 Second COVID19 Vaccination Elbert: JULY 2020 Tetanus Booster (TDap): Unknown Hepatitis A: No Hepatitis B: No PED Vaccines UTD: Yes Date of Pneumonia Vaccine: Jan 05, 2015 Seasonal Allergies Seasonal Allergies: Yes Current Status Advance Directives: No Communicates: Verbally Primary Language: [place] Islander Preferred Spoken Language: [place] Islander Is interpretation needed?: No Sensory deficits: Vision impairment Implanted or Applied Medical D: Stents Past Medical History Surgeries: Appendectomy, Bladder Surgery, CABG, Coronary Stent, Gallbladder, Hysterectomy, Rectal Asthma, Pneumonia, Chronic Bronchitis, Pulmonary Embolism, COPD Currently Using CPAP: Yes Currently Using BIPAP: No Coronary Artery Disease, Deep Vein Thrombosis, High Cholesterol, Hypertension, Valvular Heart Disease Neuropathy 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 Sexually Transmitted Disease: No HIV/AIDS: No Bladder Infection Colitis, Gastroesophageal Reflux, Diverticulosis Arthritis Diabetes, Insulin dep Cataract Loss of Vision: Denies Hearing Impairment: Denies Skin, Kidney Did You Recieve Any Treatments: Yes What Type of Treatment Did You: Surgical Intervention Blood Disorders: No Adverse Reaction/Blood Tranf: No Family Medical History CABG 19 FATHER Cardiovascular disease 19 FATHER 19 MOTHER Diabetes mellitus 19 MOTHER FH: lung cancer 19 FATHER FH: myocardial infarction 19 MOTHER Hypertension 19 FATHER 19 MOTHER Heart Disease, Diabetes, Hypertension Review of Systems Constitutional: chills Respiratory: No cough, No short of breath Skin: other (left lower cellulitis with erythema and swelling) Physical Exam Vital Signs Vital Signs - First Documented 02/13/22 09:36 Temp 37.5 Pulse 90 Resp 16 B/P (MAP) 161/76 (104) O2 Delivery Room Air Capillary Refill : Less Than 3 Seconds Height, Weight, BMI Height: 5'5.00" Weight: 212lbs. 8.0oz. [id number]; 29.00 BMI Method:Stated General Appearance: No Apparent Distress, WD/WN Respiratory: Chest Non Tender, No Accessory Muscle Use, No Respiratory Distress Cardiovascular: Regular Rate, Rhythm, No JVD Extremity: Swelling Neurologic/Psychiatric: Alert, Oriented x3, Normal Mood/Affect Skin: Erythema, Other (LLE cellulitis) Lymphatic: No Adenopathy Assessment/Plan Assessment and Plan Assessment: LLE Cellulitis Chronic Bilateral Leg Lymphedema CAD HTN HLP Diabetes mellitus COPD Plan: Start Vancomycin and Levaquin Abx IVF Hydrocodone for pain control if needed Accuchecks and home meds Keep BLE elevated Admission Diagnosis Admission Status: Observation LESLI RENNER DO 02/14/22 0633: History of Present Illness History of Present Illness Reason for visit/HPI CC: Left lower leg cellulitis severe in nature HPI: This is a 81yoWF clinic patient of mine who has h/o severe lymphedema and cellulitis recurrent type of the left leg presented to the ER with left leg pain and edema and redness. Patient will require IV abx for 3 days for severe redness. Allergies and Home Medications Allergies Coded Allergies: erythromycin base (Verified Allergy, Intermediate, HIVES, 10/10/13) NSAIDS (Non-Steroidal Anti-Inflamma (Verified Allergy, Unknown, 01/10/17) cephalexin (Verified Allergy, Unknown, 10/10/13) Patient Home Medication List Home Medication List Reviewed: Yes Acetaminophen (Tylenol Arthritis) 650 Mg Tablet.er, 1,300 MG PO Q8H PRN for PAIN-MILD (1-4), (Reported) Entered as Reported by: JESSICA ELDER on 12/16/18 1611 Last Action: Continued Albuterol Sulfate (Proair Hfa) 90 Mcg Hfa.aer.ad, 2 PUFF INH Q6H PRN for SHORTNESS OF BREATH, (Reported) Entered as Reported by: LETY FLORES on 02/13/22 1457 Last Action: Continued Aspirin (Aspirin) 81 Mg Tab.chew, 81 MG PO DAILY, (Reported) Entered as Reported by: MIGUEL PERALTA on 12/21/16 1110 Last Action: Continued Benazepril HCl (Benazepril HCl) 40 Mg Tab, 40 MG PO DAILY, (Reported) Entered as Reported by: MIGUEL PERALTA on 12/21/16 1110 Last Action: Converted Calcium Carbonate/Vitamin D3 (Calcium 500 + D Tablet) 500 Mg Calcium-10 Mcg (400 Unit) Tablet, 1 EACH PO DAILY, (Reported) Entered as Reported by: LETY FLORES on 02/13/221456 Last Action: Converted Cholecalciferol (Vitamin D3) (Vitamin D3) 25 Mcg (1000 Unit) Tablet, 25 MCG PO, (Reported) Entered as Reported by: LETY FLORES on 02/13/221456 Last Action: Continued Famotidine (Acid Manager Of Finance (FAMOTIDINE)) 20 Mg Tablet, 20 MG PO BID, (Reported) Entered as Reported by: JESSICA ELDER on 12/16/18 161 Last Action: Continued Fluticasone Propion/Salmeterol (Fluticasone-Salmeterol 250-50) 250 Mcg-50 Mcg/Dose Blst.w.dev, 1 PUFF INH HS, (Reported) Entered as Reported by: LETY FLORES on 01/21/21 160 Last Action: Converted Furosemide (Furosemide) 40 Mg Tablet, 40 MG PO DAILY, (Reported) Entered as Reported by: MIGUEL PERALTA on 12/21/16 111 Last Action: Continued Glipizide (Glipizide ER) 5 Mg Tab.er.24, 5 MG PO BID, (Reported) Entered as Reported by: LETY FLORES on 01/21/21 160 Last Action: Continued Hydralazine HCl (Hydralazine HCl) 50 Mg Tablet, 50 MG PO 0700,1800,2300, (Reported) Entered as Reported by: LETY FLORES on 01/21/21 160 Last Action: Converted Insulin Determir (Levemir) 100 Unit/Ml Soln, 4 UNITS SC HS, (Reported) Entered as Reported by: JESSICA ELDER on 12/16/18 161 Last Action: Continued Ipratropium/Albuterol Sulfate (Iprat-Albut 0.5-3(2.5) mg/3 ml) 3 Ml Ampul.neb, 3 ML IH QID PRN for SHORTNESS OF BREATH, (Reported) Entered as Reported by: KEVIN WHYTE on 08/02/15 111 Last Action: Continued Metoprolol Tartrate (Metoprolol Tartrate) 100 Mg Tablet, 100 MG PO Q12H, (Reported) Entered as Reported by: JESSICA ELDER on 12/16/18 1611 Last Action: Converted Montelukast Sodium (Montelukast Sodium) 10 Mg Tablet, 10 MG PO 1800, (Reported) Entered as Reported by: MIGUEL PERALTA on 12/21/16 1110 Last Action: Continued Polyethylene Glycol 3350 (Polyethylene Glycol 3350) 17 Gm Powd.pack, 17 GM PO DAILY, (Reported) Entered as Reported by: JESSICA ELDER on 12/16/18 161 Last Action: Continued Potassium Chloride (Potassium Chloride) 20 Meq Tab.er.prt, 20 MEQ PO DAILY, (Reported) Entered as Reported by: MIGUEL PERALTA on 12/21/16 111 Last Action: Continued Pravastatin Sodium (Pravastatin Sodium) 40 Mg Tablet, 20 MG PO BID, (Reported) Entered as Reported by: KEVIN WHYTE on 08/02/15 1109 Last Action: Converted Warfarin Sodium (Warfarin Sodium) 4 Mg Tablet, 2 MG PO 1800, (Reported) Entered as Reported by: MILAGROS WALSH on 11/23/18 1141 Last Action: Continued Warfarin Sodium (Warfarin Sodium) 1 Mg Tablet, 1.5 MG PO 1800, (Reported) Entered as Reported by: LETY FLORES on 02/13/22 1457 Last Action: Continued Discontinued Medications Cefdinir (Cefdinir) 300 Mg Capsule, 300 MG PO BID Discontinued Reason: No Longer Taking Prescribed by: LESLI RENNER on 01/24/21 111 Last Action: Discontinued Cholecalciferol (Vitamin D3) (Vitamin D3) 50 Mcg Capsule, 50 MCG PO 1800, (Reported) Discontinued Reason: No Longer Taking Entered as Reported by: LETY FLORES on 01/21/21 1604 Last Action: Discontinued Fluticasone Propionate (Fluticasone Propionate) 16 Gm [place].susp, 1 SPRAY NSEACH DAILY, (Reported) Discontinued Reason: No Longer Taking Entered as Reported by: LETY FLORES on 01/21/21 1604 Last Action: Discontinued Linezolid (Zyvox) 600 Mg Tablet, 600 MG PO BID Discontinued Reason: No Longer Taking Prescribed by: LESLI RENNER on 01/24/21 1119 Last Action: Discontinued Nystatin (Nystatin) 15 Gm Cream..g., 1 APPLIC TOP BID PRN for RASH, (Reported) Discontinued Reason: No Longer Taking Entered as Reported by: JESSICA ELDER on 12/16/18 1611 Last Action: Discontinued Past Kequwbw-Vivrcn-Gmcekl Hx Patient Social History Marrital Status: Employed/Student: retired Smoking Status: Current Everyday Smoker Past Medical History Surgeries: Coronary Stent Pneumonia, Sleep Apnea, COPD Currently Using CPAP: Yes High Cholesterol, Hypertension Neuropathy Bladder Infection Gastroesophageal Reflux, Diverticulosis Arthritis Family Medical History CABG 19 FATHER Cardiovascular disease 19 FATHER 19 MOTHER Diabetes mellitus 19 MOTHER FH: lung cancer 19 FATHER FH: myocardial infarction 19 MOTHER Hypertension 19 FATHER 19 MOTHER Review of Systems Constitutional: see HPI Physical Exam General Appearance: No Apparent Distress, WD/WN, Chronically ill, Obese Eyes: Bilateral Eye Normal Inspection, Bilateral Eye PERRL, Bilateral Eye EOMI HEENT: PERRL/EOMI, Normal ENT Inspection, Pharynx Normal Neck: Full Range of Motion, Normal Inspection, Non Tender, Supple, Carotid Bruit Respiratory: Chest Non Tender, Lungs Clear, Normal Breath Sounds, No Accessory Muscle Use, No Respiratory Distress Cardiovascular: Regular Rate, Rhythm, No Edema, No Gallop, No JVD, No Murmur, Normal Peripheral Pulses Gastrointestinal: Normal Bowel Sounds, No Organomegaly, No Pulsatile Mass, Non Tender, Soft Back: Normal Inspection, No CVA Tenderness, No Vertebral Tenderness Extremity: Normal Capillary Refill, Normal Inspection, Normal Range of Motion, Non Tender, No Calf Tenderness, Swelling (left leg with redness and increased warmth) Neurologic/Psychiatric: Alert, Oriented x3, No Motor/Sensory Deficits, Normal Mood/Affect Skin: Normal Color, Warm/Dry Lymphatic: No Adenopathy Assessment/Plan Assessment and Plan IV abx Home meds Admission Diagnosis Admission Status: Inpatient Order (span 2 midnights) Reason for Inpatient Admission: severe cellulitis Supervisory-Addendum Brief Verification & Attestation Participated in pt care: history, MDM, physical Personally performed: exam, history, MDM, supervision of care Care discussed with: Medical Student Procedures: n/a Results interpretation: Verified all documentation Verification and Attestation of Medical Student E/M Service A medical student performed and documented this service in my presence. I reviewed and verified all information documented by the medical student and made modifications to such information, when appropriate. I personally performed the physical exam and medical decision making. Lesli Renner, Feb 14, 2022,06:29 DELORES GARCIA Feb 13, 2022 13:07 LESLI RENNER DO Feb 14, 2022 06:33
[2022-02-13 14:15] VITALS: BP 160/83
[2022-02-13] MEDS ORDERED: diphenhydrAMINE 25 MG TAB (BENADRYL) PO PRN (14:15)
[2022-02-13] MEDS ORDERED: cloNIDine 0.1 MG (CATAPRES) TAB PO PRN (14:15)
[2022-02-13] MEDS ORDERED: BISACODYL 10 MG SUPP (DULCOLAX) PR PRN (14:15)
[2022-02-13] MEDS ORDERED: MILK OF MAGNESIA 400 MG/5 ML 30 ML UDC PO PRN (14:15)
[2022-02-13] MEDS ORDERED: ONDANSETRON 4 MG/2 ML (SDV) Z0FRAN IV PRN (14:15)
[2022-02-13] MEDS ORDERED: ACETAMINOPHEN 325 MG TABLET PO PRN (14:15)
[2022-02-13] MEDS ORDERED: MELATONIN 3 MG TABLET PO PRN (14:15)
[2022-02-13] MEDS ORDERED: ONDANSETRON 4 MG (ZOFRAN) ORAL DISSOLVE TAB PO PRN (14:15)
[2022-02-13] MEDS ORDERED: morphine INJ 4 MG/ML 1 ML (VIAL/SYRINGE) IV PRN (14:15)
[2022-02-13] MEDS ORDERED: LACTULOSE SYRUP 10GM/15ML (ENULOSE) 30ML UDC PO PRN (14:15)
[2022-02-13] MEDS ORDERED: VANCOMYCIN INJECTION 0.1 MG in NS (IVPB) 250 ML IV SCH (14:15)
[2022-02-13] MEDS ORDERED: diphenhydrAMINE 50 MG/ML INJ (BENADRYL) IVP PRN (14:15)
[2022-02-13] MEDS ORDERED: polyethylene glycoL POWDER 17 GM (MIRALAX) PACK PO PRN (14:15)
[2022-02-13] MEDS ORDERED: ANTACID SUSP 30 ML UDC (MYLANTA) PO PRN (14:15)
[2022-02-13] MEDS ORDERED: CALCIUM CARBONATE 500 MG (TUMS) TAB.CHEW PO PRN (14:15)
[2022-02-13 14:57] VITALS: BP 160/83
[2022-02-13] MEDS ORDERED: WRF1T PO (14:57)
[2022-02-13] MEDS ORDERED: CALC-654 PO (14:57)
[2022-02-13] MEDS ORDERED: ALBU8.5H9 INH (14:57)
[2022-02-13] MEDS ORDERED: CHOL-34 PO (14:57)
[2022-02-13] MEDS ORDERED: VANCOMYCIN 1500 MG/NS 500 ML IVPB IV NR ×2 (15:00)
[2022-02-13] MEDS ORDERED: VANCOMYCIN 1250 MG/NS 250 ML IVPB IV SCH ×2 (15:00)
[2022-02-13] MEDS ORDERED: RT-ALBUTEROL SULF 2.5 MG/3 ML PRE-MIX VIAL INH PRN (15:15)
[2022-02-13] MEDS: NS IV 1000 ML 1,000 ML IV SCH (15:35)
[2022-02-13] MEDS: FLUCONAZOLE 100 MG/50 ML 50 ML IV SCH (15:35)
[2022-02-13 16:08] VITALS: BP 144/63
[2022-02-13] MEDS: inSUlin ASPART (NovoLOG) 1 UNIT/0.01 ML (CHARGE PER UNIT) SC SCH ×2 (16:55→20:41)
[2022-02-13 19:28] VITALS: BP 188/77
[2022-02-13] MEDS: SENNOSIDES 8.6 MG (SENOKOT) TAB PO SCH (19:56)
[2022-02-13] MEDS: DOCUSATE SODIUM 100 MG (COLACE) CAP PO SCH (19:56)
[2022-02-13 21:11] VITALS: BP 124/71
[2022-02-13 22:19] VITALS: BP 135/74
[2022-02-13] MEDS ORDERED: ACETAMINOPHEN ER 650 MG (TYLENOL ARTHRITIS) PO PRN (23:00)
[2022-02-13] MEDS ORDERED: RT-ALBUTEROL/IPRATROPIUM 3 ML (DUONEB) VIAL IH PRN (23:00)
[2022-02-13] MEDS ORDERED: RT-ALBUTEROL HFA 8.5 GM INHALER IH PRN (23:00)
[2022-02-14] VITALS (7 sets, daily range): BP systolic 105–163; BP diastolic 50–74
[2022-02-14] MEDS ORDERED: meTOprolol TARTRATE 50 MG (LOPRESSOR) TAB PO SCH
[2022-02-14] MEDS: hydrALAZINE (APRESOLINE) 25 MG TAB PO SCH ×3 (00:11→18:48)
[2022-02-14 05:52] LABS: BASOPHILS % (AUTO) 0 % (0-10); EOSINOPHILS # (AUTO) 0.1 10^3/uL (0.0-0.3); EOSINOPHILS % (AUTO) 1 % (0-10); HEMATOCRIT 37 % (35-52); HEMOGLOBIN 11.7 g/dL (11.5-16.0); LYMPHOCYTES % (AUTO) 12 % (12-44); MEAN CORPUSCULAR HEMOGLOBIN 30 pg (25-34); MEAN CORPUSCULAR HGB CONC 32 g/dL (32-36); MEAN CORPUSCULAR VOLUME 94 fL (80-99); MEAN PLATELET VOLUME 10.4 fL (9.0-12.2); MONOCYTES # (AUTO) 0.7 10^3/uL (0.0-1.0); MONOCYTES % (AUTO) 8 % (0-12); NEUTROPHILS # (AUTO) 6.7 10^3/uL (1.8-7.8); NEUTROPHILS % (AUTO) 79 % (42-75); PLATELET COUNT 168 10^3/uL (130-400); WHITE BLOOD COUNT 8.5 10^3/uL (4.3-11.0)
[2022-02-14] MEDS: inSUlin ASPART (NovoLOG) 1 UNIT/0.01 ML (CHARGE PER UNIT) SC SCH ×4 (06:03→21:14)
[2022-02-14 06:12] LABS: ALBUMIN 3.2 GM/DL (3.2-4.5); BILIRUBIN,TOTAL 0.5 MG/DL (0.1-1.0); CALCIUM 8.5 MG/DL (8.5-10.1); CREATININE SERUM 0.77 MG/DL (0.60-1.30); POTASSIUM 3.8 MMOL/L (3.6-5.0); TOTAL PROTEIN 5.6 GM/DL (6.4-8.2)
[2022-02-14] MEDS: NS IV 1000 ML 1,000 ML IV SCH (07:05)
[2022-02-14] MEDS ORDERED: FAMOTIDINE 20 MG (PEPCID) TABLET PO SCH (09:00)
[2022-02-14] MEDS: ASPIRIN 81 MG CHEW (CHILDREN'S ASA) PO SCH (09:15)
[2022-02-14] MEDS: VITAMIN D3 25 MCG (1,000 UNITS) TABLET PO SCH (09:15)
[2022-02-14] MEDS: SENNOSIDES 8.6 MG (SENOKOT) TAB PO SCH ×2 (09:16→21:32)
[2022-02-14] MEDS: FAMOTIDINE 20 MG (PEPCID) TABLET PO SCH (09:16)
[2022-02-14] MEDS: HYDROcodone/APAP 5 MG/325 MG (LORTAB) TAB PO PRN (09:16)
[2022-02-14] MEDS: glipiZIDE XL 5 MG (GLUCOTROL XL) TAB PO SCH ×2 (09:16→18:24)
[2022-02-14] MEDS: FUROSEMIDE 40 MG (LASIX) TAB PO SCH (09:16)
[2022-02-14] MEDS: polyethylene glycoL POWDER 17 GM (MIRALAX) PACK PO SCH (09:17)
[2022-02-14] MEDS: DOCUSATE SODIUM 100 MG (COLACE) CAP PO SCH ×2 (09:17→21:25)
[2022-02-14] MEDS: KCL 20 MEQ TAB (K-DUR) PO SCH (09:17)
[2022-02-14] MEDS: lisINopril 40 MG (PRINIVIL) TABLET PO SCH (09:18)
[2022-02-14] MEDS: meTOprolol TARTRATE 50 MG (LOPRESSOR) TAB PO SCH ×2 (09:19→21:26)
[2022-02-14] MEDS: FLUCONAZOLE 100 MG/50 ML 50 ML IV SCH (09:31)
--- NOTE | 2022-02-14 11:04 | Diagnostic Imaging Report ---
CHEST 1 VIEW, AP/PA ONLY Indication: Hypoxia Comparison: 02/07/2021 Findings: No focal airspace disease in the visualized lungs. Please note that the posterior lower lobes are poorly evaluated by portable radiography. No pleural effusion or pneumothorax. Stable cardiomegaly with changes of CABG. Impression: 1. No acute cardiopulmonary process by portable radiography. Dictated by: Dictated on workstation # [id number]
[2022-02-14 11:15] LABS: INR 2.1 (0.8-1.4); PROTHROMBIN TIME PATIENT 23.9 SEC (12.2-14.7)
[2022-02-14] MEDS: CALCIUM CARB + VIT D 600 MG (CALCARB + D) TAB PO SCH (12:24)
[2022-02-14] MEDS ORDERED: TROUGH ORDER-PHARMACY XX ONE (14:00)
[2022-02-14] MEDS: RT-ALBUTEROL/IPRATROPIUM 3 ML (DUONEB) VIAL IH SCH ×3 (14:34→21:31)
[2022-02-14] MEDS: VANCOMYCIN 1250 MG/NS 250 ML IVPB IV SCH ×2 (16:26)
[2022-02-14] MEDS: MONTELUKAST 10 MG (SINGULAIR) TAB PO SCH (18:24)
[2022-02-14] MEDS: warFARin 4 MG (COUMADIN) TAB PO SCH (18:24)
[2022-02-14] MEDS: warFARin 1 MG (COUMADIN) TAB PO SCH (18:26)
--- NOTE | 2022-02-14 18:51 | Progress Note - Hospitalist ---
Subjective HPI/CC On Admission Date Seen by Provider: Feb 14, 2022 Time Seen by Provider: 10:25 Subjective/Events-last exam She is still having pain in her left leg. She thinks the swelling might be worse. She is not having any fevers. Objective Exam Vital Signs Vital Signs Date Time Temp Pulse Resp B/P (MAP) Pulse Ox O2 Delivery O2 Flow Rate FiO2 02/14/22 16:25 36.7 79 18 112/50 (70) 95 Nasal Cannula 2.00 Capillary Refill : Less Than 3 Seconds General Appearance: No Apparent Distress, Obese Respiratory: No Respiratory Distress, Decreased Breath Sounds Cardiovascular: Regular Rate, Rhythm, No Murmur Gastrointestinal: Normal Bowel Sounds, Soft Extremity: Normal Inspection, Inflammation, Pedal Edema, Swelling Skin: Warm/Dry, Erythema Results/Procedures Lab Laboratory Tests 02/14/22 05:27 Patient resulted labs reviewed. Assessment/Plan Assessment and Plan Assess & Plan/Chief Complaint LLE Cellulitis Chronic Bilateral Leg Lymphedema CAD HTN HLP Diabetes mellitus COPD Plan: Continue Vancomycin and Levaquin IV fluids Hydrocodone for pain control if needed Accuchecks and home meds Keep BLE elevated Diagnosis/Problems Diagnosis/Problems (1) Left leg cellulitis Status: Acute (2) Diabetes Status: Acute Qualifiers: Diabetes mellitus type: type 2 Diabetes mellitus alf insulin use: with alf use Diabetes mellitus complication status: with skin complications Diabetes mellitus complication detail: with other skin complication Qualified Codes: E11.628 - Type 2 diabetes mellitus with other skin complications; Z79.4 - long 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
[2022-02-14] MEDS: AtorvaSTATin TABLET 10 MG TABLET PO SCH (21:25)
[2022-02-14] MEDS: MICONAZOLE 2% POWDER (DESENEX AF) 90 GM TOP SCH (21:27)
[2022-02-14] MEDS: RT--FLUTICASONE/SALMETEROL 113-14 (AIRDUO RespiCLICK) IH SCH (21:31)
[2022-02-15] VITALS (7 sets, daily range): BP systolic 108–144; BP diastolic 59–73
[2022-02-15] MEDS: hydrALAZINE (APRESOLINE) 25 MG TAB PO SCH ×3 (00:11→16:54)
[2022-02-15] MEDS: RT-ALBUTEROL/IPRATROPIUM 3 ML (DUONEB) VIAL IH SCH ×6 (02:02→21:47)
[2022-02-15 05:39] LABS: BASOPHILS # (AUTO) 0.1 10^3/uL (0.0-0.1); BASOPHILS % (AUTO) 1 % (0-10); EOSINOPHILS # (AUTO) 0.3 10^3/uL (0.0-0.3); EOSINOPHILS % (AUTO) 4 % (0-10); HEMATOCRIT 35 % (35-52); HEMOGLOBIN 11.3 g/dL (11.5-16.0); LYMPHOCYTES % (AUTO) 13 % (12-44); MEAN CORPUSCULAR HEMOGLOBIN 30 pg (25-34); MEAN CORPUSCULAR HGB CONC 32 g/dL (32-36); MEAN CORPUSCULAR VOLUME 94 fL (80-99); MEAN PLATELET VOLUME 10.4 fL (9.0-12.2); MONOCYTES # (AUTO) 0.8 10^3/uL (0.0-1.0); MONOCYTES % (AUTO) 10 % (0-12); NEUTROPHILS # (AUTO) 5.2 10^3/uL (1.8-7.8); NEUTROPHILS % (AUTO) 71 % (42-75); PLATELET COUNT 171 10^3/uL (130-400); WHITE BLOOD COUNT 7.3 10^3/uL (4.3-11.0)
[2022-02-15] MEDS: inSUlin ASPART (NovoLOG) 1 UNIT/0.01 ML (CHARGE PER UNIT) SC SCH ×5 (05:47→20:36)
[2022-02-15 06:05] LABS: ALBUMIN 3.1 GM/DL (3.2-4.5); BILIRUBIN,TOTAL 0.5 MG/DL (0.1-1.0); CALCIUM 8.8 MG/DL (8.5-10.1); CREATININE SERUM 0.73 MG/DL (0.60-1.30); POTASSIUM 3.8 MMOL/L (3.6-5.0); TOTAL PROTEIN 5.5 GM/DL (6.4-8.2)
--- NOTE | 2022-02-15 08:30 | Progress Note ---
Subjective Date Seen by a Provider: Feb 15, 2022 Time Seen by a Provider: 15:30 Subjective/Events-last exam Improved overall Left leg less edematous today IV abx maintained Reviewed labs Levaquin will increase INR so holding today even though INR 1.7 Leg pain improved No falls BM+ O2 required Review of Systems General: Fatigue, Malaise Pulmonary: Dyspnea Musculoskeletal: leg pain Objective Exam Last Set of Vital Signs Vital Signs Date Time Temp Pulse Resp B/P (MAP) Pulse Ox O2 Delivery O2 Flow Rate FiO2 02/15/22 08:06 96 Nasal Cannula 2.00 02/15/22 07:28 36.8 72 18 139/70 (93) Capillary Refill : Less Than 3 Seconds I&O Intake and Output 02/15/22 00:00 Intake Total 2990 ml Output Total 1750 ml Balance 1240 ml Intake Oral 1990 ml IV Total 1000 ml Output Urine Total 1750 ml Stool Total 0 ml # Voids 1 General: Alert, Oriented X3, Cooperative, No Acute Distress Lungs: Clear to Auscultation, Normal Air Movement Heart: Regular Rate, Normal S1, Normal S2, No Murmurs Skin: Other (left leg edema noted and less erythema but still incrased warmth) Neuro: Normal Gait, Normal Speech, Strength at 5/5 X4 Ext, Normal Tone Psych/Mental Status: Mental Status NL, Mood NL Results Lab Laboratory Tests 02/14/22 10:54: Glucometer 138H 02/14/22 16:16: Glucometer 90 02/14/22 21:06: Glucometer 140H 02/15/22 05:10: Sodium Level 145, Potassium Level 3.8, Chloride Level 113H, Carbon Dioxide Level 19L, Anion Gap 13, Blood Urea Nitrogen 14, Creatinine 0.73, Estimat Glomerular Filtration Rate 84, BUN/Creatinine Ratio 19, Glucose Level 73, Calcium Level 8.8, Corrected Calcium 9.5, Total Bilirubin 0.5, Aspartate Amino Transf (AST/SGOT) 15, Alanine Aminotransferase (ALT/SGPT) 12, Alkaline Phosphatase 46, Total Protein 5.5L, Albumin 3.1L 02/15/22 05:20: White Blood Count 7.3, Red Blood Count 3.75L, Hemoglobin 11.3L, Hematocrit 35, Mean Corpuscular Volume 94, Mean Corpuscular Hemoglobin 30, Mean Corpuscular Hemoglobin Concent 32, Red Cell Distribution Width 14.8H, Platelet Count 171, Mean Platelet Volume 10.4, Immature Granulocyte % (Auto) 1, Neutrophils (%) (Auto) 71, Lymphocytes (%) (Auto) 13, Monocytes (%) (Auto) 10, Eosinophils (%) (Auto) 4, Basophils (%) (Auto) 1, Neutrophils # (Auto) 5.2, Lymphocytes # (Auto) 1.0, Monocytes # (Auto) 0.8, Eosinophils # (Auto) 0.3, Basophils # (Auto) 0.1, Immature Granulocyte # (Auto) 0.1 02/15/22 05:31: Glucometer 86 Assessment/Plan Assessment/Plan Assess & Plan/Chief Complaint Assessment: LLE Cellulitis severe and recurrent type Chronic Bilateral Leg Lymphedema CAD HTN HLP Diabetes mellitus COPD h/o DVT left leg Smoker Plan: IV abx Monitor INR closely given FQ on board Monitor BP Clinical Quality Measures Admission Status Admission Dx IV abx Home meds DVT/VTE Risk/Contraindication: Contraindications-Mechi: Other *list below* Other: leg cellultiis MAHENDRA RENNER DO Feb 15, 2022 08:30
[2022-02-15 08:37] LABS: INR 1.7 (0.8-1.4); PROTHROMBIN TIME PATIENT 20.4 SEC (12.2-14.7)
[2022-02-15] MEDS: lisINopril 40 MG (PRINIVIL) TABLET PO SCH (08:45)
[2022-02-15] MEDS: KCL 20 MEQ TAB (K-DUR) PO SCH (08:45)
[2022-02-15] MEDS: glipiZIDE XL 5 MG (GLUCOTROL XL) TAB PO SCH ×2 (08:45→16:52)
[2022-02-15] MEDS: ASPIRIN 81 MG CHEW (CHILDREN'S ASA) PO SCH (08:45)
[2022-02-15] MEDS: meTOprolol TARTRATE 50 MG (LOPRESSOR) TAB PO SCH ×2 (08:45→21:34)
[2022-02-15] MEDS: FAMOTIDINE 20 MG (PEPCID) TABLET PO SCH (08:45)
[2022-02-15] MEDS: VITAMIN D3 25 MCG (1,000 UNITS) TABLET PO SCH (08:45)
[2022-02-15] MEDS: FUROSEMIDE 40 MG (LASIX) TAB PO SCH (08:45)
[2022-02-15] MEDS: polyethylene glycoL POWDER 17 GM (MIRALAX) PACK PO SCH (08:46)
[2022-02-15] MEDS: DOCUSATE SODIUM 100 MG (COLACE) CAP PO SCH ×2 (08:46→21:33)
[2022-02-15] MEDS: SENNOSIDES 8.6 MG (SENOKOT) TAB PO SCH ×2 (08:46→21:33)
[2022-02-15] MEDS: MICONAZOLE 2% POWDER (DESENEX AF) 90 GM TOP SCH ×2 (08:47→21:34)
[2022-02-15] MEDS: CALCIUM CARB + VIT D 600 MG (CALCARB + D) TAB PO SCH (08:51)
[2022-02-15] MEDS: FLUCONAZOLE 100 MG/50 ML 50 ML IV SCH (08:51)
[2022-02-15] MEDS: HYDROcodone/APAP 5 MG/325 MG (LORTAB) TAB PO PRN ×2 (09:40→21:37)
[2022-02-15] MEDS ORDERED: TROUGH ORDER-PHARMACY XX NR (14:00)
[2022-02-15] MEDS: VANCOMYCIN 1250 MG/NS 250 ML IVPB IV SCH ×2 (16:52)
[2022-02-15] MEDS: MONTELUKAST 10 MG (SINGULAIR) TAB PO SCH (16:53)
[2022-02-15] MEDS: AtorvaSTATin TABLET 10 MG TABLET PO SCH (21:33)
[2022-02-15] MEDS: RT--FLUTICASONE/SALMETEROL 113-14 (AIRDUO RespiCLICK) IH SCH (21:48)
[2022-02-16] MEDS: hydrALAZINE (APRESOLINE) 25 MG TAB PO SCH ×4 (00:32→23:01)
[2022-02-16] MEDS: RT-ALBUTEROL/IPRATROPIUM 3 ML (DUONEB) VIAL IH SCH ×6 (02:28→22:29)
[2022-02-16 03:50] VITALS: BP 132/72
[2022-02-16] MEDS: inSUlin ASPART (NovoLOG) 1 UNIT/0.01 ML (CHARGE PER UNIT) SC SCH ×4 (06:00→19:59)
[2022-02-16 06:08] LABS: BASOPHILS # (AUTO) 0.1 10^3/uL (0.0-0.1); BASOPHILS % (AUTO) 1 % (0-10); EOSINOPHILS # (AUTO) 0.3 10^3/uL (0.0-0.3); EOSINOPHILS % (AUTO) 5 % (0-10); HEMATOCRIT 36 % (35-52); HEMOGLOBIN 11.1 g/dL (11.5-16.0); LYMPHOCYTES # (AUTO) 0.9 10^3/uL (1.0-4.0); LYMPHOCYTES % (AUTO) 14 % (12-44); MEAN CORPUSCULAR HEMOGLOBIN 30 pg (25-34); MEAN CORPUSCULAR HGB CONC 31 g/dL (32-36); MEAN CORPUSCULAR VOLUME 95 fL (80-99); MEAN PLATELET VOLUME 10.8 fL (9.0-12.2); MONOCYTES # (AUTO) 0.7 10^3/uL (0.0-1.0); MONOCYTES % (AUTO) 10 % (0-12); NEUTROPHILS # (AUTO) 4.6 10^3/uL (1.8-7.8); NEUTROPHILS % (AUTO) 70 % (42-75); PLATELET COUNT 179 10^3/uL (130-400); WHITE BLOOD COUNT 6.6 10^3/uL (4.3-11.0)
[2022-02-16 06:24] LABS: ALBUMIN 3.1 GM/DL (3.2-4.5)
[2022-02-16 06:26] LABS: CALCIUM 8.6 MG/DL (8.5-10.1)
[2022-02-16 06:27] LABS: TOTAL PROTEIN 5.6 GM/DL (6.4-8.2)
[2022-02-16 06:29] LABS: BILIRUBIN,TOTAL 0.4 MG/DL (0.1-1.0)
[2022-02-16 06:30] LABS: CREATININE SERUM 0.94 MG/DL (0.60-1.30)
[2022-02-16] MEDS: glipiZIDE XL 5 MG (GLUCOTROL XL) TAB PO SCH ×2 (08:02→17:33)
[2022-02-16] MEDS: lisINopril 40 MG (PRINIVIL) TABLET PO SCH (08:02)
[2022-02-16] MEDS: DOCUSATE SODIUM 100 MG (COLACE) CAP PO SCH ×2 (08:02→19:57)
[2022-02-16] MEDS: SENNOSIDES 8.6 MG (SENOKOT) TAB PO SCH ×2 (08:02→19:57)
[2022-02-16] MEDS: polyethylene glycoL POWDER 17 GM (MIRALAX) PACK PO SCH (08:02)
[2022-02-16] MEDS: VITAMIN D3 25 MCG (1,000 UNITS) TABLET PO SCH (08:02)
[2022-02-16] MEDS: FUROSEMIDE 40 MG (LASIX) TAB PO SCH (08:02)
[2022-02-16] MEDS: FLUCONAZOLE 100 MG/50 ML 50 ML IV SCH (08:02)
[2022-02-16] MEDS: FAMOTIDINE 20 MG (PEPCID) TABLET PO SCH (08:02)
[2022-02-16] MEDS: ASPIRIN 81 MG CHEW (CHILDREN'S ASA) PO SCH (08:02)
[2022-02-16] MEDS: MICONAZOLE 2% POWDER (DESENEX AF) 90 GM TOP SCH ×2 (08:03→19:59)
[2022-02-16] MEDS: KCL 20 MEQ TAB (K-DUR) PO SCH (08:03)
[2022-02-16] MEDS: meTOprolol TARTRATE 50 MG (LOPRESSOR) TAB PO SCH ×2 (08:03→19:59)
[2022-02-16] MEDS: CALCIUM CARB + VIT D 600 MG (CALCARB + D) TAB PO SCH (08:03)
[2022-02-16 08:09] VITALS: BP 116/58
[2022-02-16 08:53] LABS: INR 1.7 (0.8-1.4); PROTHROMBIN TIME PATIENT 20.3 SEC (12.2-14.7)
[2022-02-16] MEDS ORDERED: ENOXAPARIN 60 MG/0.6 ML (LOVENOX) SYR SC NR (10:30)
[2022-02-16 11:16] VITALS: BP 112/53
--- NOTE | 2022-02-16 11:24 | Progress Note ---
DELORES GARCIA 02/16/22 1124: Subjective Date Seen by a Provider: Feb 16, 2022 Time Seen by a Provider: 11:17 Subjective/Events-last exam Patient doing well today and is sitting up in recliner. LLE is looking much more improved with less swelling and redness. No drainage from the infection site. Looks to be healing. Patient denies any fever or chills at this time. Also states pain to the LLE has decreased. States she is currently not short of breath but is on oxygen and receiving breathing treatments. She is concerned she will need some help at home if she were to be discharged. Today her INR is 1.7. Objective Exam Last Set of Vital Signs Vital Signs Date Time Temp Pulse Resp B/P (MAP) Pulse Ox O2 Delivery O2 Flow Rate FiO2 02/16/22 10:17 94 Nasal Cannula 2.00 02/16/22 08:09 36.6 71 16 116/58 (77) Capillary Refill : Less Than 3 Seconds I&O Intake and Output 02/16/22 00:00 Intake Total 1380 ml Output Total 1150 ml Balance 230 ml Intake Oral 1380 ml Output Urine Total 1150 ml # Voids 4 # Bowel Movements 3 General: Alert, Cooperative, No Acute Distress HEENT: Mucous Memb Moist/Melba Lungs: Clear to Auscultation Heart: Regular Rate Skin: Other (LLE cellulitis with less erythema and swelling, appears to be healing well) Results Lab Laboratory Tests 02/15/22 11:23: Glucometer 193H 02/15/22 14:05: Vancomycin Level Trough 11.4 02/15/22 15:56: Glucometer 131H 02/15/22 20:34: Glucometer 135H 02/16/22 05:39: Glucometer 110 02/16/22 05:41: White Blood Count 6.6, Red Blood Count 3.73L, Hemoglobin 11.1L, Hematocrit 36, Mean Corpuscular Volume 95, Mean Corpuscular Hemoglobin 30, Mean Corpuscular Hemoglobin Concent 31L, Red Cell Distribution Width 14.5, Platelet Count 179, Mean Platelet Volume 10.8, Immature Granulocyte % (Auto) 1, Neutrophils (%) (Auto) 70, Lymphocytes (%) (Auto) 14, Monocytes (%) (Auto) 10, Eosinophils (%) (Auto) 5, Basophils (%) (Auto) 1, Neutrophils # (Auto) 4.6, Lymphocytes # (Auto) 0.9L, Monocytes # (Auto) 0.7, Eosinophils # (Auto) 0.3, Basophils # (Auto) 0.1, Immature Granulocyte # (Auto) 0.0, Prothrombin Time 20.3H, INR Comment 1.7H, Sodium Level 148H, Potassium Level 4.0, Chloride Level 112H, Carbon Dioxide Level 21, Anion Gap 15H, Blood Urea Nitrogen 21H, Creatinine 0.94, Estimat Glomerular Filtration Rate 62, BUN/Creatinine Ratio 22, Glucose Level 109H, Calcium Level 8.6, Corrected Calcium 9.3, Total Bilirubin 0.4, Aspartate Amino Transf (AST/SGOT) 15, Alanine Aminotransferase (ALT/SGPT) 11, Alkaline Phosphatase 44, Total Protein 5.6L, Albumin 3.1L Assessment/Plan Assessment/Plan Assess & Plan/Chief Complaint Assessment: LLE Cellulitis severe and recurrent type Chronic Bilateral Leg Lymphedema CAD HTN HLP Diabetes mellitus COPD h/o DVT left leg Smoker Plan: continue IV abx Monitor INR closely given FQ on board Monitor BP Will have PT/OT assess patient strength/capability Clinical Quality Measures Admission Status Admission Dx Assessment: LLE Cellulitis Chronic Bilateral Leg Lymphedema CAD HTN HLP Diabetes mellitus COPD Plan: Start Vancomycin and Levaquin Abx IVF Hydrocodone for pain control if needed Accuchecks and home meds Keep BLE elevated DVT/VTE Risk/Contraindication: Contraindications-Mechi: Other *list below* Other: leg cellultiis LESLI RENNER DO 02/17/22 0457: Subjective Subjective/Events-last exam Pt is doing alot better INR is 1.7 again, so will initiate 60 grams of Lovenox for bridge and initiate Warfarin dosing as she does at home PT and OT will be ordered Will initiate Objective Exam General: Alert, Oriented X3, Cooperative, No Acute Distress Lungs: Clear to Auscultation, Normal Air Movement Heart: Regular Rate, Normal S1, Normal S2, No Murmurs Psych/Mental Status: Mental Status NL, Mood NL Assessment/Plan Assessment/Plan Assess & Plan/Chief Complaint INR check Levaquin Supervisory-Addendum Brief Verification & Attestation Participated in pt care: history, MDM, physical Personally performed: exam, history, MDM, supervision of care Care discussed with: Medical Student Procedures: n/a Results interpretation: Verified all documentation Verification and Attestation of Medical Student E/M Service A medical student performed and documented this service in my presence. I reviewed and verified all information documented by the medical student and made modifications to such information, when appropriate. I personally performed the physical exam and medical decision making. Lesli Renner, Feb 17, 2022,04:57 DELORES GARCIA Feb 16, 2022 11:24 LESLI RENNER DO Feb 17, 2022 04:57
--- NOTE | 2022-02-16 12:09 | Physical Therapy Evaluation ---
PT Evaluation-General Medical Diagnosis Admission Date Feb 13, 2022 at 12:34 Medical Diagnosis: left LE redness Onset Date: Feb 13, 2022 Therapy Diagnosis Therapy Diagnosis: debility/weakness Height/Weight Height (Feet): 5 Height (Inches): 5.00 Weight (Pounds): 212 Weight (Ounces): 8.0 Precautions Precautions/Isolations: Fall Prevention, Standard Precautions Weight Bear Status Right Lower Extremity: Right Weight Bearing/Tolerated Left Lower Extremity: Left Weight Bearing/Tolerated Referral Physician: Deborah Reason for Referral: Evaluation/Treatment Medical History Pertinent Medical History: Atrial Fib, CABG, CAD, COPD, DM, HTN, Smoking History of Falls (past yr): No Prior Surgery (last 100 days): No Current History ER secondary to left LE redness Reviewed History: Yes Social History Home: Single Level Current Living Status: Spouse Entry Into Home: Stairs With Railing PT Steps Into Home: 3 Prior Prior Level of Function SCALE: Activities may be completed with or without assistive devices. 4-Vdvejvxqqs-myevybb completes the activity by him/herself with no assistance from a helper. 5-Set-up or Clean-up Assistance-helper sets up or cleans up; patient completes activity. Adin assists only prior to or following the activity. 4-Supervision or Touching Assistance-helper provides verbal cues and/or touching/steadying and/or contact guard assistance as patient completes activity. Assistance may be provided throughout the activity or intermittently. 3-Partial/Moderate Assistance-helper does LESS THAN HALF the effort. Adin lifts, holds or supports trunk or limbs, but provides less than half the effort. 2-Substantial/Maximal Assistance-helper does MORE THAN HALF the effort. Adin lifts or holds trunk or limbs and provides more than half the effort. 3-Xayzamxip-ppeext does ALL the effort. Patient does none of the effort to complete the activity. Or, the assistance of 2 or more helpers is required for the patient to complete the activity. If activity was not attempted, code reason: 7-Patient Refused. 9-Not Applicable-not attempted and the patient did not perform the activity before the current illness, exacerbation or injury. 10-Not Attempted due to Environmental Limitations-(lack of equipment, weather restraints, etc.). 88-Not Attempted due to Medical Conditions or Safety Concerns. Bed Mobility: 6 Transfers (B,C,W/C): 6 Gait: 6 Stairs: 6 Indoor Mobility (Ambulation): Independent Stairs: Independent Prior Devices Use: Walker PT Evaluation-Current Subjective Patient agrees to PT. She reports she is up independent in her room without difficulty. RN confirms. Objective Patient Orientation: Normal For Age Attachments: Oxygen ROM/Strength ROM Lower Extremities bilateral LE WFL Strength Lower Extremities 4-/5 grossly bilateral LE all planes Integumentary/Posture Integumentary refer to nursing notes Bowel Incontinence: No Bladder Incontinence: No Posture WFL Neuromuscular (Tone, Coordination, Reflexes) grossly intact Sensory Vision: Wears Glasses Hearing: Functional Transfers Sit to Stand (QC): 6 Gait Mode of Locomotion: Walk Anticipated Mode of Locomotion: Walk Walk 10 feet (QC): 6 Walk 50 ft with 2 Turns(QC): 6 Walk 150 ft (QC): 6 Distance: 150' Gait Assistive Device: FWW Comments/Gait Description safe and functional with no deviation Balance Sitting Static: Normal Sitting Dynamic: Normal Standing Static: Normal Standing Dynamic: Normal Assessment/Needs Patient is currently at independent [facility] with all gross motor skills and does not require skilled PT intervention. Rehab Potential: Fair PT Plan Treatment/Plan Treatment Plan: Discontinue PT, goals met Treatment Duration: Feb 16, 2022 Frequency: 1 time per week Estimated Hrs Per Day: .25 hour per day Patient and/or Family Agrees t: Yes Time/GCodes Time In: 1146 Time Out: 1157 Total Billed Treatment Time: 11 Total Billed Treatment 1 visit EVMod 11 min SERGIO BARRAGAN PT Feb 16, 2022 12:09
--- NOTE | 2022-02-16 13:10 | Occ Therapy Progress Note ---
Therapy Progress Note OT orders received and chart was reviewed. Per nursing and pt, pt has been up ad alexander since arrival and having no difficulties with any ADLs. Questions and concerns were addressed. No skilled OT services warranted at this time. OT will d/c. 1 visit Liz Abreu OT Feb 16, 2022 13:10
[2022-02-16] MEDS: VANCOMYCIN 1250 MG/NS 250 ML IVPB IV SCH ×2 (15:13)
[2022-02-16 15:48] VITALS: BP 126/82
[2022-02-16] MEDS: warFARin 1 MG (COUMADIN) TAB PO SCH (17:33)
[2022-02-16] MEDS: MONTELUKAST 10 MG (SINGULAIR) TAB PO SCH (17:34)
[2022-02-16] MEDS: warFARin 4 MG (COUMADIN) TAB PO SCH (17:34)
[2022-02-16 19:37] VITALS: BP 113/56
[2022-02-16] MEDS: AtorvaSTATin TABLET 10 MG TABLET PO SCH (19:58)
[2022-02-16] MEDS: RT--FLUTICASONE/SALMETEROL 113-14 (AIRDUO RespiCLICK) IH SCH (20:53)
[2022-02-16 22:56] VITALS: BP 120/73
[2022-02-17 00:36] VITALS: BP 132/71
[2022-02-17] MEDS: RT-ALBUTEROL/IPRATROPIUM 3 ML (DUONEB) VIAL IH SCH ×3 (02:31→10:26)
[2022-02-17 04:33] VITALS: BP 117/58
[2022-02-17] MEDS: inSUlin ASPART (NovoLOG) 1 UNIT/0.01 ML (CHARGE PER UNIT) SC SCH ×2 (05:49→11:53)
[2022-02-17 05:53] LABS: BASOPHILS # (AUTO) 0.1 10^3/uL (0.0-0.1); BASOPHILS % (AUTO) 1 % (0-10); EOSINOPHILS # (AUTO) 0.4 10^3/uL (0.0-0.3); EOSINOPHILS % (AUTO) 5 % (0-10); HEMATOCRIT 37 % (35-52); HEMOGLOBIN 11.7 g/dL (11.5-16.0); LYMPHOCYTES # (AUTO) 1.1 10^3/uL (1.0-4.0); LYMPHOCYTES % (AUTO) 16 % (12-44); MEAN CORPUSCULAR HEMOGLOBIN 30 pg (25-34); MEAN CORPUSCULAR HGB CONC 32 g/dL (32-36); MEAN CORPUSCULAR VOLUME 95 fL (80-99); MEAN PLATELET VOLUME 10.3 fL (9.0-12.2); MONOCYTES # (AUTO) 0.7 10^3/uL (0.0-1.0); MONOCYTES % (AUTO) 10 % (0-12); NEUTROPHILS # (AUTO) 4.7 10^3/uL (1.8-7.8); NEUTROPHILS % (AUTO) 67 % (42-75); PLATELET COUNT 208 10^3/uL (130-400); WHITE BLOOD COUNT 6.9 10^3/uL (4.3-11.0)
[2022-02-17] MEDS: hydrALAZINE (APRESOLINE) 25 MG TAB PO SCH (06:10)
[2022-02-17 06:14] LABS: INR 1.6 (0.8-1.4); PROTHROMBIN TIME PATIENT 19.5 SEC (12.2-14.7)
[2022-02-17 06:15] LABS: ALBUMIN 3.3 GM/DL (3.2-4.5); BILIRUBIN,TOTAL 0.4 MG/DL (0.1-1.0); CALCIUM 8.9 MG/DL (8.5-10.1); CREATININE SERUM 0.81 MG/DL (0.60-1.30); POTASSIUM 4.4 MMOL/L (3.6-5.0); TOTAL PROTEIN 5.9 GM/DL (6.4-8.2)
[2022-02-17 08:00] VITALS: BP 129/81
[2022-02-17] MEDS: FLUCONAZOLE 100 MG/50 ML 50 ML IV SCH (08:01)
[2022-02-17] MEDS: VITAMIN D3 25 MCG (1,000 UNITS) TABLET PO SCH (08:02)
[2022-02-17] MEDS: SENNOSIDES 8.6 MG (SENOKOT) TAB PO SCH (08:02)
[2022-02-17] MEDS: DOCUSATE SODIUM 100 MG (COLACE) CAP PO SCH (08:02)
[2022-02-17] MEDS: CALCIUM CARB + VIT D 600 MG (CALCARB + D) TAB PO SCH (08:02)
[2022-02-17] MEDS: polyethylene glycoL POWDER 17 GM (MIRALAX) PACK PO SCH (08:02)
[2022-02-17] MEDS: lisINopril 40 MG (PRINIVIL) TABLET PO SCH (08:02)
[2022-02-17] MEDS: glipiZIDE XL 5 MG (GLUCOTROL XL) TAB PO SCH (08:03)
[2022-02-17] MEDS: MICONAZOLE 2% POWDER (DESENEX AF) 90 GM TOP SCH (08:03)
[2022-02-17] MEDS: FUROSEMIDE 40 MG (LASIX) TAB PO SCH (08:03)
[2022-02-17] MEDS: FAMOTIDINE 20 MG (PEPCID) TABLET PO SCH (08:03)
[2022-02-17] MEDS: KCL 20 MEQ TAB (K-DUR) PO SCH (08:03)
[2022-02-17] MEDS: ASPIRIN 81 MG CHEW (CHILDREN'S ASA) PO SCH (08:03)
[2022-02-17] MEDS: meTOprolol TARTRATE 50 MG (LOPRESSOR) TAB PO SCH (08:03)
[2022-02-17] MEDS ORDERED: ENOXAPARIN 60 MG/0.6 ML (LOVENOX) SYR SC NR (10:00)
[2022-02-17] MEDS ORDERED: LEVO750T PO (10:10)
[2022-02-17] MEDS ORDERED: LINE600T12 PO (10:10)
--- NOTE | 2022-02-17 10:11 | Discharge Summary ---
Diagnosis/Chief Complaint Date of Admission Feb 13, 2022 at 12:34 Date of Discharge Discharge Date: Feb 17, 2022 Discharge Diagnosis Assessment: LLE Cellulitis severe and recurrent type Chronic Bilateral Leg Lymphedema CAD HTN HLP Diabetes mellitus COPD h/o DVT left leg Smoker Plan: IV abx Monitor INR closely given FQ on board Monitor BP Reason Hospital Visit CC: Left lower leg cellulitis severe in nature HPI: This is a 81yoWF clinic patient of [facility] who has h/o severe lymphedema and cellulitis recurrent type of the left leg presented to the ER with left leg pain and edema and redness. Patient will require IV abx for 3 days for severe r edness. Discharge Summary Discharge Physical Examination Allergies: Coded Allergies: erythromycin base (Verified Allergy, Intermediate, HIVES, 10/10/13) NSAIDS (Non-Steroidal Anti-Inflamma (Verified Allergy, Unknown, 01/10/17) cephalexin (Verified Allergy, Unknown, 10/10/13) Vitals & I&Os Vital Signs Date Time Temp Pulse Resp B/P (MAP) Pulse Ox O2 Delivery O2 Flow Rate FiO2 02/17/22 12:15 36.3 60 16 137/60 94 Room Air 0.00 General Appearance: Alert, Oriented X3, Cooperative Respiratory: Clear to Auscultation Cardiovascular: Regular Rate Psych/Mental Status: Mental Status NL Hospital Course Was the Problem List Reviewed?: Yes 4 day Hospital Course: Patient is a 81 y/o female clinic patient of [facility] with Hx of CAD, Afib, HTN, DVT, PE, and DM who presented to the ED 4 days ago for LLE cellulitis that became painful to touch. She has a history of recurrent cellulitis in the LLE and chronic lymphedema of her legs at baseline. She was given Vancomycin and Levaquin course for the infection. Pain meds were also given for pain control. She also began using oxygen during her stay after having some difficulty breathing. Patient was evaluated by PT/OT once the infection began to subside. Today, the patient is doing well. Seen walking around her room with walker and sitting up in her recliner independently. Her LLE has improved with no redness and significantly reduced swelling. Patient denies any fever, chill, or cold sweats at this time. Patient to be evaluated for Home O2 today. She will also be given an abx course to complete at home. She is agreeable to discharge. Patient has an outpatient appointment on 02/23/22 for followup and additional testing. Labs (last 24 hrs) Laboratory Tests 02/13/22 10:57: White Blood Count 12.3H, Red Blood Count 4.52, Hemoglobin 13.7, Hematocrit 42, Mean Corpuscular Volume 93, Mean Corpuscular Hemoglobin 30, Mean Corpuscular Hemoglobin Concent 33, Red Cell Distribution Width 15.2H, Platelet Count 198, Mean Platelet Volume 10.4, Immature Granulocyte % (Auto) 1, Neutrophils (%) ( Auto) 86H, Lymphocytes (%) (Auto) 7L, Monocytes (%) (Auto) 6, Eosinophils (%) (Auto) 0, Basophils (%) (Auto) 0, Neutrophils # (Auto) 10.6H, Lymphocytes # (Auto) 0.9L, Monocytes # (Auto) 0.7, Eosinophils # (Auto) 0.0, Basophils # (Auto) 0.1, Immature Granulocyte # (Auto) 0.1, Neutrophils % (Manual) 89, Lymphocytes % (Manual) 6, Monocytes % (Manual) 2, Eosinophils % (Manual) 0, Basophils % (Manual) 1, Band Neutrophils 2, Anisocytosis SLIGHT, Prothrombin Time 23.8H, INR Comment 2.1H, Sodium Level 145, Potassium Level 4.2, Chloride Level 110H, Carbon Dioxide Level 18L, Anion Gap 17H, Blood Urea Nitrogen 26H, Creatinine 0.95, Estimat Glomerular Filtration Rate 61, BUN/Creatinine Ratio 27, Glucose Level 124H, Calcium Level 9.5 02/13/22 15:51: Glucometer 131H 02/13/22 20:36: Glucometer 113H 02/14/22 05:26: Glucometer 107 02/14/22 05:27: White Blood Count 8.5, Red Blood Count 3.93, Hemoglobin 11.7, Hematocrit 37, Mean Corpuscular Volume 94, Mean Corpuscular Hemoglobin 30, Mean Corpuscular Hemoglobin Concent 32, Red Cell Distribution Width 14.8H, Platelet Count 168, Mean Platelet Volume 10.4, Immature Granulocyte % (Auto) 1, Neutrophils (%) (Auto) 79H, Lymphocytes (%) (Auto) 12, Monocytes (%) (Auto) 8, Eosinophils (%) (Auto) 1, Basophils (%) (Auto) 0, Neutrophils # (Auto) 6.7, Lymphocytes # (Auto) 1.0, Monocytes # (Auto) 0.7, Eosinophils # (Auto) 0.1, Basophils # (Auto) 0.0, Immature Granulocyte # (Auto) 0.0, Prothrombin Time 23.9H, INR Comment 2.1H, Sodium Level 143, Potassium Level 3.8, Chloride Level 114H, Carbon Dioxide Level 18L, Anion Gap 11, Blood Urea Nitrogen 17, Creatinine 0.77, Estimat Glomerular Filtration Rate 78, BUN/Creatinine Ratio 22, Glucose Level 105, Calcium Level 8.5, Corrected Calcium 9.1, Total Bilirubin 0.5, Aspartate Amino Transf (AST/SGOT) 13, Alanine Aminotransferase (ALT/SGPT) 11, Alkaline Phosphatase 48, Total Protein 5.6L, Albumin 3.2, Procalcitonin 0.44H 02/14/22 10:54: Glucometer 138H 02/14/22 16:16: Glucometer 90 02/14/22 21:06: Glucometer 140H 02/15/22 05:10: Sodium Level 145, Potassium Level 3.8, Chloride Level 113H, Carbon Dioxide Level 19L, Anion Gap 13, Blood Urea Nitrogen 14, Creatinine 0.73, Estimat Glomerular Filtration Rate 84, BUN/Creatinine Ratio 19, Glucose Level 73, Calcium Level 8.8, Corrected Calcium 9.5, Total Bilirubin 0.5, Aspartate Amino Transf ( AST/SGOT) 15, Alanine Aminotransferase (ALT/SGPT) 12, Alkaline Phosphatase 46, Total Protein 5.5L, Albumin 3.1L 02/15/22 05:20: White Blood Count 7.3, Red Blood Count 3.75L, Hemoglobin 11.3L, Hematocrit 35, Mean Corpuscular Volume 94, Mean Corpuscular Hemoglobin 30, Mean Corpuscular Hemoglobin Concent 32, Red Cell Distribution Width 14.8H, Platelet Count 171, Mean Platelet Volume 10.4, Immature Granulocyte % (Auto) 1, Neutrophils (%) (Auto) 71, Lymphocytes (%) (Auto) 13, Monocytes (%) (Auto) 10, Eosinophils (%) (Auto) 4, Basophils (%) (Auto) 1, Neutrophils # (Auto) 5.2, Lymphocytes # (Auto) 1.0, Monocytes # (Auto) 0.8, Eosinophils # (Auto) 0.3, Basophils # (Auto) 0.1, Immature Granulocyte # (Auto) 0.1, Prothrombin Time 20.4H, INR Comment 1.7H 02/15/22 05:31: Glucometer 86 02/15/22 11:23: Glucometer 193H 02/15/22 14:05: Vancomycin Level Trough 11.4 02/15/22 15:56: Glucometer 131H 02/15/22 20:34: Glucometer 135H 02/16/22 05:39: Glucometer 110 02/16/22 05:41: White Blood Count 6.6, Red Blood Count 3.73L, Hemoglobin 11.1L, Hematocrit 36, Mean Corpuscular Volume 95, Mean Corpuscular Hemoglobin 30, Mean Corpuscular Hemoglobin Concent 31L, Red Cell Distribution Width 14.5, Platelet Count 179, Mean Platelet Volume 10.8, Immature Granulocyte % (Auto) 1, Neutrophils (%) (Auto) 70, Lymphocytes (%) (Auto) 14, Monocytes (%) (Auto) 10, Eosinophils (%) (Auto) 5, Basophils (%) (Auto) 1, Neutrophils # (Auto) 4.6, Lymphocytes # (Auto) 0.9L, Monocytes # (Auto) 0.7, Eosinophils # (Auto) 0.3, Basophils # (Auto) 0.1, Immature Granulocyte # (Auto) 0.0, Prothrombin Time 20.3H, INR Comment 1.7H, Sodium Level 148H, Potassium Level 4.0, Chloride Level 112H, Carbon Dioxide Le catracho 21, Anion Gap 15H, Blood Urea Nitrogen 21H, Creatinine 0.94, Estimat Glomerular Filtration Rate 62, BUN/Creatinine Ratio 22, Glucose Level 109H, Calcium Level 8.6, Corrected Calcium 9.3, Total Bilirubin 0.4, Aspartate Amino Transf (AST/SGOT) 15, Alanine Aminotransferase (ALT/SGPT) 11, Alkaline Phosphatase 44, Total Protein 5.6L, Albumin 3.1L 02/16/22 14:15: Vancomycin Level Trough 12.7 02/16/22 15:55: Glucometer 105 02/16/22 19:41: Glucometer 162H 02/17/22 05:28: Glucometer 101 02/17/22 05:47: White Blood Count 6.9, Red Blood Count 3.90, Hemoglobin 11.7, Hematocrit 37, Mean Corpuscular Volume 95, Mean Corpuscular Hemoglobin 30, Mean Corpuscular Hemoglobin Concent 32, Red Cell Distribution Width 14.3, Platelet Count 208, Mean Platelet Volume 10.3, Immature Granulocyte % (Auto) 1, Neutrophils (%) (Auto) 67, Lymphocytes (%) (Auto) 16, Monocytes (%) (Auto) 10, Eosinophils (%) (Auto) 5, Basophils (%) (Auto) 1, Neutrophils # (Auto) 4.7, Lymphocytes # (Auto) 1.1, Monocytes # (Auto) 0.7, Eosinophils # (Auto) 0.4H, Basophils # (Auto) 0.1, Immature Granulocyte # (Auto) 0.0, Prothrombin Time 19.5H, INR Comment 1.6H, Sodium Level 145, Potassium Level 4.4, Chloride Level 114H, Carbon Dioxide Level 19L, Anion Gap 12, Blood Urea Nitrogen 20H, Creatinine 0.81, Estimat Glomerular Filtration Rate 74, BUN/Creatinine Ratio 25, Glucose Level 98, Calcium Level 8.9, Corrected Calcium 9.5, Total Bilirubin 0.4, Aspartate Amino Transf (AST/SGOT) 12, Alanine Aminotransferase (ALT/SGPT) 13, Alkaline Phosphatase 47, Total Protein 5.9L, Albumin 3.3 02/17/22 10:27: Glucometer 192H Pending Labs Laboratory Tests 02/13/22 10:57: White Blood Count 12.3, Red Blood Count 4.52, Hemoglobin 13.7, Hematocrit 42, Mean Corpuscular Volume 93, Mean Corpuscular Hemoglobin 30, Mean Corpuscular Hemoglobin Concent 33, Red Cell Distribution Width 15.2, Platelet Count 198, Mean Platelet Volume 10.4, Immature Granulocyte % (Auto) 1, Neutrophils (%) (Auto) 86, Lymphocytes (%) (Auto) 7, Monocytes (%) (Auto) 6, Eosinophils (%) (Auto) 0, Basophils (%) (Auto) 0, Neutrophils # (Auto) 10.6, Lymphocytes # (Auto) 0.9, Monocytes # (Auto) 0.7, Eosinophils # (Auto) 0.0, Basophils # (Auto) 0.1, Immature Granulocyte # (Auto) 0.1, Neutrophils % (Manual) 89, Lymphocytes % (Manual) 6, Monocytes % (Manual) 2, Eosinophils % (Manual) 0, Basophils % (Manual) 1, Band Neutrophils 2, Anisocytosis SLIGHT, Prothrombin Time 23.8, INR Comment 2.1, Sodium Level 145, Potassium Level 4.2, Chloride Level 110, Carbon Dioxide Level 18, Anion Gap 17, Blood Urea Nitrogen 26, Creatinine 0.95, Estimat Glomerular Filtration Rate 61, BUN/Creatinine Ratio 27, Glucose Level 124, Calcium Level 9.5 02/13/22 15:51: Glucometer 131 02/13/22 20:36: Glucometer 113 02/14/22 05:26: Glucometer 107 02/14/22 05:27: White Blood Count 8.5, Red Blood Count 3.93, Hemoglobin 11.7, Hematocrit 37, Mean Corpuscular Volume 94, Mean Corpuscular Hemoglobin 30, Mean Corpuscular Hemoglobin Concent 32, Red Cell Distribution Width 14.8, Platelet Count 168, Mean Platelet Volume 10.4, Immature Granulocyte % (Auto) 1, Neutrophils (%) (Auto) 79, Lymphocytes (%) (Auto) 12, Monocytes (%) (Auto) 8, Eosinophils (%) (Auto) 1, Basophils (%) (Auto) 0, Neutrophils # (Auto) 6.7, Lymphocytes # (Auto) 1.0, Monocytes # (Auto) 0.7, Eosinophils # (Auto) 0.1, Basophils # (Auto) 0.0, Immature Granulocyte # (Auto) 0.0, Prothrombin Time 23.9, INR Comment 2.1, Sodium Level 143, Potassium Level 3.8, Chloride Level 114, Carbon Dioxide Level 18, Anion Gap 11, Blood Urea Nitrogen 17, Creatinine 0.77, Estimat Glomerular Filtration Rate 78, BUN/Creatinine Ratio 22, Glucose Level 105, Calcium Level 8.5, Corrected Calcium 9.1, Total Bilirubin 0.5, Aspartate Amino Transf (AST/SGOT) 13, Alanine Aminotransferase (ALT/SGPT) 11, Alkaline Phosphatase 48, Total Protein 5.6, Albumin 3.2, Procalcitonin 0.44 02/14/22 10:54: Glucometer 138 02/14/22 16:16: Glucometer 90 02/14/22 21:06: Glucometer 140 02/15/22 05:10: Sodium Level 145, Potassium Level 3.8, Chloride Level 113, Carbon Dioxide Level 19, Anion Gap 13, Blood Urea Nitrogen 14, Creatinine 0.73, Estimat Glomerular Filtration Rate 84, BUN/Creatinine Ratio 19, Glucose Level 73, Calcium Level 8.8, Corrected Calcium 9.5, Total Bilirubin 0.5, Aspartate Amino Transf (AST/SGOT) 15, Alanine Aminotransferase (ALT/SGPT) 12, Alkaline Phosphatase 46, Total Protein 5.5, Albumin 3.1 02/15/22 05:20: White Blood Count 7.3, Red Blood Count 3.75, Hemoglobin 11.3, Hematocrit 35, Mean Corpuscular Volume 94, Mean Corpuscular Hemoglobin 30, Mean Corpuscular Hemoglobin Concent 32, Red Cell Distribution Width 14.8, Platelet Count 171, Mean Platelet Volume 10.4, Immature Granulocyte % (Auto) 1, Neutrophils (%) (Auto) 71, Lymphocytes (%) (Auto) 13, Monocytes (%) (Auto) 10, Eosinophils (%) (Auto) 4, Basophils (%) (Auto) 1, Neutrophils # (Auto) 5.2, Lymphocytes # (Auto) 1.0, Monocytes # (Auto) 0.8, Eosinophils # (Auto) 0.3, Basophils # (Auto) 0.1, Immature Granulocyte # (Auto) 0.1, Prothrombin Time 20.4, INR Comment 1.7 02/15/22 05:31: Glucometer 86 02/15/22 11:23: Glucometer 193 02/15/22 14:05: Vancomycin Level Trough 11.4 02/15/22 15:56: Glucometer 131 02/15/22 20:34: Glucometer 135 02/16/22 05:39: Glucometer 110 02/16/22 05:41: White Blood Count 6.6, Red Blood Count 3.73, Hemoglobin 11.1, Hematocrit 36, Mean Corpuscular Volume 95, Mean Corpuscular Hemoglobin 30, Mean Corpuscular Hemoglobin Concent 31, Red Cell Distribution Width 14.5, Platelet Count 179, Mean Platelet Volume 10.8, Immature Granulocyte % (Auto) 1, Neutrophils (%) (Auto) 70, Lymphocytes (%) (Auto) 14, Monocytes (%) (Auto) 10, Eosinophils (%) (Auto) 5, Basophils (%) (Auto) 1, Neutrophils # (Auto) 4.6, Lymphocytes # (Auto) 0.9, Monocytes # (Auto) 0.7, Eosinophils # (Auto) 0.3, Basophils # (Auto) 0.1, Immature Granulocyte # (Auto) 0.0, Prothrombin Time 20.3, INR Comment 1.7, Sodium Level 148, Potassium Level 4.0, Chloride Level 112, Carbon Dioxide Level 21, Anion Gap 15, Blood Urea Nitrogen 21, Creatinine 0.94, Estimat Glomerular Filtration Rate 62, BUN/Creatinine Ratio 22, Glucose Level 109, Calcium Level 8.6, Corrected Calcium 9.3, Total Bilirubin 0.4, Aspartate Amino Transf (AST/SGOT) 15, Alanine Aminotransferase (ALT/SGPT) 11, Alkaline Phosphatase 44, Total Protein 5.6, Albumin 3.1 02/16/22 14:15: Vancomycin Level Trough 12.7 02/16/22 15:55: Glucometer 105 02/16/22 19:41: Glucometer 162 02/17/22 05:28: Glucometer 101 02/17/22 05:47: White Blood Count 6.9, Red Blood Count 3.90, Hemoglobin 11.7, Hematocrit 37, Mean Corpuscular Volume 95, Mean Corpuscular Hemoglobin 30, Mean Corpuscular Hemoglobin Concent 32, Red Cell Distribution Width 14.3, Platelet Count 208, Mean Platelet Volume 10.3, Immature Granulocyte % (Auto) 1, Neutrophils (%) (Auto) 67, Lymphocytes (%) (Auto) 16, Monocytes (%) (Auto) 10, Eosinophils (%) (Auto) 5, Basophils (%) (Auto) 1, Neutrophils # (Auto) 4.7, Lymphocytes # (Auto) 1.1, Monocytes # (Auto) 0.7, Eosinophils # (Auto) 0.4, Basophils # (Auto) 0.1, Immature Granulocyte # (Auto) 0.0, Prothrombin Time 19.5, INR Comment 1.6, Sodium Level 145, Potassium Level 4.4, Chloride Level 114, Carbon Dioxide Level 19, Anion Gap 12, Blood Urea Nitrogen 20, Creatinine 0.81, Estimat Glomerular Filtration Rate 74, BUN/Creatinine Ratio 25, Glucose Level 98, Calcium Level 8.9, Corrected Calcium 9.5, Total Bilirubin 0.4, Aspartate Amino Transf (AST/SGOT) 12, Alanine Aminotransferase (ALT/SGPT) 13, Alkaline Phosphatase 47, Total Protein 5.9, Albumin 3.3 02/17/22 10:27: Glucometer 192 Discharge Home Medications: Active Scripts Active Levofloxacin 750 Mg Tablet 750 Mg PO Q48H Zyvox (Linezolid) 600 Mg Tablet 600 Mg PO BID Reported Vitamin D3 (Cholecalciferol (Vitamin D3)) 25 Mcg (1000 Unit) Tablet 25 Mcg PO Calcium 500 + D Tablet (Calcium Carbonate/Vitamin D3) 500 Mg Calcium-10 Mcg (400 Unit) Tablet 1 Each PO DAILY Proair Hfa (Albuterol Sulfate) 90 Mcg Hfa.aer.ad 2 Puff INH Q6H PRN Warfarin Sodium 1 Mg Tablet 1.5 Mg PO 1800 TAKES 1 & (1MG) TAB + (4MG) TO EQUAL 3.5MG Glipizide ER (Glipizide) 5 Mg Tab.er.24 5 Mg PO BID Fluticasone-Salmeterol 250-50 (Fluticasone Propion/Salmeterol) 250 Mcg-50 Mcg/Dose Blst.w.dev 1 Puff INH HS Hydralazine HCl 50 Mg Tablet 50 Mg PO 0700,1800,2300 Tylenol Arthritis (Acetaminophen) 650 Mg Tablet.er 1,300 Mg PO Q8H PRN Levemir (Insulin Determir) 100 Unit/Ml Soln 4 Units SC HS Metoprolol Tartrate 100 Mg Tablet 100 Mg PO Q12H Polyethylene Glycol 3350 17 Gm Powd.pack 17 Gm PO DAILY Acid Yarn Washer (FAMOTIDINE) (Famotidine) 20 Mg Tablet 20 Mg PO BID Warfarin Sodium 4 Mg Tablet 2 Mg PO 1800 TAKES 1 & (1MG) TAB + (4MG) TO EQUAL 3.5MG Benazepril HCl 40 Mg Tab 40 Mg PO DAILY Potassium Chloride 20 Meq Tab.er.prt 20 Meq PO DAILY Furosemide 40 Mg Tablet 40 Mg PO DAILY Montelukast Sodium 10 Mg Tablet 10 Mg PO 1800 Aspirin 81 Mg Tab.chew 81 Mg PO DAILY Iprat-Albut 0.5-3(2.5) mg/3 ml (Ipratropium/Albuterol Sulfate) 3 Ml Ampul.neb 3 Ml IH QID PRN Pravastatin Sodium 40 Mg Tablet 20 Mg PO BID TAKE 1/2 OF (40 MG) TABLET Instructions to patient/family Please see electronic discharge instructions given to patient. Clinical Quality Measures DVT/VTE Risk/Contraindication: Contraindications-Mechi: Other *list below* Other: leg cellultiis MAHENDRA RENNER DO Feb 17, 2022 10:11
--- NOTE | 2022-02-17 11:24 | Progress Note ---
DELORES GARCIA 02/17/22 1124: Progress Note 4 day Hospital Course: Patient is a 81 y/o female clinic patient of mine with Hx of CAD, Afib, HTN, DVT, PE, and DM who presented to the ED 4 days ago for LLE cellulitis that b ecame painful to touch. She has a history of recurrent cellulitis in the LLE and chronic lymphedema of her legs at baseline. She was given Vancomycin and Levaquin course for the infection. Pain meds were also given for pain control. She also began using oxygen during her stay after having some difficulty breathing. Patient was evaluated by PT/OT once the infection began to subside. Today, the patient is doing well. Seen walking around her room with walker and sitting up in her recliner independently. Her LLE has improved with no redness and significantly reduced swelling. Patient denies any fever, chill, or cold sweats at this time. Patient to be evaluated for Home O2 today. She will also be given an abx course to complete at home. She is agreeable to discharge. Patient has an outpatient appointment on 02/23/22 for followup and additional testing. LESLI RENNER DO 02/17/222044: Supervisory-Addendum Brief Verification & Attestation Participated in pt care: history, MDM, physical Personally performed: exam, history, MDM, supervision of care Care discussed with: Medical Student Procedures: n/a Results interpretation: Verified all documentation Verification and Attestation of Medical Student E/M Service A medical student performed and documented this service in my presence. I reviewed and verified all information documented by the medical student and made modifications to such information, when appropriate. I personally performed the physical exam and medical decision making. Lesli Renner, Feb 17, 2022,20:45 DELORES GARCIA Feb 17, 2022 11:24 LESLI RENNER DO Feb 17, 2022 20:45
[2022-02-17 12:00] VITALS: BP 137/60
[2022-02-17 12:15] VITALS: BP 137/60
--- NOTE | 2022-02-18 22:20 | Physician Query Clarification ---
PQ-Link Manifestation-Etiology Admission/Discharge Admission Date: Feb 13, 2022 at 12:34 Discharge Date: Feb 17, 2022 at 12:15 MAHENDRA Espinal DO The medical record reflects the following clinical scenario: History/Risk Factors: 81 y/o female patient has diabetes admitted with left lower extremity cellulitis recurrent type treated with IV antibiotics. Clinical Findings: Left leg pain, edema and redness, WBC- 12.3 H, glucose- 131, 140 H Treatment: IV antibiotics, home insulin Question: Can you specify if the Left leg cellulitis is due to/associated with Diabetes? Please document a response in the Progress Note or Discharge Summary. 1. Yes - Left leg cellulitis is due to/associated with Diabetes. 2. No - Left leg cellulitis is not due to/associated with Diabetes. 3. Other, with explanation of the clinical findings. 4. Clinically undetermined, no explanation for the clinical findings. PHYSICIAN RESPONSE Manifestation due to/assoic: No In responding to this query, please exercise your independent professional judgment. The purpose of this communication is to more accurately reflect the complexity of your patients condition. The fact that a question is asked does not imply that any particular answer is desired or expected. Thank you for your timely response to this clarification. Requestors name: [ ] Phone # [ ] THIS PHYSICIAN QUERY FORM IS A PERMANENT PART OF THE MEDICAL RECORD TRENTON SIMON Feb 18, 2022 22:20 MAHENDRA RENNER DO Feb 19, 2022 05:17
== END 2022-02-17 12:15 | disposition home or self-care (01) | DRG 603 ==
LOC: EDUNIT# 09:29 → ER 09:32 → 4TH 12:34
PROVIDERS: ADMIT Internal Medicine; ATTEND Internal Medicine
DX: L03.116 Cellulitis of left lower limb (principal); I50.42 Chronic combined systolic (congestive) and diastolic (congestive) heart failure; I89.0 Lymphedema, not elsewhere classified; I25.10 Atherosclerotic heart disease of native coronary artery without angina pectoris; J44.9 Chronic obstructive pulmonary disease, unspecified; Z86.718 Personal history of other venous thrombosis and embolism; F17.210 Nicotine dependence, cigarettes, uncomplicated; I48.91 Unspecified atrial fibrillation; Z86.711 Personal history of pulmonary embolism; Z95.1 Presence of aortocoronary bypass graft; I11.0 Hypertensive heart disease with heart failure; Z79.82 Long term (current) use of aspirin; Z79.4 Long term (current) use of insulin; Z79.899 Other long term (current) drug therapy; Z95.5 Presence of coronary angioplasty implant and graft; E78.00 Pure hypercholesterolemia, unspecified; E11.40 Type 2 diabetes mellitus with diabetic neuropathy, unspecified; K21.9 Gastro-esophageal reflux disease without esophagitis; K57.90 Diverticulosis of intestine, part unspecified, without perforation or abscess without bleeding; M19.90 Unspecified osteoarthritis, unspecified site; Z79.01 Long term (current) use of anticoagulants
CPT/HCPCS: 36415; 71045; 80048; 80053; 80202; 82947; 84145; 85007; 85025; 85027; 85610; 94640; 94760; 94761

== ENCOUNTER 2022-02-17 21:24 | Emergency (ER) | payer MEDICARE ==
[~2022-02-17 21:24] MED LIST changes: +ALBU8.5H9 INH; +CALC-654 PO; +CHOL-34 PO; +WRF1T PO
--- NOTE | 2022-02-17 21:46 | ED Lower Extremity ---
General Chief Complaint: Lower Extremity Stated Complaint: L LEG SWELLING,REDNESS,PAIN Nursing Triage Note: PT ARRIVAL TO ER VIA WHEELCHAIR WITH COMPLAINT OF SWELLING AND REDNESS TO LEFT LEG. DIAGNOSED WITH CELLULITIS 2 DAYS AGO BY PCP. STARTED ON LEVOQUIN, ZYVOX FOR THE CELLULITIS BY PCP ZURDO. PT DISCHARGED TODAY FROM HOSPITAL AFTER 4 DAY STAY FOR CELLULITIS. Source: patient Exam Limitations: no limitations History of Present Illness Date Seen by Provider: Feb 17, 2022 Time Seen by Provider: 21:45 Initial Comments This is a 81-year-old female who presented to ER for concerns of increased swelling and pain to her left lower extremity. She had recent admission and has been on IV antibiotics for left lower extremity cellulitis for the past 4 days. She was sent home on Levaquin and Zyvox this afternoon. States that after she was discharged home she noticed increasing redness and swelling. Denies any falls or trauma. Denies fever, chills, nausea, vomiting. Allergies and Home Medications Allergies Coded Allergies: erythromycin base (Verified Allergy, Intermediate, HIVES, 10/10/13) NSAIDS (Non-Steroidal Anti-Inflamma (Verified Allergy, Unknown, 01/10/17) cephalexin (Verified Allergy, Unknown, 10/10/13) Patient Home Medication List Home Medication List Reviewed: Yes Acetaminophen (Tylenol Arthritis) 650 Mg Tablet.er, 1,300 MG PO Q8H PRN for PAIN-MILD (1-4), (Reported) Entered as Reported by: JESSICA ELDER on 12/16/18 1611 Albuterol Sulfate (Proair Hfa) 90 Mcg Hfa.aer.ad, 2 PUFF INH Q6H PRN for SHORTNESS OF BREATH, (Reported) Entered as Reported by: LETY FLORES on 02/13/22 1457 Aspirin (Aspirin) 81 Mg Tab.chew, 81 MG PO DAILY, (Reported) Entered as Reported by: MIGUEL PERALTA on 12/21/16 1110 Benazepril HCl (Benazepril HCl) 40 Mg Tab, 40 MG PO DAILY, (Reported) Entered as Reported by: MIGUEL PERALTA on 12/21/16 1110 Calcium Carbonate/Vitamin D3 (Calcium 500 + D Tablet) 500 Mg Calcium-10 Mcg (400 Unit) Tablet, 1 EACH PO DAILY, (Reported) Entered as Reported by: LEYT FLORES on 02/13/22 1457 Cholecalciferol (Vitamin D3) (Vitamin D3) 25 Mcg (1000 Unit) Tablet, 25 MCG PO, (Reported) Entered as Reported by: LETY FLORES on 02/13/22 1457 Famotidine (Acid Pl Sql Developer (FAMOTIDINE)) 20 Mg Tablet, 20 MG PO BID, (Reported) Entered as Reported by: JESSICA ELDER on 12/16/18 1611 Fluticasone Propion/Salmeterol (Fluticasone-Salmeterol 250-50) 250 Mcg-50 Mcg/D ose Blst.w.dev, 1 PUFF INH HS, (Reported) Entered as Reported by: LETY FLORES on 01/21/21 1604 Furosemide (Furosemide) 40 Mg Tablet, 40 MG PO DAILY, (Reported) Entered as Reported by: MIGUEL PERALTA on 12/21/16 1110 Glipizide (Glipizide ER) 5 Mg Tab.er.24, 5 MG PO BID, (Reported) Entered as Reported by: LETY FLORES on 01/21/21 1604 Hydralazine HCl (Hydralazine HCl) 50 Mg Tablet, 50 MG PO 0700,1800,2300, (Reported) Entered as Reported by: LETY FLORES on 01/21/21 1604 Insulin Determir (Levemir) 100 Unit/Ml Soln, 4 UNITS SC HS, (Reported) Entered as Reported by: JESSICA ELDER on 12/16/18 1611 Ipratropium/Albuterol Sulfate (Iprat-Albut 0.5-3(2.5) mg/3 ml) 3 Ml Ampul.neb, 3 ML IH QID PRN for SHORTNESS OF BREATH, (Reported) Entered as Reported by: KEVIN WHYTE on 08/02/15 1114 Levofloxacin (Levofloxacin) 750 Mg Tablet, 750 MG PO Q48H Prescribed by: MAHENDRA RENNER on 02/17/22 1010 Linezolid (Zyvox) 600 Mg Tablet, 600 MG PO BID Prescribed by: MAHENDRA RENNER on 02/17/22 1010 Metoprolol Tartrate (Metoprolol Tartrate) 100 Mg Tablet, 100 MG PO Q12H, (Reported) Entered as Reported by: JESSICA ELDER on 12/16/18 1611 Montelukast Sodium (Montelukast Sodium) 10 Mg Tablet, 10 MG PO 1800, (Reported) Entered as Reported by: MIGUEL PERALTA on 12/21/16 1110 Polyethylene Glycol 3350 (Polyethylene Glycol 3350) 17 Gm Powd.pack, 17 GM PO DAILY, (Reported) Entered as Reported by: JESSICA ELDER on 12/16/18 1611 Potassium Chloride (Potassium Chloride) 20 Meq Tab.er.prt, 20 MEQ PO DAILY, (Reported) Entered as Reported by: MIGUEL PERALTA on 12/21/16 1110 Pravastatin Sodium (Pravastatin Sodium) 40 Mg Tablet, 20 MG PO BID, (Reported) Entered as Reported by: KEVIN WHYTE on 08/02/15 1109 Warfarin Sodium (Warfarin Sodium) 4 Mg Tablet, 2 MG PO 1800, (Reported) Entered as Reported by: MILAGROS WALSH on 11/23/18 1141 Warfarin Sodium (Warfarin Sodium) 1 Mg Tablet, 1.5 MG PO 1800, (Reported) Entered as Reported by: LETY FLORES on 02/13/22 1457 Discontinued Medications Cefdinir (Cefdinir) 300 Mg Capsule, 300 MG PO BID Discontinued Reason: No Longer Taking Prescribed by: MAHENDRA RENNER on 01/24/21 1119 Cholecalciferol (Vitamin D3) (Vitamin D3) 50 Mcg Capsule, 50 MCG PO 1800, (Reported) Discontinued Reason: No Longer Taking Entered as Reported by: LETY FLORES on 01/21/21 1604 Fluticasone Propionate (Fluticasone Propionate) 16 Gm [place].susp, 1 SPRAY NSEACH DAILY, (Reported) Discontinued Reason: No Longer Taking Entered as Reported by: LETY FLORES on 01/21/21 1604 Linezolid (Zyvox) 600 Mg Tablet, 600 MG PO BID Discontinued Reason: No Longer Taking Prescribed by: MAHENDRA RENNER on 01/24/21 1119 Nystatin (Nystatin) 15 Gm Cream..g., 1 APPLIC TOP BID PRN for RASH, (Reported) Discontinued Reason: No Longer Taking Entered as Reported by: JESSICA ELDER on 12/16/18 1611 Review of Systems Constitutional: No chills, No fever EENTM: no symptoms reported Past Mayywyh-Phjcit-Azeosj Hx Patient Social History Tobacco Use?: No Use of E-Cig and/or Vaping dev: No Substance use?: No Alcohol Use?: No Pt feels they are or have been: No Immunizations Up To Date Tetanus Booster (TDap): Unknown PED Vaccines UTD: Yes Influenza Vaccine Up-to-Date: No; Not Current First/Initial COVID19 Vaccinat: JUL 2020 Second COVID19 Vaccination Elbert: JULY 2020 Third COVID19 Vaccination Date: JUL 2020 Seasonal Allergies Seasonal Allergies: Yes Past Medical History Surgery/Hospitalization HX: PMH: DM2, HTN, COPD, DVT Surgeries: Yes Coronary Stent Respiratory: Yes Pneumonia, Sleep Apnea, COPD Currently Using CPAP: Yes Currently Using BIPAP: No Cardiac: Yes High Cholesterol, Hypertension Neurological: Yes Neuropathy Reproductive Disorders: Yes 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 Disorders: Endometriosis 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 Sexually Transmitted Disease: No HIV/AIDS: No Genitourinary: Yes Bladder Infection Gastrointestinal: Yes Gastroesophageal Reflux, Diverticulosis Musculoskeletal: Yes Arthritis Endocrine: Yes Diabetes, Insulin dep HEENT: Yes Cataract Loss of Vision: Denies Hearing Impairment: Denies Cancer: Yes Skin, Kidney Did You Recieve Any Treatments: Yes What Type of Treatment Did You: Surgical Intervention Psychosocial: No Integumentary: No Blood Disorders: No Adverse Reaction/Blood Tranf: No Family Medical History CABG 19 FATHER Cardiovascular disease 19 FATHER 19 MOTHER Diabetes mellitus 19 MOTHER FH: lung cancer 19 FATHER FH: myocardial infarction 19 MOTHER Hypertension 19 FATHER 19 MOTHER Heart Disease, Diabetes, Hypertension Physical Exam Vital Signs Vital Signs - First Documented 02/17/22 21:37 Temp 37.0 Pulse 95 Resp 20 B/P (MAP) 200/105 (136) Pulse Ox 96 O2 Delivery Room Air Capillary Refill : Less Than 3 Seconds Height, Weight, BMI Height: 5'5.00" Weight: 212lbs. 8.0oz. 96.531520pl; 29.93 BMI Method:Stated Progress/Results/Core Measures Results/Orders Lab Results Laboratory Tests Test 02/17/22 21:50 Range/Units White Blood Count 7.7 4.3-11.0 10^3/uL Red Blood Count 3.99 3.80-5.11 10^6/uL Hemoglobin 11.9 11.5-16.0 g/dL Hematocrit 38 35-52 % Mean Corpuscular Volume 94 80-99 fL Mean Corpuscular Hemoglobin 30 25-34 pg Mean Corpuscular Hemoglobin Concent 32 32-36 g/dL Red Cell Distribution Width 14.2 10.0-14.5 % Platelet Count 225 130-400 10^3/uL Mean Platelet Volume 10.5 9.0-12.2 fL Immature Granulocyte % (Auto) 1 % Neutrophils (%) (Auto) 71 42-75 % Lymphocytes (%) (Auto) 14 12-44 % Monocytes (%) (Auto) 10 0-12 % Eosinophils (%) (Auto) 4 0-10 % Basophils (%) (Auto) 1 0-10 % Neutrophils # (Auto) 5.5 1.8-7.8 10^3/uL Lymphocytes # (Auto) 1.1 1.0-4.0 10^3/uL Monocytes # (Auto) 0.8 0.0-1.0 10^3/uL Eosinophils # (Auto) 0.3 0.0-0.3 10^3/uL Basophils # (Auto) 0.1 0.0-0.1 10^3/uL Immature Granulocyte # (Auto) 0.1 0.0-0.1 10^3/uL D-Dimer 0.32 0.00-0.49 UG/ML Sodium Level 146 H 135-145 MMOL/L Potassium Level 4.2 3.6-5.0 MMOL/L Chloride Level 112 H 98-107 MMOL/L Carbon Dioxide Level 17 L 21-32 MMOL/L Anion Gap 17 H 5-14 MMOL/L Blood Urea Nitrogen 22 H 7-18 MG/DL Creatinine 0.90 0.60-1.30 MG/DL Estimat Glomerular Filtration Rate 65 BUN/Creatinine Ratio 24 Glucose Level 145 H 70-105 MG/DL Calcium Level 9.6 8.5-10.1 MG/DL Corrected Calcium 9.8 8.5-10.1 MG/DL Total Bilirubin 0.4 0.1-1.0 MG/DL Aspartate Amino Transf (AST/SGOT) 16 5-34 U/L Alanine Aminotransferase (ALT/SGPT) 14 0-55 U/L Alkaline Phosphatase 55 40-136 U/L C-Reactive Protein High Sensitivity 3.27 H 0.00-0.50 MG/DL Total Protein 6.7 6.4-8.2 GM/DL Albumin 3.7 3.2-4.5 GM/DL My Orders Orders - KASSANDRA CAROLINA KNOCKDOWN MAN Cbc With Automated Diff (02/17/22 21:56) Comprehensive Metabolic Panel (02/17/22 21:56) Hs C Reactive Protein (02/17/22 21:56) Fibrin Degradation Products (02/17/22 21:59) Vital Signs/I&O 02/17/22 21:37 Temp 37.0 Pulse 95 Resp 20 B/P (MAP) 200/105 (136) Pulse Ox 96 O2 Delivery Room Air Blood Pressure Mean: 136 Departure Impression Primary Impression: Left leg cellulitis Disposition: HOME, SELF-CARE Condition: Stable Departure-Patient Inst. Decision time for Depature: 22:47 Referrals: MAHENDRA RENNER DO (PCP/Family) Primary Care Physician Patient Instructions: Deep Vein Thrombosis (Blood Clots in the Legs) (DC) Add. Discharge Instructions: Plan: 1. Continue your antibiotics as prescribed. May take Tylenol as needed for discomfort per package. 2. Keep your left leg elevated as much as possible and avoid keeping dependent when sitting. 3. Take your Warfarin as previously directed. 4. Return to hospital for fever, chills, increased redness, nausea/vomiting. 5. Return to ER for any new, concerning, or worsening symptoms. All discharge instructions reviewed with patient and/or family. Voiced understanding. KASSANDRA CAROLINA KNOCKDOWN MAN Feb 17, 2022 21:46
[2022-02-17 22:01] LABS: BASOPHILS # (AUTO) 0.1 10^3/uL (0.0-0.1); BASOPHILS % (AUTO) 1 % (0-10); EOSINOPHILS # (AUTO) 0.3 10^3/uL (0.0-0.3); EOSINOPHILS % (AUTO) 4 % (0-10); HEMATOCRIT 38 % (35-52); HEMOGLOBIN 11.9 g/dL (11.5-16.0); LYMPHOCYTES # (AUTO) 1.1 10^3/uL (1.0-4.0); LYMPHOCYTES % (AUTO) 14 % (12-44); MEAN CORPUSCULAR HEMOGLOBIN 30 pg (25-34); MEAN CORPUSCULAR HGB CONC 32 g/dL (32-36); MEAN CORPUSCULAR VOLUME 94 fL (80-99); MEAN PLATELET VOLUME 10.5 fL (9.0-12.2); MONOCYTES # (AUTO) 0.8 10^3/uL (0.0-1.0); MONOCYTES % (AUTO) 10 % (0-12); NEUTROPHILS # (AUTO) 5.5 10^3/uL (1.8-7.8); NEUTROPHILS % (AUTO) 71 % (42-75); PLATELET COUNT 225 10^3/uL (130-400); WHITE BLOOD COUNT 7.7 10^3/uL (4.3-11.0)
[2022-02-17 22:24] LABS: ALBUMIN 3.7 GM/DL (3.2-4.5); POTASSIUM 4.2 MMOL/L (3.6-5.0)
[2022-02-17 22:26] LABS: CALCIUM 9.6 MG/DL (8.5-10.1)
[2022-02-17 22:27] LABS: TOTAL PROTEIN 6.7 GM/DL (6.4-8.2)
[2022-02-17 22:28] LABS: BILIRUBIN,TOTAL 0.4 MG/DL (0.1-1.0)
[2022-02-17 22:30] LABS: CREATININE SERUM 0.9 MG/DL (0.60-1.30)
[2022-02-17 23:00] VITALS: BP 157/63
== END 2022-02-17 23:08 | disposition home or self-care (01) ==
LOC: EDUNIT# 21:24 → ER 21:27
DX: L03.116 Cellulitis of left lower limb (principal); G47.30 Sleep apnea, unspecified; E11.40 Type 2 diabetes mellitus with diabetic neuropathy, unspecified; Z99.89 Dependence on other enabling machines and devices; Z79.4 Long term (current) use of insulin
CPT/HCPCS: 36415; 80053; 85025; 85379; 86141

== ENCOUNTER 2022-02-22 09:57 | Emergency (ER) | payer MEDICARE ==
[~2022-02-22] VITALS: Ht 165.1 cm; Wt 92.5 kg
[2022-02-22 10:01] VITALS: BP 147/72
[2022-02-22] MEDS ORDERED: ACHD5005 PO (10:21)
--- NOTE | 2022-02-22 10:23 | ED Hip Pain/Injury ---
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 PT DENIES INJURY, A&OX4. PT IS ALSO CURRENTLY BEING TREATED OUTPATIENT FOR CELLULITIS OF LLE. Source: patient Exam Limitations: no limitations History of Present Illness Date Seen by Provider: Feb 22, 2022 Time Seen by Provider: 10:00 Initial Comments 81-year-old female presents to the emergency department today for right hip pain. Symptoms started yesterday afternoon and have been progressive throughout the day. Notably she is being treated for cellulitis of her left leg, foot and has 2 more days of antibiotics. She developed pain in her right hip yesterday. No redness, swelling. No known injury or fall. She does have a history of DVT and is on Coumadin. Her INR was therapeutic at last check. No chest pain or shortness of breath. She has no swelling in the leg. Pain is described as a dull throbbing sensation in her right anterolateral hip, proximal leg. Aggravated by weightbearing and relieved by rest. She has tried Tylenol arthritis without much relief. Allergies and Home Medications Allergies Coded Allergies: erythromycin base (Verified Allergy, Intermediate, HIVES, 10/10/13) NSAIDS (Non-Steroidal Anti-Inflamma (Verified Allergy, Unknown, 01/10/17) cephalexin (Verified Allergy, Unknown, 10/10/13) Patient Home Medication List Home Medication List Reviewed: Yes Acetaminophen (Tylenol Arthritis) 650 Mg Tablet.er, 1,300 MG PO Q8H PRN for PAIN-MILD (1-4), (Reported) Entered as Reported by: JESSICA ELDER on 12/16/18 1611 Albuterol Sulfate (Proair Hfa) 90 Mcg Hfa.aer.ad, 2 PUFF INH Q6H PRN for SHORTNESS OF BREATH, (Reported) Entered as Reported by: LETY FLORES on 02/13/22 1457 Aspirin (Aspirin) 81 Mg Tab.chew, 81 MG PO DAILY, (Reported) Entered as Reported by: MIGUEL PERALTA on 12/21/16 1110 Benazepril HCl (Benazepril HCl) 40 Mg Tab, 40 MG PO DAILY, (Reported) Entered as Reported by: MIGUEL PERALTA on 12/21/16 1110 Calcium Carbonate/Vitamin D3 (Calcium 500 + D Tablet) 500 Mg Calcium-10 Mcg (400 Unit) Tablet, 1 EACH PO DAILY, (Reported) Entered as Reported by: LETY FLORES on 02/13/22 1457 Cholecalciferol (Vitamin D3) (Vitamin D3) 25 Mcg (1000 Unit) Tablet, 25 MCG PO, (Reported) Entered as Reported by: LETY FLORES on 02/13/22 1457 Famotidine (Acid Capacity Planning Manager (FAMOTIDINE)) 20 Mg Tablet, 20 MG PO BID, (Reported) Entered as Reported by: JESSICA ELDER on 12/16/18 1611 Fluticasone Propion/Salmeterol (Fluticasone-Salmeterol 250-50) 250 Mcg-50 Mcg/Dose Blst.w.dev, 1 PUFF INH HS, (Reported) Entered as Reported by: LETY FLORES on 01/21/21 1604 Furosemide (Furosemide) 40 Mg Tablet, 40 MG PO DAILY, (Reported) Entered as Reported by: MIGUEL PERALTA on 12/21/16 1110 Glipizide (Glipizide ER) 5 Mg Tab.er.24, 5 MG PO BID, (Reported) Entered as Reported by: LETY FLORES on 01/21/21 1604 Hydralazine HCl (Hydralazine HCl) 50 Mg Tablet, 50 MG PO 0700,1800,2300, (Reported) Entered as Reported by: LETY FLORES on 01/21/21 1604 Insulin Determir (Levemir) 100 Unit/Ml Soln, 4 UNITS SC HS, (Reported) Entered as Reported by: JESSICA ELDER on 12/16/18 1611 Ipratropium/Albuterol Sulfate (Iprat-Albut 0.5-3(2.5) mg/3 ml) 3 Ml Ampul.neb, 3 ML IH QID PRN for SHORTNESS OF BREATH, (Reported) Entered as Reported by: KEVIN WHYTE on 08/02/15 1114 Levofloxacin (Levofloxacin) 750 Mg Tablet, 750 MG PO Q48H Prescribed by: MAHENDRA RENNER on 02/17/22 1010 Linezolid (Zyvox) 600 Mg Tablet, 600 MG PO BID Prescribed by: MAHENDRA RENNER on 02/17/22 1010 Metoprolol Tartrate (Metoprolol Tartrate) 100 Mg Tablet, 100 MG PO Q12H, (Reported) Entered as Reported by: JESSICA ELDER on 12/16/18 1611 Montelukast Sodium (Montelukast Sodium) 10 Mg Tablet, 10 MG PO 1800, (Reported) Entered as Reported by: MIGUEL PERALTA on 12/21/16 1110 Polyethylene Glycol 3350 (Polyethylene Glycol 3350) 17 Gm Powd.pack, 17 GM PO DAILY, (Reported) Entered as Reported by: JESSICA ELDER on 12/16/18 1611 Potassium Chloride (Potassium Chloride) 20 Meq Tab.er.prt, 20 MEQ PO DAILY, (Reported) Entered as Reported by: MIGUEL PERALTA on 12/21/16 1110 Pravastatin Sodium (Pravastatin Sodium) 40 Mg Tablet, 20 MG PO BID, (Reported) Entered as Reported by: KEVIN WHYTE on 08/02/15 1109 Warfarin Sodium (Warfarin Sodium) 4 Mg Tablet, 2 MG PO 1800, (Reported) Entered as Reported by: MILAGROS WALSH on 11/23/18 1141 Warfarin Sodium (Warfarin Sodium) 1 Mg Tablet, 1.5 MG PO 1800, (Reported) Entered as Reported by: LETY FLORES on 02/13/22 1457 Review of Systems Constitutional: no symptoms reported EENTM: no symptoms reported Respiratory: no symptoms reported Cardiovascular: no symptoms reported Gastrointestinal: no symptoms reported Genitourinary: no symptoms reported Musculoskeletal: joint pain (Right hip) Skin: no symptoms reported Psychiatric/Neurological: No Symptoms Reported Past Oadmelw-Oejhoa-Xigisi Hx Patient Social History Tobacco Use?: Yes Tobacco type used: Cigarettes Smoking Status: Current Someday Smoker Use of E-Cig and/or Vaping dev: No Substance use?: No Alcohol Use?: No Immunizations Up To Date Tetanus Booster (TDap): Unknown PED Vaccines UTD: Yes First/Initial COVID19 Vaccinat: JUL 2020 Second COVID19 Vaccination Elbert: JULY 2020 Third COVID19 Vaccination Date: N/A COVID19 Vaccine Micro Computer Specialist: MEJIA Seasonal Allergies Seasonal Allergies: Yes Past Medical History Surgery/Hospitalization HX: PMH: DM2, HTN, COPD, DVT Surgeries: Yes Coronary Stent Respiratory: Yes Pneumonia, Sleep Apnea, COPD Currently Using CPAP: Yes Currently Using BIPAP: No Cardiac: Yes High Cholesterol, Hypertension Neurological: Yes Neuropathy Reproductive Disorders: Yes 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 Sexually Transmitted Disease: No HIV/AIDS: No Genitourinary: Yes Bladder Infection Gastrointestinal: Yes Gastroesophageal Reflux, Diverticulosis Musculoskeletal: Yes Arthritis Endocrine: Yes Diabetes, Insulin dep HEENT: Yes Cataract Loss of Vision: Denies Hearing Impairment: Denies Cancer: Yes Skin, Kidney Did You Recieve Any Treatments: Yes What Type of Treatment Did You: Surgical Intervention Psychosocial: No Integumentary: No Blood Disorders: No Adverse Reaction/Blood Tranf: No Family Medical History Reviewed Nursing Family Hx CABG 19 FATHER Cardiovascular disease 19 FATHER 19 MOTHER Diabetes mellitus 19 MOTHER FH: lung cancer 19 FATHER FH: myocardial infarction 19 MOTHER Hypertension 19 FATHER 19 MOTHER Heart Disease, Diabetes, Hypertension Physical Exam Vital Signs Vital Signs - First Documented 02/22/22 10:01 Temp 36.0 Pulse 70 Resp 20 B/P (MAP) 147/72 (97) Pulse Ox 96 O2 Delivery Room Air Capillary Refill : Less Than 3 Seconds Height, Weight, BMI Height: 5'5.00" Weight: 212lbs. 8.0oz. 96.273197nl; 33.00 BMI Method:Stated General Appearance: No Apparent Distress, WD/WN HEENT: Normal ENT Inspection, Pharynx Normal Neck: Full Range of Motion, Normal Inspection, Non Tender, Supple Cardiovascular: Regular Rate, Rhythm, No Edema, No Gallop, No JVD, No Murmur, Normal Peripheral Pulses Respiratory: Chest Non Tender, Lungs Clear, Normal Breath Sounds, No Accessory Muscle Use, No Respiratory Distress Gastrointestinal: Normal Bowel Sounds, No Organomegaly, No Pulsatile Mass, Non Tender, Soft Back: Normal Inspection, No CVA Tenderness, No Vertebral Tenderness Extremity: Other (Tenderness palpation right anterior lateral hip near the vastus lateralis muscle. There does appear to be a muscle spasm in this area. Left lower extremity is wrapped with an Casimiro wrap, visualized portion of cellulitis appears to be healing. Bilateral legs are neurovascular motor and sensory intact.) Neurologic/Psychiatric: Alert, Oriented x3 Skin: Normal Color, Warm/Dry Progress/Results/Core Measures Results/Orders Vital Signs/I&O 02/22/22 10:01 Temp 36.0 Pulse 70 Resp 20 B/P (MAP) 147/72 (97) Pulse Ox 96 O2 Delivery Room Air Blood Pressure Mean: 97 Departure Communication (Admissions) Patient is hemodynamically stable no red flag symptoms, no injury. She has what appears to be muscle spasm in the area of her tenderness. I think this is likely related to her compensating and bearing extra weight on the right leg due to the cellulitis in the left foot and leg. Advised to increase ambulation. No indication for DVT, other emergent medical condition. She has no chest pain or shortness of breath and acute PE. Last INR was therapeutic according to her. She is discharged in stable condition with supportive care and close follow-up. She does have a scheduled appoint with her primary care doctor tomorrow. Impression Primary Impression: Musculoskeletal pain Disposition: HOME, SELF-CARE Condition: Stable Departure-Patient Inst. Referrals: MAHENDRA RENNER DO (PCP/Family) Primary Care Physician Patient Instructions: Acute Pain, Adult (DC) Add. Discharge Instructions: Please take the prescribed medicine as needed for pain. Do not drive or make important decisions while taking this as it may make you drowsy. Continue to use your walker at home. Try to walk as much as possible and equally distribute your weight when able. Return to the emergency department for any severe concerns. Follow-up with your primary physician tomorrow as scheduled. All discharge instructions reviewed with patient and/or family. Voiced understanding. Scripts Hydrocodone Bit/Acetaminophen (HYDROcodone/APAP 5 MG/325 MG TAB) 1 Tab Tab 1 TAB PO Q6H for Pain for 3 Days, #12 TAB Prov: ALFIE SAMUEL DO 02/22/22 ALFIE SAMUEL DO Feb 22, 2022 10:23
== END 2022-02-22 10:42 | disposition home or self-care (01) ==
LOC: EDUNIT# 09:57 → ER 09:58
DX: M25.551 Pain in right hip (principal); G47.30 Sleep apnea, unspecified; E11.40 Type 2 diabetes mellitus with diabetic neuropathy, unspecified; F17.210 Nicotine dependence, cigarettes, uncomplicated; Z86.718 Personal history of other venous thrombosis and embolism; Z99.89 Dependence on other enabling machines and devices; Z79.4 Long term (current) use of insulin; Z79.01 Long term (current) use of anticoagulants
CPT/HCPCS: 99281

== ENCOUNTER → 2022-08-19 | Outpatient (CLI) | payer MEDICARE ==
--- NOTE | 2022-08-19 11:28 | Diagnostic Imaging Report ---
INDICATION: Routine screening. Comparison is made with prior mammogram 08/18/2021 and 08/16/2020. 2-D and 3-D bilateral screening mammography was performed with CAD. CAD is utilized. The current study was also evaluated with a Computer Aided Detection (CAD) system. Scattered fibroglandular densities are identified bilaterally. A fibronodular parenchymal pattern appears stable. There are scattered benign parenchymal and vascular calcifications bilaterally. No new mass or malignant-appearing microcalcifications are seen. Axillae are unremarkable. IMPRESSION: BI-RADS Category 2 No mammographic features suspicious for malignancy are identified. ACR BI-RADS Category 2: Benign findings. Result letter will be mailed to the patient. Note: At least 10% of breast cancer is not imaged by mammography. Dictated by: Dictated on workstation # [id number]
== END ==
LOC: RAD 09:43
PROVIDERS: ATTEND Internal Medicine
DX: Z12.31 Encounter for screening mammogram for malignant neoplasm of breast (principal)
CPT/HCPCS: 77063; 77067

== ENCOUNTER 2022-11-06 12:27 | Emergency (ER) | payer MEDICARE ==
[~2022-11-06] VITALS: Ht 165 cm; Wt 104.0 kg
[2022-11-06] MEDS ORDERED: ORPHENADRINE 60 MG/2 ML (NORFLEX) AMP (ED ONLY) IM ONE (13:00)
--- NOTE | 2022-11-06 13:10 | ED Hip Pain/Injury ---
General Chief Complaint: Hip/Pelvic Problems Stated Complaint: RT HIP PAIN Nursing Triage Note: PT AMB TO RM 6 PT CO OF R HIP BUTTOCK PAIN THAT GOES DOWN R LEG. DENIES INJURY. Source: patient Exam Limitations: no limitations (ELISHA COATES APRN) History of Present Illness Date Seen by Provider: Nov 06, 2022 Time Seen by Provider: 12:50 Initial Comments 82-year-old female presents to the ER with complaints of right hip pain for the last 3 days. Denies any injury or fall. She points to her right gluteus when describing the pain. States last night she did not have any pain while in bed, but had excruciating pain when she got up from bed. She first told nursing staff that the pain goes down to her right leg, but when questioned again she said the pain stays right in her right gluteus area. She reports pain with palpation of this area. Denies fevers. Denies numbness or tingling in her legs. Reports chronic problems with urinary incontinence, denies change in this. Denies bowel incontinence. Patient is able to walk. Patient has chronic lower extremity edema worse on left. Patient has lymphedema. She denies any change in the swelling. She denies any rashes. (ELISHA COATES APRN) Allergies and Home Medications Allergies Coded Allergies: erythromycin base (Verified Allergy, Intermediate, HIVES, 10/10/13) NSAIDS (Non-Steroidal Anti-Inflamma (Verified Allergy, Unknown, 01/10/17) cephalexin (Verified Allergy, Unknown, 10/10/13) Patient Home Medication List Home Medication List Reviewed: Yes (ELISHA COATES APRN) Acetaminophen (Tylenol Arthritis) 650 Mg Tablet.er, 1,300 MG PO Q8H PRN for PAIN-MILD (1-4), (Reported) Entered as Reported by: JESSICA ELDER on 12/16/18 1611 Albuterol Sulfate (Proair Hfa) 90 Mcg Hfa.aer.ad, 2 PUFF INH Q6H PRN for SHOR TNESS OF BREATH, (Reported) Entered as Reported by: LETY FLORES on 02/13/22 1457 Aspirin (Aspirin) 81 Mg Tab.chew, 81 MG PO DAILY, (Reported) Entered as Reported by: MIGUEL PERALTA on 12/21/16 1110 Benazepril HCl (Benazepril HCl) 40 Mg Tab, 40 MG PO DAILY, (Reported) Entered as Reported by: MIGUEL PERALTA on 12/21/16 1110 Calcium Carbonate/Vitamin D3 (Calcium 500 + D Tablet) 500 Mg Calcium-10 Mcg (400 Unit) Tablet, 1 EACH PO DAILY, (Reported) Entered as Reported by: LETY FLORES on 02/13/22 1457 Cholecalciferol (Vitamin D3) (Vitamin D3) 25 Mcg (1000 Unit) Tablet, 25 MCG PO, (Reported) Entered as Reported by: LETY FLORES on 02/13/22 1457 Famotidine (Acid In [employer]room [employer] (FAMOTIDINE)) 20 Mg Tablet, 20 MG PO BID, (Reported) Entered as Reported by: JESSICA ELDER on 12/16/18 1611 Fluticasone Propion/Salmeterol (Fluticasone-Salmeterol 250-50) 250 Mcg-50 Mcg/Dose Blst.w.dev, 1 PUFF INH HS, (Reported) Entered as Reported by: LETY FLORES on 01/21/21 1604 Furosemide (Furosemide) 40 Mg Tablet, 40 MG PO DAILY, (Reported) Entered as Reported by: MIGUEL PERALTA on 12/21/16 1110 Glipizide (Glipizide ER) 5 Mg Tab.er.24, 5 MG PO BID, (Reported) Entered as Reported by: LETY FLORES on 01/21/21 1604 Hydralazine HCl (Hydralazine HCl) 50 Mg Tablet, 50 MG PO 0700,1800,2300, (Reported) Entered as Reported by: LETY FLORES on 01/21/21 1604 Hydrocodone Bit/Acetaminophen (HYDROcodone/APAP 5 MG/325 MG TAB) 1 Tab Tab, 1 TAB PO Q6H Prescribed by: ALFIE SAMUEL MD on 02/22/22 1022 Insulin Determir (Levemir) 100 Unit/Ml Soln, 4 UNITS SC HS, (Reported) Entered as Reported by: JESSICA ELDER on 12/16/18 1611 Ipratropium/Albuterol Sulfate (Iprat-Albut 0.5-3(2.5) mg/3 ml) 3 Ml Ampul.neb, 3 ML IH QID PRN for SHORTNESS OF BREATH, (Reported) Entered as Reported by: KEVIN WHYTE on 08/02/15 1114 Levofloxacin (Levofloxacin) 750 Mg Tablet, 750 MG PO Q48H Prescribed by: MAHENDRA RENNER on 02/17/22 1010 Linezolid (Zyvox) 600 Mg Tablet, 600 MG PO BID Prescribed by: MAHENDRA RENNER on 02/17/22 1010 Metoprolol Tartrate (Metoprolol Tartrate) 100 Mg Tablet, 100 MG PO Q12H, (Reported) Entered as Reported by: JESSICA ELDER on 12/16/18 1611 Montelukast Sodium (Montelukast Sodium) 10 Mg Tablet, 10 MG PO 1800, (Reported) Entered as Reported by: MIGUEL PERALTA on 12/21/16 1110 Polyethylene Glycol 3350 (Polyethylene Glycol 3350) 17 Gm Powd.pack, 17 GM PO DAILY, (Reported) Entered as Reported by: JESSICA ELDER on 12/16/18 1611 Potassium Chloride (Potassium Chloride) 20 Meq Tab.er.prt, 20 MEQ PO DAILY, (Reported) Entered as Reported by: MIGUEL PERALTA on 12/21/16 1110 Pravastatin Sodium (Pravastatin Sodium) 40 Mg Tablet, 20 MG PO BID, (Reported) Entered as Reported by: KEVIN WHYTE on 08/02/15 1109 Warfarin Sodium (Warfarin Sodium) 4 Mg Tablet, 2 MG PO 1800, (Reported) Entered as Reported by: MILAGROS WALSH on 11/23/18 1141 Warfarin Sodium (Warfarin Sodium) 1 Mg Tablet, 1.5 MG PO 1800, (Reported) Entered as Reported by: LETY FLORES on 02/13/22 1457 Review of Systems Constitutional: see HPI (ELISHA COATES APRN) Past Divynum-Gwmfwv-Watder Hx Patient Social History Tobacco Use?: Yes Tobacco type used: Cigarettes Smoking Status: Current Everyday Smoker Substance use?: No Alcohol Use?: No Pt feels they are or have been: No (ELISHA COATES APRN) Immunizations Up To Date Tetanus Booster (TDap): Unknown PED Vaccines UTD: Yes First/Initial COVID19 Vaccinat: JUL 2020 Second COVID19 Vaccination Elbert: JULY 2020 Third COVID19 Vaccination Date: N/A (ELISHA COATES APRN) Seasonal Allergies Seasonal Allergies: Yes (ELISHA COATES APRN) Past Medical History Surgery/Hospitalization HX: PMH: DM2, HTN, COPD, DVT Surgeries: Yes Coronary Stent Respiratory: Yes Pneumonia, Sleep Apnea, COPD Currently Using CPAP: Yes Currently Using BIPAP: No Cardiac: Yes High Cholesterol, Hypertension Neurological: Yes Neuropathy Reproductive Disorders: Yes 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 Disorders: Endometriosis 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: Menopausal Sexually Transmitted Disease: No HIV/AIDS: No Genitourinary: Yes Bladder Infection Gastrointestinal: Yes Gastroesophageal Reflux, Diverticulosis Musculoskeletal: Yes Arthritis Endocrine: Yes Diabetes, Insulin dep HEENT: Yes Cataract Loss of Vision: Denies Hearing Impairment: Denies Cancer: Yes Skin, Kidney Did You Recieve Any Treatments: Yes What Type of Treatment Did You: Surgical Intervention Psychosocial: No Integumentary: No Blood Disorders: No Adverse Reaction/Blood Tranf: No (ELISHA COATES APRN) Family Medical History CABG 19 FATHER Cardiovascular disease 19 FATHER 19 MOTHER Diabetes mellitus 19 MOTHER FH: lung cancer 19 FATHER FH: myocardial infarction 19 MOTHER Hypertension 19 FATHER 19 MOTHER Heart Disease, Diabetes, Hypertension (ELISHA COATES APRN) Physical Exam Vital Signs Vital Signs - First Documented 11/06/22 11/06/22 12:35 14:05 Temp 36.6 Pulse 69 Resp 18 B/P (MAP) 190/95 (126) Pulse Ox 97 O2 Delivery Room Air (SHEILA BURK MD) Vital Signs Capillary Refill : Less Than 3 Seconds (ELISHA COATES APRN) Height, Weight, BMI Height: 5'5.00" Weight: 212lbs. 8.0oz. 96.058702nu; 38.00 BMI Method:Stated General Appearance: No Apparent Distress, WD/WN Neck: Non Tender, Supple Cardiovascular: Regular Rate, Rhythm Respiratory: Lungs Clear, Normal Breath Sounds, No Accessory Muscle Use, No Respiratory Distress Back: Normal Inspection, No Vertebral Tenderness Extremity: Normal Range of Motion, Non Tender (Leg is not tender to palpation), No Calf Tenderness, Swelling (Chronic lower extremity edema, patient has history of lymphedema), Other (Tenderness to right gluteal area, no erythema of lower extremities) Neurologic/Psychiatric: Alert, Normal Mood/Affect Skin: Normal Color, Warm/Dry; No Rash (ELISHA COATES APRN) Progress/Results/Core Measures Results/Orders Vital Signs/I&O 11/06/22 11/06/22 12:35 14:05 Temp 36.6 36.6 Pulse 69 64 Resp 18 18 B/P (MAP) 190/95 (126) 167/92 Pulse Ox 97 99 O2 Delivery Room Air (SHEILA BURK MD) Blood Pressure Mean: 126 Progress Progress Note : Progress Note Patient seen and evaluated, resting comfortably in bed, no acute distress. [facility] ed on exam and symptoms, x-ray of right hip ordered. Norflex ordered. Considered Toradol, patient cannot take NSAIDs due to heart failure. Discussed steroid shot with patient and Medrol Dosepak. Patient said she would like to defer due to her diabetes and she is supposed to get steroid injections by orthopedics the beginning of November. X-ray shows mild osteoarthritic changes of the right hip. Results discussed with patient. Patient reports her pain is better after the Norflex. Will discharge with prescription for Flexeril. Patient has an appointment with Dr. Renner, patient's primary care provider, at 3 PM today. Discharge instructions and return precautions provided. (ELISHA COATES APRN) Diagnostic Imaging Diagonstic Imaging: Xray Plain Films/CT/US/NM/MRI: pelvis, hip Comments [facility], [place] NAME: NATALIIA RAMIRES [facility] REC#: [id number] PT STATUS: REG ER : 1940 PHYSICIAN: ELISHA COATES APRN ADMIT DATE: 11/06/22/ER Draft Date of Exam:11/06/22 PELVIS WITH RIGHT HIP 2-3VIEWS INDICATION: Right hip and buttock pain. COMPARISON: 02/07/2021. FINDINGS: AP view of the pelvis and two dedicated radiographic views of the right hip were obtained. There is no fracture, dislocation, bone destruction, or radiopaque foreign body. The visualized pelvic osseous structures and the SI joints demonstrate no acute fracture or dislocation. Mild osteoarthritic changes are present. No unexpected radiopaque foreign bodies are seen. The surrounding soft tissue structures are unremarkable. IMPRESSION: 1. Mild osteoarthritic changes of the right hip. 2. No acute fracture or dislocation in the pelvis or right hip. Dictated on workstation # [id number] Dict: 11/06/22 1325 Trans: 11/06/22 1330 [id number] Interpreted by: JUSTINE STANLEY MD Electronically signed by: (ELISHA COATES APRN) Departure Impression Primary Impression: Hip pain Qualified Codes: M25.551 - Pain in right hip Disposition: HOME, SELF-CARE Condition: Stable Departure-Patient Inst. Decision time for Depature: 13:47 (ELISHA COATES APRN) Referrals: MAHENDRA RENNER DO (PCP/Family) Primary Care Physician Patient Instructions: Hip Pain Add. Discharge Instructions: You may take 650 mg of Tylenol every 6 hours as needed for pain. Take Flexeril up to 3 times a day as needed for pain and muscle spasms, it may make you sleepy. Follow-up with Dr. Renner. Return for inability to walk, numbness or tingling of your inner thighs, bowel incontinence or worsening bladder incontinence, or any other new, concerning, or worsening symptoms. All discharge instructions reviewed with patient and/or family. Voiced understa nding. ATTENDING PHYSICIAN NOTE: I was physically present as attending physician in the emergency department during the care of this patient, but I was not directly involved in the decision making or delivery of care for this patient. (SHEILA BURK MD) ELISHA COATES APRN Nov 06, 2022 13:10 SHEILA BURK MD Nov 09, 2022 10:46
--- NOTE | 2022-11-06 13:30 | Diagnostic Imaging Report ---
INDICATION: Right hip and buttock pain. COMPARISON: 02/07/2021. FINDINGS: AP view of the pelvis and two dedicated radiographic views of the right hip were obtained. There is no fracture, dislocation, bone destruction, or radiopaque foreign body. The visualized pelvic osseous structures and the SI joints demonstrate no acute fracture or dislocation. Mild osteoarthritic changes are present. No unexpected radiopaque foreign bodies are seen. The surrounding soft tissue structures are unremarkable. IMPRESSION: 1. Mild osteoarthritic changes of the right hip. 2. No acute fracture or dislocation in the pelvis or right hip. Dictated by: Dictated on workstation # [id number]
[2022-11-06 14:05] VITALS: BP 167/92
== END 2022-11-06 14:06 | disposition home or self-care (01) ==
LOC: EDUNIT# 12:27 → ER 12:29
DX: M25.551 Pain in right hip (principal); F17.210 Nicotine dependence, cigarettes, uncomplicated; E11.9 Type 2 diabetes mellitus without complications; G47.30 Sleep apnea, unspecified; Z79.4 Long term (current) use of insulin; Z99.89 Dependence on other enabling machines and devices; Z88.6 Allergy status to analgesic agent